=== PATIENT | female | born 1935 | race Caucasian/White ===

== ENCOUNTER 2017-05-19 06:00 | Outpatient (RCR) | payer SELFPAY | END 2017-05-25 23:59 | LOC: CR 06:00 | PROVIDERS: Family Provider Family Medicine; PCP Family Medicine; Visit Provider Internal Medicine Cardiovascular Disease | DX: Z00.00 Encounter for general adult medical examination without abnormal findings (principal) ==

== ENCOUNTER 2017-06-21 06:00 | Outpatient (RCR) | payer MEDICARE, SELFPAY ==
[2017-04-26 07:00] VITALS: BP 158/75; BMI 33.0
== END 2017-06-22 23:59 ==
LOC: CR 06:00
PROVIDERS: Family Provider Family Medicine; PCP Family Medicine; Visit Provider Internal Medicine Cardiovascular Disease
DX: Z00.00 Encounter for general adult medical examination without abnormal findings (principal)

== ENCOUNTER 2017-07-21 06:00 | Outpatient (RCR) | payer SELFPAY | END 2017-07-23 23:59 | LOC: CR 06:00 | PROVIDERS: Family Provider Family Medicine; PCP Family Medicine; Visit Provider Internal Medicine Cardiovascular Disease | DX: Z00.00 Encounter for general adult medical examination without abnormal findings (principal) ==

== ENCOUNTER 2017-08-18 06:00 | Outpatient (RCR) | payer SELFPAY | END 2017-08-22 23:59 | LOC: CR 06:00 | PROVIDERS: Family Provider Family Medicine; PCP Family Medicine; Visit Provider Internal Medicine Cardiovascular Disease | DX: Z00.00 Encounter for general adult medical examination without abnormal findings (principal) ==

== ENCOUNTER → 2017-08-26 08:34 | Outpatient (CLI) | payer MEDICARE, OTHER, SELFPAY ==
[2017-08-26 10:42] LABS: Microalbumin,Random Urine 6.9 mg/L (NO RANGE EST.)
[2017-08-26 10:45] LABS: AST(SGOT) 16 U/L (15-37); Alanine Aminotransfer ALT/SGPT 16 U/L (13-56); Albumin, Serum 3.5 g/dL (3.2-5.0); Alkaline Phosphatase 73 U/L (45-117); Anion Gap 7 (5-15); BUN 29 mg/dL (7-18); BUN/Creat Ratio 33.4 RATIO (10-20); Bilirubin, Direct 0.14 mg/dL (0.00-0.30); Calcium,Total 8.6 mg/dL (8.5-10.1); Chloride 106 mmol/L (98-107); Creatinine, Serum 0.87 mg/dL (0.55-1.02); EST Glomerular Filtration Rate 67 mL/min (>60); Est Glom Filt Rate - Afr Amer 81 mL/min (>60); Globulin 3.2 g/dL (2.2-4.2); Glucose 118 mg/dL (74-106); Potassium 3.8 mmol/L (3.5-5.1); Protein, Total 6.7 g/dL (6.4-8.2); Sodium Level 138 mmol/L (136-145); Thyroid Stim Hormone (TSH) 1.66 uIU/mL (0.358-3.74)
== END ==
PROVIDERS: Family Provider Family Medicine; PCP Family Medicine; Visit Provider Family Medicine
DX: E11.9 Type 2 diabetes mellitus without complications (principal); E03.9 Hypothyroidism, unspecified
CPT/HCPCS: 36415; 80048; 80076; 82043; 82570; 84443

== ENCOUNTER 2017-09-22 06:00 | Outpatient (RCR) | payer SELFPAY | END 2017-09-22 23:59 | LOC: CR 06:00 | PROVIDERS: Family Provider Family Medicine; PCP Family Medicine; Visit Provider Internal Medicine Cardiovascular Disease | DX: Z00.00 Encounter for general adult medical examination without abnormal findings (principal) ==

== ENCOUNTER 2017-09-22 09:30 | Outpatient (RCR) | payer MEDICARE, OTHER, SELFPAY ==
[2017-09-15 08:59] VITALS: BP 185/94; PULSE 57; RESP 18; TEMP 36.4; BMI 71.1
--- NOTE | 2017-09-15 14:01 | PCM.WC.HP ---
(1) Ulcer of right foot with fat layer exposed Status: Acute Current Visit: Yes Code(s): L97.512 - Non-pressure chronic ulcer of other part of right foot with fat layer exposed (2) Type 2 diabetes mellitus with diabetic polyneuropathy Status: Acute Current Visit: Yes Code(s): E11.42 - Type 2 diabetes mellitus with diabetic polyneuropathy (3) Lower extremity edema Status: Acute Current Visit: Yes Code(s): R60.0 - Localized edema History of Present Illness Date of Service: 09/15/17 Chief Complaint: ulcer right second toe History of Wound: This 81-year-old diabetic female was referred to the wound healing center by Dr. Rowland. Patient was seen by him in office last week and she had a small blister to the lateral right second toe, with a small ulcer appreciated upon debridement. Patient states that she has been trying to keep the toe and that she has noticed healing over the last week. Aside from keeping the toe , she is tried to keep a dressing on the toe as well. She denies any purulence to the area or any extending redness. Patient also denies any feelings of nausea, vomiting, fever, chills. Past Medical History Past Medical History: Chronic Problems (Last Reviewed 08/15/17 @ 11:13 by Zaina Condon) Atherosclerotic heart disease of [place] coronary artery without angina pectoris (Chronic) CABG x1 - [facility]LO[facility] to [facility] 11/10/05 History of aortic valve replacement with bioprosthetic valve (Chronic ~11/10/05) [facility] [facility] [employer] valve Presence of aortocoronary bypass graft (Chronic ~11/10/05) CABG x1 - ELOINA to [facility] 11/10/05 JOHN (obstructive sleep apnea) (Chronic) Pulmonary hypertension (Chronic) DM II (diabetes mellitus, type II), controlled (Chronic) Hyperlipemia (Chronic) HTN (hypertension) (Chronic) Paroxysmal supraventricular tachycardia (Chronic) Premature ventricular contraction (Chronic) Supraventricular tachycardia (Chronic) Allergies/Adverse Reactions: Allergies celecoxib [From Celebrex] Allergy (Intermediate, Verified 09/15/17 09:12) Other - jittery & edema Home Medications: Ambulatory Orders Medication Instructions Recorded aspirin 81 mg tablet,delayed 81 mg PO QDAY 04/15/17 release calcium carbonate-vitamin D3 600 1 cap PO QDAY ea 04/15/17 mg calcium-200 unit capsule cetirizine 10 mg capsule 10 mg PO PRN cap 04/15/17 fenofibrate nanocrystallized 145 145 mg PO QDAY 04/15/17 mg tablet hydrochlorothiazide 25 mg tablet 25 mg PO QDAY 04/15/17 isosorbide mononitrate ER 30 mg 30 mg PO QAM 04/15/17 tablet,extended release 24 hr meloxicam 15 mg tablet 7.5 mg PO BID tab 04/15/17 metformin 500 mg tablet 500 mg PO QDAY tab 04/15/17 metoprolol succinate ER 100 mg 100 mg PO BID tab 04/15/17 tablet,extended release 24 hr nitroglycerin 0.4 mg sublingual 0.4 mg SUBLINGUAL Q5M PRN 04/15/17 tablet pravastatin 40 mg tablet 40 mg PO QHS 04/15/17 levothyroxine 100 mcg tablet 100 mcg PO QDAY 08/15/17 lisinopril 5 mg tablet 5 mg PO QDAY 08/15/17 Smoking Status: Never smoker Review of Systems Constitutional: Denies: Chills, Fever, Weight Change Cardiovascular: Denies: Chest Pain, Palpitations Respiratory: Denies: Cough, Shortness of Breath Gastrointestinal: Denies: Diarrhea, Nausea, Vomiting Skin: Reports: Wounds - Physical Exam Vital Signs Temp Pulse Resp BP 97.5 F L 57 L 18 185/94 H 09/15/17 08:59 09/15/17 08:59 09/15/17 08:59 09/15/17 08:59 General: Alert, Oriented x3, Cooperative, No apparent distress Extremities: Capillary Refill Less than 3 Seconds, No Calf Tenderness - Negative Thaddeus and Hardy sign, Diminished Peripheral Pulses - DP pulse palpable and PT pulses nonpalpable due to lower extremity pitting edema, Edema - Lower extremity pitting edema Skin: Ulcer/ Wound - Ulcer with fat layer exposed noted to the lateral aspect of the right second toe. Ulcer base is a mixture of adherent slough, fibrin, hyperkeratotic tissue, as well as some granular tissue. There is no purulence, no malodor, no extending cellulitis, no increase in warmth, no probing to bone, no tracking, no undermining. Wound Measurements and Assessment WC - Nurse 1 - General Ulcer Measurement Start: 09/15/17 08:59 Freq: Status: Active Protocol: Activity Type Activity Date Activity User E-Sign Co-Sign Detail Recorded Client Recorded Date Recorded By Document 09/15/17 08:59 DL [id number] 09/15/17 09:10 DL 09/15/17 08:59 Wound Center Nurse 1 [Ulcer Assessment] #1 R 2nd toe med -Combined with other wound No -Current Size (cm) - Length 0.3 -Current Size (cm) - Width 0.3 -Current Size (cm) - Depth 0.1 -Total Square Cm 0.09 -Photo Taken Yes -Classification - Thickness Partial Thickness -Classification - [place] Grading ( Grade 1 Diabetic Ulcer) -Exudate Amt None Present (0 %) -Wound Margin Thickened -Granulation Amt Large (67-100%) -Granulation Quality Blanket -Structure Exposed N/A -Texture (Shaylee-wound Skin Appearance) Callus Scarring -Moisture (Shaylee-wound Skin Appearance No Abnormality ) -Color (Shaylee-wound Skin Appearance) No Abnormality -Temperature (Shaylee-wound Skin No Abnormality Appearance) (Pt Warm) -Ulcer Cleansing Wound Cleanser -Foul Odor after Cleansing No -Anesthetic Used 4% Lidocaine Solution [Edema Assessment] -Right Calf (cm) 43 -Right Ankle (cm) 27.5 -Left Calf (cm) 42 -Left Ankle (cm) 27.6 WC - Nurse 2 - General Ulcer CM Notes Start: 09/15/17 08:59 Freq: Status: Active Protocol: Activity Type Activity Date Activity User E-Sign Co-Sign Detail Recorded Client Recorded Date Recorded By Document 09/15/17 09:49 DENZEL [id number] 09/15/17 10:00 09/15/17 09:49 Wound Center Nurse 2 [Procedure/Treatment] #1 R 2nd toe med -Time 09:49 -Correct Patient Yes -Correct Side, Site, Position Yes -Correct Procedure Yes -Procedure Performed Yes -Type of Procedure Debridement -Clinical Debridement Subcutaneous -Post Debridement Size (cm) - Length 0.4 -Post Debridement Size (cm) - Width 0.4 -Post Debridement Size (cm) - Depth 0.1 -Total Square Cm 0.16 -Wound/Ulcer Outcome Not Healed -Ulcer Cleansing Rinsed/ Irrigated with Saline -Foul Odor after Cleansing No -Bioengineered Tissue No -Injectable Lidocaine (%) 4 -Injectable Lidocaine w/ Epi (%) 5 -Bleeding Controlled with NA -Treatment Response Procedure Tolerated Well [See Physician Procedure note for Specifics] Pain Scale: 0-10 Numeric [Pain] -Is Patient Pain Free? Yes Musculoskeletal: Tenderness - With manipulation of the ulcer site, - - Dorsally contracted hammertoe deformities of digits 2 through 5. Bilateral HAV deformity. Neurological: Sensory exam intact to light touch and pain Psych/Mental Status: Normal Affect, Appropriate Debridement Note Post-Debridement Measurements/Treatment WC - Nurse 2 - General Ulcer CM Notes Start: 09/15/17 08:59 Freq: Status: Active Protocol: Activity Type Activity Date Activity User E-Sign Co-Sign Detail Recorded Client Recorded Date Recorded By Document 09/15/17 09:49 DENZEL [id number] 09/15/17 10:00 DENZEL 09/15/17 09:49 Wound Center Nurse 2 #1 R 2nd toe med -Time 09:49 -Correct Patient Yes -Correct Side, Site, Position Yes -Correct Procedure Yes -Procedure Performed Yes -Type of Procedure Debridement -Clinical Debridement Subcutaneous -Post Debridement Size (cm) - Length 0.4 -Post Debridement Size (cm) - Width 0.4 -Post Debridement Size (cm) - Depth 0.1 -Total Square Cm 0.16 -Wound/Ulcer Outcome Not Healed -Ulcer Cleansing Rinsed/ Irrigated with Saline -Foul Odor after Cleansing No -Bioengineered Tissue No -Injectable Lidocaine (%) 4 -Injectable Lidocaine w/ Epi (%) 5 -Bleeding Controlled with NA -Treatment Response Procedure Tolerated Well Pain Scale: 0-10 Numeric Is Patient Pain Free? Yes Wound debrided: Right lateral second toe Laterality: Right Wound Grade/Stage: 1 Type of Debridement: Excisional debridement Anesthesia Used: 4% Lidocaine Solution Depth: in the subcutaneous layer Percentage of wound debrided: 100 Instrument Used: #15 blade Tissue Removed: Adherent slough, fibrin, hyperkeratotic tissue Severity: Fat Layer Exposed Amount of bleeding with debridement: Mild Bleeding Controlled with: Pressure Patient tolerated procedure well Assessment/Plan Active Problems (Last Reviewed 08/15/17 @ 11:13 by Zaina Condon) Ulcer of right foot with fat layer exposed (Acute) Type 2 diabetes mellitus with diabetic polyneuropathy (Acute) Lower extremity edema (Acute) Assessment: Ulcer to right lateral 2nd toe with fat layer exposed. DM 2 Plan: Initial patient examination and evaluation was performed. A subcutaneous debridement was performed as noted in the clinical panel. Once complete the ulcer site was carefully cleansed with normal sterile saline. The ulcer site was then dressed with Aquacel Ag followed by dry sterile dressing. The patient is to continue with dressings in this manner daily. Patient was also instructed to continue with the toe spacer in order to keep the toe as well as keeping pressure off of the ulcer site in order to allow it to heal. She says she understands this. There are no clinical signs of infection appreciated today, so I do not feel antibiotics are warranted at this time. I recommend a diet high in protein to optimize wound healing. The importance of tight glycemic control was discussed with this patient. Patient was educated on the signs and symptoms of local and systemic infection, and was instructed to go to the emergency room immediately should she notice any. All other questions were answered to the patient's satisfaction. She will follow-up in clinic in 1 week or sooner if needed.
[2017-09-22 09:47] VITALS: BP 149/63; PULSE 54; RESP 18; TEMP 36.6; BMI 71.1
--- NOTE | 2017-09-22 12:22 | PN.PCM_ITS ---
(1) Ulcer of right foot with fat layer exposed Status: Acute Current Visit: Yes Code(s): L97.512 - Non-pressure chronic ulcer of other part of right foot with fat layer exposed (2) Type 2 diabetes mellitus with diabetic polyneuropathy Status: Acute Current Visit: Yes Code(s): E11.42 - Type 2 diabetes mellitus with diabetic polyneuropathy (3) Lower extremity edema Status: Acute Current Visit: Yes Code(s): R60.0 - Localized edema Type of Wound Date of Service: 09/22/17 Chief Complaint: ulcer right second toe History of Wound: This 81-year-old diabetic female was referred to the wound healing center by Dr. Rowland. Patient was seen by him in office last week and she had a small blister to the lateral right second toe, with a small ulcer appreciated upon debridement. Patient states that she has been trying to keep the toe and that she has noticed healing over the last week. Aside from keeping the toe , she is tried to keep a dressing on the toe as well. She denies any purulence to the area or any extending redness. Patient also denies any feelings of nausea, vomiting, fever, chills. Progress of Wound: Patient presents for follow up of right 2nd toe ulcer. She says she did her best to keep the toes . She was able to complete her daily dressing changes as instructed. She currently denies any feelings of nausea, vomiting, fever, chills. - Physical Exam Vital Signs Temp Pulse Resp BP 97.8 F 54 L 18 149/63 H 09/22/17 09:47 09/22/17 09:47 09/22/17 09:47 09/22/17 09:47 General: Alert, Oriented x3, Cooperative, No apparent distress Extremities: Capillary Refill Less than 3 Seconds, No Calf Tenderness - negative paula and arredondo sign, Diminished Peripheral Pulses - DP pulses palpable and PT pulses nonpalpable due to pitting lower extremity edema, Edema - Lower extremity pitting edema appreciated Skin: Ulcer/ Wound - Ulcer with fat layer exposed noted to the lateral aspect of the right second toe. Ulcer appears slightly improved since last week. Ulcer base is still a mixture of adherent slough, fibrin, hyperkeratotic tissue , as well as some granular tissue. There is no purulence, no malodor, no extending cellulitis, no increase in warmth, no probing to bone, no tracking, no undermining. Wound Measurements and Assessment WC - Nurse 1 - General Ulcer Measurement Start: 09/15/17 08:59 Freq: Status: Active Protocol: Activity Type Activity Date Activity User E-Sign Co-Sign Detail Recorded Client Recorded Date Recorded By Document 09/22/17 09:47 DL [id number] 09/22/17 09:54 DL 09/22/17 09:47 Wound Center Nurse 1 [Ulcer Assessment] #1 R 2nd toe med -Current Size (cm) - Length 0.1 -Current Size (cm) - Width 0.1 -Current Size (cm) - Depth 0.1 -Total Square Cm 0.01 -Photo Taken No -Exudate Amt None Present (0 %) -Wound Margin Flat & Intact -Granulation Amt Small (1-33%) -Granulation Quality Pale -Necrosis Amt Small (1-33%) -Necrotic Tissue Type Adherent Slough -Structure Exposed N/A -Texture (Shaylee-wound Skin Appearance) Callus -Moisture (Shaylee-wound Skin Appearance Dry/Scaly ) -Color (Shaylee-wound Skin Appearance) No Abnormality -Temperature (Shaylee-wound Skin No Abnormality Appearance) (Pt Warm) -Ulcer Cleansing Rinsed/ Irrigated with Saline -Foul Odor after Cleansing No -Anesthetic Used 4% Lidocaine Solution - Nurse 2 - General Ulcer CM Notes Start: 09/15/17 08:59 Freq: Status: Active Protocol: Activity Type Activity Date Activity User E-Sign Co-Sign Detail Recorded Client Recorded Date Recorded By Document 09/22/17 10:43 DENZEL [id number] 09/22/17 10:50 DENZEL 09/22/17 10:43 Wound Center Nurse 2 [Procedure/Treatment] -Time 10:44 -Correct Patient Yes -Correct Side, Site, Position Yes -Correct Procedure Yes -Procedure Performed Yes -Type of Procedure Debridement -Clinical Debridement Subcutaneous -Post Debridement Size (cm) - Length 0.5 -Post Debridement Size (cm) - Width 0.3 -Post Debridement Size (cm) - Depth 0.1 -Total Square Cm 0.15 -Wound/Ulcer Outcome Not Healed -Ulcer Cleansing Rinsed/ Irrigated with Saline -Foul Odor after Cleansing No -Bioengineered Tissue No -Topical Lidocaine (%) 4 -Lidocaine (ml) 5 -Bleeding Controlled with NA -Treatment Response Procedure Tolerated Well [See Physician Procedure note for Specifics] Pain Scale: 0-10 Numeric [Pain] -Is Patient Pain Free? Yes Musculoskeletal: - - Dorsally contracted hammertoe deformities of digits 2 through 5. Bilateral HAV deformity. Neurological: Sensory exam intact to light touch and pain Psych/Mental Status: Normal Affect, Appropriate Debridement Note Post-Debridement Measurements/Treatment WC - Nurse 2 - General Ulcer CM Notes Start: 09/15/17 08:59 Freq: Status: Active Protocol: Activity Type Activity Date Activity User E-Sign Co-Sign Detail Recorded Client Recorded Date Recorded By Document 09/15/17 09:49 [id number] 09/15/17 10:00 JS Document 09/22/17 10:43 [id number] 09/22/17 10:50 JS 09/15/17 09/22/17 09:49 10:43 Wound Center Nurse 2 #1 R 2nd toe med -Time 09:49 10:44 -Correct Patient Yes Yes -Correct Side, Site, Position Yes Yes -Correct Procedure Yes Yes -Procedure Performed Yes Yes -Type of Procedure Debridement Debridement -Clinical Debridement Subcutaneous Subcutaneous -Post Debridement Size (cm) - Length 0.4 0.5 -Post Debridement Size (cm) - Width 0.4 0.3 -Post Debridement Size (cm) - Depth 0.1 0.1 -Total Square Cm 0.16 0.15 -Wound/Ulcer Outcome Not Healed Not Healed -Ulcer Cleansing Rinsed/ Rinsed/ Irrigated with Irrigated with Saline Saline -Foul Odor after Cleansing No No -Bioengineered Tissue No No -Topical Lidocaine (%) 4 -Injectable Lidocaine (%) 4 -Lidocaine (ml) 5 -Injectable Lidocaine w/ Epi (%) 5 -Bleeding Controlled with NA NA -Treatment Response Procedure Procedure Tolerated Well Tolerated Well Pain Scale: 0-10 Numeric Is Patient Pain Free? Yes Yes Wound debrided: right lateral 2nd toe Laterality: Right Type of Debridement: Excisional debridement Anesthesia Used: 4% Lidocaine Solution Depth: in the subcutaneous layer Percentage of wound debrided: 100 Instrument Used: #15 blade Tissue Removed: Adherent slough, fibrin, hyperkeratotic tissue Severity: Fat Layer Exposed Amount of bleeding with debridement: Mild Bleeding Controlled with: Pressure Patient tolerated procedure well Assessment/Plan Active Problems (Last Reviewed 08/15/17 @ 11:13 by Zaina Condon) Ulcer of right foot with fat layer exposed (Acute) Type 2 diabetes mellitus with diabetic polyneuropathy (Acute) Lower extremity edema (Acute) Assessment: Ulcer to right lateral 2nd toe with fat layer exposed. DM 2 Plan: Patient was examined and evaluated again today. Another subcutaneous debridement was performed as noted in the clinical panel. Once complete the ulcer site was carefully cleansed with normal sterile saline. The ulcer site was then dressed with Aquacel Ag followed by dry sterile dressing. The patient is to continue with dressings in this manner daily. Patient was also instructed to continue with the toe spacer in order to keep the toe as well as keeping pressure off of the ulcer site in order to allow it to heal. She says she understands this. There are no clinical signs of infection appreciated today. I recommend a diet high in protein to optimize wound healing. The importance of tight glycemic control was discussed with this patient. Patient was educated on the signs and symptoms of local and systemic infection, and was instructed to go to the emergency room immediately should she notice any. All other questions were answered to the patient's satisfaction. She will follow-up in clinic in 1 week or sooner if needed.
== END 2017-09-22 23:59 ==
LOC: WC 09:30
PROVIDERS: Family Provider Family Medicine; PCP Family Medicine; Visit Provider Podiatrist
DX: L97.512 Non-pressure chronic ulcer of other part of right foot with fat layer exposed (principal); E11.42 Type 2 diabetes mellitus with diabetic polyneuropathy; R60.0 Localized edema; G47.33 Obstructive sleep apnea (adult) (pediatric); I25.10 Atherosclerotic heart disease of native coronary artery without angina pectoris; Z95.1 Presence of aortocoronary bypass graft; I27.20 Pulmonary hypertension, unspecified; E11.9 Type 2 diabetes mellitus without complications; I10 Essential (primary) hypertension; E78.5 Hyperlipidemia, unspecified
CPT/HCPCS: 11042; 99212; G0463

== ENCOUNTER 2017-10-13 09:02 | Outpatient (RCR) | payer MEDICARE, OTHER, SELFPAY ==
[2017-09-23 01:19] VITALS: BP 149/63; PULSE 54; RESP 18; TEMP 36.6
[2017-10-13 09:12] VITALS: BP 144/71; PULSE 62; RESP 18; TEMP 36.1
--- NOTE | 2017-10-13 09:38 | PN.PCM_ITS ---
(1) Ulcer of right foot with fat layer exposed Status: Acute Current Visit: No Code(s): L97.512 - Non-pressure chronic ulcer of other part of right foot with fat layer exposed (2) Type 2 diabetes mellitus with diabetic polyneuropathy Status: Acute Current Visit: No Code(s): E11.42 - Type 2 diabetes mellitus with diabetic polyneuropathy (3) Lower extremity edema Status: Acute Current Visit: No Code(s): R60.0 - Localized edema Type of Wound Date of Service: 10/13/17 Chief Complaint: ulcer right second toe History of Wound: This 81-year-old diabetic female was referred to the wound healing center by Dr. Rowland. Patient was seen by him in office last week and she had a small blister to the lateral right second toe, with a small ulcer appreciated upon debridement. Patient states that she has been trying to keep the toe and that she has noticed healing over the last week. Aside from keeping the toe , she is tried to keep a dressing on the toe as well. She denies any purulence to the area or any extending redness. Patient also denies any feelings of nausea, vomiting, fever, chills. Progress of Wound: Patient presents for follow up of right 2nd toe ulcer. She says she did her best to keep the toes . Ulcer appears healed today. She currently denies any feelings of nausea, vomiting, fever, chills. - Physical Exam Vital Signs Temp Pulse Resp BP 97 F L 62 18 144/71 H 10/13/17 09:12 10/13/17 09:12 10/13/17 09:12 10/13/17 09:12 General: Alert, Oriented x3, Cooperative, No apparent distress Extremities: Capillary Refill Less than 3 Seconds, No Calf Tenderness, Diminished Peripheral Pulses - DP pulses and PT pulses nonpalpable due to lower extremity pitting edema, Edema - Negative Thaddeus and Hardy sign lower extremity edema Skin: Ulcer/ Wound - Previous ulcer with fat layer exposed noted to the lateral aspect of the right second toe is healed today, with no signs or symptoms of infection appreciated. Wound Measurements and Assessment WC - Nurse 1 - General Ulcer Measurement Start: 10/13/17 09:12 Freq: Status: Active Protocol: Activity Type Activity Date Activity User E-Sign Co-Sign Detail Recorded Client Recorded Date Recorded By Document 10/13/17 09:12 AI [id number] 10/13/17 09:14 RB 10/13/17 09:12 Wound Center Nurse 1 [Ulcer Assessment] #1 R 2nd toe med -Combined with other wound No -Current Size (cm) - Length 0.1 -Current Size (cm) - Width 0.1 -Current Size (cm) - Depth 0.1 -Total Square Cm 0.01 -Photo Taken No -Tunneling No -Undermining/Tunneling No -Circular Undermining No -Classification - Thickness Full Thickness without Exposed Support Structure -Exudate Amt Small (1-33%) -Exudate Type Serosanguineous -Wound Margin Distinct, Outline Attached -Granulation Amt Large (67-100%) -Granulation Quality [place] -Slough/Fibrin No -Necrosis Amt None Present (0 %) -Structure Exposed N/A -Texture (Shaylee-wound Skin Appearance) Assessed -Moisture (Shaylee-wound Skin Appearance Assessed ) -Color (Shaylee-wound Skin Appearance) Assessed -Temperature (Shaylee-wound Skin No Abnormality Appearance) (Pt Warm) -Tenderness on Palpation (Shaylee-wound No Skin Appearance) -Ulcer Cleansing Rinsed/ Irrigated with Saline -Foul Odor after Cleansing No Musculoskeletal: - - Dorsally contracted hammertoe deformities of digits 2 through 5. Bilateral HAV deformity. Neurological: Sensory exam intact to light touch and pain Psych/Mental Status: Normal Affect, Appropriate Debridement Note No debridement was completed today Assessment/Plan Assessment: Ulcer to right lateral 2nd toe with fat layer exposed. DM 2 Plan: Patient was examined and evaluated again today. She is healed at this time with no complications or any signs or symptoms of local infection. Patient was instructed to continue with the toe spacer in order to keep the toe as well as keeping pressure off of the site even though she has healed. She says she understands this. There are no clinical signs of infection appreciated today. I recommend a diet high in protein to optimize wound healing. The importance of tight glycemic control was discussed with this patient. Patient was educated on the signs and symptoms of local and systemic infection, and was instructed to go to the emergency room immediately should she notice any. All other questions were answered to the patient's satisfaction. She will follow-up in clinic in 1 week or sooner if needed.
== END 2017-10-22 23:59 ==
LOC: WC 09:02
PROVIDERS: Family Provider Family Medicine; PCP Family Medicine; Visit Provider Podiatrist
DX: E11.621 Type 2 diabetes mellitus with foot ulcer (principal); E11.42 Type 2 diabetes mellitus with diabetic polyneuropathy; L97.512 Non-pressure chronic ulcer of other part of right foot with fat layer exposed; R60.0 Localized edema
CPT/HCPCS: 97597; 99212; G0463

== ENCOUNTER → 2017-10-17 10:49 | Outpatient (CLI) | payer MEDICARE, OTHER, SELFPAY ==
[2017-10-17 11:00] VITALS: PULSE 101; PULSE 65; PULSE 70; PULSE 71; PULSE 75; PULSE 77; PULSE 84; PULSE 90; O2SAT 93; O2SAT 94; O2SAT 95; O2SAT 96; O2SAT 97
--- NOTE | 2017-10-18 05:44 | WT_ITS ---
PSN 6 Minute Walk Test - 6 Minute Walk Test 6 Minute Walk Test: 6 Minute Walk Test PSN:6-Minute Walk Test Start: 10/17/17 11: 21 Freq: Status: Active Protocol: RESP.6MINW Document 10/17/17 11:00 EW (Rec: 10/17/17 11:24 EW [id number]) 6 Minute Walk Test Date Performed 10/17/17 Time Performed 11:00 Height 5 ft 5 in Weight: 89.358 kg Weight in Pounds 197.[address]: Matthew Alexander Assistive device used: None Pre-test Oxygen Delivery Method Room Air Pulse Ox (%) 95 Pulse Rate (60-100 beats/min) 70 Dyspnea Juan C Scale (0-10) 0 Exertion Juan C Scale (6-20) 8 1st minute Oxygen Delivery Method Room Air Pulse Ox (%) 96 Pulse Rate (60-100 beats/min) 84 2nd minute Oxygen Delivery Method Room Air Pulse Ox (%) 97 Pulse Rate (60-100 beats/min) 75 3rd minute Oxygen Delivery Method Room Air Pulse Ox (%) 96 Pulse Rate (60-100 beats/min) 65 4th minute Oxygen Delivery Method Room Air Pulse Ox (%) 94 Pulse Rate (60-100 beats/min) 71 5th minute Oxygen Delivery Method Room Air Pulse Ox (%) 93 Pulse Rate (60-100 beats/min) 90 6th minute Oxygen Delivery Method Room Air Pulse Ox (%) 95 Pulse Rate (60-100 beats/min) 101 H Post-test Oxygen Delivery Method Room Air Pulse Ox (%) 95 Pulse Rate (60-100 beats/min) 77 Dyspnea Juan C Scale (0-10) 3 Exertion Juan C Scale (6-20) 13 Full Laps Walked 12 Partial Lap, Number of Tiles Walked 39 Total Distance Walked (ft) 747 - Interpretation Interpretation: The patient was able to ambulate only 747 feet over the course of 6 minutes on room air with no assistive devices or breaks. No significant desaturation or tachycardia was noted. These findings are consistent with a musculoskeletal limitation exercise tolerance. - Recommendations Recommendations: No supplemental oxygen is indicated at this time.
== END ==
PROVIDERS: Family Provider Family Medicine; PCP Family Medicine; Visit Provider Internal Medicine Critical Care Medicine
DX: R06.00 Dyspnea, unspecified (principal)
CPT/HCPCS: 94618

== ENCOUNTER 2017-10-20 06:00 | Outpatient (RCR) | payer SELFPAY | END 2017-10-22 23:59 | LOC: CR 06:00 | PROVIDERS: Family Provider Family Medicine; PCP Family Medicine; Visit Provider Internal Medicine Cardiovascular Disease | DX: Z00.00 Encounter for general adult medical examination without abnormal findings (principal) ==

== ENCOUNTER 2017-11-22 06:00 | Outpatient (RCR) | payer MEDICARE, OTHER, SELFPAY | END 2017-11-22 23:59 | LOC: CR 06:00 | PROVIDERS: Family Provider Family Medicine; PCP Family Medicine; Visit Provider Internal Medicine Cardiovascular Disease | DX: Z00.00 Encounter for general adult medical examination without abnormal findings (principal) ==

== ENCOUNTER 2017-12-22 06:00 | Outpatient (RCR) | payer SELFPAY | END 2017-12-23 23:59 | LOC: CR 06:00 | PROVIDERS: Family Provider Family Medicine; PCP Family Medicine; Visit Provider Internal Medicine Cardiovascular Disease | DX: Z00.00 Encounter for general adult medical examination without abnormal findings (principal) ==

== ENCOUNTER 2018-01-19 06:00 | Outpatient (RCR) | payer SELFPAY | END 2018-01-22 23:59 | LOC: CR 06:00 | PROVIDERS: Family Provider Family Medicine; PCP Family Medicine; Visit Provider Internal Medicine Cardiovascular Disease | DX: Z00.00 Encounter for general adult medical examination without abnormal findings (principal) ==

== ENCOUNTER 2018-02-21 06:00 | Outpatient (RCR) | payer SELFPAY | END 2018-02-22 23:59 | LOC: CR 06:00 | PROVIDERS: Family Provider Family Medicine; PCP Family Medicine; Referring Provider Internal Medicine Cardiovascular Disease; Visit Provider Internal Medicine Cardiovascular Disease | DX: Z00.00 Encounter for general adult medical examination without abnormal findings (principal) ==

== ENCOUNTER → 2018-03-03 08:28 | Outpatient (CLI) | payer MEDICARE, OTHER, SELFPAY ==
[2018-03-03 10:39] LABS: Microalbumin,Random Urine < 5.0 mg/L (NO RANGE EST.)
[2018-03-03 10:54] LABS: AST(SGOT) 18 U/L (15-37); Alanine Aminotransfer ALT/SGPT 21 U/L (13-56); Albumin, Serum 3.5 g/dL (3.2-5.0); Alkaline Phosphatase 66 U/L (45-117); Anion Gap 10 (5-15); BUN 21 mg/dL (7-18); BUN/Creat Ratio 22.6 RATIO (10-20); Bilirubin, Direct 0.27 mg/dL (0.00-0.30); Calcium,Total 8.6 mg/dL (8.5-10.1); Chloride 104 mmol/L (98-107); Creatinine, Serum 0.93 mg/dL (0.55-1.02); EST Glomerular Filtration Rate 62 mL/min (>60); Est Glom Filt Rate - Afr Amer 74 mL/min (>60); Globulin 3.1 g/dL (2.2-4.2); Glucose 105 mg/dL (74-106); Potassium 4.2 mmol/L (3.5-5.1); Protein, Total 6.6 g/dL (6.4-8.2); Sodium Level 141 mmol/L (136-145); Thyroid Stim Hormone (TSH) 2.56 uIU/mL (0.358-3.74)
== END ==
PROVIDERS: Family Provider Family Medicine; PCP Family Medicine; Visit Provider Family Medicine
DX: E11.9 Type 2 diabetes mellitus without complications (principal)
CPT/HCPCS: 36415; 80048; 80076; 82043; 82570; 84443

== ENCOUNTER 2018-03-23 06:00 | Outpatient (RCR) | payer SELFPAY | END 2018-03-24 23:59 | LOC: CR 06:00 | PROVIDERS: Family Provider Family Medicine; PCP Family Medicine; Referring Provider Internal Medicine Cardiovascular Disease; Visit Provider Internal Medicine Cardiovascular Disease | DX: Z00.00 Encounter for general adult medical examination without abnormal findings (principal) ==

== ENCOUNTER 2018-04-13 06:00 | Outpatient (RCR) | payer SELFPAY | END 2018-04-24 23:59 | LOC: CR 06:00 | PROVIDERS: Family Provider Family Medicine; PCP Family Medicine; Referring Provider Internal Medicine Cardiovascular Disease; Visit Provider Internal Medicine Cardiovascular Disease | DX: Z00.00 Encounter for general adult medical examination without abnormal findings (principal) ==

== ENCOUNTER 2018-05-25 06:00 | Outpatient (RCR) | payer MEDICARE, OTHER, SELFPAY ==
[2018-04-12 06:36] VITALS: BMI 32.1
== END 2018-05-25 23:59 ==
LOC: CR 06:00
PROVIDERS: Family Provider Family Medicine; PCP Family Medicine; Referring Provider Internal Medicine Cardiovascular Disease; Visit Provider Internal Medicine Cardiovascular Disease
DX: Z00.00 Encounter for general adult medical examination without abnormal findings (principal)

== ENCOUNTER 2018-06-22 06:00 | Outpatient (RCR) | payer SELFPAY ==
[2018-04-12 06:36] VITALS: BMI 32.1
== END 2018-06-22 23:59 ==
LOC: CR 06:00
PROVIDERS: Family Provider Family Medicine; PCP Family Medicine; Referring Provider Internal Medicine Cardiovascular Disease; Visit Provider Internal Medicine Cardiovascular Disease
DX: Z00.00 Encounter for general adult medical examination without abnormal findings (principal)

== ENCOUNTER 2018-07-20 06:00 | Outpatient (RCR) | payer SELFPAY ==
[2018-04-12 06:36] VITALS: BMI 32.1
[2018-06-26 16:15] VITALS: BMI 32.1
== END 2018-07-23 23:59 ==
LOC: CR 06:00
PROVIDERS: Family Provider Family Medicine; PCP Family Medicine; Referring Provider Internal Medicine Cardiovascular Disease; Visit Provider Internal Medicine Cardiovascular Disease
DX: Z00.00 Encounter for general adult medical examination without abnormal findings (principal)

== ENCOUNTER 2018-08-17 06:00 | Outpatient (RCR) | payer SELFPAY ==
[2018-06-26 16:15] VITALS: BMI 32.1
== END 2018-08-22 23:59 ==
LOC: CR 06:00
PROVIDERS: Family Provider Family Medicine; PCP Family Medicine; Referring Provider Internal Medicine Cardiovascular Disease; Visit Provider Internal Medicine Cardiovascular Disease
DX: Z00.00 Encounter for general adult medical examination without abnormal findings (principal)

== ENCOUNTER 2018-09-21 06:00 | Outpatient (RCR) | payer SELFPAY ==
[2018-06-26 16:15] VITALS: BMI 32.1
== END 2018-09-22 23:59 ==
LOC: CR 06:00
PROVIDERS: Family Provider Family Medicine; PCP Family Medicine; Referring Provider Internal Medicine Cardiovascular Disease; Visit Provider Internal Medicine Cardiovascular Disease
DX: Z00.00 Encounter for general adult medical examination without abnormal findings (principal)

== ENCOUNTER → 2018-09-25 | Outpatient (CLI) | payer MEDICARE, OTHER, SELFPAY ==
[2018-04-12 06:36] VITALS: BMI 32.1
[2018-06-26 16:15] VITALS: BMI 32.1
[2018-09-25 09:44] VITALS: PULSE 61; PULSE 65; PULSE 70; PULSE 85; PULSE 86; PULSE 87; PULSE 89; O2SAT 93; O2SAT 95; O2SAT 96; O2SAT 97; O2SAT 98
--- NOTE | 2018-09-26 07:45 | PCM.PSN.6M ---
PSN 6 Minute Walk Test - 6 Minute Walk Test 6 Minute Walk Test: 6 Minute Walk Test PSN:6-Minute Walk Test Start: 09/25/18 09:44 Freq: Status: Active Protocol: [id number].6MINW Document 09/25/18 09:44 MIKE (Rec: 09/25/18 09:46 MIKE [id number]) 6 Minute Walk Test Date Performed 09/25/18 Time Performed 09:00 Height 5 ft 6 in Weight: 198 lb Weight in Pounds 198.[address]: Matthew Alexander Assistive device used: None Pre-test Oxygen Delivery Method Room Air Pulse Ox (%) 96 Pulse Rate (60-100 beats/min) 61 Dyspnea Juan C Scale (0-10) 0 Exertion Juan C Scale (6-20) 6 1st minute Oxygen Delivery Method Room Air Pulse Ox (%) 97 Pulse Rate (60-100 beats/min) 70 2nd minute Oxygen Delivery Method Room Air Pulse Ox (%) 98 Pulse Rate (60-100 beats/min) 87 3rd minute Oxygen Delivery Method Room Air Pulse Ox (%) 96 Pulse Rate (60-100 beats/min) 86 4th minute Oxygen Delivery Method Room Air Pulse Ox (%) 98 Pulse Rate (60-100 beats/min) 86 5th minute Oxygen Delivery Method Room Air Pulse Ox (%) 95 Pulse Rate (60-100 beats/min) 85 6th minute Oxygen Delivery Method Room Air Pulse Ox (%) 93 Pulse Rate (60-100 beats/min) 89 Dyspnea Juan C Scale (0-10) 4 Exertion Juan C Scale (6-20) 13 Post-test Oxygen Delivery Method Room Air Pulse Ox (%) 96 Pulse Rate (60-100 beats/min) 65 Full Laps Walked 14 Partial Lap, Number of Tiles Walked 10 Total Distance Walked (ft) 836 - Interpretation Interpretation: The patient ambulated 836 feet over the course of 6 minutes beginning on room air without assistive devices or breaks. Pretesting oxygen saturation was noted to be 96% on room air. With ambulation, the kristina oxygen saturation was 93%. There was no significant exertional oxygen desaturation. - Recommendations Recommendations: There is no indication for the use of supplemental oxygen at this time.
== END | disposition home or self-care (01) ==
PROVIDERS: Family Provider Family Medicine; PCP Family Medicine; Referring Provider Internal Medicine Critical Care Medicine; Visit Provider Internal Medicine Critical Care Medicine
DX: I27.20 Pulmonary hypertension, unspecified (principal)
CPT/HCPCS: 94618

== ENCOUNTER 2018-10-19 06:00 | Outpatient (RCR) | payer MEDICARE, OTHER, SELFPAY ==
[2018-06-26 16:15] VITALS: BMI 32.1
== END 2018-10-22 23:59 ==
LOC: CR 06:00
PROVIDERS: Family Provider Family Medicine; PCP Family Medicine; Referring Provider Internal Medicine Cardiovascular Disease; Visit Provider Internal Medicine Cardiovascular Disease
DX: Z00.00 Encounter for general adult medical examination without abnormal findings (principal)

== ENCOUNTER 2018-11-21 06:00 | Outpatient (RCR) | payer SELFPAY ==
[2018-10-11 07:31] VITALS: BMI 32.1
== END 2018-11-22 23:59 ==
LOC: CR 06:00
PROVIDERS: Family Provider Family Medicine; PCP Family Medicine; Referring Provider Internal Medicine Cardiovascular Disease; Visit Provider Internal Medicine Cardiovascular Disease
DX: Z00.00 Encounter for general adult medical examination without abnormal findings (principal)

== ENCOUNTER 2018-12-21 06:00 | Outpatient (RCR) | payer SELFPAY ==
[2018-10-11 07:31] VITALS: BMI 32.1
== END 2018-12-23 23:59 ==
LOC: CR 06:00
PROVIDERS: Family Provider Family Medicine; PCP Family Medicine; Referring Provider Internal Medicine Cardiovascular Disease; Visit Provider Internal Medicine Cardiovascular Disease
DX: Z00.00 Encounter for general adult medical examination without abnormal findings (principal)

== ENCOUNTER → 2019-01-12 08:44 | Outpatient (CLI) | payer MEDICARE, OTHER, SELFPAY ==
[2018-10-11 07:31] VITALS: BMI 32.1
--- NOTE | 2019-01-12 08:47 | ECHOD_ITS ---
Reason For Study: VALVE REPLACEMENT EVAL Procedure This was a 2D Doppler, Color Flow transthoracic echocardiogram. Exam performed in department. Left Ventricle Normal left ventricle. Left ventricular systolic function is normal. The estimated ejection fraction is 65 %. No regional wall motion abnormalities noted. Right Ventricle Normal RV size. Normal systolic function. Atria The left atrium is moderately enlarged. The right atrium is mildly enlarged. No doppler evidence for ASD. Mitral Valve There is mild mitral annular calcification. Extension of the mitral annular calcification onto the base of the posterior mitral valve leaflet. Mild-Moderate (1-2+) mitral valve insufficiency. Tricuspid Valve Normal tricuspid valve. Mild tricuspid valve insufficiency. Right ventricular systolic pressure estimated to be 49 mmHg. Aortic Valve Stable appearing bioprosthetic aortic valve apparatus. Pulmonic Valve The pulmonic valve is not well visualized. Trivial pulmonic valve insufficiency. Great Vessels Mildly dilated aortic root. Pericardium/Pleural No pericardial effusion. MMode/2D Measurements & Calculations LVIDd: 5.2 cm IVSd: 1.1 cm LVOT diam: 2.1 cm LVIDs: 3.0 cm LVPWd: 1.1 cm LVOT area: 3.5 cm2 RVDd: 4.5 cm FS: 41.5 % Ao root diam: 4.0 cm LAV(MOD-bp): 96.1 ml LVAd ap4: 29.7 cm2 LAV(MOD-bp) Indexed: 48.4 ml/m2 EDV(MOD-sp4): 95.1 ml LAV(MOD-sp2): 93.3 ml EDV(sp4-el): 99.2 ml LAV(MOD-sp4): 91.7 ml LVAs ap4: 13.3 cm2 ESV(MOD-sp4): 23.2 ml ESV(sp4-el): 22.9 ml EF(MOD-sp4): 75.6 % EF(sp4-el): 76.9 % SV(MOD-sp4): 71.8 ml SV(sp4-el): 76.3 ml LA A4 area: 26.4 cm2 LA dimension(2D): 5.3 cm RA A4 area: 21.8 cm2 Time Measurements MV dec time: 0.43 sec Doppler Measurements & Calculations MV E max patrick: 151.1 cm/sec Lat Peak E' Patrick: 8.3 cm/sec Med Peak E' Patrick: 5.6 cm/sec MV A max patrick: 88.0 cm/sec E/E' lat: 18.2 E/E' med: 27.0 MV E/A: 1.7 Ao V2 max: 316.3 cm/sec LV V1 max: 118.0 cm/sec SV(LVOT): 114.9 ml Ao max P.0 mmHg LV V1 max P.6 mmHg Ao V2 mean: 226.7 cm/sec LV V1 mean P.2 mmHg Ao mean P.1 mmHg LV V1 mean: 84.9 cm/sec Ao V2 VTI: 75.3 cm LV V1 VTI: 32.5 cm DANIELLE(I,D): 1.5 cm2 DANIELLE(V,D): 1.3 cm2 PA V2 max: 121.9 cm/sec TR max patrick: 337.1 cm/sec TR max P.5 mmHg Interpretation Summary Left ventricular systolic function is normal. The estimated ejection fraction is 65 %. The left atrium is moderately enlarged. The right atrium is mildly enlarged. There is mild mitral annular calcification. Extension of the mitral annular calcification onto the base of the posterior mitral valve leaflet. Mild-Moderate (1-2+) mitral valve insufficiency. Mild tricuspid valve insufficiency. Stable appearing bioprosthetic aortic valve apparatus. Trivial pulmonic valve insufficiency. Mildly dilated aortic root. Right ventricular systolic pressure estimated to be 49 mmHg. Transmitral diastolic flow velocities suggest diastolic dysfunction (pseudonormal pattern). Ordering Physician: Ajit Lam Referring Physician: AJIT CHILDERS Performed By: Leslie Herbert RDCS
== END ==
PROVIDERS: Family Provider Family Medicine; PCP Family Medicine; Referring Provider Internal Medicine Cardiovascular Disease; Visit Provider Internal Medicine Cardiovascular Disease
DX: I25.10 Atherosclerotic heart disease of native coronary artery without angina pectoris (principal); Z95.3 Presence of xenogenic heart valve
CPT/HCPCS: 93306

== ENCOUNTER 2019-01-18 06:00 | Outpatient (RCR) | payer SELFPAY ==
[2018-10-11 07:31] VITALS: BMI 32.1
== END 2019-01-22 23:59 ==
LOC: CR 06:00
PROVIDERS: Family Provider Family Medicine; PCP Family Medicine; Referring Provider Internal Medicine Cardiovascular Disease; Visit Provider Internal Medicine Cardiovascular Disease
DX: Z00.00 Encounter for general adult medical examination without abnormal findings (principal)

== ENCOUNTER 2019-02-22 06:00 | Outpatient (RCR) | payer SELFPAY ==
[2018-10-11 07:31] VITALS: BMI 32.1
== END 2019-02-22 23:59 ==
LOC: CR 06:00
PROVIDERS: Family Provider Family Medicine; PCP Family Medicine; Referring Provider Internal Medicine Cardiovascular Disease; Visit Provider Internal Medicine Cardiovascular Disease
DX: Z00.00 Encounter for general adult medical examination without abnormal findings (principal)

== ENCOUNTER → 2019-03-13 05:43 | Outpatient (CLI) | payer MEDICARE, OTHER, SELFPAY ==
[2019-03-05 15:35] VITALS: BMI 31.8
--- NOTE | 2019-03-13 09:26 | STRESSREP ---
Stress Test Report Date: 03-13-19 Procedure: Exercise tolerance test/imaging study Indications: Shortness of breath/dyspnea on exertion; CAD; CABG; status post AVR Consent: Per the patient Procedure: The patient exercised on a Matthew protocol for 5 minutes completing Stage I and 2 minutes of Stage II achieving a peak heart rate of 114 bpm (83 % predicted maximal heart rate) with a peak blood pressure 154/78 mmHg and a peak MET capacity of 7 METs. The baseline ECG demonstrated this bradycardia. The peak exercise ECG demonstrated no obvious ECG changes of the heart rate achieved. There were rare PVCs pretest, during exercise, and recovery. The functional capacity was considered average. There was [no complaint of chest discomfort during exercise or recovery]. The examination was discontinued secondary to dyspnea. Impression: 1. Technically adequate (percent predicted maximal heart rate greater than 85%) exercise tolerance test 2. Peak exercise ECG with no obvious ECG changes at the heart rate achieved 3. There were rare PVCs pretest, during exercise, and recovery 4. Pharmacologic (Regadenoson) evaluation pending Procedure: Pharmacologic stress nuclear imaging study Consent: Per the patient Procedure: The patient underwent pharmacologic (Regadenoson) evaluation with a peak heart rate of 79 beats per minute (57 %predicted maximal heart rate) and a peak blood pressure of 124/70 mmHg. The baseline ECG demonstrated sinus rhythm; second-degree AV block Mobitz 1. The peak pharmacologic ECG demonstrated no obvious ECG changes. There was a rare PVC during recovery. [There was no complaint of chest discomfort during pharmacologic infusion or recovery]. The examination was discontinued secondary to completion of protocol. Impression: 1. Pharmacologic (Regadenoson) evaluation 2. Peak pharmacologic ECG with no obvious ECG changes. 3. There was a rare PVC during recovery. 4. Nuclear images pending Myocardial perfusion imaging study: Technique: The patient was injected with 12.0 millicuries of technetium 99m Cardiolite and subsequently rest SPECT Cardiolite nuclear imaging was obtained in the horizontal long, vertical long, and short axis views. The patient exercised on a Matthew protocol for 5 minutes completing Stage I and 2 minutes of Stage II achieving a peak heart rate of 114 bpm (83 % predicted maximal heart rate) with a peak blood pressure 154/78 mmHg and a peak MET capacity of 7 METs. The patient underwent pharmacologic (Regadenoson) evaluation with a peak heart rate of 79 beats per minute (57 % percent predicted maximal heart rate) and a peak blood pressure of 124/70 mmHg. The patient was injected with 35.0 millicuries of technetium 99m Cardiolite and subsequently stress SPECT Cardiolite nuclear imaging was obtained in the horizontal long, vertical long, and short axis views. A gated Cardiolite study at peak stress was obtained. Interpretation: Rest and stress SPECT Cardiolite nuclear imaging status post realignment, normalization, and attenuation correction demonstrate at rest relative uniform tracer uptake and status post stress a small area of subtle diminished tracer uptake in the inferior apical segments. [There is end systolic thickening and brightening]. [The gated Cardiolite study demonstrates myocardial thickening and inward wall motion]. The reported LVEF is 76 %. Impression: 1. Rest and stress SPECT Cardiolite nuclear imaging demonstrate status post stress a small area of subtle diminished tracer uptake in the inferior apical segments potentially compatible with physiologic apical thinning, although, an area of stress-induced myocardial ischemia cannot necessarily be excluded. 2. The gated Cardiolite study reports an LVEF of 76 %. This note was generated with [employer] software. It may contain incorrect words, spelling, and punctuation that were not noted in checking the note before signing.
== END ==
PROVIDERS: Family Provider Family Medicine; PCP Family Medicine; Referring Provider Internal Medicine Cardiovascular Disease; Visit Provider Internal Medicine Cardiovascular Disease
DX: R06.02 Shortness of breath (principal); I10 Essential (primary) hypertension; I27.20 Pulmonary hypertension, unspecified; Z95.1 Presence of aortocoronary bypass graft
CPT/HCPCS: 78452; 93017; A9500; A4216; J2785

== ENCOUNTER → 2019-03-16 07:38 | Outpatient (CLI) | payer MEDICARE, OTHER, SELFPAY ==
[2019-03-05 15:35] VITALS: BMI 31.8
[2019-03-16 08:40] LABS: ALB/GLOB Ratio 1.1 RATIO (0.9-2.4); AST(SGOT) 18 U/L (15-37); Alanine Aminotransfer ALT/SGPT 18 U/L (13-56); Albumin, Serum 3.6 g/dL (3.2-5.0); Alkaline Phosphatase 73 U/L (45-117); Anion Gap 7 (5-15); BUN 36 mg/dL (7-18); Chloride 104 mmol/L (98-107); Creatinine, Serum 1.06 mg/dL (0.55-1.02); EST Glomerular Filtration Rate 53 mL/min (>60); Est Glom Filt Rate - Afr Amer 64 mL/min (>60); Free T3 2.9 pg/mL (2.18-3.98); Globulin 3.2 g/dL (2.2-4.2); Glucose 132 mg/dL (74-106); Protein, Total 6.8 g/dL (6.4-8.2); Sodium Level 139 mmol/L (136-145); T4 Total, Thyroxin 13.1 ug/dL (4.8-13.9); Thyroid Stim Hormone (TSH) 2.44 uIU/mL (0.358-3.74)
== END ==
PROVIDERS: Family Provider Family Medicine; PCP Family Medicine; Referring Provider Family Medicine; Visit Provider Family Medicine
DX: I25.10 Atherosclerotic heart disease of native coronary artery without angina pectoris (principal); E11.9 Type 2 diabetes mellitus without complications; Z95.1 Presence of aortocoronary bypass graft; Z95.3 Presence of xenogenic heart valve; R06.02 Shortness of breath; I10 Essential (primary) hypertension; I27.20 Pulmonary hypertension, unspecified; E78.2 Mixed hyperlipidemia; G47.33 Obstructive sleep apnea (adult) (pediatric); I47.1 Supraventricular tachycardia; Z79.1 Long term (current) use of non-steroidal anti-inflammatories (NSAID); Z79.82 Long term (current) use of aspirin; Z79.84 Long term (current) use of oral hypoglycemic drugs; Z79.899 Other long term (current) drug therapy
CPT/HCPCS: 36415; 71046; 80053; 84436; 84443; 84481; 85027; 85610; 85730

== ENCOUNTER 2019-03-20 06:00 | Outpatient (RCR) | payer SELFPAY ==
[2018-10-11 07:31] VITALS: BMI 32.1
== END 2019-03-24 23:59 ==
LOC: CR 06:00
PROVIDERS: Family Provider Family Medicine; PCP Family Medicine; Referring Provider Internal Medicine Cardiovascular Disease; Visit Provider Internal Medicine Cardiovascular Disease
DX: Z00.00 Encounter for general adult medical examination without abnormal findings (principal)

== ENCOUNTER 2019-04-10 07:35 | Day surgery (SDC) | payer MEDICARE, OTHER, SELFPAY ==
[2019-03-05 15:35] VITALS: BMI 31.8
[2019-03-16 08:02] LABS: Hematocrit 40.5 % (37-47); Hemoglobin 13.8 g/dL (12.0-15.0); Mean Corp Hgb Conc 34.1 g/dL (32-36); Mean Platelet Vol. 9.7 fl (6.2-12.0); Platelet Count 164 K/mm3 (150-450); Red Blood Count 4.31 M/mm3 (4.2-5.4); White Blood Count 5.2 K/mm3 (4.4-11.0)
--- NOTE | 2019-03-16 08:08 | RAD_ITS ---
HISTORY: SOB. HEART CATH. ON THE March. HX OF HIGH BLOOD PRESSURE. ADDITIONAL HISTORY: None provided. COMPARISON: 10/15/2014 TECHNIQUE: Frontal and lateral chest radiographs. Number of images including paperwork: 2 FINDINGS: LUNGS AND PLEURA: No consolidation, mass or pleural effusion. CARDIAC SILHOUETTE: Unremarkable. MEDIASTINUM AND BONG: Aortic tortuosity. UPPER ABDOMEN: Unremarkable. SKELETON AND SOFT TISSUES: No acute findings. Degenerative changes. Anterior wedging of T12 appears similar. OTHER DEVICES AND HARDWARE: Sternal wires and surgical clips. RAD/Chest PA and Lateral IMPRESSION: No acute cardiopulmonary abnormality. at 2221 Reported and signed by: Vivien Carlson MD Electronically Signed: Vivien Carlson MD at 22:25 EST Tel , Service support ,
[2019-03-16 08:17] LABS: Anion Gap 7 (5-15); BUN 37 mg/dL (7-18); BUN/Creat Ratio 33.9 RATIO (10-20); Calcium,Total 9.1 mg/dL (8.5-10.1); Chloride 105 mmol/L (98-107); Creatinine, Serum 1.09 mg/dL (0.55-1.02); EST Glomerular Filtration Rate 51 mL/min (>60); Est Glom Filt Rate - Afr Amer 62 mL/min (>60); Glucose 136 mg/dL (74-106); International Normalized Ratio 1.1; Prothrombin Time (Protime)PT. 13.5 SECONDS (11.7-14.9); Sodium Level 141 mmol/L (136-145)
[2019-03-16 08:18] LABS: Partial Thromboplast Time 27.3 Seconds (24.1-36.2)
[2019-04-09 09:03] VITALS: BMI 31.8
--- NOTE | 2019-04-10 08:21 | PCM.HP.BLA ---
History and Physical Date of Admission: 04/10/19 HPI History of Present Illness Details: RUBI CHAVEZ, is a 83 year old white female who presents to the [facility] today for an outpatient cardiovascular followup of her history of CAD, CABG, and AVR. She remains active. She continues to go to her exercise facility/[facility] cardiac [facility]hab. Based upon her records she brings with her her blood pressures appear to be reasonably well controlled overall. She does note that she feels that she is getting older she is somewhat more short of breath. She also notices more edema of the lower extremities. She did use furosemide on a one-time basis and did note improvement in her lower extremity edema. She has had no ongoing symptoms of classic chest discomfort. There has been no episodes of acute orthopnea or PND. There is been no near syncope or syncope. Her transthoracic echocardiogram was performed recently. The results are as noted below. Intake Vital Signs: See EMR Intake Visit Reasons: [facility] N[employer] Required: No Accompanied by: Self Allergies celecoxib [From Celebrex] Allergy (Intermediate, Verified 03/05/19 15:35) Other - jittery & edema Medications aspirin 81 mg tablet,delayed release 81 mg PO QDAY 04/15/17 [History Confirmed 03/05/19] calcium carbonate-vitamin D3 600 mg calcium-200 unit capsule 1 cap PO QDAY ea 04/15/17 [History Confirmed 03/05/19] cetirizine 10 mg capsule 10 mg PO PRN cap 04/15/17 [History Confirmed 03/05/19] fenofibrate nanocrystallized 145 mg tablet 145 mg PO QDAY 04/15/17 [History Confirmed 03/05/19] hydrochlorothiazide 25 mg tablet 25 mg PO QDAY 04/15/17 [History Confirmed 03/05/19] isosorbide mononitrate ER 30 mg tablet,extended release 24 hr 30 mg PO QAM 04/15/17 [History Confirmed 03/05/19] meloxicam 15 mg tablet 7.5 mg PO BID tab 04/15/17 [History Confirmed 03/05/19] metformin 500 mg tablet 500 mg PO QDAY tab 04/15/17 [History Confirmed 03/05/19] metoprolol succinate ER 100 mg tablet,extended release 24 hr 100 mg PO BID tab 04/15/17 [History Confirmed 03/05/19] nitroglycerin 0.4 mg sublingual tablet 0.4 mg SUBLINGUAL Q5M PRN 04/15/17 [History Confirmed 03/05/19] pravastatin 40 mg tablet 40 mg PO QHS 04/15/17 [History Confirmed 03/05/19] levothyroxine 100 mcg tablet 100 mcg PO QDAY 08/15/17 [History Confirmed 03/05/19] oxybutynin chloride 5 mg tablet 5 mg PO DAILY tab 06/26/18 [History Confirmed 03/05/19] furosemide 20 mg tablet 20 mg PO DAILY #90 tab 03/05/19 [Rx Confirmed 03/05/19] lisinopril 10 mg tablet 5 mg PO DAILY tab 03/05/19 [History] [facility] Medical History Mixed hyperlipidemia (Chronic) Essential hypertension (Chronic) Atherosclerotic heart disease of [place] coronary artery without angina pectoris (Chronic) DM II (diabetes mellitus, type II), controlled (Chronic) Paroxysmal supraventricular tachycardia (Chronic) Premature ventricular contraction (Chronic) Supraventricular tachycardia (Chronic) DVT (deep venous thrombosis) (Acute) Arthritis (Chronic) Dyspnea (Chronic) History of aortic valvular stenosis (Chronic) Hypothyroidism (Chronic) Long-term use of high-risk medication (Chronic) JOHN (obstructive sleep apnea) (Chronic) Pulmonary HTN (Chronic) Sciatic nerve pain (Chronic) Basal cell carcinoma (Resolved) HTN (hypertension) (Inactive) Surgical History History of aortic valve replacement with bioprosthetic valve (Chronic ~11/10/05) Presence of aortocoronary bypass graft (Chronic ~11/10/05) Hx of aortic valve replacement (Chronic) Family History Father Hypertension Mother CAD (coronary artery disease) CHF (congestive heart failure) Brother Colon cancer Social History (Updated 03/05/19 @ 16:16 by Ajit Lam MD) Smoking Status: Never smoker second hand exposure: No alcohol intake: never substance use type: does not use ROS Const Const: Negative for fatigue, weakness, frequent falls, excessive sweating, weight gain or weight loss Eyes Eyes: Negative for transient loss of vision, blurry vision or change in vision ENT ENT: Positive for balance problems (slight); negative for dizziness Cardio Chest Pain: No Palpitations: No Edema: Bilateral (Bilat LE) Muscle aches with walking: None Resp Respiratory: Positive for SOB with activity (progressively getting worse) and Cough (dry); negative for SOB at rest GI GI: Negative vomiting or vomiting blood/hematemesis : Negative for hematuria Musc Musc: Positive for balance problems (slight); negative for muscle aches/ myalgia, muscle weakness or joint pain Skin Skin: Negative non-healing lesions or rash Neuro Neuro: Negative for dizziness, lightheadedness, orthostatic symptoms, frequent falls, weakness or blurry vision Jacques Hematologic/Lymphatic: Negative for easy bleeding Endo Endo: Negative for fatigue or excessive sweating Psych Psych: Negative for anxiety or depression Allergy Allergy/Immunology: Negative for hives, Negative for rash Cardiology Exam Const Appearance: cooperative, healthy appearing, comfortable, no acute distress, well developed and well groomed Nutritional Appearance: overweight Orientation: alert, awake and oriented x3 Head Head: normal to inspection, normocephalic and atraumatic Ears: hearing grossly normal bilaterally Nose: external nose normal Face and Sinus: face symmetric Mouth: oral mucosae normal Teeth and gingiva: fair dentition Eyes Eyelids: eyelids normal Conjunctivae: conjunctivae normal Pupils: PERRL EOM: EOM intact bilaterally Neck Neck: normal visual inspection and full ROM Carotids: normal carotid upstroke Chest Chest inspection: normal inspection of the chest, symmetric chest movement and normal respiratory effort Auscultation: Bilateral: Clear to Auscultation Cardio Palpation: normal PMI Rate: regular rate Rhythm: regular rhythm Heart sounds: S1 normal and S2 normal Murmur: Grade 3/6, harsh, mid systolic, LLSB, LVOT, sternal notch and radiates to carotids GI GI: normal to inspection, soft and bowel sounds present Neuro General: alert, awake, oriented x3, gait normal, moves all extremities, no focal sensory deficit and no focal motor deficits Skin Skin: no rashes or lesions noted Extremities Pulses: Normal: Right Radial Pulse, Left Radial Pulse Lower Extremity Edema: +1: Bilateral Psych Psychological: normal affect Assessment & Plan 1. Atherosclerosis of [place] coronary artery of [place] heart without angina pectoris I25.10 CABG x1 - ELOINA to lateral CX to OM 11/10/05 Plan Patient underwent stress test on 03/13/2018 that was stated that an area of stress-induced myocardial ischemia cannot necessarily be excluded. Given her progressive shortness of breath and history of previous bypass in 2005, she will proceed with left heart catheterization for further evaluation. Her echocardiogram in December 2018 show injection of 65%. 2. Presence of aortocoronary bypass graft Z95.1 CABG x1 - ELOINA to lateral CX 11/10/05 Plan She will proceed with left heart catheterization for further evaluation. Based on results, further recommendation be made. 3. History of aortic valve replacement with bioprosthetic valve Z95.3 [facility] [employer] valve Plan She has a history of aortic valve replacement. Her most recent transthoracic echocardiogram as noted below. She will continue AHA antibiotic prophylaxis. 4. Mixed hyperlipidemia E78.2 Plan She will continue current cholesterol-lowering medications. 5. Essential hypertension I10 Plan Her blood pressures as an outpatient overall appear to be recently well controlled. She will continue her current medical therapy. 6. PSVT (paroxysmal supraventricular tachycardia) I47.1 Plan She has had no ongoing history of cardiac dysrhythmias that she is aware of. She will continue to be monitored for such. 7. JOHN (obstructive sleep apnea) G47.33 AHI 11.9 prior to PAP, CPAP 14 cm water Plan She does have a history of obstructive sleep apnea. This may be contributing to her concerns of shortness of breath/dyspnea. She states she does wear a CPAP device. 8. Pulmonary HTN I27.20 Plan She also has an element of pulmonary hypertension as evidenced by her transthoracic echocardiogram. Again this may contribute to concerns that could progress to cor pulmonale and right heart failure. She will continue her current medical management and follow-up. 9. Shortness of breath R06.02 Plan She will continue evaluation care as noted above. She will also be placed back on furosemide therapy. She will monitor her respiratory response. 10. Edema R60.9 Plan Again she will continue medical therapy. She will monitor her response. She will have a follow-up BMP peer Plan Detail Additional Comments Thank you for allowing me to participate in the care of your patient. Please don't hesitate to call if any issues arise. This note was generated using a voice recognition system and there may be incorrect words, spelling or punctuation that were not noted when reviewing the office note prior to saving. Supplemental Info Supplemental Information Transthoracic echocardiogram: 01-12-19 Interpretation Summary Left ventricular systolic function is normal. The estimated ejection fraction is 65 %. The left atrium is moderately enlarged. The right atrium is mildly enlarged. There is mild mitral annular calcification. Extension of the mitral annular calcification onto the base of the posterior mitral valve leaflet. Mild-Moderate (1-2+) mitral valve insufficiency. Mild tricuspid valve insufficiency. Stable appearing bioprosthetic aortic valve apparatus. Trivial pulmonic valve insufficiency. Mildly dilated aortic root. Right ventricular systolic pressure estimated to be 49 mmHg. Transmitral diastolic flow velocities suggest diastolic dysfunction (pseudonormal pattern). Stress Test Report Date: 03-13-19 Procedure: Exercise tolerance test/imaging study Indications: Shortness of breath/dyspnea on exertion; CAD; CABG; status post AVR Consent: Per the patient Procedure: The patient exercised on a Matthew protocol for 5 minutes completing Stage I and 2 minutes of Stage II achieving a peak heart rate of 114 bpm (83 % predicted maximal heart rate) with a peak blood pressure 154/78 mmHg and a peak MET capacity of 7 METs. The baseline ECG demonstrated this bradycardia. The peak exercise ECG demonstrated no obvious ECG changes of the heart rate achieved. There were rare PVCs pretest, during exercise, and recovery. The functional capacity was considered average. There was [no complaint of chest discomfort during exercise or recovery]. The examination was discontinued secondary to dyspnea. Impression: 1. Technically adequate (percent predicted maximal heart rate greater than 85%) exercise tolerance test 2. Peak exercise ECG with no obvious ECG changes at the heart rate achieved 3. There were rare PVCs pretest, during exercise, and recovery 4. Pharmacologic (Regadenoson) evaluation pending Procedure: Pharmacologic stress nuclear imaging study Consent: Per the patient Procedure: The patient underwent pharmacologic (Regadenoson) evaluation with a peak heart rate of 79 beats per minute (57 %predicted maximal heart rate) and a peak blood pressure of 124/70 mmHg. The baseline ECG demonstrated sinus rhythm; second-degree AV block Mobitz 1. The peak pharmacologic ECG demonstrated no obvious ECG changes. There was a rare PVC during recovery. [There was no complaint of chest discomfort during pharmacologic infusion or recovery]. The examination was discontinued secondary to completion of protocol. Impression: 1. Pharmacologic (Regadenoson) evaluation 2. Peak pharmacologic ECG with no obvious ECG changes. 3. There was a rare PVC during recovery. 4. Nuclear images pending Myocardial perfusion imaging study: Technique: The patient was injected with 12.0 millicuries of technetium 99m Cardiolite and subsequently rest SPECT Cardiolite nuclear imaging was obtained in the horizontal long, vertical long, and short axis views. The patient exercised on a Matthew protocol for 5 minutes completing Stage I and 2 minutes of Stage II achieving a peak heart rate of 114 bpm (83 % predicted maximal heart rate) with a peak blood pressure 154/78 mmHg and a peak MET capacity of 7 METs. The patient underwent pharmacologic (Regadenoson) evaluation with a peak heart rate of 79 beats per minute (57 % percent predicted maximal heart rate) and a peak blood pressure of 124/70 mmHg. The patient was injected with 35.0 millicuries of technetium 99m Cardiolite and subsequently stress SPECT Cardiolite nuclear imaging was obtained in the horizontal long, vertical long, and short axis views. A gated Cardiolite study at peak stress was obtained. Interpretation: Rest and stress SPECT Cardiolite nuclear imaging status post realignment, normalization, and attenuation correction demonstrate at rest relative uniform tracer uptake and status post stress a small area of subtle diminished tracer uptake in the inferior apical segments. [There is end systolic thickening and brightening]. [The gated Cardiolite study demonstrates myocardial thickening and inward wall motion]. The reported LVEF is 76 %. Impression: 1. Rest and stress SPECT Cardiolite nuclear imaging demonstrate status post stress a small area of subtle diminished tracer uptake in the inferior apical segments potentially compatible with physiologic apical thinning, although, an area of stress-induced myocardial ischemia cannot necessarily be excluded. 2. The gated Cardiolite study reports an LVEF of 76 %. Labs LDL Cholesterol 75 mg/dL (0-130) 02/25/17 HDL Cholesterol 59 mg/dL (40-) 02/25/17 Triglycerides 92 mg/dL (-199) 02/25/17 VLDL Cholesterol 18 mg/dL (5-40) 02/25/17 Diagnostics Echocardiogram 01/12/19 Stress Test Nuclear Medicine 10/15/14 Chest X-Ray 10/15/14 Pulmonary Pulmonary Function Test 10/22/14 Pulmonary Exercise Test 09/26/18
--- NOTE | 2019-04-10 11:49 | CL.D_ITS ---
Patient Name: RUBI CHAVEZ Study Date: 04/10/2019 Performing: Ajit Lam MD Ht: 66.14 inches 168 cm : 1935 Wt: 196.21 lbs 89 kg Age: 83 Gender: female BSA: 1.99 PROCEDURE(S) PERFORMED TW86-LOX/COR/CABG CLINICAL PROFILE AND INDICATIONS Indications: Suspected CAD Heart Failure: None Stress/Imaging Date: 03/13/19 Angina Classification Anginal Classification w/in 2 Weeks: CCS III CONCLUSIONS [place] Multivessel CAD KERN to the OM1: patent RECOMMENDATIONS Medical therapy Risk factor modification DESCRIPTION OF PROCEDURE The patient arrived to the procedure lab. The risks and benefits of the procedure as well as a full d escription of our services here and current unavailability of surgical backup were fully explained to the patient and/or their significant other prior to the catheterization. The Timeout was completed, verifying the correct patient and procedure. The patient's procedural site was prepped and draped in the usual fashion. . Using a modified Seldinger technique, Left Coronary Artery selective angiograp hy was performed in multiple views using a 4 Fr. AL 1 catheter. Right Coronary Artery selective angio graphy was then performed in multiple views using a 4 Fr. JR4 catheter. Left internal mammary artery graft to the Circumflex selective angiography was performed in multiple views using a 4 Fr. IM cathet er. CORONARY ANGIOGRAPHY DOMINANCE: Right Dominant LEFT HEART ASSESSMENT Left Ventricular Ejection Fraction: Not assessed LEFT MAIN: Angiographically normal LEFT ANTERIOR DESCENDING ARTERY: PROX LAD: Mild calcification, diffuse: 25 % Stenosis MID LAD: 25 - 50 % Stenosis DISTAL LAD: Mild luminal irregularities, / apical: 100 % Stenosis DIAGONAL 1: Proximal - 50 % Stenosis DIAGONAL 2: Proximal - small caliber vessel: 50 % Stenosis CIRCUMFLEX ARTERY: PROX CIRC: is occluded OM 1: Ostial - small caliber vessel: 99 % Stenosis RIGHT CORONARY ARTERY: Mild luminal irregularities diffuse: eccentric: 25 % Stenosis GRAFTS: KERN graft to the 1st OM is patent with the KERN demonstrating an area of a [place] bend and no angio graphically significant appearing disease distal to the graft attachment. COLLATERAL FLOW: Collateral flow from Left to Left COMPLICATIONS No Complications PROCEDURE MEDICATIONS Versed 1 mg IV Versed 1 mg IV Oxygen: 2 L/min via nasal cannula SUMMARY OF HEMODYNAMIC DATA Time AIR REST ECG 07:57:32 AO 149/61 (96) SA 09:47:18 Signed By Ajit Lam MD On 04/10/2019 11:48:50 Ajit Lam MD
== END 2019-04-10 14:44 | disposition home or self-care (01) ==
LOC: CLSP 07:37
PROVIDERS: Family Provider Family Medicine; PCP Family Medicine; Referring Provider Internal Medicine Cardiovascular Disease; Visit Provider Internal Medicine Cardiovascular Disease
DX: I25.10 Atherosclerotic heart disease of native coronary artery without angina pectoris (principal); Z95.1 Presence of aortocoronary bypass graft; Z95.3 Presence of xenogenic heart valve; R06.02 Shortness of breath; I10 Essential (primary) hypertension; I27.20 Pulmonary hypertension, unspecified; E78.2 Mixed hyperlipidemia; G47.33 Obstructive sleep apnea (adult) (pediatric); I47.1 Supraventricular tachycardia; Z79.1 Long term (current) use of non-steroidal anti-inflammatories (NSAID); Z79.82 Long term (current) use of aspirin; Z79.84 Long term (current) use of oral hypoglycemic drugs; Z79.899 Other long term (current) drug therapy; E11.9 Type 2 diabetes mellitus without complications
CPT/HCPCS: 36415; 71046; 80048; 80053; 84436; 84443; 84481; 85027; 85610; 85730; 93455; 99152; 99153; J7040; C1769; C1894; Q9967

== ENCOUNTER → 2019-04-12 06:02 | Outpatient (CLI) | payer MEDICARE, OTHER, SELFPAY ==
[2019-04-11 06:07] VITALS: BMI 31.8
[2019-04-12 08:23] LABS: Anion Gap 8 (5-15); BUN 46 mg/dL (7-18); BUN/Creat Ratio 35.4 RATIO (10-20); Calcium,Total 9.3 mg/dL (8.5-10.1); Chloride 107 mmol/L (98-107); EST Glomerular Filtration Rate 42 mL/min (>60); Est Glom Filt Rate - Afr Amer 50 mL/min (>60); Glucose 133 mg/dL (74-106); Potassium 3.9 mmol/L (3.5-5.1); Sodium Level 142 mmol/L (136-145)
== END ==
PROVIDERS: Family Provider Family Medicine; PCP Family Medicine; Referring Provider Internal Medicine Cardiovascular Disease; Visit Provider Internal Medicine Cardiovascular Disease
DX: I25.10 Atherosclerotic heart disease of native coronary artery without angina pectoris (principal); Z95.3 Presence of xenogenic heart valve
CPT/HCPCS: 36415; 80048

== ENCOUNTER 2019-04-24 06:00 | Outpatient (RCR) | payer SELFPAY ==
[2019-03-20 13:45] VITALS: BMI 31.8
== END 2019-04-24 23:59 ==
LOC: CR 06:00
PROVIDERS: Family Provider Family Medicine; PCP Family Medicine; Referring Provider Internal Medicine Cardiovascular Disease; Visit Provider Internal Medicine Cardiovascular Disease
DX: Z00.00 Encounter for general adult medical examination without abnormal findings (principal)

== ENCOUNTER 2019-05-15 06:00 | Outpatient (RCR) | payer SELFPAY ==
[2019-04-09 09:03] VITALS: BMI 31.8
[2019-04-24 06:42] VITALS: BMI 31.8
== END 2019-05-25 23:59 ==
LOC: CR 06:00
PROVIDERS: Family Provider Family Medicine; PCP Family Medicine; Referring Provider Internal Medicine Cardiovascular Disease; Visit Provider Internal Medicine Cardiovascular Disease
DX: Z00.00 Encounter for general adult medical examination without abnormal findings (principal)

== ENCOUNTER 2019-06-21 06:00 | Outpatient (RCR) | payer SELFPAY ==
[2019-04-24 06:42] VITALS: BMI 31.8
== END 2019-06-23 23:59 ==
LOC: CR 06:00
PROVIDERS: Family Provider Family Medicine; PCP Family Medicine; Referring Provider Internal Medicine Cardiovascular Disease; Visit Provider Internal Medicine Cardiovascular Disease
DX: Z00.00 Encounter for general adult medical examination without abnormal findings (principal)

== ENCOUNTER 2019-07-05 06:00 | Outpatient (RCR) | payer SELFPAY ==
[2019-04-24 06:42] VITALS: BMI 31.8
== END 2019-07-24 23:59 ==
LOC: CR 06:00
PROVIDERS: Family Provider Family Medicine; PCP Family Medicine; Referring Provider Internal Medicine Cardiovascular Disease; Visit Provider Internal Medicine Cardiovascular Disease
DX: Z00.00 Encounter for general adult medical examination without abnormal findings (principal)

== ENCOUNTER → 2019-09-07 08:42 | Outpatient (CLI) | payer MEDICARE, OTHER, SELFPAY ==
[2019-04-24 06:42] VITALS: BMI 31.8
[2019-09-07 11:23] LABS: Anion Gap 7 (5-15); BUN 34 mg/dL (7-18); BUN/Creat Ratio 31.2 RATIO (10-20); Calcium,Total 9.2 mg/dL (8.5-10.1); Chloride 107 mmol/L (98-107); Creatinine, Serum 1.09 mg/dL (0.55-1.02); EST Glomerular Filtration Rate 51 mL/min (>60); Est Glom Filt Rate - Afr Amer 62 mL/min (>60); Free T3 2.5 pg/mL (2.18-3.98); Glucose 129 mg/dL (74-106); Sodium Level 140 mmol/L (136-145); Thyroid Stim Hormone (TSH) 3.55 uIU/mL (0.358-3.74)
== END ==
PROVIDERS: PCP Family Medicine; Visit Provider Family Medicine
DX: E03.9 Hypothyroidism, unspecified (principal); E78.5 Hyperlipidemia, unspecified
CPT/HCPCS: 36415; 80048; 84436; 84443; 84481

== ENCOUNTER 2019-09-20 06:00 | Outpatient (RCR) | payer SELFPAY ==
[2019-04-24 06:42] VITALS: BMI 31.8
== END 2019-09-23 23:59 ==
LOC: CR 06:00
PROVIDERS: Family Provider Family Medicine; PCP Family Medicine; Referring Provider Internal Medicine Cardiovascular Disease; Visit Provider Internal Medicine Cardiovascular Disease
DX: Z00.00 Encounter for general adult medical examination without abnormal findings (principal)

== ENCOUNTER → 2019-10-11 08:57 | Outpatient (CLI) | payer MEDICARE, OTHER, SELFPAY ==
[2019-10-11 07:38] VITALS: BMI 31.8
== END ==
PROVIDERS: PCP Family Medicine; Visit Provider Nurse Practitioner Acute Care
DX: G47.33 Obstructive sleep apnea (adult) (pediatric) (principal)
CPT/HCPCS: 98960; G0463

== ENCOUNTER 2019-10-23 06:00 | Outpatient (RCR) | payer SELFPAY ==
[2019-04-24 06:42] VITALS: BMI 31.8
== END 2019-10-23 23:59 ==
LOC: CR 06:00
PROVIDERS: Family Provider Family Medicine; PCP Family Medicine; Referring Provider Internal Medicine Cardiovascular Disease; Visit Provider Internal Medicine Cardiovascular Disease
DX: Z00.00 Encounter for general adult medical examination without abnormal findings (principal)

== ENCOUNTER 2019-11-20 06:00 | Outpatient (RCR) | payer SELFPAY ==
[2019-10-12 15:12] VITALS: BMI 31.6
== END 2019-11-23 23:59 ==
LOC: CR 06:00
PROVIDERS: Family Provider Family Medicine; PCP Family Medicine; Referring Provider Internal Medicine Cardiovascular Disease; Visit Provider Internal Medicine Cardiovascular Disease
DX: Z00.00 Encounter for general adult medical examination without abnormal findings (principal)

== ENCOUNTER 2019-11-21 03:41 | Observation (INO) | payer MEDICARE, OTHER, SELFPAY ==
[2019-10-12 15:12] VITALS: BMI 31.6
[2019-11-21] VITALS (19 sets, daily range): BP systolic 124–190; BP diastolic 57–88; PULSE 39–75; RESP 16–22; TEMP 36.7–37.1; O2SAT 90–100; BMI 31.8; BMI 32.1; BMI 32.2
--- NOTE | 2019-11-21 04:02 | RAD_ITS ---
STUDY: X-RAY CHEST REASON FOR EXAM: Female, 83 years old. Shortness of breath. TECHNIQUE: AP portable chest. COMPARISON: October 15, 2014. March 16, 2019. FINDINGS: The lungs are clear and expanded. There is no demonstrated pleural abnormality. Mild cardiomegaly. Sternal wires. Normal mediastinum and kailyn. Normal visualized pulmonary arteries. Normal visualized aortic arch and descending thoracic aorta. Normal visualized thoracic spine. Normal visualized ribs, clavicles, and shoulders. There is no demonstrated abnormality of the visualized soft tissue structures of the upper abdomen. RAD/Chest 1 View (Portable) IMPRESSION: Stable mild cardiomegaly. Electronically Signed: Lalo Christina MD at 4:55 EDT , Service support ,
--- NOTE | 2019-11-21 04:03 | EKG12_ITS ---
Test Reason : SOB Blood Pressure : / mmHG Vent. Rate : 062 BPM Atrial Rate : 250 BPM P-R Int : 000 ms QRS Dur : 094 ms QT Int : 450 ms P-R-T Axes : 000 -12 037 degrees QTc Int : 456 ms Atrial fibrillation Abnormal ECG Confirmed by SAMANTHA SARKAR ([id number]), magazine editor NANDA REYES ([id number]) on 11/22/2019 11:12:09 AM Referred By: Jeannine Pena Confirmed By:SAMANTHA SARKAR
--- NOTE | 2019-11-21 04:04 | ED.VIS.DYS ---
History of Present Illness Chief Complaint: Shortness of Breath Informant: Patient, EMS Onset: Yesterday Activity at onset: Exertion, Rest Timing: Continuous Quality: - - sob Current Severity: Mild Maximum Severity: Severe Worsened by: Exertion, Lying flat Relieved by: Rest Associated Symptoms: Chills, Cough - Chronic, nonproductive, minor, unchanged, Fever - Subjective, yesterday only, Rhinorrhea - Chronic, unchanged, clear. Negative for: Sore throat Chest Pain: None Narrative: Patient has a history of congestive heart failure. No COPD or other lung problems, she had a remote CABG. She has chronic dyspnea with exertion for over the past year. She states that seems worse since yesterday and now she is dyspneic with rest and especially with lying flat, which made her more short of breath this morning which is why she presents to the ER at 4 AM. No chest pain. She had a subjective fever with some chills yesterday, she did not check her temperature. She has urinary frequency that seem worse yesterday but no dysuria. No abdominal symptoms. No near syncope or syncope. No contact with anyone with COVID-19 that she knows of, she presents during the national coronavirus emergency declaration/pandemic. - Past Medical History (1) Mixed hyperlipidemia Status: Chronic (2) Essential hypertension Status: Chronic (3) Type 2 diabetes mellitus with diabetic polyneuropathy Status: Chronic (4) Atherosclerotic heart disease of [place] coronary artery without angina pectoris Status: Chronic Comment: CABG x1 - ELOINA to lateral CX to OM 11/10/05 (5) History of aortic valve replacement with bioprosthetic valve Status: Chronic Comment: [employer] BioCore valve (6) Presence of aortocoronary bypass graft Status: Chronic Comment: CABG x1 - ELOINA to lateral CX 11/10/05 (7) JOHN (obstructive sleep apnea) Status: Chronic Comment: AHI 8 prior to PAP, CPAP 14 cm water (8) Pulmonary hypertension Status: Chronic (9) DM II (diabetes mellitus, type II), controlled Status: Chronic (10) Paroxysmal supraventricular tachycardia Status: Chronic Past Medical History - Allergies and Home Meds Allergies/Adverse Reactions: Allergies celecoxib [From Celebrex] Allergy (Intermediate, Verified 11/21/19 03:48) Other - jittery & edema Primary Care Physician: jAit Oleary MD [Primary Care Provider] - Surgical History: coronary bypass surgery, - - Aortic valve replacement Smoking Status: Never smoker Review of Systems General: Reports: Chills, Fever, Malaise, Subjective. Denies: Sweats Eyes: Denies: Visual changes - bilaterally, Diplopia ENT: Reports: Rhinorrhea. Denies: Bilateral ear pain, Sore throat Cardiovascular: Denies: Chest pain, Palpitations Respiratory: Reports: Dyspnea, Cough, Dyspnea on exertion, Orthopnea, Paroxysmal nocturnal dyspnea. Denies: Sputum Gastrointestinal: Denies: Abdominal pain, Nausea, Vomiting, Diarrhea, Melena, Hematochezia Genitourinary: Denies: Dysuria, Hematuria, Frequency Musculoskeletal: Reports: Swelling - Bilateral lower extremity, chronic, at baseline and unchanged currently. Denies: Myalgias, Neck pain, Back pain, Extremity Pain Skin: Denies: Rash, Wounds Neurological: Denies: Headache, Weakness, Numbness Physical Exam Vital Signs/Narrative: Vital Signs Temp Pulse Resp BP Pulse Ox 11/21/19 03:45 98.1 F 65 22 H 190/74 H 91 Inital Vital Signs reviewed: Yes General: Well nourished, Well developed, Obese, No Acute Distress Head: Normocephalic, Atraumatic Eyes: Perrl, EOMI ENT: Moist mucous membranes, No rhinorrhea Neck: Supple, Nontender, No lymphadenopathy Cardiovascular: Regular rate, Regular rhythm, Murmur - Mild systolic Respiratory: No distress - Conversive in full sentences., CTA bilaterally, Chest nontender, Diminished - Throughout, symmetrically Abdomen: Soft, Nontender, Nondistended, Normal bowel sounds Back: Nontender, Normal Inspection Extremities: Nontender, Edema - 2+ bilateral lower extremity, symmetric, mid allen. Negative for: Calf Tenderness Skin: Normal color, No rash, No Trauma Neurological: Alert, Oriented x3, Cranial nerves II-XII grossly intact, Normal Strength, Normal Sensation Psychological: Normal affect, Normal Mood Diagnostic/Tx/Re-eval Impressions Chest X-Ray 11/21/19 04:02 IMPRESSION: Stable mild cardiomegaly. Electronically Signed: Lalo Christina MD at 4:55 EDT , Service support , 11/21/19 04:02 Chest 1 View (Portable) [RAD] Stat Laboratory Results 11/21/19 11/21/19 11/21/19 04:00 04:00 04:00 WBC 7.7 RBC 4.01 L Hgb 12.8 Hct 37.9 MCV 94.5 MCH 31.9 MCHC 33.8 RDW Std Deviation 45.4 H RDW Coeff of Ellie 13.2 Plt Count 164 MPV 10.3 Immature Gran % (Auto) 0.300 Neut % (Auto) 74.1 H Lymph % (Auto) 16.2 L [place] % (Auto) 8.5 Eos % (Auto) 0.4 Baso % (Auto) 0.5 Absolute Neuts (auto) 5.7 Absolute Lymphs (auto) 1.24 Nucleated RBC % 0 Sodium 134 L Potassium 4.1 Chloride 102 Carbon Dioxide 25.0 Anion Gap 7 BUN 20 H Creatinine 1.05 H Estim Creat Clear Calc 38.00 Est GFR (MDRD) Af Amer 64 Est GFR (MDRD) Non-Af 53 L BUN/Creatinine Ratio 19.0 Glucose 163 H Calcium 8.6 Troponin I < 0.015 B-Natriuretic Peptide 1104.2 H Urine Color Urine Clarity Urine pH Ur Specific [place] Urine Protein Urine Glucose (UA) Urine Ketones Urine Occult Blood Urine Nitrite Urine Bilirubin Urine Urobilinogen Ur Leukocyte Esterase Urine RBC Urine WBC Ur Squamous Epith Cells Amorphous Sediment Urine Bacteria Urine Mucus 11/21/19 04:50 WBC RBC Hgb Hct MCV MCH MCHC RDW Std Deviation RDW Coeff of Ellie Plt Count MPV Immature Gran % (Auto) Neut % (Auto) Lymph % (Auto) [place] % (Auto) Eos % (Auto) Baso % (Auto) Absolute Neuts (auto) Absolute Lymphs (auto) Nucleated RBC % Sodium Potassium Chloride Carbon Dioxide Anion Gap BUN Creatinine Estim Creat Clear Calc Est GFR (MDRD) Af Amer Est GFR (MDRD) Non-Af BUN/Creatinine Ratio Glucose Calcium Troponin I B-Natriuretic Peptide Urine Color Yellow Urine Clarity Clear Urine pH 6.5 Ur Specific [place] 1.010 Urine Protein 30 H Urine Glucose (UA) Normal Urine Ketones Negative Urine Occult Blood 10 H Urine Nitrite Negative Urine Bilirubin Negative Urine Urobilinogen Normal Ur Leukocyte Esterase Negative Urine RBC 0-5 SEEN Urine WBC 0 SEEN Ur Squamous Epith Cells 0-5 SEEN Amorphous Sediment RARE Urine Bacteria RARE Urine Mucus 0 SEEN - Rhythm Strip Rhythm Strip: A-fib Rate: 65 Ectopy: None - EKG Initial EKG Interpretation: No Acute Injury Pattern, Atrial Fibrillation Prior: Changed Treatment - Dyspnea: Oxygen, Albuterol, - - lasix Repeat Evaluation: Improved With Ambulation: Tachypnea - Medical Decision Making Patient states she has a history of congestive heart failure, however looking at her last echo it does not appear that she does. She does however have 1-2+ mitral insufficiency. She had an aortic valve replacement that seems to be working well. Her pressure presents very high today. Her symptoms are consistent with congestive heart failure, it is unknown if her mitral valve is the issue or not, but she also appears to be in rate controlled atrial fibrillation now, which seems new for her in reviewing her records. Patient states she is short of breath with just a little bit of moving around. We ambulated her in the hallway, she did not drop her pulse ox but she became very dyspneic. She lives alone and would feel more comfortable admitted to the hospital which I think is reasonable, so cardiology can see her and reevaluate. ED Disposition - Plan for ED Patient: Disposition: Acute Care Hospital [facility] Diagnosis: Acute congestive heart failure, New onset atrial fibrillation, Dyspnea on exertion Referrals: Ajit Oleary MD [Primary Care Provider] -
[2019-11-21 04:12] LABS: Absolute Lymphocyte Count 1.24 X10^3/uL (0.83-4.51); Absolute Neutrophil Count 5.7 X10^3/uL (2.0-7.7); Basophil# 0.04 X10^3/uL; Basophil% 0.5 % (0-1); Eosinophil# 0.03 X10^3/uL; Eosinophils% 0.4 % (0-5); Hematocrit 37.9 % (37-47); Hemoglobin 12.8 g/dL (12.0-15.0); Lymphocyte # 1.24 X10^3/ul (4.0); Lymphocyte % 16.2 % (19-41); Mean Corp Hgb Conc 33.8 g/dL (32-36); Mean Corpuscular Hgb 31.9 pg (27.0-32.0); Mean Corpuscular Volume 94.5 fL (81-99); Mean Platelet Vol. 10.3 fl (6.2-12.0); Monocyte# 0.65 X10^3/uL; Monocyte% 8.5 % (0-10); NRBC Flagged by Analyzer 0 % (0-5); Neutrophil # 5.69 X10^3/uL (2.7-7.7); Neutrophil % 74.1 % (47-70); Platelet Count 164 K/mm3 (150-450); RBC Distribution Width CV 13.2 % (11.6-14.6); RBC Distribution Width SD 45.4 fl (35.1-43.9); Red Blood Count 4.01 M/mm3 (4.2-5.4); White Blood Count 7.7 K/mm3 (4.4-11.0)
[2019-11-21] MEDS: Furosemide 20 MG/2 ML VIAL IV (04:22)
[2019-11-21] MEDS: Albuterol 2.5 MG/3 ML VIAL.NEB. INHALATION (04:30)
[2019-11-21 04:33] LABS: BNP,B-Type NATRIURETIC PEPTIDE 1104.2 pg/mL (0-100)
[2019-11-21 04:37] LABS: Anion Gap 7 (5-15); BUN 20 mg/dL (7-18); Calcium,Total 8.6 mg/dL (8.5-10.1); Chloride 102 mmol/L (98-107); Creatinine, Serum 1.05 mg/dL (0.55-1.02); EST Glomerular Filtration Rate 53 mL/min (>60); Est Glom Filt Rate - Afr Amer 64 mL/min (>60); Glucose 163 mg/dL (74-106); Potassium 4.1 mmol/L (3.5-5.1); Sodium Level 134 mmol/L (136-145)
[2019-11-21 04:55] LABS: Mucous, Urine 0 SEEN /hpf (<or=2+); White Blood Cells 0 SEEN /hpf (0-5)
[2019-11-21 04:56] LABS: Color, Urine Yellow (Yellow); Glucose, Dipstick Normal (Normal); Ketone-Dipstick Negative (Negative); Leukocyte Esterase-Dipstick Negative /ul (Negative); Nitrite-Dipstick Negative (Negative); Occult Blood-Urine 10 /ul (Negative); Protein-Dipstick 30 mg/dl (Negative); Urine Bilirubin Dipstick Negative (Negative); Urine Clarity Clear (Clear); Urine Urobilinogen Normal (Normal); Urine pH 6.5 (5.0 - 8.0)
[2019-11-21 05:05] LABS: Squamous Epithelial Cells - UA 0-5 SEEN /hpf (5-10)
[2019-11-21 05:06] LABS: Bacteria RARE /hpf (None Seen); Red Blood Cells-Urine 0-5 SEEN /hpf (0-5)
[2019-11-21 05:08] LABS: Amorphous Sediment RARE
--- NOTE | 2019-11-21 05:43 | HP.PCM_ITS ---
History of Present Illness Date of Admission: 11/21/19 Chief Complaint: shortness of breath The patient is a 83 year old F with an extensive past medical history as outlined. She was admitted through the ED on 11/21/2019 with a complaint of shortness of breath. She says shortness of breath had to be building up with with the last 2 to 3 months and came to ahead 1 day ago when it worsened. She had a stent orthopnea and PND and also notices that he had lower extremity edema though this was not new. She also got easily short of breath with mild exertion. Symptoms worsen so she decided to come into the ED. She had associated chills but no fever and denies any cough. She denies any chest pain, palpitations or dizziness, lightheadedness, nausea vomiting or diarrhea. She denies exposure to anyone with coronavirus and says she has been staying at home throughout the pandemic. Review of systems otherwise negative. In the ED, vitals showed temperature of 98.1 Fahrenheit with blood pressure of 190/74, pulse rate of 64 and respiratory rate of 21. She was saturating at 91% on room air. Chemistry showed sodium of 134 with creatinine of 1.05 and initial troponin of less than 0.015. BNP was 1104.2. CBC showed hemoglobin of 12.8 with WBC of 7.7. Cholesterol 164. Chest x-ray done showed stable mild cardiomegaly and EKG showed new onset A. fib which was rate controlled. She has been admitted to be managed for acute exacerbation of heart failure with preserved ejection fraction and new onset A. fib. Of note, she states she has been compliant with her Lasix about from yesterday when she did not take it because she was in bed all day. [] Past Medical History Past Medical History (Chronic Problems): Chronic Problems (Last Reviewed 10/11/19 @ 07:59 by ROSA Mcmullen) SOB (shortness of breath) (Chronic) Mixed hyperlipidemia (Chronic) Essential hypertension (Chronic) Type 2 diabetes mellitus with diabetic polyneuropathy (Chronic) Atherosclerotic heart disease of [place] coronary artery without angina pectoris (Chronic) CABG x1 - ELOINA to lateral CX to OM 11/10/05 History of aortic valve replacement with bioprosthetic valve (Chronic ~11/10/05) [employer] BioCore valve Presence of aortocoronary bypass graft (Chronic ~11/10/05) CABG x1 - ELOINA to lateral CX 11/10/05 JOHN (obstructive sleep apnea) (Chronic) AHI 8 prior to PAP, CPAP 14 cm water Pulmonary hypertension (Chronic) DM II (diabetes mellitus, type II), controlled (Chronic) Paroxysmal supraventricular tachycardia (Chronic) Premature ventricular contraction (Chronic) Supraventricular tachycardia (Chronic) Medical History: Medical History (Last Reviewed 10/11/19 @ 07:59 by ROSA Mcmullen) Mixed hyperlipidemia (Chronic) E78.2 Essential hypertension (Chronic) I10 Atherosclerotic heart disease of [place] coronary artery without angina pectoris (Chronic) I25.10 CABG x1 - ELOINA to lateral CX to OM 11/10/05 DM II (diabetes mellitus, type II), controlled (Chronic) E11.9 Paroxysmal supraventricular tachycardia (Chronic) I47.1 Premature ventricular contraction (Chronic) I49.3 Supraventricular tachycardia (Chronic) I47.1 Balance problem R26.89 DVT (deep venous thrombosis) I82.409 Incontinence R32 Arthritis M19.90 Dyspnea R06.00 History of aortic valvular stenosis Z86.79 Hypothyroidism E03.9 Long-term use of high-risk medication Z79.899 JOHN (obstructive sleep apnea) G47.33 Pulmonary HTN I27.20 Sciatic nerve pain M54.30 Basal cell carcinoma C44.91 HTN (hypertension) (Inactive) I10 Allergies celecoxib [From Celebrex] Allergy (Intermediate, Verified 11/21/19 03:48) Other - jittery & edema Home Medications: Ambulatory Orders Medication Instructions Recorded aspirin 81 mg tablet,delayed 81 mg PO QDAY 04/15/17 release fenofibrate nanocrystallized 145 145 mg PO QDAY 04/15/17 mg tablet hydrochlorothiazide 25 mg tablet 25 mg PO QDAY 04/15/17 meloxicam 15 mg tablet 7.5 mg PO BID tab 04/15/17 metformin 500 mg tablet 500 mg PO QDAY tab 04/15/17 metoprolol succinate 100 mg 100 mg PO BID tab 04/15/17 tablet,extended release 24 hr nitroglycerin 0.4 mg sublingual 0.4 mg SUBLINGUAL Q5M PRN 04/15/17 tablet pravastatin 40 mg tablet 40 mg PO QHS 04/15/17 levothyroxine 100 mcg tablet 100 mcg PO QDAY 08/15/17 oxybutynin chloride 5 mg tablet 5 mg PO DAILY tab 06/26/18 furosemide 20 mg tablet 20 mg PO DAILY #90 tab 03/05/19 isosorbide mononitrate 60 mg 60 mg PO DAILY #90 tab 04/10/19 tablet,extended release 24 hr lisinopril 5 mg tablet 5 mg PO DAILY tab 10/12/19 Surgical History: Surgical History (Last Reviewed 10/11/19 @ 07:59 by ROSA Mcmullen) History of aortic valve replacement with bioprosthetic valve (Chronic) Onset Date: ~11/10/[address] [facility] BioCore valve Presence of aortocoronary bypass graft (Chronic) Onset Date: ~11/10/05 Z95.1 CABG x1 - ELOINA to lateral CX 11/10/05 Hx of aortic valve replacement Z95.2 History of left heart catheterization (LHC) Onset Date: ~04/10/19 Z98.890 LEFT MAIN: Angiographically normal; LEFT ANTERIOR DESCENDING ARTERY: PROX LAD: Mild calcification, diffuse: 25 % Stenosis, MID LAD: 25 - 50 % Stenosis, DISTAL LAD: Mild luminal irregularities, / apical: 100 % Stenosis, DIAGONAL 1: Proximal - 50 % Stenosis; DIAGONAL 2: Proximal - small caliber vessel: 50 % Stenosis; CIRCUMFLEX ARTERY: PROX CIRC: is occluded, OM 1: Ostial - small caliber vessel: 99 % Stenosis; RIGHT CORONARY ARTERY: Mild luminal irregularities, diffuse: eccentric: 25 % Stenosis; GRAFTS: KERN graft to the 1st OM is patent with the KERN demonstrating an area of a [place] bend and no angiographically significant appearing disease distal to the graft attachment. Per cath 04/10/19 Surgical History: coronary bypass surgery, - - Aortic valve replacement Psychiatric History: No pertinent psych hx Lives: Alone Smoking Status: Never smoker Alcohol: None Drugs: None - *Family History Maternal Family History: Family History (Last Reviewed 10/11/19 @ 07:59 by ROSA Mcmullen) Father Hypertension Mother CAD (coronary artery disease) CHF (congestive heart failure) Brother Colon cancer Review of Systems Constitutional: Reports: Chills, Malaise. Denies: Anorexia, Fever, Night Sweats, Weakness, Fatigue Eyes: Denies: Blurred vision HEENT: Denies: Head Aches, Sinus Congestion, Sinus Drainage Cardiovascular: Reports: Edema, Orthopnea, Paroxysmal Noc. Dyspnea. Denies: Chest Pain, Chest Pressure, Heaviness, Light Headedness, Palpitations Respiratory: Reports: Shortness of Breath, Shortness of breath at rest, Shortness of breath upon exertion. Denies: Cough, Sputum production, Wheezing Gastrointestinal: Denies: Abdominal Pain, Nausea, Vomiting Genitourinary: Denies: Dysuria Musculoskeletal: Denies: Joint Pain, Joint Tenderness Skin: Denies: Rash, Wounds Neurological: Denies: Numbness, Tingling, Focal weakness Psychiatric: Denies: Anxiety, Depression, Homicidal Ideations, Suicidal Ideations Hematologic/ Lymphatic: Denies: Easy Bruising, Easy Bleeding VTE Information - Inpt Only VTE Present on Admission: No VTE Pharm Prophylaxis ordered?: Yes Patient Problems: Active and Suspected Problems (Last Reviewed 10/11/19 @ 07:59 by ROSA Mcmullen) Acute congestive heart failure (Acute) New onset atrial fibrillation (Acute) Dyspnea on exertion (Acute) - Physical Exam Vitals/I&O's: Vital Signs Temp Pulse Resp BP Pulse Ox 98.1 F 64 21 H 190/74 H 91 11/21/19 03:45 11/21/19 04:30 11/21/19 04:30 11/21/19 03:45 11/21/19 03:45 Oxygen Delivery Method Room Air Weight: 197 lb 5.019 oz Body Mass Index (BMI) 31.8 General: Alert, Oriented x3, Cooperative, No apparent distress HEENT: Atraumatic, PERRLA, EOMI, Normocephalic Oral: Moist Mucosa Neck: Supple, No JVD, Negative Carotid Bruits Lungs: Clear to auscultation, Normal air movement, No rhonchi, No wheeze Cardiovascular: Normal S1, Normal S2, No murmurs, Irregular Rate Abdomen: Bowel Sounds Present, Soft, Non Tender Extremities: No edema, Capillary Refill Less than 3 Seconds Skin: No rashes, No breakdown Musculoskeletal: No Tenderness to Palpation of Joints or Extremities Lymphatic: No Cervical, Supraclavicular, or Inguinal Adenopathy Neurological: Cranial nerves II-XII grossly intact, Neuro grossly intact, Motor Exam 5/5 strength throughout Psych/Mental Status: Normal Affect, Appropriate, Alert and oriented to time, place, person, mood and affect Laboratory Results 11/21/19 04:00: WBC 7.7, RBC 4.01 L, Hgb 12.8, Hct 37.9, MCV 94.5, MCH 31.9, MCHC 33.8, RDW Std Deviation 45.4 H, RDW Coeff of Ellie 13.2, Plt Count 164, MPV 10.3, Immature Gran % (Auto) 0.300, Neut % (Auto) 74.1 H, Lymph % (Auto) 16.2 L, [place] % (Auto) 8.5, Eos % (Auto) 0.4, Baso % (Auto) 0.5, Absolute Neuts (auto) 5.7, Absolute Lymphs (auto) 1.24, Nucleated RBC % 0 11/21/19 04:00: Sodium 134 L, Potassium 4.1, Chloride 102, Carbon Dioxide 25.0, Anion Gap 7, BUN 20 H, Creatinine 1.05 H, Estim Creat Clear Calc 38.00, Est GFR (MDRD) Af Amer 64, Est GFR (MDRD) Non-Af 53 L, BUN/Creatinine Ratio 19.0, Glucose 163 H, Calcium 8.6, Troponin I < 0.015 11/21/19 04:00: B-Natriuretic Peptide 1104.2 H 11/21/19 04:50: Urine Color Yellow, Urine Clarity Clear, Urine pH 6.5, Ur Specific [place] 1.010, Urine Protein 30 H, Urine Glucose (UA) Normal, Urine Ketones Negative, Urine Occult Blood 10 H, Urine Nitrite Negative, Urine Bilirubin Negative, Urine Urobilinogen Normal, Ur Leukocyte Esterase Negative, Urine RBC 0-5 SEEN, Urine WBC 0 SEEN, Ur Squamous Epith Cells 0-5 SEEN, Amorphous Sediment RARE, Urine Bacteria RARE, Urine Mucus 0 SEEN Diagnostic Data Chest X-Ray 11/21/19 04:02 IMPRESSION: Stable mild cardiomegaly. Electronically Signed: Lalo Christina MD at 4:55 EDT , Service support , Assessment/Plan All Active Problems (Last Reviewed 10/11/19 @ 07:59 by ROSA Mcmullen) Acute congestive heart failure (Acute) New onset atrial fibrillation (Acute) Dyspnea on exertion (Acute) Acute bronchitis (Acute) Abnormal stress test (Acute) Ulcer of right foot with fat layer exposed (Acute) Lower extremity edema (Acute) 83 y/o admitted with a complaint of shortness of breath 1. Acute on chronic HFpEF * BNP is elevated at 1110; CXR however shows only stable cardiomegaly * admit to PCU with telemetry * EKG showed new onset Afib, rate controlled * diurese with IV lasix 40mg bid; monitor intake and output. Fluid restriction to 1500cc daily * last echo(01/12/19): EF of 65%, with normal LVSF and no regional wall motion abnormalities noted; left atrium moderately enlarged, RA mildly enlarged, mild to moderate mitral valve insufficiency, with stable bioprosthetic aortic valve and RVSP of 49mmHg. * get 2D echo * 2. New onset afib * rate controlled. * denies a history of afib * CHADVASC score: 9 * will anticoagulate with therapeutic lovenox for now * consider cardiology consult. has no history of GI bleed, and admits to only one episode of mechanical fall a few months ago * check Mg and TSH * 3. CAD s/p stents and CABG: On Imdur and aspirin as well as metoprolol and statin 4. History of aortic valve stenosis status post replacement with bioprosthetic valve: * Stable. 5. Hypertension: On metoprolol and lisinopril adn HCTZ 6. Hypothyroidism: On Synthroid. Check TSH. 7. Hyperlipidemia: on statin 8. History of pulmonary hypertension: stable. Follows up with pulmonology on outpatient basis. 9. Type 2 diabetes mellitus: on metformin. ISS. Accuchecks ACHS DVT prophylaxis: therapeutic lovenox Code status: full code * Patient counseled extensively about different types of CODE STATUS including full code, DNR CCA and DNR CCA. Patient elects to be full code. * Total [id number] time 16 minutes. OBSV E&M: 05622 Initial observation care L3 Procedures: 40352 Advncd Care Plan 30 Min
--- NOTE | 2019-11-21 06:43 | NURSING ---
125 ACUTE CHF, NEW ONSET AFIB TRUPTI
--- NOTE | 2019-11-21 06:44 | NURSING ---
309 PYELONEPHRITIS, INTRACTABLE PAIN
--- NOTE | 2019-11-21 06:55 | ECHOD_ITS ---
Reason For Study: CHF Procedure This was a 2D Doppler, Color Flow transthoracic echocardiogram. The exam was of adequate technical quality. Exam performed portable in patient room. Left Ventricle Normal LV size. Moderate concentric left ventricular hypertrophy. Mid cavitary false tendon noted. Left ventricular systolic function is normal. The estimated ejection fraction is 65 %. Unable to assess diastolic dysfunction. No regional wall motion abnormalities noted. Right Ventricle Normal RV size. Normal systolic function. Atria The left atrium is severely enlarged. The right atrium is mildly enlarged. No doppler evidence for ASD. Mitral Valve There is mild to moderate mitral annular calcification. Extension of the mitral annular calcification onto the base of the posterior mitral valve leaflet. Moderate (2+) mitral valve insufficiency. Tricuspid Valve Normal tricuspid valve. Moderate (2+) tricuspid valve insufficiency. Right ventricular systolic pressure estimated to be 51 mmHg. Aortic Valve Mild aortic stenosis. Stable appearing bioprosthetic aortic valve apparatus. Pulmonic Valve The pulmonic valve is not well visualized. Trivial pulmonic valve insufficiency. Great Vessels The aortic root is not well visualized. Pericardium/Pleural No pericardial effusion. MMode/2D Measurements & Calculations LVIDd: 4.3 cm IVSd: 1.7 cm LVOT diam: 2.0 cm LVIDs: 2.5 cm LVPWd: 1.5 cm LVOT area: 3.1 cm2 RVDd: 4.2 cm FS: 41.1 % LA dimension: 5.5 cm LAV(MOD-bp): 109.5 ml LA A4 area: 29.6 cm2 LAV(MOD-bp) Indexed: 56.2 ml/m2 LAV(MOD-sp2): 98.3 ml LAV(MOD-sp4): 107.9 ml RA A4 area: 21.5 cm2 Time Measurements MV dec time: 0.19 sec Doppler Measurements & Calculations MV E max patrick: 168.2 cm/sec Lat Peak E' Patrick: 7.9 cm/sec MV V2 max: 196.7 cm/sec E/E' lat: 21.2 MV max P.5 mmHg MV V2 mean: 84.9 cm/sec MV mean P.0 mmHg MV V2 VTI: 42.4 cm MVA(VTI): 2.6 cm2 MV P1/2t max patrick: 194.1 cm/sec Ao V2 max: 287.3 cm/sec LV V1 max: 178.8 cm/sec MV P1/2t: 69.5 msec Ao max P.0 mmHg LV V1 max P.8 mmHg Ao V2 mean: 159.1 cm/sec LV V1 mean P.0 mmHg MV dec slope: 817.8 cm/sec2 Ao mean P.0 mmHg LV V1 mean: 120.5 cm/sec MVA(P1/2t): 3.2 cm2 Ao V2 VTI: 64.8 cm LV V1 VTI: 35.1 cm DANIELLE(I,D): 1.7 cm2 DANIELLE(V,D): 2.0 cm2 MR max patrick: 565.9 cm/sec SV(LVOT): 110.7 ml PA V2 max: 98.9 cm/sec MR max P.1 mmHg MR mean patrick: 449.5 cm/sec MR mean P.0 mmHg MR VTI: 199.9 cm TR max patrick: 347.9 cm/sec TR max P.4 mmHg Interpretation Summary Left ventricular systolic function is normal. The estimated ejection fraction is 65 %. Moderate concentric left ventricular hypertrophy. Mid cavitary false tendon noted. The left atrium is severely enlarged. The right atrium is mildly enlarged. There is mild to moderate mitral annular calcification. Extension of the mitral annular calcification onto the base of the posterior mitral valve leaflet. Moderate (2+) mitral valve insufficiency. Moderate (2+) tricuspid valve insufficiency. Stable appearing bioprosthetic aortic valve apparatus. Mild aortic stenosis. Trivial pulmonic valve insufficiency. Right ventricular systolic pressure estimated to be 51 mmHg. Unable to assess diastolic dysfunction. Ordering Physician: Jeannine Pena Referring Physician: Ajit Oleary Performed By: Timi Mcfarland RCS
[2019-11-21 07:19] LABS: Thyroid Stim Hormone (TSH) 2.82 uIU/mL (0.358-3.74)
--- NOTE | 2019-11-21 08:21 | PCM.CONS.C ---
Problem List (1) New onset atrial fibrillation Status: Acute (2) Acute congestive heart failure Status: Acute (3) Atherosclerotic heart disease of [place] coronary artery without angina pectoris Status: Chronic Qualifiers: [place] vs. transplanted heart: [place] heart Qualified Code(s): I25.10 - Atherosclerotic heart disease of [place] coronary artery without angina pectoris Comment: CABG x1 - ELOINA to lateral CX to OM 11/10/05 (4) Presence of aortocoronary bypass graft Status: Chronic Comment: CABG x1 - ELOINA to lateral CX 11/10/05 (5) History of aortic valve replacement with bioprosthetic valve Status: Chronic Comment: [employer] BioCore valve (6) Paroxysmal supraventricular tachycardia Status: Chronic (7) Mixed hyperlipidemia Status: Chronic (8) Essential hypertension Status: Chronic (9) Type 2 diabetes mellitus with diabetic polyneuropathy Status: Chronic (10) JOHN (obstructive sleep apnea) Status: Chronic Comment: AHI 8 prior to PAP, CPAP 14 cm water (11) Pulmonary hypertension Status: Chronic Reason for Consult Date of Consultation: 11/21/19 History of Present Illness: The patient is a 83 year [id number]-yhh white female with a history of CAD, CABG (KERN to the LAD), status post bioprosthetic aortic valve replacement, PSVT, hyperlipidemia, hypertension, diabetes mellitus, obstructive sleep apnea, and pulmonary hypertension who presents for evaluation of shortness of breath/dyspnea and was found to be in atrial fibrillation with a controlled ventricular response. The patient states that she has been tired recently and noted that her chronic shortness of breath/dyspnea appeared to worsen yesterday. She stated she had more difficulty breathing as the day and the night went on. She also believes she felt febrile at home but has not had a documented fever. She was brought to the emergency department for further evaluation. There she was reported as afebrile with her main concern being her shortness of breath and dyspnea. Her troponin I level was reported as negative. Her BNP level was reported elevated. Her ECG demonstrated atrial fibrillation with a controlled ventricular response. Her chest x-ray suggested post open heart surgery changes with a report of no acute changes. She states she has not had any ongoing chest discomfort. She does not recall palpitations or rapid rates. There has been no report of near syncope or syncope. She notes her main concern was her progressive shortness of breath and dyspnea. She has undergone noninvasive and invasive evaluation during the course of the past year. This included a transthoracic echocardiogram, exercise tolerance test/imaging study, and a diagnostic cardiac catheterization. Her cardiac catheterization did not lead to additional coronary revascularization therapy. At the time of her interview the nurse stated that there had been concerns as to whether or not the patient had been febrile. Thus the patient was evaluated with COVID-19 testing. This was reported as nonreactive. Past Medical History Allergies/Adverse Reactions: Allergies celecoxib [From Celebrex] Allergy (Intermediate, Verified 11/21/19 03:48) Other - jittery & edema Home Medications: Ambulatory Orders Medication Instructions Recorded aspirin 81 mg tablet,delayed 81 mg PO QDAY 04/15/17 release fenofibrate nanocrystallized 145 145 mg PO QDAY 04/15/17 mg tablet hydrochlorothiazide 25 mg tablet 25 mg PO QDAY 04/15/17 meloxicam 15 mg tablet 75 mg PO BID tab 04/15/17 metformin 500 mg tablet 500 mg PO QDAY tab 04/15/17 metoprolol succinate 100 mg 100 mg PO BID tab 04/15/17 tablet,extended release 24 hr nitroglycerin 0.4 mg sublingual 0.4 mg SUBLINGUAL Q5M PRN 04/15/17 tablet pravastatin 40 mg tablet 40 mg PO QHS 04/15/17 levothyroxine 100 mcg tablet 100 mcg PO QDAY 08/15/17 oxybutynin chloride 5 mg tablet 5 mg PO DAILY tab 06/26/18 furosemide 20 mg tablet 20 mg PO DAILY #90 tab 03/05/19 isosorbide mononitrate 60 mg 60 mg PO DAILY #90 tab 04/10/19 tablet,extended release 24 hr lisinopril 5 mg tablet 5 mg PO DAILY tab 10/12/19 Past Medical History (Chronic Problems): Chronic Problems (Last Reviewed 10/11/19 @ 07:59 by ROSA Mcmullen) SOB (shortness of breath) (Chronic) Mixed hyperlipidemia (Chronic) Essential hypertension (Chronic) Type 2 diabetes mellitus with diabetic polyneuropathy (Chronic) Atherosclerotic heart disease of [place] coronary artery without angina pectoris (Chronic) CABG x1 - ELOINA to lateral CX to OM 11/10/05 History of aortic valve replacement with bioprosthetic valve (Chronic ~11/10/05) [employer] BioCore valve Presence of aortocoronary bypass graft (Chronic ~11/10/05) CABG x1 - ELOINA to lateral CX 11/10/05 JOHN (obstructive sleep apnea) (Chronic) AHI 8 prior to PAP, CPAP 14 cm water Pulmonary hypertension (Chronic) DM II (diabetes mellitus, type II), controlled (Chronic) Paroxysmal supraventricular tachycardia (Chronic) Premature ventricular contraction (Chronic) Supraventricular tachycardia (Chronic) Surgical History: coronary bypass surgery, - - Aortic valve replacement Psychiatric History: No pertinent psych hx - *Family History Maternal Family History: Family History (Last Reviewed 10/11/19 @ 07:59 by Dunia Alves NP-C) Father Hypertension Mother CAD (coronary artery disease) CHF (congestive heart failure) Brother Colon cancer Lives: Alone Smoking Status: Never smoker Alcohol: None Drugs: None Review of Systems - Review of Systems General: Reports: Fever, - - Fever: Subjective/not documented. Denies: Fatigue, Night Sweats Cardiovascular: Reports: Shortness of Breath. Denies: Chest Discomfort, Orthopnea, PND, Peripheral Edema, Palpitations, Lightheadedness, Dizziness, Near Syncope, Syncope Respiratory: Reports: Shortness of Breath. Denies: Cough, Sputum Production, Hemoptysis Gastrointestinal: Denies: Hematemesis, Hematochezia, Melena Genitourinary: Denies: Dysuria, Hematuria Skin: Denies: Rash Subjectve: This is an 83-year-old white female who appears to be resting comfortably in no acute distress. Objective: Vital Signs Temp Pulse Resp BP Pulse Ox 98.1 F 56 L 20 H 182/88 H 92 11/21/19 07:00 11/21/19 07:09 11/21/19 07:00 11/21/19 07:00 11/21/19 07:00 Oxygen Delivery Method Room Air Weight: 193 lb 5.526 oz Body Mass Index (BMI) 32.1 General: Awake, Alert, Oriented x 3, Cooperative, No Acute Distress HEENT: Atraumatic, Normocephalic, PERRL, EOMI, Sclera Non Icteric Neck: Supple, Good ROM Chest Wall: Midline Sternotomy Incision Lungs: - - No obvious rales or rhonchi Cardiovascular: Irregular Rhythm, Normal S1, [place] Prosthetic S2 Murmur Murmur: Grade 3/6, Harsh, Mid Systolic, LVOT, Sternal Notch Vascular: Radiation of Murmur to Carotid Arteries Abdomen: Bowel Sounds Present, Soft Extremities: No edema Psych/Mental Status: Appropriate 11/21/19 04:00: WBC 7.7, RBC 4.01 L, Hgb 12.8, Hct 37.9, MCV 94.5, MCH 31.9, MCHC 33.8, Plt Count 164, MPV 10.3, Immature Gran % (Auto) 0.300, Neut % (Auto) 74.1 H, Lymph % (Auto) 16.2 L, [place] % (Auto) 8.5, Eos % (Auto) 0.4, Baso % (Auto) 0.5, Absolute Neuts (auto) 5.7, Nucleated RBC % 0 11/21/19 04:00: Sodium 134 L, Potassium 4.1, Chloride 102, Carbon Dioxide 25.0, Anion Gap 7, BUN 20 H, Creatinine 1.05 H, Est GFR (MDRD) Af Amer 64, Est GFR (MDRD) Non-Af 53 L, BUN/Creatinine Ratio 19.0, Glucose 163 H, Calcium 8.6, Troponin I < 0.015 11/21/19 04:00: B-Natriuretic Peptide 1104.2 H 11/21/19 04:00: Magnesium 2.0 11/21/19 04:50: Urine Color Yellow, Urine Clarity Clear, Urine pH 6.5, Ur Specific [place] 1.010, Urine Protein 30 H, Urine Glucose (UA) Normal, Urine Ketones Negative, Urine Occult Blood 10 H, Urine Nitrite Negative, Urine Bilirubin Negative, Urine Urobilinogen Normal, Ur Leukocyte Esterase Negative, Urine RBC 0-5 SEEN, Urine WBC 0 SEEN 11/21/19 07:54: Troponin I 0.019 Rhythm: Atrial fibrillation EKG: Atrial fibrillation ECHO: 01/12/2019 Interpretation Summary Left ventricular systolic function is normal. The estimated ejection fraction is 65 %. The left atrium is moderately enlarged. The right atrium is mildly enlarged. There is mild mitral annular calcification. Extension of the mitral annular calcification onto the base of the posterior mitral valve leaflet. Mild-Moderate (1-2+) mitral valve insufficiency. Mild tricuspid valve insufficiency. Stable appearing bioprosthetic aortic valve apparatus. Trivial pulmonic valve insufficiency. Mildly dilated aortic root. Right ventricular systolic pressure estimated to be 49 mmHg. Transmitral diastolic flow velocities suggest diastolic dysfunction (pseudonormal pattern). Stress Test: Stress Test Report Date: 03-13-19 Procedure: Exercise tolerance test/imaging study Indications: Shortness of breath/dyspnea on exertion; CAD; CABG; status post AVR Consent: Per the patient Procedure: The patient exercised on a Matthew protocol for 5 minutes completing Stage I and 2 minutes of Stage II achieving a peak heart rate of 114 bpm (83 % predicted maximal heart rate) with a peak blood pressure 154/78 mmHg and a peak MET capacity of 7 METs. The baseline ECG demonstrated this bradycardia. The peak exercise ECG demonstrated no obvious ECG changes of the heart rate achieved. There were rare PVCs pretest, during exercise, and recovery. The functional capacity was considered average. There was [no complaint of chest discomfort during exercise or recovery]. The examination was discontinued secondary to dyspnea. Impression: 1. Technically adequate (percent predicted maximal heart rate greater than 85%) exercise tolerance test 2. Peak exercise ECG with no obvious ECG changes at the heart rate achieved 3. There were rare PVCs pretest, during exercise, and recovery 4. Pharmacologic (Regadenoson) evaluation pending Procedure: Pharmacologic stress nuclear imaging study Consent: Per the patient Procedure: The patient underwent pharmacologic (Regadenoson) evaluation with a peak heart rate of 79 beats per minute (57 %predicted maximal heart rate) and a peak blood pressure of 124/70 mmHg. The baseline ECG demonstrated sinus rhythm; second-degree AV block [place] 1. The peak pharmacologic ECG demonstrated no obvious ECG changes. There was a rare PVC during recovery. [There was no complaint of chest discomfort during pharmacologic infusion or recovery]. The examination was discontinued secondary to completion of protocol. Impression: 1. Pharmacologic (Regadenoson) evaluation 2. Peak pharmacologic ECG with no obvious ECG changes. 3. There was a rare PVC during recovery. 4. Nuclear images pending Myocardial perfusion imaging study: Technique: The patient was injected with 12.0 millicuries of technetium 99m Cardiolite and subsequently rest SPECT Cardiolite nuclear imaging was obtained in the horizontal long, vertical long, and short axis views. The patient exercised on a Matthew protocol for 5 minutes completing Stage I and 2 minutes of Stage II achieving a peak heart rate of 114 bpm (83 % predicted maximal heart rate) with a peak blood pressure 154/78 mmHg and a peak MET capacity of 7 METs. The patient underwent pharmacologic (Regadenoson) evaluation with a peak heart rate of 79 beats per minute (57 % percent predicted maximal heart rate) and a peak blood pressure of 124/70 mmHg. The patient was injected with 35.0 millicuries of technetium 99m Cardiolite and subsequently stress SPECT Cardiolite nuclear imaging was obtained in the horizontal long, vertical long, and short axis views. A gated Cardiolite study at peak stress was obtained. Interpretation: Rest and stress SPECT Cardiolite nuclear imaging status post realignment, normalization, and attenuation correction demonstrate at rest relative uniform tracer uptake and status post stress a small area of subtle diminished tracer uptake in the inferior apical segments. [There is end systolic thickening and brightening]. [The gated Cardiolite study demonstrates myocardial thickening and inward wall motion]. The reported LVEF is 76 %. Impression: 1. Rest and stress SPECT Cardiolite nuclear imaging demonstrate status post stress a small area of subtle diminished tracer uptake in the inferior apical segments potentially compatible with physiologic apical thinning, although, an area of stress-induced myocardial ischemia cannot necessarily be excluded. 2. The gated Cardiolite study reports an LVEF of 76 %. Cardiac Cath: 04-10-2019 CONCLUSIONS [place] Multivessel CAD KERN to the OM1: patent RECOMMENDATIONS Medical therapy Risk factor modification CORONARY ANGIOGRAPHY DOMINANCE: Right Dominant LEFT HEART ASSESSMENT Left Ventricular Ejection Fraction: Not assessed LEFT MAIN: Angiographically normal LEFT ANTERIOR DESCENDING ARTERY: PROX LAD: Mild calcification, diffuse: 25 % Stenosis MID LAD: 25 - 50 % Stenosis DISTAL LAD: Mild luminal irregularities, / apical: 100 % Stenosis DIAGONAL 1: Proximal - 50 % Stenosis DIAGONAL 2: Proximal - small caliber vessel: 50 % Stenosis CIRCUMFLEX ARTERY: PROX CIRC: is occluded OM 1: Ostial - small caliber vessel: 99 % Stenosis RIGHT CORONARY ARTERY: Mild luminal irregularities diffuse: eccentric: 25 % Stenosis GRAFTS: KERN graft to the 1st OM is patent with the KERN demonstrating an area of a [place] bend and no angiographically significant appearing disease distal to the graft attachment. COLLATERAL FLOW: Collateral flow from Left to Left CT Surgery: 11-10-2005: [facility] KERN to the LAD Aortic valve replacement with a 23 mm [employer] Biocore valve CXR: As noted above: Please see official report Assessment/Plan 1. Atrial fibrillation The patient presents with findings of atrial fibrillation. The exact duration of her atrial fibrillation is unknown at this time. This may be secondary to a combination of her age and her cardiopulmonary conditions. At the moment she appears to be rate controlled. She will need anticoagulant therapy. She may need to be considered for antiarrhythmic therapy. Eventually, if she does not have spontaneous conversion to sinus rhythm, she can be considered for an attempt at synchronized biphasic DC cardioversion. 2. Acute CHF-diastolic The patient has been evaluated in the past. She has been noted to have overall preserved LV systolic function. Thus her findings thought compatible with CHF at this time may be related to a diastolic mediated process. This could be exacerbated by the development of atrial fibrillation. At the present time she will continue evaluation care of her atrial fibrillation. She will continue medical management for concerns of CHF with IV diuretic therapy. She will be reassessed with an echocardiogram to reassess her aortic valve anatomy and physiology and her left ventricular wall motion and systolic function. 3. CAD status post CABG (KERN to the LAD) The patient underwent reevaluation of her coronary and graft anatomy in March 2019. The results are as noted. She did not require additional revascularization therapy. She does need to continue risk factor evaluation care as deemed appropriate. She will continue medical management as needed. 4. Status post aortic valve replacement-bioprosthetic The patient has had her bioprosthetic valve assessed in the past. It will be reassessed with next cardiogram based upon her findings now of atrial fibrillation and her findings thought concerning for acute CHF. 5. PSVT The patient has had a history of PSVT in the past. At the present time she appears to have evidence of atrial fibrillation with a controlled ventricular response. Her rhythm will be monitored. Her medications to be adjusted as deemed appropriate. 6. Hyperlipidemia The patient will continue risk factor modification medical therapy. 7. Hypertension The patient's blood pressure was noted to be elevated upon arrival at the hospital. It is unclear whether this was a contributing factor to her symptoms or potentially secondary to her symptoms. She will need her medications adjusted to try and bring her blood pressures under better control. 8. Diabetes mellitus She will continue evaluation care per internal medicine. 9. Obstructive sleep apnea This may be a contributing factor to the findings of her atrial fibrillation and her associated symptoms. She will need continue evaluation care by internal medicine and pulmonology as deemed appropriate. 10. Pulmonary hypertension She does have an element of pulmonary hypertension. This may be multifactorial. This can be reassessed with an echocardiogram. In the meantime she will continue medical management and support. Comment: The patient's case has been discussed and reviewed with Dr. Avina. This note was generated using a voice recognition system and there may be incorrect words, spelling or punctuation that were not noted when reviewing the office note prior to saving.
[2019-11-21] MEDS: Enoxaparin 100 MG/ML Syringe 90 MG SC ×2 (09:33→17:09)
[2019-11-21] MEDS: Isosorbide Mononitrate 60 MG Tablet PO (09:34)
[2019-11-21] MEDS: Tolterodine Tartrate 2 MG CAP.SA PO (09:34)
[2019-11-21] MEDS: Fenofibrate 145 MG Tablet PO (09:34)
[2019-11-21] MEDS: Aspirin E.C. 81 MG Tablet PO (09:34)
[2019-11-21] MEDS: Meloxicam 7.5 MG Tablet PO ×2 (09:35→22:21)
[2019-11-21] MEDS: Metoprolol(XL)Succ 100 MG Tablet PO ×2 (09:35→22:30)
[2019-11-21] MEDS: Levothyroxine 100 MCG Tablet PO (09:35)
[2019-11-21] MEDS: Lisinopril 10 MG Tablet PO ×2 (09:35→22:27)
[2019-11-21] MEDS: Furosemide 40 MG/4 ML Vial IV ×2 (09:35→17:09)
[2019-11-21] MEDS: 0.9% Saline Lock 10 ML Syringe IV ×2 (09:37→17:09)
[2019-11-21 09:50] LABS: Bedside Glucose 143 mg/dL (70-110)
[2019-11-21 12:26] LABS: Bedside Glucose 187 mg/dL (70-110)
[2019-11-21] MEDS: Amiodarone 200 MG Tablet PO ×2 (15:30→22:27)
[2019-11-21 15:35] LABS: Bedside Glucose 119 mg/dL (70-110)
--- NOTE | 2019-11-21 18:43 | PCM.HOSP.N ---
Hospitalist Note Patient was seen and examined briefly today, I talked with cardiology about her care. Her heart rate appears to be controlled on her present medications, cardiology added amiodarone today and she is being fully anticoagulated with Lovenox. I checked on her cost for Eliquis and it is minimal so I will probably write her a prescription for this when she is discharged. Continue present medications as directed by cardiology and continue to monitor.
[2019-11-21] MEDS: Insulin Lispro 100 UNIT/ML INSULN.PEN SC (22:20)
[2019-11-21] MEDS: Pravastatin 40 MG Tablet PO (22:27)
[2019-11-21 23:01] LABS: Bedside Glucose 185 mg/dL (70-110)
--- NOTE | 2019-11-22 00:25 | NURSING ---
Handoff report given to Samantha Moss RN who will now take over care of this pt.
[2019-11-22 03:01] VITALS: PULSE 51
[2019-11-22 04:08] VITALS: BP 154/69; PULSE 55; RESP 12; TEMP 36.2; O2SAT 96
[2019-11-22 05:55] LABS: Absolute Lymphocyte Count 1.35 X10^3/uL (0.83-4.51); Absolute Neutrophil Count 2.8 X10^3/uL (2.0-7.7); Basophil# 0.04 X10^3/uL; Basophil% 0.8 % (0-1); Eosinophil# 0.24 X10^3/uL; Eosinophils% 4.8 % (0-5); Hematocrit 35.2 % (37-47); Hemoglobin 12.1 g/dL (12.0-15.0); Lymphocyte # 1.35 X10^3/ul (4.0); Mean Corp Hgb Conc 34.4 g/dL (32-36); Mean Corpuscular Hgb 32.2 pg (27.0-32.0); Mean Corpuscular Volume 93.6 fL (81-99); Monocyte# 0.54 X10^3/uL; Monocyte% 10.8 % (0-10); NRBC Flagged by Analyzer 0 % (0-5); Neutrophil # 2.79 X10^3/uL (2.7-7.7); Neutrophil % 55.8 % (47-70); Platelet Count 162 K/mm3 (150-450); RBC Distribution Width CV 13.2 % (11.6-14.6); RBC Distribution Width SD 45.3 fl (35.1-43.9); Red Blood Count 3.76 M/mm3 (4.2-5.4)
[2019-11-22 06:08] LABS: Anion Gap 3 (5-15); BUN 23 mg/dL (7-18); Calcium,Total 8.4 mg/dL (8.5-10.1); Chloride 103 mmol/L (98-107); Creatinine, Serum 1.21 mg/dL (0.55-1.02); EST Glomerular Filtration Rate 45 mL/min (>60); Est Glom Filt Rate - Afr Amer 55 mL/min (>60); Glucose 134 mg/dL (74-106); Potassium 3.7 mmol/L (3.5-5.1); Sodium Level 137 mmol/L (136-145)
[2019-11-22] MEDS: Enoxaparin 100 MG/ML Syringe 90 MG SC (06:44)
[2019-11-22] MEDS: Insulin Lispro 100 UNIT/ML INSULN.PEN SC (06:44)
[2019-11-22] MEDS: Levothyroxine 100 MCG Tablet PO (06:44)
[2019-11-22 07:06] VITALS: PULSE 54
--- NOTE | 2019-11-22 08:35 | PN.CARD_ITS ---
Subjectve: The patient states she feels better today. She states she is breathing better today. Objective: Vital Signs Temp Pulse Resp BP Pulse Ox 97.2 F L 55 L 12 154/69 H 96 11/22/19 04:08 11/22/19 04:08 11/22/19 04:08 11/22/19 04:08 11/22/19 04:08 Oxygen Delivery Method Room Air Weight: 193 lb 5.526 oz Body Mass Index (BMI) 32.1 Intake and Output for Last 24 Hours 11/20/19 11/21/19 11/22/19 23:59 23:59 23:59 Intake Total 840 / 840 40 / 40 Output Total 700 / 700 50 / 50 Balance 140 / 140 -10 / -10 General: Awake, Alert, Oriented x 3, Cooperative, No Acute Distress HEENT: Atraumatic, Normocephalic, PERRL, EOMI, Sclera Non Icteric Neck: Supple, Good ROM, No JVD Lungs: Clear to auscultation Cardiovascular: Irregular Rhythm, Normal S1, Normal S2 Murmur Murmur: Grade 3/6, Harsh, Mid Systolic, LVOT, Sternal Notch Abdomen: Bowel Sounds Present, Soft Extremities: No edema Psych/Mental Status: Appropriate 11/21/19 10:45: Troponin I 0.025 11/22/19 05:27: WBC 5.0, RBC 3.76 L, Hgb 12.1, Hct 35.2 L, MCV 93.6, MCH 32.2 H, MCHC 34.4, Plt Count 162, MPV 10.0, Immature Gran % (Auto) 0.800, Neut % (Auto) 55.8, Lymph % (Auto) 27.0, [place] % (Auto) 10.8 H, Eos % (Auto) 4.8, Baso % (Auto) 0.8, Absolute Neuts (auto) 2.8, Nucleated RBC % 0 11/22/19 05:27: Sodium 137, Potassium 3.7, Chloride 103, Carbon Dioxide 31.0, Anion Gap 3 L, BUN 23 H, Creatinine 1.21 H, Est GFR (MDRD) Af Amer 55 L, Est GFR (MDRD) Non-Af 45 L, BUN/Creatinine Ratio 19.0, Glucose 134 H, Calcium 8.4 L Rhythm: Atrial fibrillation ECHO: Interpretation Summary Left ventricular systolic function is normal. The estimated ejection fraction is 65 %. Moderate concentric left ventricular hypertrophy. Mid cavitary false tendon noted. The left atrium is severely enlarged. The right atrium is mildly enlarged. There is mild to moderate mitral annular calcification. Extension of the mitral annular calcification onto the base of the posterior mitral valve leaflet. Moderate (2+) mitral valve insufficiency. Moderate (2+) tricuspid valve insufficiency. Stable appearing bioprosthetic aortic valve apparatus. Mild aortic stenosis. Trivial pulmonic valve insufficiency. Right ventricular systolic pressure estimated to be 51 mmHg. Unable to assess diastolic dysfunction. Medical Necessity - Tobacco Use Smoking Status: Never smoker Assessment/Plan 1. Atrial fibrillation The patient presents with findings of atrial fibrillation. The exact duration of her atrial fibrillation is unknown at this time. This may be secondary to a combination of her age and her cardiopulmonary conditions. At the moment she appears to be rate controlled. She will need anticoagulant therapy. Is being placed on amiodarone therapy. Based upon her well-controlled heart rate she will be placed on 200 mg p.o. daily with follow-up of her heart rate and rhythm. Eventually, if she does not have spontaneous conversion to sinus rhythm, she can be considered for an attempt at synchronized biphasic DC cardioversion. 2. Acute CHF-diastolic The patient has been evaluated in the past. She has been noted to have overall preserved LV systolic function. Thus her findings thought compatible with CHF at this time may be related to a diastolic mediated process. This could be exacerbated by the development of atrial fibrillation. At the present time she will continue evaluation care of her atrial fibrillation. She will continue medical management for concerns of CHF with oral diuretic therapy. 3. CAD status post CABG (KERN to the LAD) The patient underwent reevaluation of her coronary and graft anatomy in March 2019. The results are as noted. She did not require additional revascularization therapy. She does need to continue risk factor evaluation care as deemed appropriate. She will continue medical management as needed. 4. Status post aortic valve replacement-bioprosthetic The patient has had her bioprosthetic valve assessed in the past. Based upon her echocardiogram her aortic valve appears to remain stable with the appearance of mild bioprosthetic aortic valve stenosis. 5. PSVT The patient has had a history of PSVT in the past. At the present time she appears to have evidence of atrial fibrillation with a controlled ventricular response. Her rhythm will be monitored. Her medications to be adjusted as deemed appropriate. 6. Hyperlipidemia The patient will continue risk factor modification medical therapy. 7. Hypertension The patient's blood pressure was noted to be elevated upon arrival at the hospital. It is unclear whether this was a contributing factor to her symptoms or potentially secondary to her symptoms. Her PADDY inhibitor dose was adjusted. Her blood pressure does appear to be somewhat improved. 8. Diabetes mellitus She will continue evaluation care per internal medicine. 9. Obstructive sleep apnea This may be a contributing factor to the findings of her atrial fibrillation and her associated symptoms. She will need continue evaluation care by internal me dicine and pulmonology as deemed appropriate. 10. Pulmonary hypertension She does have an element of pulmonary hypertension. This may be multifactorial. Upon her echocardiogram her estimated RV systolic pressure remains elevated at approximately 51 mmHg. She will continue medical management/support. Comment: The patient's case has been discussed and reviewed with Dr. Avina. This note was generated using a voice recognition system and there may be incorrect words, spelling or punctuation that were not noted when reviewing the office note prior to saving.
[2019-11-22 09:46] VITALS: BP 131/61; PULSE 57; RESP 14; TEMP 36.9; O2SAT 94
[2019-11-22] MEDS: Fenofibrate 145 MG Tablet PO (09:51)
[2019-11-22] MEDS: Aspirin E.C. 81 MG Tablet PO (09:51)
[2019-11-22] MEDS: Amiodarone 200 MG Tablet PO (09:51)
[2019-11-22] MEDS: Tolterodine Tartrate 2 MG CAP.SA PO (09:51)
[2019-11-22 09:52] VITALS: BP 131/61; PULSE 57
[2019-11-22] MEDS: Isosorbide Mononitrate 60 MG Tablet PO (09:52)
[2019-11-22] MEDS: Metoprolol(XL)Succ 100 MG Tablet PO (09:52)
[2019-11-22] MEDS: Meloxicam 7.5 MG Tablet PO (09:52)
[2019-11-22] MEDS: Lisinopril 10 MG Tablet PO (09:52)
[2019-11-22] MEDS: Furosemide 40 MG Tablet PO (09:57)
--- NOTE | 2019-11-22 10:15 | CASEMGMT ---
Addendum entered by Shannon Velazquez 11/23/19 09:29: 11/22/19 @ 1015: BAHENA form reviewed w/pt and questions answered. Pt signed form, copy made and placed in chart, and original given to pt. Pt made aware to ask for RN CM if any further questions arise. 11/22/19 @ 4111: Pt discharging home on Eliquis. Call placed to [facility] pharmacy. Eliquis 30-day savings card has been applied. 1st 30-day supply will be $0 and refills will be approx $46/month. Pt made aware and she states this is affordable. Original Note: RN CM CASTING DIRECTOR CM to room to meet with patient for initial transition planning/care coordination assessment. RN CM introduced self and role at [facility]. Pt voices understanding and consents to assessment at this time. Pt sitting up in chair in room in no distress at this time. Pt is A/O at this time and answers all questions appropriately. Care providers, pharmacy, and demographics verified/updated at this time. PCP: Dr Ajit Oleary Specialists: Dr Alexander--pulmonology, Dr Lam--cardiology Preferred Pharmacy: [facility] Insurance: MCR, [employer] Prescription Benefit: Yes. [employer] Living Will/HPOA: Has both LW and Healthcare POA, who is her daughter, Tracey Short. Copies not on file @ [facility]. Pt is aware. LNOK: Daughter, Tracey/JERICHO. Son. Living Arrangements: Lives alone in split-level home. 6 steps to lower level. 7 steps to upper level. Bathroom on lower level. Bedroom and bathroom on upper level. States stairs have rails on one side and she takes them slowly/carefully. Independent w/ADL's and IADL's. Transportation: Pt states drives self and states no transportation concerns at this time. Friends can assist if needed. Friend will take her home @ D/C DME: States has the following DME: cane, glucometer, grab bars in shower, handheld shower, CPAP thru [employer]. Pt states no need for further DME at this time. HHC/SNF: No history of SNF. Has had HHC in the past after heart surgery. Denies need for HHC or OP therapy. Discussed CCN. Pt declines at this time and states, maybe later. Pt provided w/CCN rac card w/contact info. Pt wishes to return home and states has no concerns with going home at time of discharge. CM to follow for any discharge planning/needs. Pt voices no further concerns/needs at this time. Advised pt to ask for CM if any questions/concerns/needs arise. Voices understanding. PLAN: Home Yon LAYTON RN CM
--- NOTE | 2019-11-22 10:25 | PCM.DC ---
- Discharge Diagnoses Current Active Problems: Current Active and Chronic Problems (Last Reviewed 10/11/19 @ 07:59 by ROSA Mcmullen) Acute congestive heart failure (Acute) New onset atrial fibrillation (Acute) Dyspnea on exertion (Acute) You will use the following diet at home:: Calorie/Carbohydrate Controlled (specify 1200, 1400, etc) - 1800 dion Your food should be the consistency of: Regular Your liquids should be the consistency of: Regular/Thin Discharge Activity: Return to Normal Activity Weight Bearing Status: Full weight bearing Additional Instructions: TAKE ONLY TYLENOL FOR PAIN Allergies/Adverse Reactions: Allergies celecoxib [From Celebrex] Allergy (Intermediate, Verified 11/21/19 03:48) Other - jittery & edema Medications to take at Discharge aspirin 81 mg tablet,delayed release 81 mg PO QDAY 04/15/17 fenofibrate nanocrystallized 145 mg tablet 145 mg PO QDAY 04/15/17 metformin 500 mg tablet 500 mg PO QDAY tab 04/15/17 metoprolol succinate 100 mg tablet,extended release 24 hr 100 mg PO BID tab 04/15/17 nitroglycerin 0.4 mg sublingual tablet 0.4 mg SUBLINGUAL Q5M PRN 04/15/17 pravastatin 40 mg tablet 40 mg PO QHS 04/15/17 levothyroxine 100 mcg tablet 100 mcg PO QDAY 08/15/17 oxybutynin chloride 5 mg tablet 5 mg PO DAILY tab 06/26/18 isosorbide mononitrate 60 mg tablet,extended release 24 hr 60 mg PO DAILY #90 tab 04/10/19 lisinopril 5 mg tablet 5 mg PO DAILY tab 10/12/19 Amiodarone HCl 200 mg PO DAILY #30 tab 11/22/19 Amiodarone HCl [Cordarone] 200 mg PO DAILY tab 11/22/19 Apixaban [Eliquis] 5 mg PO BID #60 tab 11/22/19 Furosemide [Lasix] 40 mg PO BID@1000,1800 #60 tab 11/22/19 Lisinopril [Zestril] 10 mg PO BID #60 tab 11/22/19 Potassium Chloride 20 meq PO DAILY #60 tablet.er 11/22/19 The following prescriptions were given: Amiodarone HCl 200 mg PO DAILY #30 tab Transmission Status: Received by [facility] Apixaban [Eliquis] 5 mg PO BID #60 tab Furosemide [Lasix] 40 mg PO BID@1000,1800 #60 tab Transmission Status: Received by [facility] Potassium Chloride 20 meq PO DAILY #60 tablet.er Transmission Status: Received by [facility] Lisinopril [Zestril] 10 mg PO BID #60 tab Transmission Status: Received by [facility] Primary Care Physician: Ajit Oleary MD [Primary Care Provider] - Please follow up with your Primary Care Physician in: 2 weeks Test Results: Test results from this visit will be discussed in further detail at your follow-up appointment, if applicable. Please Follow Up With: Ajit Lam MD When: as directed
[2019-11-22 11:16] LABS: Bedside Glucose 164 mg/dL (70-110)
[2019-11-22 11:20] LABS: Bedside Glucose 149 mg/dL (70-110)
--- NOTE | 2019-11-22 12:58 | PHA.DC.MC ---
Pharmacy Service has performed discharge medication reconciliation and counseling for this patient. 1. AMIODARONE 200MG PO DAILY 2. APIXABAN 5MG PO BID 3. POTASSIUM CHLORIDE 20MEQ PO DAILY The patient's discharge medication list was reviewed for discrepancies and discrepancies were resolved. This [facility] spoke with Dr. Avina regarding duplicate amiodarone and lisinopril. Patient is to take lisinopril 10mg po bid, not 5mg daily. He is unable to make changes in the computer. Home Medications aspirin 81 mg tablet,delayed release 81 mg PO QDAY 04/15/17 fenofibrate nanocrystallized 145 mg tablet 145 mg PO QDAY 04/15/17 metformin 500 mg tablet 500 mg PO QDAY tab 04/15/17 metoprolol succinate 100 mg tablet,extended release 24 hr 100 mg PO BID tab 04/15/17 nitroglycerin 0.4 mg sublingual tablet 0.4 mg SUBLINGUAL Q5M PRN 04/15/17 pravastatin 40 mg tablet 40 mg PO QHS 04/15/17 levothyroxine 100 mcg tablet 100 mcg PO QDAY 08/15/17 oxybutynin chloride 5 mg tablet 5 mg PO DAILY tab 06/26/18 isosorbide mononitrate 60 mg tablet,extended release 24 hr 60 mg PO DAILY #90 tab 04/10/19 lisinopril 5 mg tablet 5 mg PO DAILY tab 10/12/19 Amiodarone HCl 200 mg PO DAILY #30 tab 11/22/19 Amiodarone HCl [Cordarone] 200 mg PO DAILY tab 11/22/19 Apixaban [Eliquis] 5 mg PO BID #60 tab 11/22/19 Furosemide [Lasix] 40 mg PO BID@1000,1800 #60 tab 11/22/19 Lisinopril [Zestril] 10 mg PO BID #60 tab 11/22/19 Potassium Chloride 20 meq PO DAILY #60 tablet.er 11/22/19 The patient was counseled on the following discharge medications and changes in medications for homegoing were reviewed. The Reason for Use, instructions for use, and potential side effects were reviewed for all new medications. The patient's questions regarding all of their medications were answered. The patient was able to verbally demonstrate an understanding of their discharge medications. Patient was counseled by pharmacy data analyst, Elijah.
--- NOTE | 2019-11-23 18:07 | DS.PCM_ITS ---
Discharge Date and Diagnosis Date of Admission: 11/21/19 Date of Discharge: 11/22/19 - Primary Discharge Diagnosis Acute Problems: #1 acute diastolic CHF #2 new onset atrial fibrillation #3 coronary artery disease #4 pulmonary hypertension #5 type 2 diabetes #6 essential hypertension - Secondary Discharge Diagnosis Chronic Problems: Chronic Problems (Last Reviewed 10/11/19 @ 07:59 by ROSA Mcmullen) SOB (shortness of breath) (Chronic) Mixed hyperlipidemia (Chronic) Essential hypertension (Chronic) Type 2 diabetes mellitus with diabetic polyneuropathy (Chronic) Atherosclerotic heart disease of [place] coronary artery without angina pectoris (Chronic) CABG x1 - ELOINA to lateral CX to OM 11/10/05 History of aortic valve replacement with bioprosthetic valve (Chronic ~11/10/05) [employer] valve Presence of aortocoronary bypass graft (Chronic ~11/10/05) CABG x1 - ELOINA to lateral CX 11/10/05 JOHN (obstructive sleep apnea) (Chronic) AHI 8 prior to PAP, CPAP 14 cm water Pulmonary hypertension (Chronic) DM II (diabetes mellitus, type II), controlled (Chronic) Paroxysmal supraventricular tachycardia (Chronic) Premature ventricular contraction (Chronic) Supraventricular tachycardia (Chronic) Hospital Course and Treatment Operations: None Procedures: 2-D Echocardiogram Summary of Care Provided: The patient is a 83 year old F who was seen in the emergency room at [facility] with a chief complaint of shortness of breath, work-up in the emergency room revealed the patient to be in atrial fibrillation with a well- controlled ventricular response, chest x-ray showed no evidence of CHF although the patient did have an elevated beta natruretic peptide. It was felt that the patient was clinically and congestive heart failure, she was placed in observation status on PCU, seen by cardiology in consultation, treated with IV Lasix and rate control medications and underwent an echocardiogram which showed a preserved EF with pulmonary hypertension. On 11/22/2019, patient was seen and examined: On examination she appeared in good health and spirits, she does not appear to be in any distress. Vital signs as documented. Skin warm and dry and without overt rashes. Neck without JVD, thyroid appears normal, trachea is midline, neck is supple. Lungs clear, normal air movement was noted. Heart exam notable for irregular rhythm, there is a 2/6 systolic murmur noted at the apex, no rubs or gallops. Abdomen unremarkable and without evidence of organomegaly, masses, or abdominal aortic enlargement, bowel sounds are present in all 4 quadrants, no abdominal tenderness was noted. Extremities nonedematous, no cyanosis was noted, no clubbing was noted. Neuro: Cranial nerves II through XII are grossly intact, no focal motor deficits were noted, sensation to light touch and pinprick is intact, motor exam 5/5 throughout. Psych: Patient is alert and oriented x3, she does not appear anxious or depressed, she does not appear agitated. On 11/22/2019, patient was discharged home in stable condition - Physical Exam Vitals/I&O's: Vital Signs Temp Pulse Resp BP Pulse Ox 98.5 F 57 L 14 131/61 H 94 11/22/19 09:46 11/22/19 09:52 11/22/19 09:46 11/22/19 09:52 11/22/19 09:46 Oxygen Delivery Method Room Air Weight: 87.7 kg Body Mass Index (BMI) 32.1 Intake and Output for Last 24 Hours 11/21/19 11/22/19 11/23/19 23:59 23:59 23:59 Intake Total 840 / 840 715 / 715 Output Total 700 / 700 50 / 50 Balance 140 / 140 665 / 665 Discharge Activity: Return to Normal Activity Weight Bearing Status: Full weight bearing Home Medications: Medications to take at Discharge aspirin 81 mg tablet,delayed release 81 mg PO QDAY 04/15/17 fenofibrate nanocrystallized 145 mg tablet 145 mg PO QDAY 04/15/17 metformin 500 mg tablet 500 mg PO QDAY tab 04/15/17 metoprolol succinate 100 mg tablet,extended release 24 hr 100 mg PO BID tab 04/15/17 nitroglycerin 0.4 mg sublingual tablet 0.4 mg SUBLINGUAL Q5M PRN 04/15/17 pravastatin 40 mg tablet 40 mg PO QHS 04/15/17 levothyroxine 100 mcg tablet 100 mcg PO QDAY 08/15/17 oxybutynin chloride 5 mg tablet 5 mg PO DAILY tab 06/26/18 isosorbide mononitrate 60 mg tablet,extended release 24 hr 60 mg PO DAILY #90 t ab 04/10/19 lisinopril 5 mg tablet 5 mg PO DAILY tab 10/12/19 Amiodarone HCl 200 mg PO DAILY #30 tab 11/22/19 Amiodarone HCl [Cordarone] 200 mg PO DAILY tab 11/22/19 Apixaban [Eliquis] 5 mg PO BID #60 tab 11/22/19 Furosemide [Lasix] 40 mg PO BID@1000,1800 #60 tab 11/22/19 Lisinopril [Zestril] 10 mg PO BID #60 tab 11/22/19 Potassium Chloride 20 meq PO DAILY #60 tablet.er 11/22/19 Following Prescriptions Were Given to Patient: Amiodarone HCl 200 mg PO DAILY #30 tab Transmission Status: Received by [facility] Apixaban [Eliquis] 5 mg PO BID #60 tab Furosemide [Lasix] 40 mg PO BID@1000,1800 #60 tab Transmission Status: Received by [facility] Potassium Chloride 20 meq PO DAILY #60 tablet.er Transmission Status: Received by [facility] Lisinopril [Zestril] 10 mg PO BID #60 tab Transmission Status: Received by [facility] Primary Care Physician: Ajit Oleary MD [Primary Care Provider] - Please follow up with your Primary Care Physician in: 2 weeks Please Follow Up With: Ajit Lam MD When: as directed Disposition: Home Minutes spent on discharge:: 30 Patient Condition:: Stable Medical Necessity - Tobacco Use Smoking Status: Never smoker Meaningful Use Info Meaningful Use Diagnoses (Choose all that apply): CHF - CHF PADDY/ARB ordered at discharge?: Yes Documented LVEF (%): 65 OBSV E&M: 46586 Observation care discharge
== END 2019-11-22 11:34 | disposition home or self-care (01) ==
LOC: ED 05:32 → PCU 05:53
PROVIDERS: Admitting Provider Student in an Organized Health Care Education/Training Program; Emergency Provider Emergency Medicine; PCP Family Medicine; Referring Provider Student in an Organized Health Care Education/Training Program; Visit Provider Internal Medicine
DX: I11.0 Hypertensive heart disease with heart failure (principal); I50.33 Acute on chronic diastolic (congestive) heart failure; I25.10 Atherosclerotic heart disease of native coronary artery without angina pectoris; I08.3 Combined rheumatic disorders of mitral, aortic and tricuspid valves; I48.91 Unspecified atrial fibrillation; I27.20 Pulmonary hypertension, unspecified; E78.2 Mixed hyperlipidemia; E11.42 Type 2 diabetes mellitus with diabetic polyneuropathy; G47.33 Obstructive sleep apnea (adult) (pediatric); M19.90 Unspecified osteoarthritis, unspecified site; E03.9 Hypothyroidism, unspecified; I47.1 Supraventricular tachycardia; Z95.1 Presence of aortocoronary bypass graft; Z95.3 Presence of xenogenic heart valve; Z79.899 Other long term (current) drug therapy; Z79.84 Long term (current) use of oral hypoglycemic drugs; Z79.82 Long term (current) use of aspirin; Z86.718 Personal history of other venous thrombosis and embolism
CPT/HCPCS: 36415; 71045; 80048; 81001; 82962; 83735; 83880; 84443; 84484; 85025; 87635; 93005; 93306; 94640; 94799; 96372; 96374; 96376; 99218; 99285; A4216; G0378; J1940; U0003

== ENCOUNTER → 2019-11-28 15:20 | Outpatient (CLI) | payer MEDICARE, OTHER, SELFPAY ==
[2019-11-21 06:50] VITALS: BMI 32.1
[2019-11-28 18:34] LABS: Anion Gap 8 (5-15); BUN 49 mg/dL (7-18); BUN/Creat Ratio 29.3 RATIO (10-20); Calcium,Total 9.3 mg/dL (8.5-10.1); Chloride 98 mmol/L (98-107); Creatinine, Serum 1.67 mg/dL (0.55-1.02); EST Glomerular Filtration Rate 31 mL/min (>60); Est Glom Filt Rate - Afr Amer 38 mL/min (>60); Glucose 126 mg/dL (74-106); Potassium 3.9 mmol/L (3.5-5.1); Sodium Level 135 mmol/L (136-145)
== END ==
PROVIDERS: PCP Family Medicine; Referring Provider Family Medicine; Visit Provider Family Medicine
DX: I50.9 Heart failure, unspecified (principal)
CPT/HCPCS: 36415; 80048

== ENCOUNTER 2019-12-20 06:00 | Outpatient (RCR) | payer SELFPAY ==
[2019-11-21 06:50] VITALS: BMI 32.1
== END 2019-12-24 23:59 ==
LOC: CR 06:00
PROVIDERS: Family Provider Family Medicine; PCP Family Medicine; Referring Provider Internal Medicine Cardiovascular Disease; Visit Provider Internal Medicine Cardiovascular Disease
DX: Z00.00 Encounter for general adult medical examination without abnormal findings (principal)

== ENCOUNTER 2019-12-25 11:29 | Day surgery (SDC) | payer MEDICARE, OTHER, SELFPAY ==
[2019-12-20 11:21] VITALS: BMI 32.1
[2019-12-24 13:29] VITALS: BMI 31.1
--- NOTE | 2019-12-25 08:02 | PCM.HP.BLA ---
Problem List (1) New onset atrial fibrillation Status: Acute History and Physical Date of Admission: 12/25/19 [facility] [address] [place] [address] OFFICE VISIT Date of Service: 12/20/19 MR#: [id number] Acct: [id number] Name: RUBI CHAVEZ Rep #: [id number] Provider: ROSA Molina Age/Sex: 84/F [place] [facility] [place] [place] Status: Signed HPI [facility] History of Present Illness Details: RUBI CHAVEZ, is a 84 year old white female who presents to the office today for an outpatient cardiovascular followup of her history of CAD, CABG in October 2005 with a KERN to lateral circumflex, AVR with a [employer] Biocore valve on 11/10/2005, atrial fibrillation diagnosed in October 2019, and JOHN with CPAP therapy. Pt denies chest, arm, jaw, or neck discomfort. His exercise tolerance is stable. Pt denies symptoms of palpitations, lightheadedness, dizziness, near syncopal or syncopal episodes. Pt denies edema or claudication issues. Pt. denies orthopnea, PND, fever, chills, blood in urine, blood in stool, myalgia, or unexplainable fatigue. She continues with SOB on exertion that improves with rest. She continues with feeling off balanced. She states an episode of blood noted in toilet bowl this was stool or urine related. This only occurred once and has not reoccurred. Intake Vital Signs 12/20/19 BMI 32.1 12/20/19 Height 5 ft 5 in 12/20/19 Weight: 187 lb 12/20/19 BMI 31.1 12/20/19 BP 132/78 H 12/20/19 Blood Pressure Location Lt brachial 12/20/19 Position Sitting 12/20/19 Respiration 16 12/20/19 Pulse 55 L 12/20/19 Pulse Source NIBP 12/20/19 Pulse Oximetry (%) 97 12/20/19 Oxygen Delivery Method room air Intake Visit Reasons: Congestive heart failure Allergies celecoxib [From Celebrex] Allergy (Intermediate, Verified 11/21/19 03:48) Other - jittery & edema Medications aspirin 81 mg tablet,delayed release 81 mg PO QDAY 04/15/17 [History Confirmed 12/20/19] fenofibrate nanocrystallized 145 mg tablet 145 mg PO QDAY 04/15/17 [History Confirmed 12/20/19] metformin 500 mg tablet 500 mg PO QDAY tab 04/15/17 [History Confirmed 12/20/19] metoprolol succinate 100 mg tablet,extended release 24 hr 100 mg PO BID tab 04/15/17 [History Confirmed 12/20/19] nitroglycerin 0.4 mg sublingual tablet 0.4 mg SUBLINGUAL Q5M PRN 04/15/17 [History Confirmed 12/20/19] pravastatin 40 mg tablet 40 mg PO QHS 04/15/17 [History Confirmed 12/20/19] levothyroxine 100 mcg tablet 100 mcg PO QDAY 08/15/17 [History Confirmed 12/20/19] oxybutynin chloride 5 mg tablet 5 mg PO DAILY tab 06/26/18 [History Confirmed 12/20/19] isosorbide mononitrate 60 mg tablet,extended release 24 hr 60 mg PO DAILY #90 tab 04/10/19 [Rx Confirmed 12/20/19] Potassium Chloride 20 meq PO DAILY #60 tablet.er 11/22/19 [Rx Confirmed 12/20/19] amiodarone 200 mg tablet 200 mg PO DAILY #90 tab 12/20/19 [Rx Confirmed 12/20/19] apixaban 5 mg tablet 5 mg PO BID #180 tab 12/20/19 [Rx Confirmed 12/20/19] furosemide 40 mg tablet 40 mg PO BID #180 tab 12/20/19 [Rx Confirmed 12/20/19] lisinopril 10 mg tablet 10 mg PO BID #180 tab 12/20/19 [Rx Confirmed 12/20/19] [facility] Social History (Updated 12/20/19 @ 12:58 by ROSA Tomlin) Smoking Status: Never smoker second hand exposure: No alcohol intake: never substance use type: does not use ROS Const Const: Negative for fatigue, weakness, body ache, fever(s) or chills ENT ENT: Negative for dizziness Cardio Chest Pain: No Palpitations: No Edema: None Muscle aches with walking: None Resp Respiratory: Positive for SOB with activity; negative for SOB at rest, SOB orthopnea\SOB lying down or paroxysmal nocturnal dyspnea GI GI: Negative nausea, vomiting blood/hematemesis, bright, red blood in stools or black,tarry stools : Negative for hematuria or frequent nighttime urination/ nocturia Musc Musc: Negative for muscle aches/ myalgia Skin Skin: Negative non-healing lesions or rash Neuro Neuro: Positive for other (Off balance); negative for dizziness, lightheadedness, near syncope, syncope, orthostatic symptoms or weakness Endo Endo: Negative for fatigue Allergy Allergy/Immunology: Negative for rash Cardiology Exam Const Appearance: cooperative, healthy appearing, comfortable and no acute distress Nutritional Appearance: average body habitus and well nourished Orientation: alert, awake and oriented x3 Head Head: normal to inspection Ears: hearing grossly normal bilaterally Nose: external nose normal Face and Sinus: face symmetric Mouth: oral mucosae normal Eyes General: appearance normal, both eyes and all related structures Eyelids: eyelids normal EOM: EOM intact bilaterally Neck Neck: normal visual inspection and no JVD Carotids: normal carotid upstroke Chest Chest inspection: normal inspection of the chest, symmetric chest movement and normal respiratory effort; negative cough Auscultation: Bilateral: Clear to Auscultation Cardio Palpation: normal PMI Rate: regular rate Rhythm: irregularly irregular Heart sounds: S1 normal, S2 normal and murmur; negative rub or gallop Murmur: Grade 3/6, harsh, mid systolic, LLSB, LVOT, sternal notch and radiates to carotids GI GI: normal to inspection Neuro General: alert, awake, oriented x3 and CN's II-XI intact bilaterally Skin Skin: no rashes or lesions noted Extremities Pulses: Normal: Right Posterior Tibial Pulse, Left Posterior Tibial Pulse, Right Radial Pulse, Left Radial Pulse Lower Extremity Edema: +1: Bilateral Psych Psychological: normal affect Assessment & Plan 1. Acute systolic congestive heart failure I50.21 Plan Patient appears to be compensated today with current medical therapy of metoprolol, lisinopril, and Lasix 40 mg p.o. twice daily. She continues to have shortness of breath that at this time is thought related to her atrial fibrillation. She will continue current medical therapy and we will continue to monitor. 2. New onset atrial fibrillation I48.91 Plan This is a new diagnosis for her. Her EKG on 12/06/2019 continue showed atrial fibrillation. At the time, her heart rate was noted to be 58 beats minute and a QTC of 429. Her most recent echocardiogram from October 2019 showed a preserved ejection fraction of 65%, severely enlarged left atrium, mildly enlarged right atrium, moderate mitral insufficiency, and stable appearing bioprosthetic aortic valve apparatus with mild aortic valve stenosis. RVSP was noted be 51 mmHg. She states being compliant with her anticoagulant therapy without interruption since discharge from hospital. She appears to be in an irregular rhythm on exam. Patient is agreeable to proceed with outpatient cardioversion. Hopefully, with maintaining sinus rhythm her symptoms improve. Given her bradycardia today, her beta-jacobo may need to be adjusted depending on results of cardioversion. This too, may improve her shortness of breath. She will return to office in approximately 4-6 weeks to evaluate overall progress post cardioversion. Orders Orders: Cardioversion Today 3. Atherosclerosis of [place] coronary artery of [place] heart without angina pectoris I25.10 CABG x1 - ELOINA to lateral CX to OM 11/10/05 Plan Her heart catheterization on 04/10/2019 showed patent KERN to OM 1. Her echocardiogram October 2019 showed an ejection fraction of 65%. Patient denies any chest pain, arm pain, jaw pain, neck pain, or fatigue suggestive of angina at this time. We will continue to monitor. We will not make any medication regimen changes and will continue risk factor modification. 4. Presence of aortocoronary bypass graft Z95.1 CABG x1 - ELOINA to lateral CX 11/10/05 Plan She will continue current medical therapy. She will continue risk factor and lifestyle modification. 5. History of aortic valve replacement with bioprosthetic valve Z95.3 [employer] BioCore valve Plan Her echocardiogram in October 2019 showed a stable appearing bioprosthetic aortic valve apparatus with mild aortic valve stenosis. At this time, she will continue current medical therapy and we will continue to monitor through history, exam, and repeat echocardiogram as needed. 6. Essential (primary) hypertension I10 Plan Her blood pressure tends to fluctuate. In general, throughout phase 3 cardiac rehab, this has been well controlled. She will continue current medical therapy and we will continue to monitor. 7. Mixed hyperlipidemia E78.2 Plan She will continue current statin medication. This was last checked by primary care physician approximately 1 year ago. She believes this will be checked with primary care physician in the future. Plan Detail Other Medications Changed: From: furosemide 40 mg PO BID@1000,1800 60 tabs 0RF To: furosemide 40 mg PO BID 180 tabs 3RF Refilled: apixaban 5 mg PO BID 180 tabs 3RF lisinopril 10 mg PO BID 180 tabs 3RF amiodarone 200 mg PO DAILY 90 tabs 3RF Additional Comments Thank you for allowing us to participate in the patients plan of care, if you have any questions please do not hesitate to call. This note was generated using a voice recognition system and there may be incorrect words, spelling or punctuation that were not noted when reviewing the office note prior to saving. Follow Up 4-6 Weeks (RIB CHOPPER/PA) Coding Level of Care Code Off vis,est,level 4 Diagnoses Acute systolic congestive heart failure I50.21 ??Heart failure type: systolic New onset atrial fibrillation I48.91 Atherosclerosis of [place] coronary artery of [place] heart without angina pectoris I25.10 ??[place] vs. transplanted heart: [place] heart Presence of aortocoronary bypass graft Z95.1 History of aortic valve replacement with bioprosthetic valve Z95.3 Essential (primary) hypertension I10 Mixed hyperlipidemia E78.2 Coding Level of Care Code Off vis,est,level 4 Diagnoses Acute systolic congestive heart failure I50.21 ??Heart failure type: systolic New onset atrial fibrillation I48.91 Atherosclerosis of [place] coronary artery of [place] heart without angina pectoris I25.10 ??[place] vs. transplanted heart: [place] heart Presence of aortocoronary bypass graft Z95.1 History of aortic valve replacement with bioprosthetic valve Z95.3 Essential (primary) hypertension I10 Mixed hyperlipidemia E78.2 Supplemental Info Supplemental Information Transthoracic echocardiogram: Interpretation Summary Left ventricular systolic function is normal. The estimated ejection fraction is 65 %. Moderate concentric left ventricular hypertrophy. Mid cavitary false tendon noted. The left atrium is severely enlarged. The right atrium is mildly enlarged. There is mild to moderate mitral annular calcification. Extension of the mitral annular calcification onto the base of the posterior mitral valve leaflet. Moderate (2+) mitral valve insufficiency. Moderate (2+) tricuspid valve insufficiency. Stable appearing bioprosthetic aortic valve apparatus. Mild aortic stenosis. Trivial pulmonic valve insufficiency. Right ventricular systolic pressure estimated to be 51 mmHg. Unable to assess diastolic dysfunction. Transthoracic echocardiogram: 01-12-19 Interpretation Summary Left ventricular systolic function is normal. The estimated ejection fraction is 65 %. The left atrium is moderately enlarged. The right atrium is mildly enlarged. There is mild mitral annular calcification. Extension of the mitral annular calcification onto the base of the posterior mitral valve leaflet. Mild-Moderate (1-2+) mitral valve insufficiency. Mild tricuspid valve insufficiency. Stable appearing bioprosthetic aortic valve apparatus. Trivial pulmonic valve insufficiency. Mildly dilated aortic root. Right ventricular systolic pressure estimated to be 49 mmHg. Transmitral diastolic flow velocities suggest diastolic dysfunction (pseudonormal pattern). Stress Test Report Date: 03-13-19 Procedure: Exercise tolerance test/imaging study Indications: Shortness of breath/dyspnea on exertion; CAD; CABG; status post AVR Consent: Per the patient Procedure: The patient exercised on a Matthew protocol for 5 minutes completing Stage I and 2 minutes of Stage II achieving a peak heart rate of 114 bpm (83 % predicted maximal heart rate) with a peak blood pressure 154/78 mmHg and a peak MET capacity of 7 METs. The baseline ECG demonstrated this bradycardia. The peak exercise ECG demonstrated no obvious ECG changes of the heart rate achieved. There were rare PVCs pretest, during exercise, and recovery. The functional capacity was considered average. There was [no complaint of chest discomfort during exercise or recovery]. The examination was discontinued secondary to dyspnea. Impression: 1. Technically adequate (percent predicted maximal heart rate greater than 85%) exercise tolerance test 2. Peak exercise ECG with no obvious ECG changes at the heart rate achieved 3. There were rare PVCs pretest, during exercise, and recovery 4. Pharmacologic (Regadenoson) evaluation pending Procedure: Pharmacologic stress nuclear imaging study Consent: Per the patient Procedure: The patient underwent pharmacologic (Regadenoson) evaluation with a peak heart rate of 79 beats per minute (57 %predicted maximal heart rate) and a peak blood pressure of 124/70 mmHg. The baseline ECG demonstrated sinus rhythm; second-degree AV block [place] 1. The peak pharmacologic ECG demonstrated no obvious ECG changes. There was a rare PVC during recovery. [There was no complaint of chest discomfort during pharmacologic infusion or recovery]. The examination was discontinued secondary to completion of protocol. Impression: 1. Pharmacologic (Regadenoson) evaluation 2. Peak pharmacologic ECG with no obvious ECG changes. 3. There was a rare PVC during recovery. 4. Nuclear images pending Myocardial perfusion imaging study: Technique: The patient was injected with 12.0 millicuries of technetium 99m Cardiolite and subsequently rest SPECT Cardiolite nuclear imaging was obtained in the horizontal long, vertical long, and short axis views. The patient exercised on a Matthew protocol for 5 minutes completing Stage I and 2 minutes of Stage II achieving a peak heart rate of 114 bpm (83 % predicted maximal heart rate) with a peak blood pressure 154/78 mmHg and a peak MET capacity of 7 METs. The patient underwent pharmacologic (Regadenoson) evaluation with a peak heart rate of 79 beats per minute (57 % percent predicted maximal heart rate) and a peak blood pressure of 124/70 mmHg. The patient was injected with 35.0 millicuries of technetium 99m Cardiolite and subsequently stress SPECT Cardiolite nuclear imaging was obtained in the horizontal long, vertical long, and short axis views. A gated Cardiolite study at peak stress was obtained. Interpretation: Rest and stress SPECT Cardiolite nuclear imaging status post realignment, normalization, and attenuation correction demonstrate at rest relative uniform tracer uptake and status post stress a small area of subtle diminished tracer uptake in the inferior apical segments. [There is end systolic thickening and brightening]. [The gated Cardiolite study demonstrates myocardial thickening and inward wall motion]. The reported LVEF is 76 %. Impression: 1. Rest and stress SPECT Cardiolite nuclear imaging demonstrate status post stress a small area of subtle diminished tracer uptake in the inferior apical segments potentially compatible with physiologic apical thinning, although, an area of stress-induced myocardial ischemia cannot necessarily be excluded. 2. The gated Cardiolite study reports an LVEF of 76 %. Heart catheterization from 04/10/2019: CONCLUSIONS [place] Multivessel CAD KERN to the OM1: patent RECOMMENDATIONS Medical therapy Risk factor modification CORONARY ANGIOGRAPHY DOMINANCE: Right Dominant LEFT HEART ASSESSMENT Left Ventricular Ejection Fraction: Not assessed LEFT MAIN: Angiographically normal LEFT ANTERIOR DESCENDING ARTERY: PROX LAD: Mild calcification, diffuse: 25 % Stenosis MID LAD: 25 - 50 % Stenosis DISTAL LAD: Mild luminal irregularities, / apical: 100 % Stenosis DIAGONAL 1: Proximal - 50 % Stenosis DIAGONAL 2: Proximal - small caliber vessel: 50 % Stenosis CIRCUMFLEX ARTERY: PROX CIRC: is occluded OM 1: Ostial - small caliber vessel: 99 % Stenosis RIGHT CORONARY ARTERY: Mild luminal irregularities diffuse: eccentric: 25 % Stenosis GRAFTS: KERN graft to the 1st OM is patent with the KERN demonstrating an area of a [place] bend and no angiographically significant appearing disease distal to the graft attachment. COLLATERAL FLOW: Collateral flow from Left to Left Labs LDL Cholesterol 75 mg/dL (0-130) 02/25/17 HDL Cholesterol 59 mg/dL (40-) 02/25/17 Triglycerides 92 mg/dL (-199) 02/25/17 VLDL Cholesterol 18 mg/dL (5-40) 02/25/17 Diagnostics Electrocardiogram 12/06/19 Echocardiogram 11/21/19 Stress Test Nuclear Medicine 03/13/19 Stress Test 03/13/19 Cardiac Catheterization 04/10/19 Chest X-Ray 11/21/19 Pulmonary Pulmonary Function Test 10/22/14 Pulmonary Exercise Test 09/26/18 12/20/19 0224 <Electronically signed by Oswald LEE> Date Oswald LEE Cosigner Signature: Date (if applicable) CC: Dr. Ajit Oleary MD ~ I have examined the patient the following changes are noted: The patient presents today for further evaluation and care of her atrial fibrillation for consideration for synchronized biphasic DC cardioversion. The procedure and risks have been discussed with her. She is agreeable to the approach. Procedure Criteria Procedure Type: Elective COVID Risk Discussion: The surgeon/proceduralist and patient have discussed in detail the risk of exposure to and/or potential harm posed by the COVID-19 virus with having a surgery/procedure at this time versus the risk of delaying the surgery/procedure. It is not possible to know either the risk of delaying the surgery or procedure or chance of getting an infection with perfect accuracy, but a joint decision was made between the patient and the surgeon/proceduralist to proceed at this time with the scheduled surgery/procedure as indicated on the consent form.
--- NOTE | 2019-12-25 13:09 | CARDIOVERS_ITS ---
Cardioversion Cardioversion: Date: 12-25-2019 Procedure: Synchronized Biphasic DC Cardioversion Indications: Atrial fibrillation/flutter Consent: Per the Patient Anesthesia: per Dr. Alexander of pulmonology and critical care medicine with propofol 50 mg IV push total Procedure: Synchronized Biphasic DC Cardioversion: 50 J x1: Result: Atrial fi brillation/flutter Synchronized biphasic DC cardioversion: 200 J x 1: Result: Sinus bradycardia Complications: no apparent complications This note was generated with [employer] software. It may contain incorrect words, spelling, and punctuation that were not noted in checking the note before signing.
--- NOTE | 2019-12-25 13:20 | PCM.OP.PRO ---
Problem List (1) Dyspnea on exertion Status: Acute (2) Lower extremity edema Status: Acute (3) New onset atrial fibrillation Status: Acute (4) Atherosclerotic heart disease of [place] coronary artery without angina pectoris Status: Chronic Qualifiers: [place] vs. transplanted heart: [place] heart Qualified Code(s): I25.10 - Atherosclerotic heart disease of [place] coronary artery without angina pectoris Comment: CABG x1 - ELOINA to lateral CX to OM 11/10/05 (5) DM II (diabetes mellitus, type II), controlled Status: Chronic (6) Essential hypertension Status: Chronic (7) History of aortic valve replacement with bioprosthetic valve Status: Chronic Comment: [employer] BioCore valve (8) Mixed hyperlipidemia Status: Chronic (9) JOHN (obstructive sleep apnea) Status: Chronic Comment: AHI 8 prior to PAP, CPAP 14 cm water (10) Presence of aortocoronary bypass graft Status: Chronic Comment: CABG x1 - ELOINA to lateral CX 11/10/05 (11) Pulmonary hypertension Status: Chronic (12) Supraventricular tachycardia Status: Chronic (13) Type 2 diabetes mellitus with diabetic polyneuropathy Status: Chronic Procedure Report Date of Procedure: 12/25/19 - Conscious sedation CONSCIOUS SEDATION REPORT BRIEF HISTORY OF PRESENT ILLNESS: The patient is a 84-year-old female who presented to [facility] for an elective outpatient cardioversion due to underlying atrial fibrillation. The patient reports no PO intake since midnight. The patient does have a history of obstructive sleep apnea. The patient reports no history of smoking and COPD. The patient denies any recent constitutional symptoms such as fevers, chills, nausea or vomiting. The patient denies previous anesthetic complications. Patient's last known ejection fraction was 65%. Patient did take Eliquis on the day of the procedure. PHYSICAL EXAMINATION: VITAL SIGNS: Reviewed and were acceptable. GENERAL: The patient is a female, in no apparent distress, speaking in full sentences. HEENT: Normocephalic, atraumatic. Mucous membranes are moist and pink. Good mouth opening noted. Trachea is midline. Good neck mobility. MP IV CHEST: S1, S2 irregularly irregular. No murmurs, rubs or gallops were noted. LUNGS: Clear to auscultation bilaterally without appreciable wheezes, rales or rhonchi. ABDOMEN: Soft, nontender, nondistended. Positive bowel sounds. EXTREMITIES: There is no clubbing, cyanosis or edema. ASA Class: II DESCRIPTION OF PROCEDURE: After confirmation of informed consent, the patient's anesthesia plan was reviewed in detail. Propofol was chosen. Risks and benefits were reviewed and the patient agreed to proceed. At 12:49 PM, the patient was given 40 mg of propofol. The patient required a total of 50 mg of propofol throughout the procedure to achieve appropriate sedation. The patient achieved an appropriate level of sedation and received 2 attempts synchronized cardioversion, at 50 J and [address] Gibson at the bedside. This was successful in achieving normal sinus rhythm. The patient was monitored until 1:05 PM, at which time the patient reached their baseline mental status and function. The patient tolerated the procedure well. COMPLICATIONS: None ESTIMATED BLOOD LOSS: None RECOMMENDATIONS: Okay to recover in usual fashion. [id number]: Other Procedure See Report - 62082 -16 minutes conscious sedation
== END 2019-12-25 14:05 | disposition home or self-care (01) ==
LOC: CLSP 11:30
PROVIDERS: PCP Family Medicine; Referring Provider Internal Medicine Cardiovascular Disease; Visit Provider Internal Medicine Cardiovascular Disease
DX: I48.91 Unspecified atrial fibrillation (principal); I11.0 Hypertensive heart disease with heart failure; I50.21 Acute systolic (congestive) heart failure; I25.10 Atherosclerotic heart disease of native coronary artery without angina pectoris; Z95.1 Presence of aortocoronary bypass graft; Z95.3 Presence of xenogenic heart valve; E78.2 Mixed hyperlipidemia; Z79.01 Long term (current) use of anticoagulants; Z79.82 Long term (current) use of aspirin; Z79.84 Long term (current) use of oral hypoglycemic drugs; Z88.6 Allergy status to analgesic agent; Z79.899 Other long term (current) drug therapy; I08.1 Rheumatic disorders of both mitral and tricuspid valves; G47.33 Obstructive sleep apnea (adult) (pediatric)
CPT/HCPCS: 92960; 93005; J7040

== ENCOUNTER → 2020-01-04 08:39 | Outpatient (CLI) | payer MEDICARE, OTHER, SELFPAY ==
[2019-12-24 13:29] VITALS: BMI 31.1
[2020-01-04 10:51] LABS: Anion Gap 6 (5-15); BUN 35 mg/dL (7-18); BUN/Creat Ratio 22.3 RATIO (10-20); Calcium,Total 8.8 mg/dL (8.5-10.1); Chloride 107 mmol/L (98-107); Cholesterol 155 mg/dL (200); Creatinine, Serum 1.57 mg/dL (0.55-1.02); EST Glomerular Filtration Rate 33 mL/min (>60); Est Glom Filt Rate - Afr Amer 40 mL/min (>60); Free T3 1.6 pg/mL (2.18-3.98); Glucose 115 mg/dL (74-106); High Density Lipoprotein 43 mg/dL; Potassium 4.2 mmol/L (3.5-5.1); Sodium Level 141 mmol/L (136-145); T4 Total, Thyroxin 13.8 ug/dL (4.8-13.9); Thyroid Stim Hormone (TSH) 5.01 uIU/mL (0.358-3.74); Triglycerides 130 mg/dL; Very Low Density Lipoprotein 26 mg/dL (5-40)
== END ==
PROVIDERS: PCP Family Medicine; Referring Provider Family Medicine; Visit Provider Family Medicine
DX: E03.9 Hypothyroidism, unspecified (principal); I50.9 Heart failure, unspecified
CPT/HCPCS: 36415; 80048; 80061; 84436; 84443; 84481

== ENCOUNTER 2020-01-22 06:00 | Outpatient (RCR) | payer SELFPAY ==
[2019-12-24 13:29] VITALS: BMI 31.1
== END 2020-01-23 23:59 ==
LOC: CR 06:00
PROVIDERS: Family Provider Family Medicine; PCP Family Medicine; Referring Provider Internal Medicine Cardiovascular Disease; Visit Provider Internal Medicine Cardiovascular Disease
DX: Z00.00 Encounter for general adult medical examination without abnormal findings (principal)

== ENCOUNTER → 2020-01-23 | Outpatient (CLI) | payer MEDICARE, OTHER, SELFPAY ==
[2020-01-17 05:45] VITALS: BMI 31.4
== END | disposition home or self-care (01) ==
LOC: SL 20:12
PROVIDERS: PCP Family Medicine; Visit Provider Internal Medicine Critical Care Medicine
DX: G47.33 Obstructive sleep apnea (adult) (pediatric) (principal)
CPT/HCPCS: 95811

== ENCOUNTER → 2020-02-01 10:29 | Outpatient (CLI) | payer MEDICARE, OTHER, SELFPAY ==
[2020-01-17 05:45] VITALS: BMI 31.4
== END ==
PROVIDERS: PCP Family Medicine; Visit Provider Nurse Practitioner Acute Care
DX: Z46.89 Encounter for fitting and adjustment of other specified devices (principal)

== ENCOUNTER → 2020-02-05 13:22 | Outpatient (CLI) | payer MEDICARE, OTHER, SELFPAY ==
[2020-01-17 05:45] VITALS: BMI 31.4
== END ==
PROVIDERS: PCP Family Medicine; Visit Provider Nurse Practitioner Acute Care
DX: Z46.89 Encounter for fitting and adjustment of other specified devices (principal)

== ENCOUNTER 2020-02-21 06:00 | Outpatient (RCR) | payer SELFPAY ==
[2020-01-17 05:45] VITALS: BMI 31.4
== END 2020-02-23 23:59 ==
LOC: CR 06:00
PROVIDERS: Family Provider Family Medicine; PCP Family Medicine; Referring Provider Internal Medicine Cardiovascular Disease; Visit Provider Internal Medicine Cardiovascular Disease
DX: Z00.00 Encounter for general adult medical examination without abnormal findings (principal)

== ENCOUNTER 2020-03-18 06:00 | Outpatient (RCR) | payer SELFPAY ==
[2020-01-31 09:27] VITALS: BMI 31.2
== END 2020-03-24 23:59 ==
LOC: CR 06:00
PROVIDERS: Family Provider Family Medicine; PCP Family Medicine; Referring Provider Internal Medicine Cardiovascular Disease; Visit Provider Internal Medicine Cardiovascular Disease
DX: Z00.00 Encounter for general adult medical examination without abnormal findings (principal)

== ENCOUNTER → 2020-04-14 08:26 | Outpatient (CLI) | payer MEDICARE, OTHER, SELFPAY ==
[2020-01-31 09:27] VITALS: BMI 31.2
--- NOTE | 2020-04-14 08:30 | RAD_ITS ---
STUDY: X-RAY - RIGHT KNEE REASON FOR EXAM: Female, 84 years old. Right knee pain TECHNIQUE: 4 view(s) of the knee. COMPARISON: Comparison is made with prior study dated 12/24/2016. FINDINGS: Normal visualized distal femur. Normal visualized proximal tibia and fibula. Normal proximal tibiofibular articulation. There is severe degenerative arthrosis of the medial femorotibial compartment with severe joint space narrowing. Normal lateral femorotibial compartment. There is severe degenerative arthrosis of the patellofemoral articulation. There are atherosclerotic calcifications. Soft tissue ossification along the lateral aspect of the distal femur suggestive of a synovial osteochondromatosis. RAD/Knee 4 or More Views IMPRESSION: Degenerative arthrosis. Findings suggestive of synovial osteochondromatosis. Electronically Signed: Kaushik Peña, at 8:44 EST , Service support ,
[2020-04-14 09:52] LABS: Hematocrit 37.1 % (37-47); Hemoglobin 12.3 g/dL (12.0-15.0); Mean Corp Hgb Conc 33.2 g/dL (32-36); Mean Corpuscular Hgb 32.7 pg (27.0-32.0); Mean Corpuscular Volume 98.7 fL (81-99); Mean Platelet Vol. 10.1 fl (6.2-12.0); Platelet Count 156 K/mm3 (150-450); RBC Distribution Width CV 13.3 % (11.6-14.6); RBC Distribution Width SD 48.3 fl (35.1-43.9); Red Blood Count 3.76 M/mm3 (4.2-5.4); White Blood Count 5.5 K/mm3 (4.4-11.0)
[2020-04-14 10:56] LABS: Anion Gap 9 (5-15); BUN 25 mg/dL (7-18); BUN/Creat Ratio 20.2 RATIO (10-20); Calcium,Total 9.2 mg/dL (8.5-10.1); Chloride 105 mmol/L (98-107); Cholesterol 179 mg/dL (200); Creatinine, Serum 1.24 mg/dL (0.55-1.02); EST Glomerular Filtration Rate 44 mL/min (>60); Est Glom Filt Rate - Afr Amer 53 mL/min (>60); Free T3 1.8 pg/mL (2.18-3.98); Glucose 112 mg/dL (74-106); High Density Lipoprotein 50 mg/dL; Sodium Level 140 mmol/L (136-145); T4 Total, Thyroxin 15.3 ug/dL (4.8-13.9); Thyroid Stim Hormone (TSH) 1.72 uIU/mL (0.358-3.74); Triglycerides 185 mg/dL; Very Low Density Lipoprotein 37 mg/dL (5-40)
== END ==
PROVIDERS: PCP Family Medicine; Referring Provider Family Medicine; Visit Provider Family Medicine
DX: M25.561 Pain in right knee (principal); E11.9 Type 2 diabetes mellitus without complications; E03.9 Hypothyroidism, unspecified; K92.2 Gastrointestinal hemorrhage, unspecified
CPT/HCPCS: 36415; 73564; 80048; 80061; 84436; 84443; 84481; 85027

== ENCOUNTER 2020-04-24 08:00 | Outpatient (RCR) | payer SELFPAY ==
[2020-01-31 09:27] VITALS: BMI 31.2
== END 2020-04-24 23:59 ==
LOC: CR 08:00
PROVIDERS: Family Provider Family Medicine; PCP Family Medicine; Referring Provider Internal Medicine Cardiovascular Disease; Visit Provider Internal Medicine Cardiovascular Disease
DX: Z00.00 Encounter for general adult medical examination without abnormal findings (principal)

== ENCOUNTER 2020-05-22 08:00 | Outpatient (RCR) | payer SELFPAY ==
[2020-01-31 09:27] VITALS: BMI 31.2
== END 2020-05-25 23:59 ==
LOC: CR 08:00
PROVIDERS: PCP Family Medicine; Visit Provider Internal Medicine Cardiovascular Disease
DX: Z00.00 Encounter for general adult medical examination without abnormal findings (principal)

== ENCOUNTER 2020-06-19 08:00 | Outpatient (RCR) | payer SELFPAY ==
[2020-01-31 09:27] VITALS: BMI 31.2
== END 2020-06-22 23:59 ==
LOC: CR 08:00
PROVIDERS: PCP Family Medicine; Visit Provider Internal Medicine Cardiovascular Disease
DX: Z00.00 Encounter for general adult medical examination without abnormal findings (principal)

== ENCOUNTER → 2020-07-03 08:30 | Outpatient (CLI) | payer MEDICARE, OTHER, SELFPAY ==
[2020-01-31 09:27] VITALS: BMI 31.2
[2020-07-03 10:36] LABS: Microalbumin,Random Urine 17.8 mg/L (NO RANGE EST.); Microalbumin:Creatinine Ratio 15.9 mg/g CRE (<30 mg/g CRE)
[2020-07-03 10:39] LABS: Anion Gap 6 (5-15); BUN 28 mg/dL (7-18); BUN/Creat Ratio 18.2 RATIO (10-20); Calcium,Total 8.6 mg/dL (8.5-10.1); Chloride 106 mmol/L (98-107); Creatinine, Serum 1.54 mg/dL (0.55-1.02); EST Glomerular Filtration Rate 34 mL/min (>60); Est Glom Filt Rate - Afr Amer 41 mL/min (>60); Free T3 1.8 pg/mL (2.18-3.98); Glucose 123 mg/dL (74-106); Potassium 4.1 mmol/L (3.5-5.1); Sodium Level 140 mmol/L (136-145); T4 Free Direct 1.89 ng/dL (0.76-1.46); Thyroid Stim Hormone (TSH) 2.12 uIU/mL (0.358-3.74)
== END ==
PROVIDERS: PCP Family Medicine; Referring Provider Family Medicine; Visit Provider Family Medicine
DX: E11.9 Type 2 diabetes mellitus without complications (principal); E03.9 Hypothyroidism, unspecified
CPT/HCPCS: 36415; 80048; 82043; 82570; 84439; 84443; 84481

== ENCOUNTER 2020-07-22 08:00 | Outpatient (RCR) | payer SELFPAY ==
[2020-01-31 09:27] VITALS: BMI 31.2
== END 2020-07-23 23:59 ==
LOC: CR 08:00
PROVIDERS: PCP Family Medicine; Visit Provider Internal Medicine Cardiovascular Disease
DX: Z00.00 Encounter for general adult medical examination without abnormal findings (principal)

== ENCOUNTER → 2020-07-24 09:00 | Outpatient (CLI) | payer MEDICARE, OTHER, SELFPAY ==
[2020-07-17 08:07] VITALS: BMI 30.9
== END ==
PROVIDERS: PCP Family Medicine; Referring Provider Internal Medicine Critical Care Medicine; Visit Provider Internal Medicine Critical Care Medicine
DX: G47.33 Obstructive sleep apnea (adult) (pediatric) (principal)
CPT/HCPCS: 98960; G0463

== ENCOUNTER → 2020-07-25 16:07 | Outpatient (CLI) | payer MEDICARE, SELFPAY ==
[2020-07-17 08:07] VITALS: BMI 30.9
[2020-07-25 17:28] LABS: Absolute Lymphocyte Count 2.06 X10^3/uL (0.83-4.51); Absolute Neutrophil Count 3.7 X10^3/uL (2.0-7.7); Basophil# 0.08 X10^3/uL; Basophil% 1.2 % (0-1); Eosinophil# 0.23 X10^3/uL; Eosinophils% 3.5 % (0-5); Hematocrit 34.1 % (37-47); Hemoglobin 11.1 g/dL (12.0-15.0); Lymphocyte # 2.06 X10^3/ul (4.0); Lymphocyte % 31.1 % (19-41); Mean Corp Hgb Conc 32.6 g/dL (32-36); Mean Corpuscular Hgb 32.1 pg (27.0-32.0); Mean Corpuscular Volume 98.6 fL (81-99); Mean Platelet Vol. 10.3 fl (6.2-12.0); Monocyte# 0.55 X10^3/uL; Monocyte% 8.3 % (0-10); NRBC Flagged by Analyzer 0 % (0-5); Neutrophil # 3.68 X10^3/uL (2.7-7.7); Neutrophil % 55.4 % (47-70); Platelet Count 192 K/mm3 (150-450); RBC Distribution Width CV 14.4 % (11.6-14.6); RBC Distribution Width SD 51.6 fl (35.1-43.9); Red Blood Count 3.46 M/mm3 (4.2-5.4); White Blood Count 6.6 K/mm3 (4.4-11.0)
== END ==
PROVIDERS: PCP Family Medicine; Referring Provider Family Medicine; Visit Provider Family Medicine
DX: K92.1 Melena (principal)
CPT/HCPCS: 36415; 85025

== ENCOUNTER → 2020-08-19 09:00 | Outpatient (CLI) | payer MEDICARE, OTHER, SELFPAY ==
[2020-07-17 08:07] VITALS: BMI 30.9
== END ==
PROVIDERS: PCP Family Medicine; Referring Provider Internal Medicine Critical Care Medicine; Visit Provider Internal Medicine Critical Care Medicine
DX: G47.33 Obstructive sleep apnea (adult) (pediatric) (principal)

== ENCOUNTER 2020-08-21 08:00 | Outpatient (RCR) | payer SELFPAY ==
[2020-07-17 08:07] VITALS: BMI 30.9
== END 2020-08-22 23:59 ==
LOC: CR 08:00
PROVIDERS: PCP Family Medicine; Visit Provider Internal Medicine Cardiovascular Disease
DX: Z00.00 Encounter for general adult medical examination without abnormal findings (principal)

== ENCOUNTER → 2020-08-22 12:25 | Outpatient (CLI) | payer MEDICARE, OTHER, SELFPAY ==
[2020-08-15 09:08] VITALS: BMI 31.1
--- NOTE | 2020-08-22 12:30 | RAD_ITS ---
STUDY: X-RAY - RIGHT SHOULDER REASON FOR EXAM: Female, 84 years old. Shoulder pain. TECHNIQUE: 4 view(s) of the shoulder. COMPARISON: None. FINDINGS: Generalized osteopenia. Mild arthrosis of the glenohumeral joint. Moderate arthrosis of the AC joint. Subacromial spur. Deformity of the humeral head with sclerosis which may return for the sequelae of prior fracture. The soft tissue structures are unremarkable. Normal visualized pulmonary apex. RAD/Shoulder min 2 Views IMPRESSION: Osteopenia with osteoarthritic changes as described. Subacromial spur. Electronically Signed: Sang Aceves MD at 13:12 EDT , Service support ,
== END ==
PROVIDERS: PCP Family Medicine; Referring Provider Family Medicine; Visit Provider Family Medicine
DX: M25.511 Pain in right shoulder (principal)
CPT/HCPCS: 73030

== ENCOUNTER → 2020-09-02 09:00 | Outpatient (CLI) | payer SELFPAY ==
[2020-08-15 09:08] VITALS: BMI 31.1
== END ==
PROVIDERS: PCP Family Medicine; Visit Provider Nurse Practitioner Acute Care
DX: G47.33 Obstructive sleep apnea (adult) (pediatric) (principal)

== ENCOUNTER 2020-09-18 08:00 | Outpatient (RCR) | payer SELFPAY ==
[2020-08-15 09:08] VITALS: BMI 31.1
== END 2020-09-22 23:59 ==
LOC: CR 08:00
PROVIDERS: PCP Family Medicine; Visit Provider Internal Medicine Cardiovascular Disease
DX: Z00.00 Encounter for general adult medical examination without abnormal findings (principal)

== ENCOUNTER → 2020-09-19 11:56 | Outpatient (CLI) | payer MEDICARE, OTHER, SELFPAY ==
[2020-08-15 09:08] VITALS: BMI 31.1
[2020-09-19 15:19] LABS: Absolute Neutrophil Count 3.9 X10^3/uL (2.0-7.7); Basophil# 0.07 X10^3/uL; Basophil% 1.1 % (0-1); Eosinophil# 0.16 X10^3/uL; Eosinophils% 2.5 % (0-5); Hemoglobin 9.1 g/dL (12.0-15.0); Lymphocyte % 27.8 % (19-41); Mean Corp Hgb Conc 31.4 g/dL (32-36); Mean Corpuscular Hgb 30.7 pg (27.0-32.0); Mean Platelet Vol. 10.4 fl (6.2-12.0); Monocyte# 0.55 X10^3/uL; Monocyte% 8.5 % (0-10); NRBC Flagged by Analyzer 0 % (0-5); Neutrophil # 3.85 X10^3/uL (2.7-7.7); Neutrophil % 59.5 % (47-70); Platelet Count 193 K/mm3 (150-450); RBC Distribution Width CV 14.2 % (11.6-14.6); Red Blood Count 2.96 M/mm3 (4.2-5.4); White Blood Count 6.5 K/mm3 (4.4-11.0)
== END ==
PROVIDERS: PCP Family Medicine; Referring Provider Family Medicine; Visit Provider Family Medicine
DX: K62.5 Hemorrhage of anus and rectum (principal)
CPT/HCPCS: 36415; 85025

== ENCOUNTER → 2020-09-25 09:16 | Outpatient (CLI) | payer MEDICARE, SELFPAY ==
[2020-08-15 09:08] VITALS: BMI 31.1
[2020-09-25 10:26] LABS: Absolute Lymphocyte Count 1.63 X10^3/uL (0.83-4.51); Absolute Neutrophil Count 4.2 X10^3/uL (2.0-7.7); Basophil# 0.07 X10^3/uL; Basophil% 1.1 % (0-1); Eosinophil# 0.12 X10^3/uL; Eosinophils% 1.8 % (0-5); Hematocrit 25.7 % (37-47); Hemoglobin 7.9 g/dL (12.0-15.0); Lymphocyte # 1.63 X10^3/ul (0.83-4.51); Lymphocyte % 24.7 % (19-41); Mean Corp Hgb Conc 30.7 g/dL (32-36); Mean Corpuscular Volume 97.7 fL (81-99); Mean Platelet Vol. 10.3 fl (6.2-12.0); Monocyte# 0.52 X10^3/uL; Monocyte% 7.9 % (0-10); NRBC Flagged by Analyzer 0 % (0-5); Neutrophil # 4.23 X10^3/uL (2.7-7.7); Neutrophil % 64.2 % (47-70); Platelet Count 205 K/mm3 (150-450); RBC Distribution Width CV 14.2 % (11.6-14.6); RBC Distribution Width SD 50.4 fl (35.1-43.9); Red Blood Count 2.63 M/mm3 (4.2-5.4); White Blood Count 6.6 K/mm3 (4.4-11.0)
== END ==
PROVIDERS: PCP Family Medicine; Referring Provider Family Medicine; Visit Provider Family Medicine
DX: K62.5 Hemorrhage of anus and rectum (principal)
CPT/HCPCS: 36415; 85025

== ENCOUNTER 2020-09-26 16:00 | Outpatient (CLI) | payer MEDICARE, SELFPAY ==
[2020-08-15 09:08] VITALS: BMI 31.1
[2020-09-26] VITALS (7 sets, daily range): BP systolic 125–138; BP diastolic 52–65; PULSE 47–95; RESP 18; TEMP 36.4–36.8; O2SAT 97–100
--- NOTE | 2020-09-26 18:26 | NURSING ---
Sent REYMUNDO Staley for blood at this time. Pt eating dinner.
[2020-09-27 00:01] VITALS: BP 130/54; PULSE 51; RESP 18; TEMP 36.6; O2SAT 95
[2020-09-27 01:00] VITALS: BP 131/60; PULSE 51; RESP 18; TEMP 36.6; O2SAT 97
[2020-09-27 01:51] VITALS: BP 146/56; PULSE 50; RESP 18; TEMP 36.6; O2SAT 96
== END 2020-09-27 02:20 | disposition home or self-care (01) ==
LOC: LAB 16:05 → MS3 17:30
PROVIDERS: PCP Family Medicine; Visit Provider Internal Medicine Gastroenterology
DX: D64.9 Anemia, unspecified (principal); K62.5 Hemorrhage of anus and rectum
CPT/HCPCS: 36415; 86850; 86900; 86901; 86920; 86922; J7040; P9016

== ENCOUNTER 2020-10-07 08:00 | Outpatient (RCR) | payer MEDICARE, OTHER, SELFPAY ==
[2020-08-15 09:08] VITALS: BMI 31.1
[2020-10-07 12:33] LABS: Absolute Lymphocyte Count 1.28 X10^3/uL (0.83-4.51); Absolute Neutrophil Count 3.3 X10^3/uL (2.0-7.7); Basophil# 0.05 X10^3/uL; Basophil% 0.9 % (0-1); Eosinophil# 0.18 X10^3/uL; Eosinophils% 3.3 % (0-5); Hematocrit 32.6 % (37-47); Lymphocyte # 1.28 X10^3/ul (0.83-4.51); Lymphocyte % 23.8 % (19-41); Mean Corp Hgb Conc 30.7 g/dL (32-36); Mean Corpuscular Hgb 29.4 pg (27.0-32.0); Mean Corpuscular Volume 95.9 fL (81-99); Mean Platelet Vol. 9.9 fl (6.2-12.0); Monocyte# 0.52 X10^3/uL; Monocyte% 9.7 % (0-10); NRBC Flagged by Analyzer 0 % (0-5); Neutrophil # 3.32 X10^3/uL (2.7-7.7); Neutrophil % 61.7 % (47-70); Platelet Count 209 K/mm3 (150-450); RBC Distribution Width CV 15.4 % (11.6-14.6); RBC Distribution Width SD 52.5 fl (35.1-43.9); White Blood Count 5.4 K/mm3 (4.4-11.0)
== END 2020-10-22 23:59 ==
LOC: CR 08:00
PROVIDERS: Registered Nurse; PCP Family Medicine; Referring Provider Internal Medicine Cardiovascular Disease; Visit Provider Internal Medicine Cardiovascular Disease
DX: D64.9 Anemia, unspecified (principal)
CPT/HCPCS: 36415; 85025

== ENCOUNTER → 2020-10-13 08:25 | Outpatient (CLI) | payer MEDICARE, SELFPAY ==
[2020-08-15 09:08] VITALS: BMI 31.1
[2020-10-13 10:05] LABS: Absolute Lymphocyte Count 1.44 X10^3/uL (0.83-4.51); Absolute Neutrophil Count 3.6 X10^3/uL (2.0-7.7); Basophil# 0.05 X10^3/uL; Basophil% 0.9 % (0-1); Eosinophil# 0.13 X10^3/uL; Eosinophils% 2.3 % (0-5); Hematocrit 32.9 % (37-47); Hemoglobin 10.2 g/dL (12.0-15.0); Lymphocyte # 1.44 X10^3/ul (0.83-4.51); Lymphocyte % 25.3 % (19-41); Mean Corpuscular Hgb 29.9 pg (27.0-32.0); Mean Corpuscular Volume 96.5 fL (81-99); Mean Platelet Vol. 9.9 fl (6.2-12.0); Monocyte# 0.45 X10^3/uL; Monocyte% 7.9 % (0-10); NRBC Flagged by Analyzer 0 % (0-5); Neutrophil # 3.59 X10^3/uL (2.7-7.7); Neutrophil % 62.9 % (47-70); Platelet Count 222 K/mm3 (150-450); RBC Distribution Width CV 15.9 % (11.6-14.6); RBC Distribution Width SD 55.4 fl (35.1-43.9); Red Blood Count 3.41 M/mm3 (4.2-5.4); White Blood Count 5.7 K/mm3 (4.4-11.0)
[2020-10-13 10:40] LABS: AST(SGOT) 16 U/L (15-37); Alanine Aminotransfer ALT/SGPT 14 U/L (13-56); Albumin, Serum 3.2 g/dL (3.2-5.0); Alkaline Phosphatase 95 U/L (45-117); Anion Gap 8 (5-15); BUN 15 mg/dL (7-18); BUN/Creat Ratio 12.9 RATIO (10-20); Calcium,Total 8.5 mg/dL (8.5-10.1); Chloride 105 mmol/L (98-107); Cholesterol 164 mg/dL (200); Creatinine, Serum 1.16 mg/dL (0.55-1.02); EST Glomerular Filtration Rate 47 mL/min (>60); Est Glom Filt Rate - Afr Amer 57 mL/min (>60); Globulin 3.3 g/dL (2.2-4.2); Glucose 113 mg/dL (74-106); High Density Lipoprotein 48 mg/dL; Iron 151 ug/dL (50-170); Potassium 3.7 mmol/L (3.5-5.1); Protein, Total 6.5 g/dL (6.4-8.2); Sodium Level 142 mmol/L (136-145); Triglycerides 147 mg/dL; Very Low Density Lipoprotein 29 mg/dL (5-40)
== END ==
PROVIDERS: PCP Family Medicine; Visit Provider Family Medicine
DX: E11.9 Type 2 diabetes mellitus without complications (principal); D64.9 Anemia, unspecified
CPT/HCPCS: 36415; 80053; 80061; 83540; 85025

== ENCOUNTER 2020-11-20 08:00 | Outpatient (RCR) | payer SELFPAY ==
[2020-10-17 09:21] VITALS: BMI 31.6
== END 2020-11-22 23:59 ==
LOC: CR 08:00
PROVIDERS: PCP Family Medicine; Referring Provider Internal Medicine Cardiovascular Disease; Visit Provider Internal Medicine Cardiovascular Disease
DX: Z00.00 Encounter for general adult medical examination without abnormal findings (principal)

== ENCOUNTER → 2020-12-15 12:19 | Outpatient (CLI) | payer MEDICARE, OTHER, SELFPAY ==
[2020-12-15 15:31] LABS: Anion Gap 4 (5-15); BUN 16 mg/dL (7-18); BUN/Creat Ratio 14.8 RATIO (10-20); Calcium,Total 8.6 mg/dL (8.5-10.1); Chloride 105 mmol/L (98-107); Creatinine, Serum 1.08 mg/dL (0.55-1.02); EST Glomerular Filtration Rate 51 mL/min (>60); Est Glom Filt Rate - Afr Amer 62 mL/min (>60); Glucose 113 mg/dL (74-106); Potassium 4.2 mmol/L (3.5-5.1); Sodium Level 138 mmol/L (136-145)
== END ==
PROVIDERS: PCP Family Medicine; Referring Provider Family Medicine; Visit Provider Family Medicine
DX: R60.9 Edema, unspecified (principal)
CPT/HCPCS: 36415; 80048

== ENCOUNTER 2020-12-23 08:00 | Outpatient (RCR) | payer SELFPAY ==
[2020-10-17 09:21] VITALS: BMI 31.6
== END 2020-12-23 23:59 ==
LOC: CR 08:00
PROVIDERS: PCP Family Medicine; Referring Provider Internal Medicine Cardiovascular Disease; Visit Provider Internal Medicine Cardiovascular Disease
DX: Z00.00 Encounter for general adult medical examination without abnormal findings (principal)

== ENCOUNTER → 2021-01-02 08:42 | Outpatient (CLI) | payer MEDICARE, OTHER, SELFPAY ==
[2021-01-02 10:19] LABS: Absolute Lymphocyte Count 1.21 X10^3/uL (0.83-4.51); Absolute Neutrophil Count 3.3 X10^3/uL (2.0-7.7); Basophil# 0.07 X10^3/uL; Basophil% 1.3 % (0-1); Eosinophil# 0.32 X10^3/uL; Eosinophils% 5.9 % (0-5); Hematocrit 36.3 % (37-47); Hemoglobin 12.3 g/dL (12.0-15.0); Lymphocyte # 1.21 X10^3/ul (0.83-4.51); Lymphocyte % 22.4 % (19-41); Mean Corp Hgb Conc 33.9 g/dL (32-36); Mean Corpuscular Hgb 32.8 pg (27.0-32.0); Mean Corpuscular Volume 96.8 fL (81-99); Mean Platelet Vol. 10.2 fl (6.2-12.0); Monocyte% 9.2 % (0-10); NRBC Flagged by Analyzer 0 % (0-5); Neutrophil # 3.28 X10^3/uL (2.7-7.7); Neutrophil % 60.6 % (47-70); Platelet Count 155 K/mm3 (150-450); RBC Distribution Width CV 14.2 % (11.6-14.6); RBC Distribution Width SD 50.4 fl (35.1-43.9); Red Blood Count 3.75 M/mm3 (4.2-5.4); White Blood Count 5.4 K/mm3 (4.4-11.0)
[2021-01-02 10:29] LABS: Anion Gap 7 (5-15); BUN 16 mg/dL (7-18); BUN/Creat Ratio 17.5 RATIO (10-20); Calcium,Total 9.1 mg/dL (8.5-10.1); Chloride 103 mmol/L (98-107); Creatinine, Serum 0.91 mg/dL (0.55-1.02); EST Glomerular Filtration Rate 62 mL/min (>60); Est Glom Filt Rate - Afr Amer 75 mL/min (>60); Glucose 115 mg/dL (74-106); Sodium Level 138 mmol/L (136-145)
== END ==
PROVIDERS: PCP Family Medicine; Referring Provider Family Medicine; Visit Provider Family Medicine
DX: D64.9 Anemia, unspecified (principal); R60.9 Edema, unspecified
CPT/HCPCS: 36415; 80048; 85025

== ENCOUNTER 2021-01-22 08:00 | Outpatient (RCR) | payer SELFPAY ==
[2020-12-24 00:23] VITALS: BMI 31.6
== END 2021-01-22 23:59 ==
LOC: CR 08:00
PROVIDERS: PCP Family Medicine; Referring Provider Internal Medicine Cardiovascular Disease; Visit Provider Internal Medicine Cardiovascular Disease
DX: Z00.00 Encounter for general adult medical examination without abnormal findings (principal)

== ENCOUNTER 2021-02-19 08:00 | Outpatient (RCR) | payer SELFPAY ==
[2021-01-23 00:18] VITALS: BMI 31.6
== END 2021-02-22 23:59 ==
LOC: CR 08:00
PROVIDERS: PCP Family Medicine; Referring Provider Internal Medicine Cardiovascular Disease; Visit Provider Internal Medicine Cardiovascular Disease
DX: Z00.00 Encounter for general adult medical examination without abnormal findings (principal)

== ENCOUNTER → 2021-03-04 15:07 | Outpatient (CLI) | payer MEDICARE, SELFPAY ==
[2021-03-04 18:00] LABS: Absolute Lymphocyte Count 1.14 X10^3/uL (0.83-4.51); Absolute Neutrophil Count 3.5 X10^3/uL (2.0-7.7); Basophil# 0.06 X10^3/uL; Basophil% 1.1 % (0-1); Eosinophil# 0.26 X10^3/uL; Eosinophils% 4.7 % (0-5); Hematocrit 35.8 % (37-47); Hemoglobin 11.6 g/dL (12.0-15.0); Lymphocyte # 1.14 X10^3/ul (0.83-4.51); Lymphocyte % 20.5 % (19-41); Mean Corp Hgb Conc 32.4 g/dL (32-36); Mean Corpuscular Volume 98.9 fL (81-99); Mean Platelet Vol. 10.7 fl (6.2-12.0); Monocyte# 0.57 X10^3/uL; Monocyte% 10.3 % (0-10); NRBC Flagged by Analyzer 0 % (0-5); Neutrophil # 3.51 X10^3/uL (2.7-7.7); Platelet Count 153 K/mm3 (150-450); RBC Distribution Width CV 13.8 % (11.6-14.6); RBC Distribution Width SD 50.4 fl (35.1-43.9); Red Blood Count 3.62 M/mm3 (4.2-5.4); White Blood Count 5.6 K/mm3 (4.4-11.0)
[2021-03-04 18:16] LABS: Anion Gap 7 (5-15); BUN 24 mg/dL (7-18); BUN/Creat Ratio 22.6 RATIO (10-20); Calcium,Total 8.5 mg/dL (8.5-10.1); Chloride 108 mmol/L (98-107); Creatinine, Serum 1.06 mg/dL (0.55-1.02); EST Glomerular Filtration Rate 52 mL/min (>60); Est Glom Filt Rate - Afr Amer 63 mL/min (>60); Glucose 127 mg/dL (74-106); Sodium Level 141 mmol/L (136-145)
[2021-03-04 18:22] LABS: BNP,B-Type NATRIURETIC PEPTIDE 531.4 pg/mL (0-100)
== END ==
PROVIDERS: PCP Family Medicine; Referring Provider Family Medicine; Visit Provider Family Medicine
DX: R60.9 Edema, unspecified (principal)
CPT/HCPCS: 36415; 80048; 83880; 85025

== ENCOUNTER 2021-03-24 08:00 | Outpatient (RCR) | payer SELFPAY ==
[2021-02-23 00:14] VITALS: BMI 31.6
== END 2021-03-24 23:59 ==
LOC: CR 08:00
PROVIDERS: PCP Family Medicine; Referring Provider Internal Medicine Cardiovascular Disease; Visit Provider Internal Medicine Cardiovascular Disease
DX: Z00.00 Encounter for general adult medical examination without abnormal findings (principal)

== ENCOUNTER → 2021-04-10 08:31 | Outpatient (CLI) | payer MEDICARE, OTHER, SELFPAY ==
[2021-04-10 10:36] LABS: Anion Gap 6 (5-15); BUN 63 mg/dL (7-18); BUN/Creat Ratio 38.9 RATIO (10-20); Calcium,Total 9.1 mg/dL (8.5-10.1); Chloride 110 mmol/L (98-107); Cholesterol 169 mg/dL (200); Creatinine, Serum 1.62 mg/dL (0.55-1.02); EST Glomerular Filtration Rate 32 mL/min (>60); Est Glom Filt Rate - Afr Amer 39 mL/min (>60); Free T3 1.8 pg/mL (2.18-3.98); Glucose 129 mg/dL (74-106); High Density Lipoprotein 41 mg/dL; Sodium Level 137 mmol/L (136-145); T4 Free Direct 2.04 ng/dL (0.76-1.46); Thyroid Stim Hormone (TSH) 0.36 uIU/mL (0.358-3.74); Triglycerides 175 mg/dL; Very Low Density Lipoprotein 35 mg/dL (5-40)
== END ==
PROVIDERS: PCP Family Medicine; Referring Provider Family Medicine; Visit Provider Family Medicine
DX: E03.9 Hypothyroidism, unspecified (principal); E78.5 Hyperlipidemia, unspecified
CPT/HCPCS: 36415; 80048; 80061; 84439; 84443; 84481

== ENCOUNTER 2021-04-23 08:00 | Outpatient (RCR) | payer SELFPAY ==
[2021-03-25 00:19] VITALS: BMI 31.6
== END 2021-04-24 23:59 ==
LOC: CR 08:00
PROVIDERS: PCP Family Medicine; Referring Provider Internal Medicine Cardiovascular Disease; Visit Provider Internal Medicine Cardiovascular Disease
DX: Z00.00 Encounter for general adult medical examination without abnormal findings (principal)

== ENCOUNTER 2021-05-21 08:00 | Outpatient (RCR) | payer SELFPAY | END 2021-05-25 23:59 | LOC: CR 08:00 | PROVIDERS: PCP Family Medicine; Referring Provider Internal Medicine Cardiovascular Disease; Visit Provider Internal Medicine Cardiovascular Disease | DX: Z09 Encounter for follow-up examination after completed treatment for conditions other than malignant neoplasm (principal) ==

== ENCOUNTER 2021-05-30 14:07 | Observation (INO) | payer MEDICARE, OTHER, SELFPAY ==
[2021-05-30] VITALS (10 sets, daily range): BP systolic 103–153; BP diastolic 47–107; PULSE 6–67; RESP 16–23; TEMP 36.4–37.1; O2SAT 90–97; BMI 30.2; BMI 28.8
--- NOTE | 2021-05-30 14:19 | CT_ITS ---
STUDY: CT BRAIN WITHOUT CONTRAST REASON FOR EXAM: Female, 85 years old. Fall trauma RADIATION DOSAGE (If Supplied By Facility): CTDIvol = ( 44.99 ) mGy, DLP = ( 812.98 ) mGycm TECHNIQUE: Transaxial CT imaging of the brain was performed without administration of intravenous contrast material. Individualized dose optimization techniques were used for this CT. COMPARISON: No relevant priors. FINDINGS: Brain parenchyma is without focal lesions, mass effect, acute intracranial hemorrhage, extra parenchymal fluid collections, hydrocephalus or herniation. The skull is intact. CT/Brain/Head without Contrast IMPRESSION: 1. Normal CT brain. No acute injury. Electronically Signed: Vamshi Jimenez MD at 16:02 EST ,
--- NOTE | 2021-05-30 14:19 | CT_ITS ---
STUDY: CT CERVICAL SPINE WITHOUT CONTRAST REASON FOR EXAM: Female, 85 years old. Trauma fall injury RADIATION DOSAGE (If Supplied By Facility): CTDIvol = ( 24.74 ) mGy, DLP = ( 458.73 ) mGycm TECHNIQUE: High resolution transaxial imaging was performed without contrast material. Sagittal and coronal images were reconstructed. Individualized dose optimization techniques were used for this CT. COMPARISON: None FINDINGS: Craniocervical junction and cervical spine are intact and aligned. Mineralization is normal. Paraspinous soft tissues are normal. Canal is mildly stenotic at C4-C5, moderately at C5-C6, mild at C6-C7. Foramina are moderately stenotic bilaterally at multiple levels. There is severe circumferential calcific plaque in the right internal carotid. CT/Spine Cervical without Contras IMPRESSION: 1. No acute osseous injury. 2. Multilevel mild/moderate thecal sac stenosis. 3. Carotid atherosclerosis. Electronically Signed: Vamshi Jimenez MD at 16:03 EST ,
--- NOTE | 2021-05-30 14:19 | EKG12_ITS ---
Test Reason : FALL Blood Pressure : / mmHG Vent. Rate : 062 BPM Atrial Rate : 062 BPM P-R Int : 246 ms QRS Dur : 084 ms QT Int : 448 ms P-R-T Axes : 187 -40 046 degrees QTc Int : 454 ms Normal sinus rhythm Left axis deviation Abnormal ECG Confirmed by LUCITA TALBERT, ANTONELLA ([id number]), mapping editor DOT MICHEL ([id number]) on 06/01/2021 10:17:56 AM Referred By: AVELINO Confirmed By:ANTONELLA LANDRUM MD
--- NOTE | 2021-05-30 14:22 | EDS_ITS ---
HPI HPI - Fall History of Present Illness Chief Complaint: Fall Informant: patient Occured/Mechanism Occurred: - (Fell yesterday and today) Mechanism/Context: Yes same level fall Narrative Narrative: Patient presents after falls at home. She states she fell yesterday in the dining room. She felt like her legs just gave out on her. EMS was called and helped her up but she declined transport. She states she was okay ambulating with her walker the rest of the night. This morning she fell while getting out of bed and called EMS again. Patient states she overall just feels very weak. She did strike her head but denies loss of consciousness. She denies feeling lightheaded or dizzy prior to falling. [facility] Medical History (Updated 05/30/21 @ 16:[address] Hannah Nobles MD) Arthritis Atherosclerotic heart disease of [place] coronary artery without angina pectoris Balance problem Basal cell carcinoma DM II (diabetes mellitus, type II), controlled DVT (deep venous thrombosis) Dyspnea Essential hypertension History of aortic valvular stenosis History of cardioversion (~12/25/19) HTN (hypertension) Hypothyroidism Incontinence Long-term use of high-risk medication Mixed hyperlipidemia JOHN (obstructive sleep apnea) Paroxysmal supraventricular tachycardia Premature ventricular contraction Pulmonary HTN Sciatic nerve pain Supraventricular tachycardia Home Medications metformin 500 mg tablet 500 mg PO QDAY tab 04/15/17 [History Last Taken 09/26/20 07:00] nitroglycerin 0.4 mg sublingual tablet 0.4 mg SUBLINGUAL Q5M PRN 04/15/17 [History Last Taken Unknown] pravastatin 40 mg tablet 40 mg PO QHS 04/15/17 [History Last Taken 09/25/20 20:00] oxybutynin chloride 5 mg tablet 5 mg PO DAILY tab 06/26/18 [History Last Taken 09/26/20 07:00] isosorbide mononitrate 60 mg tablet,extended release 24 hr 60 mg PO DAILY #90 tab 04/10/19 [Rx Last Taken 09/26/20 07:00] potassium chloride 20 meq PO DAILY #60 tablet.er 11/22/19 [Rx Last Taken 09/26/20 07:00] metoprolol succinate 100 mg tablet,extended release 24 hr 50 mg PO BID tab 01/31/20 [History Last Taken 09/26/20 07:00] furosemide 40 mg tablet 40 mg PO BID #180 tab 02/21/20 [Rx Last Taken 09/26/20 07:00] levothyroxine 125 mcg tablet 125 mcg PO DAILY 08/15/20 [History Last Taken 09/26/20 07:00] omeprazole 40 mg capsule,delayed release 40 mg PO DAILY 08/15/20 [History Last Taken Unknown] amiodarone 200 mg tablet 200 mg PO DAILY #90 tab 12/01/20 [Rx Last Taken Unknown] lisinopril 10 mg tablet 10 mg PO BID #180 tab 12/30/20 [Rx Last Taken Unknown] aspirin 81 mg tablet,delayed release 81 mg PO DAILY 01/12/21 [History Last Taken Unknown] Allergy/AdvReac Type Severity Reaction Status Date / Time celecoxib [From Celebrex] Allergy Intermediate Other - Verified 05/30/21 14:13 jittery & edema Family History Father Hypertension Mother CAD (coronary artery disease) CHF (congestive heart failure) Brother Colon cancer Surgical History History of aortic valve replacement with bioprosthetic valve (~11/10/05) History of left heart catheterization (LHC) (~04/10/19) Hx of aortic valve replacement Presence of aortocoronary bypass graft (~11/10/05) Social History Smoking Status: Never smoker second hand exposure: No alcohol intake: never substance use type: does not use ROS ROS ED Constitutional Constitutional ED: Denies chills or fever(s) Eyes Eyes: Denies change in vision ENT ENT ED: Denies rhinorrhea or sore throat Cardiovascular Cardiovascular: Denies chest pain or palpitations Respiratory/Chest Respiratory/Chest: Denies cough or dyspnea Gastrointestinal Gastrointestinal: Denies abdominal pain, diarrhea or vomiting Genitourinary Genitourinary ED: Denies dysuria Musculoskeletal Musculoskeletal: Denies back pain, myalgias or neck pain Integumentary Reports Abrasions Neurologic Neurologic: Reports weakness; Denies headache(s) Psychiatric Psychiatric: Denies anxiety or depression Hematologic/Lymphatic Hematologic/Lymphatic: Denies easy bleeding or easy bruising Allergic/Immunologic Allergic/Immunologic ED: Denies urticaria EXAM Physical Exam Const Vital Signs: 05/30/21 14:08 05/30/21 14:12 05/30/21 14:16 Temperature 98.4 F 98.5 F 98.6 F Temperature Source Oral Oral Pulse Rate 67 6 L Respiratory Rate 16 23 H Respiratory Effort Normal Respiratory Pattern Normal Blood Pressure 153/107 H 153/107 H Blood Pressure Mean 122 122 Pulse Ox 91 90 94 Oxygen Delivery Method Room Air Room Air Room Air 05/30/21 15:08 05/30/21 15:12 Temperature 98.7 F Temperature Source Temporal Pulse Rate 59 L 59 L Respiratory Rate 16 16 Respiratory Effort Respiratory Pattern Blood Pressure 127/55 H 127/55 H Blood Pressure Mean 79 79 Pulse Ox 97 97 Oxygen Delivery Method Room Air Room Air Positive well nourished and well developed General Appearance ED: well developed HEENT Reports normocephalic Eyes PERRL and EOMs intact bilaterally Neck full ROM Resp normal respiratory effort and clear to auscultation bilaterally Cardio regular rate and regular rhythm GI non-tender Palpation: soft Back/Spine Cervical Spine: Negative for cervical spine tenderness Thoracic Spine / Upper Back: Negative for thoracic spinal tenderness Extremity Extremity Narrative: Two skin avulsions to the extensor surface of the left elbow. One measuring 2 x 3 cm, one measuring 1 x 3 cm. Full range of motion. Neuro oriented x3 Sensorium / Orientation: alert Psych mental status grossly normal MDM MDM MDM Narrative Medical decision making narrative: Lab work and urinalysis obtained. CT scan of the head and C-spine ordered. Chest x-ray and pelvis x-ray ordered. Covid swab obtained. Lab Data Attestation: I reviewed the patient's lab results. Labs: Laboratory Results - last 24 hr 05/30/21 05/30/21 05/30/21 14:20 14:20 15:25 WBC 7.1 RBC 3.88 L Hgb 13.2 Hct 37.4 MCV 96.4 MCH 34.0 H MCHC 35.3 RDW Std Deviation 50.2 H RDW Coeff of Ellie 14.2 Plt Count 109 L MPV 11.0 Immature Gran % (Auto) 0.700 Neut % (Auto) 84.0 H Lymph % (Auto) 5.9 L [place] % (Auto) 6.1 Eos % (Auto) 3.0 Baso % (Auto) 0.3 Absolute Neuts (auto) 6.0 Absolute Lymphs (auto) 0.42 L Nucleated RBC % 0 Differential Comment SCANNED Sodium 134 L Potassium 4.3 Chloride 102 Carbon Dioxide 23.0 Anion Gap 9 BUN 43 H Creatinine 1.82 H Estim Creat Clear Calc 21.16 Est GFR (MDRD) Af Amer 34 L Est GFR (MDRD) Non-Af 28 L BUN/Creatinine Ratio 23.6 H Glucose 147 H Calcium 8.8 Urine Color Yellow Urine Clarity Cloudy Urine pH 5.0 Ur Specific [place] 1.020 Urine Protein 30 H Urine Glucose (UA) Normal Urine Ketones 5 H Urine Occult Blood 150 H Urine Nitrite Positive H Urine Bilirubin Negative Urine Urobilinogen Normal Ur Leukocyte Esterase 25 H Urine RBC 0-5 SEEN Urine WBC 10-25 SEEN Ur Squamous Epith Cells 0-5 SEEN Urine Bacteria 4+ Urine Mucus RARE Rapid COVID: Negative Radiography Diagnostic Testing: Clinical Impression(s) from Imaging Studies Brain CT 05/30/21 14:19 IMPRESSION: 1. Normal CT brain. No acute injury. Electronically Signed: Vamshi Jimenez MD at 16:02 EST , Cervical Spine CT 05/30/21 14:19 IMPRESSION: 1. No acute osseous injury. 2. Multilevel mild/moderate thecal sac stenosis. 3. Carotid atherosclerosis. Electronically Signed: Vamshi Jimenez MD at 16:03 EST , Chest X-Ray 05/30/21 14:30 IMPRESSION: Moderate cardiomegaly, no acute abnormality. Electronically Signed: Vamshi Jimenez MD at 15:29 EST , Pelvis X-Ray 05/30/21 14:30 IMPRESSION: Unremarkable pelvis without acute fracture. In the presence of discordant x-rays and symptomatology refer to CT pelvis to detect a possible radiographically occult fracture, such as sacrum. Electronically Signed: Vamshi Jimenez MD at 15:30 EST , EKG Initial EKG: Attestation: I personally reviewed and interpreted this EKG as follows: Interpretation: Sinus Rhythm (Sinus at 62 with no acute ischemia.) Treatment and Re-Evaluation Comments:: Test results reviewed. Normal white count. Chemistry studies significant for a slight increase in creatinine. Urinalysis shows positive nitrites with 10-25 white cells and 4+ bacteria. CT scan of the head and C- spine revealed no acute findings. Chest x-ray and pelvis x-ray revealed no acute abnormalities per my interpretation. Radiology to rotation is also reviewed. Urine culture has been ordered. Patient is given a dose of IV Rocephin. With patient living alone and having multiple falls I will speak with hospitalist regarding observation. Discharge Plan Triage Chief Complaint: Fall ED Provider: Hannah Nobles Dx/Rx/DC Orders Clinical Impression: UTI (urinary tract infection), Falls, Generalized weakness Prescriptions: No Action metformin 500 mg tablet 500 mg PO QDAY RF: 0 pravastatin 40 mg tablet 40 mg PO QHS RF: 0 nitroglycerin 0.4 mg tablet, sublingual 0.4 mg SUBLINGUAL Q5M PRN (Reason: Cardiac/Chest Pain) RF: 0 oxybutynin chloride 5 mg tablet 5 mg PO DAILY RF: 0 omeprazole 40 mg capsule,delayed release(DR/EC) 40 mg PO DAILY RF: 0 levothyroxine 125 mcg tablet 125 mcg PO DAILY RF: 0 metoprolol succinate [Toprol XL] 100 mg tablet extended release 24 hr 50 mg PO BID RF: 0 aspirin [Adult Aspirin Regimen] 81 mg tablet,delayed release (DR/EC) 81 mg PO DAILY RF: 0 potassium chloride 10 MEQ tablet extended release 20 meq PO DAILY Qty: 60 RF: 0 isosorbide mononitrate 60 mg tablet extended release 24 hr 60 mg PO DAILY Qty: 90 RF: 3 furosemide 40 mg tablet 40 mg PO BID Qty: 180 RF: 3 amiodarone 200 mg tablet 200 mg PO DAILY Qty: 90 RF: 3 lisinopril 10 mg tablet 10 mg PO BID Qty: 180 RF: 3 Primary Care Provider: Ajit Oleary Referrals: Ajit Oleary MD [Primary Care Provider] - Disposition Disposition: Acute Care Hospital [facility]
--- NOTE | 2021-05-30 14:30 | RAD_ITS ---
STUDY: X-RAY CHEST REASON FOR EXAM: Female, 85 years old. sob TECHNIQUE: Frontal portable view of the chest COMPARISON: 21 November 2019 FINDINGS: There are sternotomy wires. The lungs are clear and expanded. There is no demonstrated pleural abnormality. Heart is moderately enlarged. Normal visualized thoracic spine. Normal visualized ribs, clavicles, and shoulders. There is no demonstrated abnormality of the visualized soft tissue structures of the upper abdomen. RAD/Chest 1 View (Portable) IMPRESSION: Moderate cardiomegaly, no acute abnormality. Electronically Signed: Vamshi Jimenez MD at 15:29 EST ,
--- NOTE | 2021-05-30 14:30 | RAD_ITS ---
STUDY: X-RAY - PELVIS REASON FOR EXAM: Female, 85 years old. Fall trauma TECHNIQUE: One view of the pelvis was obtained. COMPARISON: None. FINDINGS: Pelvis is intact and hips are located. Age-appropriate degeneration is present in the lower lumbar spine. Soft tissue shadows are unremarkable. RAD/Pelvis 1 or 2 Views IMPRESSION: Unremarkable pelvis without acute fracture. In the presence of discordant x-rays and symptomatology refer to CT pelvis to detect a possible radiographically occult fracture, such as sacrum. Electronically Signed: Vamshi Jimenez MD at 15:30 EST ,
[2021-05-30 14:44] LABS: Anion Gap 9 (5-15); BUN 43 mg/dL (7-18); BUN/Creat Ratio 23.6 RATIO (10-20); Calcium,Total 8.8 mg/dL (8.5-10.1); Chloride 102 mmol/L (98-107); Creatinine, Serum 1.82 mg/dL (0.55-1.02); EST Glomerular Filtration Rate 28 mL/min (>60); Est Glom Filt Rate - Afr Amer 34 mL/min (>60); Estimated Creatinine Clearance 21.16 ml/min; Glucose 147 mg/dL (74-106); Potassium 4.3 mmol/L (3.5-5.1); Sodium Level 134 mmol/L (136-145)
[2021-05-30 14:48] LABS: Absolute Lymphocyte Count 0.42 X10^3/uL (0.83-4.51); Basophil# 0.02 X10^3/uL; Basophil% 0.3 % (0-1); Eosinophil# 0.21 X10^3/uL; Hematocrit 37.4 % (37-47); Hemoglobin 13.2 g/dL (12.0-15.0); Lymphocyte # 0.42 X10^3/ul (0.83-4.51); Lymphocyte % 5.9 % (19-41); Mean Corp Hgb Conc 35.3 g/dL (32-36); Mean Corpuscular Volume 96.4 fL (81-99); Monocyte# 0.43 X10^3/uL; Monocyte% 6.1 % (0-10); NRBC Flagged by Analyzer 0 % (0-5); Neutrophil # 5.97 X10^3/uL (2.7-7.7); POSITIVE DIFFERENTIAL YES; Platelet Count 109 K/mm3 (150-450); RBC Distribution Width CV 14.2 % (11.6-14.6); RBC Distribution Width SD 50.2 fl (35.1-43.9); Red Blood Count 3.88 M/mm3 (4.2-5.4); White Blood Count 7.1 K/mm3 (4.4-11.0)
[2021-05-30 14:49] LABS: Differential Indicated SCAN CRITERIA MET
[2021-05-30 15:16] LABS: Differential Comment SCANNED
[2021-05-30 15:49] LABS: Color, Urine Yellow (Yellow); Glucose, Dipstick Normal (Normal); Ketone-Dipstick 5 mg/dl (Negative); Leukocyte Esterase-Dipstick 25 /ul (Negative); Nitrite-Dipstick Positive (Negative); Occult Blood-Urine 150 /ul (Negative); Protein-Dipstick 30 mg/dl (Negative); Urine Bilirubin Dipstick Negative (Negative); Urine Clarity Cloudy (Clear); Urine Urobilinogen Normal (Normal)
[2021-05-30 16:00] LABS: Bacteria 4+ /hpf (None Seen); Mucous, Urine RARE /hpf (<or=2+); Red Blood Cells-Urine 0-5 SEEN /hpf (0-5); Squamous Epithelial Cells - UA 0-5 SEEN /hpf (5-10); White Blood Cells 10-25 SEEN /hpf (0-5)
--- NOTE | 2021-05-30 16:25 | NURSING ---
DR PARIKH FOR DR ROBLES
[2021-05-30] MEDS: 0.9% Normal Saline 1,000 ML 150 ML IV (16:37)
[2021-05-30] MEDS: Ceftriaxone 1 GM/50 ML BAG IV (16:37)
--- NOTE | 2021-05-30 16:44 | HP.PCM.HOS_ITS ---
Documented by User: Oswald MORIN 05/30/21 17:07 HPI - General General Date of Admission: 05/30/21 Date of Service: 05/30/21 Chief Complaint: Mechanical fall HPI Narrative RUBI CHAVEZ is an 85-year-old female who presents to the ED at [facility] on 05/30/2021 with a chief complaint of multiple mechanical falls. Patient reports that yesterday, 05/29, patient attempted to get out of bed and slid to the ground, patient called EMS but denied transport to the ED as she was able to maneuver around her house with walker as she normally does. Patient reports that today she attempted to get up from her recliner and slid down to the floor again. Patient believes that these falls are related to her weakness as she admits that she has problems completing her ADLs and IADLs. Patient does report hitting the back of her head, but denies any loss of consciousness. Patient denies any stroke or seizure history. Patient denies any recent illness or associated symptoms to include chest pain, shortness of breath, palpitations, hemoptysis, sputum production, fever, chills, N/V/D. Imaging in the ED to include brain CT, cervical spine CT, chest x-ray and pelvic x-ray were unremarkable for any evidence of acute trauma. Vital signs obtained in the ED are stable. Lab work obtained in the ED was significant for an elevated creatinine at 1.82 and abnormal UA with yellow cloudy urine, positive nitrites, 25 leukocyte esterase, 10-25 urine WBCs and 4+ bacteria. [facility] Medical History Arthritis Atherosclerotic heart disease of [place] coronary artery without angina pectoris Balance problem Basal cell carcinoma DM II (diabetes mellitus, type II), controlled DVT (deep venous thrombosis) Dyspnea Essential hypertension History of aortic valvular stenosis History of cardioversion (~12/25/19) HTN (hypertension) Hypothyroidism Incontinence Long-term use of high-risk medication Mixed hyperlipidemia JOHN (obstructive sleep apnea) Paroxysmal supraventricular tachycardia Premature ventricular contraction Pulmonary HTN Sciatic nerve pain Supraventricular tachycardia Home Medications metformin 500 mg tablet 500 mg PO QDAY tab 04/15/17 [History Last Taken 09/26/20 07:00] nitroglycerin 0.4 mg sublingual tablet 0.4 mg SUBLINGUAL Q5M PRN 04/15/17 [History Last Taken Unknown] pravastatin 40 mg tablet 40 mg PO QHS 04/15/17 [History Last Taken 09/25/20 20:00] oxybutynin chloride 5 mg tablet 5 mg PO DAILY tab 06/26/18 [History Last Taken 09/26/20 07:00] isosorbide mononitrate 60 mg tablet,extended release 24 hr 60 mg PO DAILY #90 tab 04/10/19 [Rx Last Taken 09/26/20 07:00] potassium chloride 20 meq PO DAILY #60 tablet.er 11/22/19 [Rx Last Taken 09/26/20 07:00] metoprolol succinate 100 mg tablet,extended release 24 hr 50 mg PO BID tab 01/31/20 [History Last Taken 09/26/20 07:00] furosemide 40 mg tablet 40 mg PO BID #180 tab 02/21/20 [Rx Last Taken 09/26/20 07:00] levothyroxine 125 mcg tablet 125 mcg PO DAILY 08/15/20 [History Last Taken 09/26/20 07:00] omeprazole 40 mg capsule,delayed release 40 mg PO DAILY 08/15/20 [History Last Taken Unknown] amiodarone 200 mg tablet 200 mg PO DAILY #90 tab 12/01/20 [Rx Last Taken Unknown] lisinopril 10 mg tablet 10 mg PO BID #180 tab 12/30/20 [Rx Last Taken Unknown] aspirin 81 mg tablet,delayed release 81 mg PO DAILY 01/12/21 [History Last Taken Unknown] Allergy/AdvReac Type Severity Reaction Status Date / Time celecoxib [From Celebrex] Allergy Intermediate Other - Verified 05/30/21 14:13 jittery & edema Family History Father Hypertension Mother CAD (coronary artery disease) CHF (congestive heart failure) Brother Colon cancer Surgical History History of aortic valve replacement with bioprosthetic valve (~11/10/05) History of left heart catheterization (LHC) (~04/10/19) Hx of aortic valve replacement Presence of aortocoronary bypass graft (~11/10/05) Social History Smoking Status: Never smoker second hand exposure: No alcohol intake: never substance use type: does not use ROS Constitutional Constitutional: Denies anorexia, change in weight, chills, fatigue, fever(s), malaise, night sweats, weakness or other Eyes Eyes: Denies blurry vision, change in eye color, change in vision, discharge from eye(s), double vision, erythema, eye pain, loss of vision or other ENT HEENT: Denies abnormal hearing, dysphagia, ear pain, epistaxis, headache(s), hearing loss, nasal congestion, nasal discharge, post nasal drip, sinus pressure, sore throat or other Cardiovascular Cardiovascular: Denies chest pain, claudication, dyspnea on exertion, edema, lightheadedness, orthopnea, palpitations, paroxysmal nocturnal dyspnea, rapid heart rate, syncope or other Respiratory/Chest Respiratory/Chest: Denies cough, dyspnea, excessive phlegm production, hemoptysis, productive cough, shortness of breath at rest, shortness of breath with exertion, wheezing or other Gastrointestinal Gastrointestinal: Denies abdominal pain, coffee ground emesis, constipation, diarrhea, dyspepsia, hematemesis, hematochezia, loose stools, melena, nausea, vomiting or other Genitourinary Genitourinary: Denies burning urination, difficulty urinating, dysuria, hematuria, nocturia, urinary frequency, urinary hesitancy, urinary incontinence, urinary urgency or other Musculoskeletal Musculoskeletal: Reports back pain, joint pain and neck pain Neurologic Neurologic: Denies abnormal gait, abnormal speech, confusion, disequilibrium, dizziness, focal weakness, headache(s), numbness, paresthesias, seizure-like activity, seizures, syncope, tingling, tremor(s) or other Psychiatric Psychiatric: Denies anxiety, depression, homicidal ideation, suicidal ideation or other Endocrine Endocrinology: Denies change in body appearance, cold intolerance, excessive sw eating, heat intolerance, polydipsia, polyuria or other Hematologic/Lymphatic Hematologic/Lymphatic: Denies anemia, easy bleeding, easy bruising, lymphadenopathy or other Allergic/Immunologic Allergic/Immunologic: Denies rhinitis, hives, eczemia, asthma or other Vital Signs Vital Signs Vital Signs: 05/30/21 14:08 05/30/21 14:12 05/30/21 14:16 Temperature 98.4 F 98.5 F 98.6 F Temperature Source Oral Oral Pulse Rate 67 6 L Respiratory Rate 16 23 H Respiratory Effort Normal Respiratory Pattern Normal Blood Pressure 153/107 H 153/107 H Blood Pressure Mean 122 122 Pulse Ox 91 90 94 Oxygen Delivery Method Room Air Room Air Room Air 05/30/21 15:08 05/30/21 15:12 05/30/21 16:39 Temperature 98.7 F 98.2 F Temperature Source Temporal Oral Pulse Rate 59 L 59 L 57 L Respiratory Rate 16 16 20 H Respiratory Effort Respiratory Pattern Blood Pressure 127/55 H 127/55 H 111/53 L Blood Pressure Mean 79 79 72 Pulse Ox 97 97 96 Oxygen Delivery Method Room Air Room Air Room Air Weight Weight: 186 lb 15.232 oz Body Mass Index (BMI) 30.2 Physical Exam Const alert and oriented x3 General Appearance: cooperative HEENT normocephalic, head/scalp atraumatic and hearing grossly normal bilaterally Eyes PERRL, EOMs intact bilaterally and conjunctivae normal Neck no lymphadenopathy, supple and no JVD Resp normal respiratory effort, no retractions, no use of accessory muscles and clear to auscultation bilaterally Cardio regular rate, regular rhythm, no gallops and no JVD GI normal to inspection, nondistended, normoactive bowel sounds, soft to palpation and non-tender Extremity normal to inspection, full ROM and no clubbing, cyanosis or edema Extremity Narrative: See skin Skin Skin Narrative: Bruising about the forehead, arms and legs bilaterally. Neuro CN's II-XII intact bilaterally Psych affect normal Results Lab / Micro Data Result Diagrams: 05/30/21 14:20 05/30/21 14:20 Labs: Laboratory Results - last 24 hr 05/30/21 14:20: WBC 7.1, RBC 3.88 L, Hgb 13.2, Hct 37.4, MCV 96.4, MCH 34.0 H, MCHC 35.3, RDW Std Deviation 50.2 H, RDW Coeff of Ellie 14.2, Plt Count 109 L, MPV 11.0, Immature Gran % (Auto) 0.700, Neut % (Auto) 84.0 H, Lymph % (Auto) 5.9 L, [place] % (Auto) 6.1, Eos % (Auto) 3.0, Baso % (Auto) 0.3, Absolute Neuts (auto) 6.0, Absolute Lymphs (auto) 0.42 L, Nucleated RBC % 0, Differential Comment SCANNED 05/30/21 14:20: Sodium 134 L, Potassium 4.3, Chloride 102, Carbon Dioxide 23.0, Anion Gap 9, BUN 43 H, Creatinine 1.82 H, Estim Creat Clear Calc 21.16, Est GFR (MDRD) Af Amer 34 L, Est GFR (MDRD) Non-Af 28 L, BUN/Creatinine Ratio 23.6 H, Glucose 147 H, Calcium 8.8 05/30/21 15:25: Urine Color Yellow, Urine Clarity Cloudy, Urine pH 5.0, Ur Specific [place] 1.020, Urine Protein 30 H, Urine Glucose (UA) Normal, Urine Ketones 5 H, Urine Occult Blood 150 H, Urine Nitrite Positive H, Urine Bilirubin Negative, Urine Urobilinogen Normal, Ur Leukocyte Esterase 25 H, Urine RBC 0-5 S EEN, Urine WBC 10-25 SEEN, Ur Squamous Epith Cells 0-5 SEEN, Urine Bacteria 4+, Urine Mucus RARE Micro: Microbiology 05/30/21 14:35 Nasal Secretion SARS-CoV-2 Antigen (Rapid) - Final Radiology Impression Brain CT 05/30/21 14:19 IMPRESSION: 1. Normal CT brain. No acute injury. Electronically Signed: Vamshi Jimenez MD at 16:02 EST , Cervical Spine CT 05/30/21 14:19 IMPRESSION: 1. No acute osseous injury. 2. Multilevel mild/moderate thecal sac stenosis. 3. Carotid atherosclerosis. Electronically Signed: Vamshi Jimenez MD at 16:03 EST , Chest X-Ray 05/30/21 14:30 IMPRESSION: Moderate cardiomegaly, no acute abnormality. Electronically Signed: Vamshi Jimenez MD at 15:29 EST , Pelvis X-Ray 05/30/21 14:30 IMPRESSION: Unremarkable pelvis without acute fracture. In the presence of discordant x-rays and symptomatology refer to CT pelvis to detect a possible radiographically occult fracture, such as sacrum. Electronically Signed: Vamshi Jimenez MD at 15:30 EST , Assessment & Plan Assessment/Plan (1) Falls: (2) Generalized weakness: (3) UTI (urinary tract infection): PLAN: Patient is an 85-year-old female who presents to the ED at [facility] on 05/30/2021 with a chief complaint of recurrent mechanical falls. Patient will be admitted for evaluation and management of recurrent falls and generalized weakness. 1) mechanical fall secondary to generalized weakness Patient with recent history of multiple falls, patient believes this is due to her overall weakness as she admits to difficulty completing her ADLs and IADLs. Patient does endorse hitting her head, but denies any loss of consciousness. Patient denies any seizure or stroke history. Imaging obtained in the ED to include brain CT, cervical spine CT, chest x-ray and pelvic x-ray were unremarkable for acute fracture or bleed. Patient is interested in placement at SNF to obtain skilled therapy. Plan; admit to [facility], PT/OT eval ordered, case management, consult ordered, fall precautions ordered, CBC and BMP in a.m. 2) abnormal UA UA on admission demonstrated yellow cloudy urine with positive nitrites, 25 leukocyte esterase, 10-25 urine WBCs and 4+ bacteria. Patient denies any urinary symptoms. Vital signs are stable and CBC does not demonstrate a leukocytosis. Will obtain urine culture and place patient on Rocephin empirically. 3) MARY ANN on CKD stage IIIb Creatinine 1.82, likely due to poor oral intake. We will continue IV fluids obtained in the ED and trend BMP. 4) DM2 Patient takes Metformin at home. We will hold metformin and initiate Accu-Cheks sliding scale insulin. 5) CAD status post CABG ELOINA to lateral circumflex to OM completed in 2005. Patient does follow with Dr. Lam. We will continue aspirin and statin regimen. DVT prophylaxis - Lovenox CODE STATUS: [id number]-A, no intubation. Patient seen by Oswald Garrett PA-C, under the supervision of Dr. Sanchez. Time spent on patient care: 25 minutes. Documented by User: Dr. Jamil Sanchez MD 05/30/21 17:34 HPI - General General Date of Admission: 05/30/21 [facility] Medical History Arthritis Atherosclerotic heart disease of [place] coronary artery without angina pectoris Balance problem Basal cell carcinoma DM II (diabetes mellitus, type II), controlled DVT (deep venous thrombosis) Dyspnea Essential hypertension History of aortic valvular stenosis History of cardioversion (~12/25/19) HTN (hypertension) Hypothyroidism Incontinence Long-term use of high-risk medication Mixed hyperlipidemia JOHN (obstructive sleep apnea) Paroxysmal supraventricular tachycardia Premature ventricular contraction Pulmonary HTN Sciatic nerve pain Supraventricular tachycardia Home Medications metformin 500 mg tablet 500 mg PO QDAY tab 04/15/17 [History Last Taken 09/26/20 07:00] nitroglycerin 0.4 mg sublingual tablet 0.4 mg SUBLINGUAL Q5M PRN 04/15/17 [History Last Taken Unknown] pravastatin 40 mg tablet 40 mg PO QHS 04/15/17 [History Last Taken 09/25/20 20:00] oxybutynin chloride 5 mg tablet 5 mg PO DAILY tab 06/26/18 [History Last Taken 09/26/20 07:00] isosorbide mononitrate 60 mg tablet,extended release 24 hr 60 mg PO DAILY #90 tab 04/10/19 [Rx Last Taken 09/26/20 07:00] potassium chloride 20 meq PO DAILY #60 tablet.er 11/22/19 [Rx Last Taken 09/26/20 07:00] metoprolol succinate 100 mg tablet,extended release 24 hr 50 mg PO BID tab 01/31/20 [History Last Taken 09/26/20 07:00] furosemide 40 mg tablet 40 mg PO BID #180 tab 02/21/20 [Rx Last Taken 09/26/20 07:00] levothyroxine 125 mcg tablet 125 mcg PO DAILY 08/15/20 [History Last Taken 09/26/20 07:00] omeprazole 40 mg capsule,delayed release 40 mg PO DAILY 08/15/20 [History Last Taken Unknown] amiodarone 200 mg tablet 200 mg PO DAILY #90 tab 12/01/20 [Rx Last Taken Unknown] lisinopril 10 mg tablet 10 mg PO BID #180 tab 12/30/20 [Rx Last Taken Unknown] aspirin 81 mg tablet,delayed release 81 mg PO DAILY 01/12/21 [History Last Taken Unknown] Allergy/AdvReac Type Severity Reaction Status Date / Time celecoxib [From Celebrex] Allergy Intermediate Other - Verified 05/30/21 14:13 jittery & edema Family History Father Hypertension Mother CAD (coronary artery disease) CHF (congestive heart failure) Brother Colon cancer Surgical History History of aortic valve replacement with bioprosthetic valve (~11/10/05) History of left heart catheterization (LHC) (~04/10/19) Hx of aortic valve replacement Presence of aortocoronary bypass graft (~11/10/05) Social History Smoking Status: Never smoker second hand exposure: No alcohol intake: never substance use type: does not use Results Lab / Micro Data Result Diagrams: 05/30/21 14:20 05/30/21 14:20 Charges/Coding Addendum Addendum: Dr. Sanchez: I personally reviewed the chart and examined the patient, and agree with the above findings. 5-year-old female presents to the hospital with weakness. She states that she has been noticing her weakness developing since the new year. She states that it significantly worsened over the last several days. She had fallen last night and called EMS to help her up however she refused transport to the hospital at that time and was able to ambulate at home with her walker however this morning she fell again while getting out of bed and called EMS and this time came to the hospital. She denies hitting her head or any loss of consciousness but on admit she was found to have a slight elevation in her creatinine to 1.82 from her baseline of around one-point no leukocytosis fever however she was found to have a dirty UA consistent with a UTI. She denies any burning with urination or flank pain. She was given dose of Rocephin in the ER which we will continue while inpatient. Urine culture is pending. We will obtain evaluations by PT and OT for discharge planning, she is amenable to SNF if necessary since she lives alone. All of medications were needed specifically the ones that have been verified. Of note is she did have an episode of GI bleeding in 2020 and was subsequently taken off of her Eliquis that was used for her bioprosthetic aortic valve and A. fib. Clinical time spent in all aspects of patient care: 30 minutes Visit Charges OBSV E&M: 24941 Initial observation care L2
--- NOTE | 2021-05-30 16:51 | NURSING ---
MED SURG OBS [place]OT[place]IS UTI, WEAKNESS, FALLS
[2021-05-30] MEDS: 0.9% Saline Lock 10 ML Syringe IV (18:16)
[2021-05-30] MEDS: 0.9% Normal Saline 1,000 ML 75 ML IV (18:16)
[2021-05-30] MEDS: Pravastatin 40 MG Tablet PO (22:14)
[2021-05-30] MEDS: Lisinopril 10 MG Tablet PO (22:14)
[2021-05-30 22:26] LABS: Bedside Glucose 112 mg/dL (70-110)
[2021-05-31] VITALS (8 sets, daily range): BP systolic 101–150; BP diastolic 41–63; PULSE 52–60; RESP 16–18; TEMP 36.8–37.9; O2SAT 95–97
[2021-05-31] MEDS: Levothyroxine 125 MCG Tablet PO (06:26)
[2021-05-31] MEDS: 0.9% Normal Saline 1,000 ML 75 ML IV (06:26)
[2021-05-31 06:40] LABS: Bedside Glucose 111 mg/dL (70-110)
[2021-05-31 06:43] LABS: Absolute Lymphocyte Count 0.43 X10^3/uL (0.83-4.51); Absolute Neutrophil Count 3.6 X10^3/uL (2.0-7.7); Basophil# 0.01 X10^3/uL; Basophil% 0.2 % (0-1); Eosinophil# 0.01 X10^3/uL; Eosinophils% 0.2 % (0-5); Hematocrit 30.9 % (37-47); Hemoglobin 10.8 g/dL (12.0-15.0); Lymphocyte # 0.43 X10^3/ul (0.83-4.51); Lymphocyte % 9.9 % (19-41); Mean Corpuscular Hgb 33.4 pg (27.0-32.0); Mean Corpuscular Volume 95.7 fL (81-99); Monocyte# 0.31 X10^3/uL; Monocyte% 7.1 % (0-10); NRBC Flagged by Analyzer 0 % (0-5); Neutrophil # 3.59 X10^3/uL (2.7-7.7); Neutrophil % 82.4 % (47-70); POSITIVE DIFFERENTIAL YES; Platelet Count 100 K/mm3 (150-450); RBC Distribution Width CV 14.2 % (11.6-14.6); RBC Distribution Width SD 50.2 fl (35.1-43.9); Red Blood Count 3.23 M/mm3 (4.2-5.4); White Blood Count 4.4 K/mm3 (4.4-11.0)
[2021-05-31 06:48] LABS: Differential Indicated SCAN CRITERIA MET
[2021-05-31 07:07] LABS: Differential Comment SCANNED
[2021-05-31 07:08] LABS: Anion Gap 6 (5-15); BUN 35 mg/dL (7-18); BUN/Creat Ratio 32.1 RATIO (10-20); Calcium,Total 7.9 mg/dL (8.5-10.1); Chloride 107 mmol/L (98-107); Creatinine, Serum 1.09 mg/dL (0.55-1.02); EST Glomerular Filtration Rate 51 mL/min (>60); Est Glom Filt Rate - Afr Amer 61 mL/min (>60); Estimated Creatinine Clearance 35.32 ml/min; Glucose 119 mg/dL (74-106); Potassium 3.8 mmol/L (3.5-5.1); Sodium Level 136 mmol/L (136-145)
[2021-05-31] MEDS: Amiodarone 200 MG Tablet PO (08:33)
[2021-05-31] MEDS: Enoxaparin 30 MG/0.3 ML Syringe SC (08:33)
[2021-05-31] MEDS: Isosorbide Mononitrate 60 MG Tablet PO (08:33)
[2021-05-31] MEDS: Pantoprazole Sodium 40 MG Tablet PO (08:34)
[2021-05-31] MEDS: Lisinopril 10 MG Tablet PO ×2 (08:35→21:00)
[2021-05-31] MEDS: Ceftriaxone 1 GM/50 ML BAG IV (09:16)
--- NOTE | 2021-05-31 10:35 | PCM.PN.HOSP ---
Documented by User: Oswald MORIN 05/31/21 10:45 Subjective Subjective Patient is an 85-year-old female comfortably resting in bed, alert and orient x3. Denies development of any new symptoms overnight. Does not appear in acute distress. Objective Data Objective Data Vital Signs: Vital Signs Temp Pulse Resp BP Pulse Ox 99 F 52 L 16 138/55 H 97 05/31/21 08:06 05/31/21 08:10 05/31/21 08:06 05/31/21 08:10 05/31/21 08:06 Oxygen Delivery Method Room Air Weight: 179 lb 0.246 oz Body Mass Index (BMI) 28.8 Intake & Output: Intake and Output for Last 24 Hours 05/29/21 05/30/21 05/31/21 23:59 23:59 23:59 Intake Total 1050 / 1050 1175.0 / 1175.0 Balance 1050 / 1050 1175.0 / 1175.0 Lab / Micro Data Result Diagrams: 05/31/21 06:30 05/31/21 06:30 Labs: Laboratory Results - last 24 hr 05/30/21 14:20: WBC 7.1, RBC 3.88 L, Hgb 13.2, Hct 37.4, MCV 96.4, MCH 34.0 H, MCHC 35.3, RDW Std Deviation 50.2 H, RDW Coeff of Ellie 14.2, Plt Count 109 L, MPV 11.0, Immature Gran % (Auto) 0.700, Neut % (Auto) 84.0 H, Lymph % (Auto) 5.9 L, [place] % (Auto) 6.1, Eos % (Auto) 3.0, Baso % (Auto) 0.3, Absolute Neuts (auto) 6.0, Absolute Lymphs (auto) 0.42 L, Nucleated RBC % 0, Differential Comment SCANNED 05/30/21 14:20: Sodium 134 L, Potassium 4.3, Chloride 102, Carbon Dioxide 23.0, Anion Gap 9, BUN 43 H, Creatinine 1.82 H, Estim Creat Clear Calc 21.16, Est GFR (MDRD) Af Amer 34 L, Est GFR (MDRD) Non-Af 28 L, BUN/Creatinine Ratio 23.6 H, Glucose 147 H, Calcium 8.8 05/30/21 15:25: Urine Color Yellow, Urine Clarity Cloudy, Urine pH 5.0, Ur Specific [place] 1.020, Urine Protein 30 H, Urine Glucose (UA) Normal, Urine Ketones 5 H, Urine Occult Blood 150 H, Urine Nitrite Positive H, Urine Bilirubin Negative, Urine Urobilinogen Normal, Ur Leukocyte Esterase 25 H, Urine RBC 0-5 SEEN, Urine WBC 10-25 SEEN, Ur Squamous Epith Cells 0-5 SEEN, Urine Bacteria 4+, Urine Mucus RARE 05/30/21 22:07: POC Glucose 112 H 05/31/21 06:24: POC Glucose 111 H 05/31/21 06:30: WBC 4.4, RBC 3.23 L, Hgb 10.8 L, Hct 30.9 L, MCV 95.7, MCH 33.4 H, MCHC 35.0, RDW Std Deviation 50.2 H, RDW Coeff of Ellie 14.2, Plt Count 100 L, MPV 10.0, Immature Gran % (Auto) 0.200, Neut % (Auto) 82.4 H, Lymph % (Auto) 9.9 L, [place] % (Auto) 7.1, Eos % (Auto) 0.2, Baso % (Auto) 0.2, Absolute Neuts (auto) 3.6, Absolute Lymphs (auto) 0.43 L, Nucleated RBC % 0, Differential Comment SCANNED 05/31/21 06:30: Sodium 136, Potassium 3.8, Chloride 107, Carbon Dioxide 23.0, Anion Gap 6, BUN 35 H, Creatinine 1.09 H, Estim Creat Clear Calc 35.32, Est GFR (MDRD) Af Amer 61, Est GFR (MDRD) Non-Af 51 L, BUN/Creatinine Ratio 32.1 H, Glucose 119 H, Calcium 7.9 L Micro: Microbiology 05/30/21 14:35 Nasal Secretion SARS-CoV-2 Antigen (Rapid) - Final Radiography Diagnostic Testing: Radiology Impression Brain CT 05/30/21 14:19 IMPRESSION: 1. Normal CT brain. No acute injury. Electronically Signed: Vamshi Jimenez MD at 16:02 EST , Cervical Spine CT 05/30/21 14:19 IMPRESSION: 1. No acute osseous injury. 2. Multilevel mild/moderate thecal sac stenosis. 3. Carotid atherosclerosis. Electronically Signed: Vamshi Jimenez MD at 16:03 EST , Chest X-Ray 05/30/21 14:30 IMPRESSION: Moderate cardiomegaly, no acute abnormality. Electronically Signed: Vamshi Jimenez MD at 15:29 EST , Pelvis X-Ray 05/30/21 14:30 IMPRESSION: Unremarkable pelvis without acute fracture. In the presence of discordant x-rays and symptomatology refer to CT pelvis to detect a possible radiographically occult fracture, such as sacrum. Electronically Signed: Vamshi Jimenez MD at 15:30 EST , Physical Exam Const alert, oriented x3 and no apparent distress HEENT head/scalp atraumatic and moist oral mucous membranes Head and Scalp: normocephalic Eyes PERRL, EOMs intact bilaterally and conjunctivae normal Neck no lymphadenopathy, supple and no JVD Resp normal respiratory effort, no retractions, no use of accessory muscles and clear to auscultation bilaterally Cardio regular rhythm, no murmurs and no JVD Rate: bradycardia GI normal to inspection, nondistended, normoactive bowel sounds, soft to palpation and non-tender Extremity normal to inspection, full ROM and no clubbing, cyanosis or edema Skin Skin Narrative: Bruise on forehead secondary to fall. Neuro CN's II-XII intact bilaterally Psych affect normal Assessment & Plan Assessment/Plan (1) Generalized weakness: (2) UTI (urinary tract infection): (3) Falls: PLAN: Day 1 Discharge planning: Current plan is for patient to discharge to SNF pending PT/OT eval. 1) mechanical fall secondary to generalized weakness Patient with recent history of multiple falls, patient believes this is due to her overall weakness as she admits to difficulty completing her ADLs and IADLs. Imaging obtained in the ED to include brain CT, cervical spine CT, chest x-ray and pelvic x-ray were unremarkable for acute fracture or bleed. Awaiting PT/OT eval for placement, case management consult ordered. 2) abnormal UA UA on admission demonstrated yellow cloudy urine with positive nitrites, 25 leukocyte esterase, 10-25 urine WBCs and 4+ bacteria. Patient denies any urinary symptoms. Vital signs are stable and CBC does not demonstrate a leukocytosis. Urine culture pending, continue Rocephin. 3) MARY ANN on CKD stage IIIb Creatinine, 1.09, improved with fluids. Likely due to poor oral intake prior to admission. Continue to monitor. 4) DM2 Patient takes Metformin at home. We will hold metformin and initiate Accu-Cheks sliding scale insulin. 5) CAD status post CABG ELOINA to lateral circumflex to OM completed in 2005. Patient does follow with Dr. Lam. Continue amiodarone, isosorbide, statin, lisinopril and metoprolol. 6) HTN Stable, continue lisinopril and metoprolol. 7) hypothyroidism Continue Synthroid. DVT prophylaxis - Lovenox Patient seen by Oswald Garrett PA-C, under the supervision of Dr. Sanchez. Time spent on patient care: 7 minutes. Documented by User: Dr. Jamil Sanchez MD 05/31/21 13:57 Objective Data Lab / Micro Data Result Diagrams: 05/31/21 06:30 05/31/21 06:30 Charges/Coding Addendum Addendum: Dr. Sanchez: I personally reviewed the chart and examined the patient, and agree with the above findings. 5-year-old female presents to the hospital with weakness. She states that she has been noticing her weakness developing since the new year. She states that it significantly worsened over the last several days. She had fallen last night and called EMS to help her up however she refused transport to the hospital at that time and was able to ambulate at home with her walker however this morning she fell again while getting out of bed and called EMS and this time came to the hospital. She denies hitting her head or any loss of consciousness but on admit she was found to have a slight elevation in her creatinine to 1.82 from her baseline of around one-point no leukocytosis fever however she was found to have a dirty UA consistent with a UTI. She denies any burning with urination or flank pain. She was given dose of Rocephin in the ER which we will continue while inpatient. Urine culture is pending. We will obtain evaluations by PT and OT for discharge planning, she is amenable to SNF if necessary since she lives alone. All of medications were needed specifically the ones that have been verified. Of note is she did have an episode of GI bleeding in 2020 and was subsequently taken off of her Eliquis that was used for her bioprosthetic aortic valve and A. fib. Clinical time spent in all aspects of patient care: 30 minutes 05/31/2021: Doing well today, feels little bit better. Continue to treat her UTI with Rocephin. She was put on some fluid overnight and her creatinine is improved to 1.09. Will be cautious with her IV fluid resuscitation, and discontinued after this last bag of fluid runs then, she does have a history of pulmonary hypertension with an RVSP of 51 mmHg an echo in 2019. At that time her EF was 65% but did have moderate concentric left ventricular hypertrophy consistent with diastolic dysfunction. Continue with PT/OT evaluation for possible placement if necessary. Clinical time spent in all aspects of patient care: 18 minutes Visit Charges OBSV E&M: 06246 Subsequent observation care L2
[2021-05-31 11:10] LABS: Bedside Glucose 131 mg/dL (70-110)
[2021-05-31] MEDS: Glucerna Shake 120 ML LIQUID PO ×3 (13:30→21:02)
[2021-05-31 16:46] LABS: Bedside Glucose 141 mg/dL (70-110)
[2021-05-31] MEDS: Pravastatin 40 MG Tablet PO (21:00)
[2021-05-31] MEDS: Insulin Lispro 100 UNIT/ML INSULN.PEN SC (21:00)
[2021-05-31 21:56] LABS: Bedside Glucose 177 mg/dL (70-110)
[2021-06-01 03:05] VITALS: BP 151/62; PULSE 57; RESP 18; TEMP 36.6; O2SAT 97
[2021-06-01] MEDS: Levothyroxine 125 MCG Tablet PO (06:28)
[2021-06-01 06:36] LABS: Absolute Lymphocyte Count 0.54 X10^3/uL (0.83-4.51); Absolute Neutrophil Count 2.6 X10^3/uL (2.0-7.7); Basophil# 0.02 X10^3/uL; Basophil% 0.5 % (0-1); Eosinophil# 0.02 X10^3/uL; Eosinophils% 0.5 % (0-5); Hematocrit 29.2 % (37-47); Hemoglobin 10.3 g/dL (12.0-15.0); Lymphocyte # 0.54 X10^3/ul (0.83-4.51); Lymphocyte % 14.4 % (19-41); Mean Corp Hgb Conc 35.3 g/dL (32-36); Mean Corpuscular Hgb 33.6 pg (27.0-32.0); Mean Corpuscular Volume 95.1 fL (81-99); Mean Platelet Vol. 10.7 fl (6.2-12.0); Monocyte# 0.52 X10^3/uL; Monocyte% 13.8 % (0-10); NRBC Flagged by Analyzer 0 % (0-5); Neutrophil # 2.62 X10^3/uL (2.7-7.7); Neutrophil % 69.7 % (47-70); POSITIVE DIFFERENTIAL YES; Platelet Count 101 K/mm3 (150-450); RBC Distribution Width CV 14.2 % (11.6-14.6); RBC Distribution Width SD 49.8 fl (35.1-43.9); Red Blood Count 3.07 M/mm3 (4.2-5.4); White Blood Count 3.8 K/mm3 (4.4-11.0)
[2021-06-01 06:46] LABS: Differential Indicated SCAN CRITERIA MET
[2021-06-01 06:51] LABS: Bedside Glucose 118 mg/dL (70-110)
[2021-06-01 06:58] LABS: Anion Gap 5 (5-15); BUN 22 mg/dL (7-18); BUN/Creat Ratio 21.8 RATIO (10-20); Calcium,Total 7.9 mg/dL (8.5-10.1); Chloride 109 mmol/L (98-107); Creatinine, Serum 1.01 mg/dL (0.55-1.02); EST Glomerular Filtration Rate 55 mL/min (>60); Est Glom Filt Rate - Afr Amer 67 mL/min (>60); Estimated Creatinine Clearance 38.12 ml/min; Glucose 134 mg/dL (74-106); Potassium 3.6 mmol/L (3.5-5.1); Sodium Level 137 mmol/L (136-145)
--- NOTE | 2021-06-01 07:54 | PN.HOSP_ITS ---
Subjective Subjective Patient is an 85-year-old lady admitted with falls as well as progressive generalized weakness. Found to have acute cystitis admitted to regular nursing floor for further management Objective Data Objective Data Vital Signs: Vital Signs Temp Pulse Resp BP Pulse Ox 98 F 57 L 18 151/62 H 97 06/01/21 03:05 06/01/21 03:05 06/01/21 03:05 06/01/21 03:05 06/01/21 03:05 Oxygen Delivery Method Room Air Weight: 83 kg Body Mass Index (BMI) 28.8 Intake & Output: Intake and Output for Last 24 Hours 05/30/21 05/31/21 06/01/21 23:59 23:59 23:59 Intake Total 1050 / 1050 2812.5 / 2812.5 Balance 1050 / 1050 2812.5 / 2812.5 Lab / Micro Data Result Diagrams: 06/01/21 06:10 06/01/21 06:10 Labs: Laboratory Results - last 24 hr 05/31/21 10:54: POC Glucose 131 H 05/31/21 16:35: POC Glucose 141 H 05/31/21 20:44: POC Glucose 177 H 06/01/21 06:10: WBC 3.8 L, RBC 3.07 L, Hgb 10.3 L, Hct 29.2 L, MCV 95.1, MCH 33.6 H, MCHC 35.3, RDW Std Deviation 49.8 H, RDW Coeff of Ellie 14.2, Plt Count 101 L, MPV 10.7, Immature Gran % (Auto) 1.100 H, Neut % (Auto) 69.7, Lymph % (Auto) 14.4 L, [place] % (Auto) 13.8 H, Eos % (Auto) 0.5, Baso % (Auto) 0.5, Absolute Neuts (auto) 2.6, Absolute Lymphs (auto) 0.54 L, Nucleated RBC % 0, Diff Path Review August06/01/21 06:10: Sodium 137, Potassium 3.6, Chloride 109 H, Carbon Dioxide 23.0, Anion Gap 5, BUN 22 H, Creatinine 1.01, Estim Creat Clear Calc 38.12, Est GFR (MDRD) Af Amer 67, Est GFR (MDRD) Non-Af 55 L, BUN/Creatinine Ratio 21.8 H, Glucose 134 H, Calcium 7.9 L 06/01/21 06:23: POC Glucose 118 H Micro: Microbiology 05/30/21 15:25 Urine, Catheterized Urine Culture - Preliminary Presumptive E. coli 05/30/21 14:35 Nasal Secretion SARS-CoV-2 Antigen (Rapid) - Final Physical Exam Narrative GENERAL: cooperative HEENT: Atraumatic; EYES; Anicteric, Normal Conjunctiva NECK; supple, normal thyroid, RESPIRATORY: Diminished to auscultation CARDIOVASCULAR: Regular S1 S2, GI: soft, normoactive bowel sounds, : No Renal angle tenderness; EXTREMITIES: No edema, no clubbing, MUSCULOSKELETAL: no muscle wasting NEURO: Awake; no lateralizing signs. SKIN: No Rash PSYCH; Flat affect Assessment & Plan Assessment/Plan (1) Generalized weakness: (2) UTI (urinary tract infection): (3) Falls: PLAN: Patient is an 85-year-old lady admitted with progressive generalized weakness with falls. She was also found to have acute cystitis admitted to regular nursing floor for further management 1. Physical deconditioning with multiple falls - Requested for PT OT eval and psychiatric social worker to assist with discharge planning 2. Acute cystitis with E. coli ?Patient has been treated appropriately with appropriate antibiotic therapy?Rocephin 3. Acute kidney injury ?Creatinine on admission was 1.82. Down to baseline 1.01 4. Diabetes mellitus type II -patient's oral hypoglycemics held. Placed on long acting insulin, Accu-Cheks a.c. and at bedtime and covered with sliding scale insulin 5. Coronary artery disease ?With previous CABG, currently without any chest pain or ischemic symptoms 6. Hypertension - Blood pressure controlled, home medications continued with dose adjustment as needed 7. Hypothyroidism - Patient is on levothyroxine home dose continued 8. Dyslipidemia -Patient is on statin therapy, continued at home dose 9. Paroxysmal A. fib ?Rate controlled on amiodarone 10. Valvular heart disease ?With history of bioprosthetic aortic valve 11. DVT prophylaxis ?[place] Lovenox Charges/Coding Visit Charges Inpatient E&M: 23784 Subs Hosp L2
[2021-06-01 09:07] VITALS: BP 109/53; PULSE 67; RESP 18; TEMP 36.6; O2SAT 99
[2021-06-01 09:11] VITALS: PULSE 67
[2021-06-01] MEDS: Amiodarone 200 MG Tablet PO (09:11)
[2021-06-01] MEDS: Lisinopril 10 MG Tablet PO (09:11)
[2021-06-01] MEDS: Metoprolol(XL)Succ 50 MG Tablet PO (09:11)
[2021-06-01] MEDS: Pantoprazole Sodium 40 MG Tablet PO (09:11)
[2021-06-01] MEDS: Isosorbide Mononitrate 60 MG Tablet PO (09:11)
[2021-06-01] MEDS: Enoxaparin 30 MG/0.3 ML Syringe SC (09:11)
[2021-06-01] MEDS: 0.9% Saline Lock 10 ML Syringe IV (09:13)
[2021-06-01] MEDS: Ceftriaxone 1 GM/50 ML BAG IV (09:13)
[2021-06-01 09:41] VITALS: O2SAT 97
--- NOTE | 2021-06-01 10:55 | CASEMGMT ---
Addendum entered by Lynnette Romero 06/01/21 11:19: Order for therapy faxed to [facility] along with face sheet. Original Note: JACINTO VACA Assessment: Face to Face with pt for initial transition planning/care coordination assessment. JACINTO VACA introduced self and role at [facility], pt voices understanding and consents to assessment. Pt is A/O x4 and answers all questions appropriately at this time. Pt sitting up in chair in no distress. Care providers, pharmacy, and demographics verified/updated. Admitting Dx: UTI and weakness PCP:Mamta Specialists:Genaro, cardio; Benjamin, pulm; Knapic, ortho Preferred Pharmacy: [facility] Retail Insurance: MCR, [employer] Prescription Benefit: yes LW/HPOA: Pt states she has a LW/DPOA and her DPOA is her dtr Tracey Short. She is aware this is not on file at [facility] and she may bring in to be scanned into the chart. LNOK: Tracey Short, dtr Living Arrangements: Pt lives alone in a split level house with no steps to enter. Pt reports she is I in ADL's and denies concerns at home. Transportation: Pt drives self and denies concerns with transportation. DME/HHC/SNF: Pt has grab bars in the bathroom and at the back door, walker, rollator and cane. Pt states she uses all AD depending on where she is. Pt denies hx of HHC or SNF stays. Discussed pt falls at home, pt states she is losing her balance. Discussed options such as HHC vs outpt therapy. Pt states she would like to go to outpt as she has gone before. She feels she will get more results out of it vs HHC. Pt states she would like [facility]. TC to [facility], spoke with Jenniffer shah made for at 9:30am as she prefers mornings. Pt is aware of appt and feels she can drive there. Pt states no concerns with going home at time of dc. Pt states no further concerns/needs. CM to follow. Advised pt to ask CM if any further question/concerns/needs arise, voices understanding. Pt Goal: Home with outpt therapy Plan: Home with outpt therapy
--- NOTE | 2021-06-01 11:12 | CASEMGMT ---
JACINTO CM in to discuss BAHENA form with patient. RN CM explained BAHENA form, patient voiced understanding. Pt signed form and filed in chart. Pt provided with a copy of signed BAHENA form. Patient had no further questions or concerns at this time.
[2021-06-01] MEDS: Insulin Lispro 100 UNIT/ML INSULN.PEN SC (11:21)
[2021-06-01 11:30] LABS: Bedside Glucose 165 mg/dL (70-110)
--- NOTE | 2021-06-01 13:45 | PCM.DC.SUM ---
Providers Date of Admission: 05/30/21 Primary Care Physician: Dr. Ajit Oleary MD Reason For Visit: UTI AND WEAKNESS Diagnosis Discharge Diagnosis (1) Generalized weakness: Status: Acute Code(s): R53.1 - Weakness (2) UTI (urinary tract infection): Status: Acute Code(s): N39.0 - Urinary tract infection, site not specified (3) Falls: Status: Acute Code(s): W19.XXXA - Unspecified fall, initial encounter Medications at Discharge Home Medications metformin 500 mg tablet 500 mg PO QDAY tab 04/15/17 nitroglycerin 0.4 mg sublingual tablet 0.4 mg SUBLINGUAL Q5M PRN 04/15/17 pravastatin 40 mg tablet 40 mg PO QHS 04/15/17 oxybutynin chloride 5 mg tablet 5 mg PO DAILY tab 06/26/18 isosorbide mononitrate 60 mg tablet,extended release 24 hr 60 mg PO DAILY #90 tab 04/10/19 potassium chloride 20 meq PO DAILY #60 tablet.er 11/22/19 metoprolol succinate 100 mg tablet,extended release 24 hr 50 mg PO BID tab 01/31/20 levothyroxine 125 mcg tablet 125 mcg PO DAILY 08/15/20 omeprazole 40 mg capsule,delayed release 40 mg PO DAILY 08/15/20 amiodarone 200 mg tablet 200 mg PO DAILY #90 tab 12/01/20 lisinopril 10 mg tablet 10 mg PO BID #180 tab 12/30/20 cefdinir 300 mg PO BID #6 cap 06/01/21 Hospital Course Summary of Care Provided Minutes Spent on Discharge: 35 Hospital Course: Patient is an 85-year-old lady admitted with progressive generalized weakness with falls. She was also found to have acute cystitis admitted to regular nursing floor for further management 1. Physical deconditioning with multiple falls - Requested for PT OT eval and clinical social work therapist to assist with discharge planning -Patient was discharged home with home PT 2. Acute cystitis with E. coli ?Patient has been treated appropriately with appropriate antibiotic therapy?Rocephin -Prescription written for cefdinir on discharge. 3. Acute kidney injury ?Creatinine on admission was 1.82. Down to baseline 1.01 4. Diabetes mellitus type II -patient's oral hypoglycemics held. Placed on long acting insulin, Accu-Cheks a.c. and at bedtime and covered with sliding scale insulin 5. Coronary artery disease ?With previous CABG, currently without any chest pain or ischemic symptoms 6. Hypertension - Blood pressure controlled, home medications continued with dose adjustment as needed 7. Hypothyroidism - Patient is on levothyroxine home dose continued 8. Dyslipidemia -Patient is on statin therapy, continued at home dose 9. Paroxysmal A. fib ?Rate controlled on amiodarone 10. Valvular heart disease ?With history of bioprosthetic aortic valve 11. DVT prophylaxis ?[place] Lovenox Physical Exam Narrative GENERAL: cooperative HEENT: Atraumatic; EYES; Anicteric, Normal Conjunctiva NECK; supple, normal thyroid, RESPIRATORY: Diminished to auscultation CARDIOVASCULAR: Regular S1 S2, GI: soft, normoactive bowel sounds, : No Renal angle tenderness; EXTREMITIES: No edema, no clubbing, MUSCULOSKELETAL: no muscle wasting NEURO: Awake; no lateralizing signs. SKIN: No Rash PSYCH; Flat affect Weight / BMI Weight Weight: 83 kg Body Mass Index (BMI) 28.8 ABG / Lab / Microbiology Data Result Diagrams: 06/01/21 06:10 06/01/21 06:10 Laboratory: Laboratory Results - last 24 hr 05/31/21 16:35: POC Glucose 141 H 05/31/21 20:44: POC Glucose 177 H 06/01/21 06:10: WBC 3.8 L, RBC 3.07 L, Hgb 10.3 L, Hct 29.2 L, MCV 95.1, MCH 33.6 H, MCHC 35.3, RDW Std Deviation 49.8 H, RDW Coeff of Ellie 14.2, Plt Count 101 L, MPV 10.7, Immature Gran % (Auto) 1.100 H, Neut % (Auto) 69.7, Lymph % (Auto) 14.4 L, [place] % (Auto) 13.8 H, Eos % (Auto) 0.5, Baso % (Auto) 0.5, Absolute Neuts (auto) 2.6, Absolute Lymphs (auto) 0.54 L, Nucleated RBC % 0, Diff Path Review August06/01/21 06:10: Sodium 137, Potassium 3.6, Chloride 109 H, Carbon Dioxide 23.0, Anion Gap 5, BUN 22 H, Creatinine 1.01, Estim Creat Clear Calc 38.12, Est GFR (MDRD) Af Amer 67, Est GFR (MDRD) Non-Af 55 L, BUN/Creatinine Ratio 21.8 H, Glucose 134 H, Calcium 7.9 L 06/01/21 06:23: POC Glucose 118 H 06/01/21 11:19: POC Glucose 165 H Microbiology: Microbiology 05/30/21 15:25 Urine, Catheterized Urine Culture - Final Presumptive E. coli 05/30/21 14:35 Nasal Secretion SARS-CoV-2 Antigen (Rapid) - Final Meaningful Use Info Meaningful Use Diagnoses (Choose all that apply): None applicable Discharge Plan Admission Admit Date/Time: 05/30/21 16:47 Attending Provider: Juan Manuel Johnson Primary Care Provider: Ajit Oleary Discharge Orders/Prescriptions Prescriptions: New cefdinir 300 mg capsule 300 mg PO BID Qty: 6 RF: 0 Continued metformin 500 mg tablet 500 mg PO QDAY RF: 0 pravastatin 40 mg tablet 40 mg PO QHS RF: 0 nitroglycerin 0.4 mg tablet, sublingual 0.4 mg SUBLINGUAL Q5M PRN (Reason: Cardiac/Chest Pain) RF: 0 oxybutynin chloride 5 mg tablet 5 mg PO DAILY RF: 0 omeprazole 40 mg capsule,delayed release(DR/EC) 40 mg PO DAILY RF: 0 levothyroxine 125 mcg tablet 125 mcg PO DAILY RF: 0 metoprolol succinate [Toprol XL] 100 mg tablet extended release 24 hr 50 mg PO BID RF: 0 potassium chloride 10 MEQ tablet extended release 20 meq PO DAILY Qty: 60 RF: 0 isosorbide mononitrate 60 mg tablet extended release 24 hr 60 mg PO DAILY Qty: 90 RF: 3 amiodarone 200 mg tablet 200 mg PO DAILY Qty: 90 RF: 3 lisinopril 10 mg tablet 10 mg PO BID Qty: 180 RF: 3 Discontinued furosemide 40 mg tablet 40 mg PO BID Qty: 180 RF: 3 Other Ambulatory Orders: Occupational Therapy Eval (Routine) Location: None Selected Ordered By: Dr. Juan Manuel Johnson Physical Therapy Evaluation (Routine) Location: None Selected Ordered By: Dr. Juan Manuel Johnson Referrals / Follow Up: Ajit Oleary MD [Primary Care Provider] - In 1 Week Disposition Disposition (needs filled in before D/C Order can be placed): Home Health Service Charges/Coding Visit Charges OBSV E&M: 21411 Observation care discharge
[2021-06-01 14:53] VITALS: BP 134/58; PULSE 63; RESP 18; TEMP 36.8; O2SAT 98
--- NOTE | 2021-06-01 15:11 | CHAPLAIN ---
Type of Pastoral Visit _x__ Initial Visit ___ Follow-up Visit ___ On-call Visit ___ General Patient Visit ___ Spiritual Assessment ___ Family Conference ___ Bereavement ___ Rapid Response ___ Code Blue ___ Other (describe below) Pastoral Care Referral From _x__ Patient ___ Family ___ Nurse ___ Physician ___ Tool Coordinator ___ Pearl Hand ___ Other (describe below) Sacrament/Intervention _x__ Active listening ___ Anointing ___ Episcopal ___ Bereavement ___ Communion _x__ Lyssa exploration ___ ___ Life review _x__ Prayer ___ Reconciliation ___ Sacrament of Sick ___ Supportive presence ___ Wedding ___ Other (describe below) Pastoral Comments patient states she is feeling much better but wants a prayer to be given; pt has a local jew but would like this industrial design engineer to call her jew to notify them of her admission; phone call made
[2021-06-02 12:35] LABS: Pathologist Review Reviewed
== END 2021-06-01 15:52 | disposition home health service (06) ==
LOC: ED 16:32 → MS3 17:15
PROVIDERS: Physician Assistant; Admitting Provider Family Medicine; Emergency Provider Emergency Medicine; PCP Family Medicine; Visit Provider Internal Medicine
DX: N30.00 Acute cystitis without hematuria (principal); N17.9 Acute kidney failure, unspecified; I27.20 Pulmonary hypertension, unspecified; E11.22 Type 2 diabetes mellitus with diabetic chronic kidney disease; I48.0 Paroxysmal atrial fibrillation; N18.32 Chronic kidney disease, stage 3b; Z79.84 Long term (current) use of oral hypoglycemic drugs; E78.2 Mixed hyperlipidemia; Z95.3 Presence of xenogenic heart valve; E03.9 Hypothyroidism, unspecified; B96.20 Unspecified Escherichia coli [E. coli] as the cause of diseases classified elsewhere; I25.10 Atherosclerotic heart disease of native coronary artery without angina pectoris; I12.9 Hypertensive chronic kidney disease with stage 1 through stage 4 chronic kidney disease, or unspecified chronic kidney disease; Z79.899 Other long term (current) drug therapy; Z79.890 Hormone replacement therapy; R29.6 Repeated falls; M19.90 Unspecified osteoarthritis, unspecified site; Z86.718 Personal history of other venous thrombosis and embolism; G47.33 Obstructive sleep apnea (adult) (pediatric); R94.31 Abnormal electrocardiogram [ECG] [EKG]
CPT/HCPCS: 36415; 70450; 71045; 72125; 72170; 80048; 81001; 82962; 85025; 87086; 87088; 87186; 87426; 93005; 96361; 96365; 96366; 96372; 97162; 97166; 97530; 97535; 97802; 99218; 99285; J7030; A4216; G0378

== ENCOUNTER 2021-06-16 08:00 | Outpatient (RCR) | payer SELFPAY ==
[2021-06-04 18:06] LABS: Anion Gap 5 (5-15); BUN 16 mg/dL (7-18); BUN/Creat Ratio 15.4 RATIO (10-20); Calcium,Total 8.5 mg/dL (8.5-10.1); Chloride 111 mmol/L (98-107); Creatinine, Serum 1.04 mg/dL (0.55-1.02); EST Glomerular Filtration Rate 54 mL/min (>60); Est Glom Filt Rate - Afr Amer 65 mL/min (>60); Glucose 105 mg/dL (74-106); Potassium 4.7 mmol/L (3.5-5.1); Sodium Level 138 mmol/L (136-145)
== END 2021-06-22 23:59 ==
LOC: CR 08:00
PROVIDERS: PCP Family Medicine; Referring Provider Internal Medicine Cardiovascular Disease; Visit Provider Internal Medicine Cardiovascular Disease
DX: Z00.00 Encounter for general adult medical examination without abnormal findings (principal)
CPT/HCPCS: 36415; 80048

== ENCOUNTER 2021-07-09 15:41 | Outpatient (CLI) | payer MEDICARE, OTHER, SELFPAY ==
[2021-07-09 18:13] LABS: Anion Gap 6 (5-15); BUN 26 mg/dL (7-18); BUN/Creat Ratio 21.3 RATIO (10-20); Calcium,Total 8.2 mg/dL (8.5-10.1); Chloride 105 mmol/L (98-107); Creatinine, Serum 1.22 mg/dL (0.55-1.02); EST Glomerular Filtration Rate 45 mL/min (>60); Est Glom Filt Rate - Afr Amer 54 mL/min (>60); Glucose 135 mg/dL (74-106); Potassium 3.7 mmol/L (3.5-5.1); Sodium Level 138 mmol/L (136-145)
== END 2021-07-09 23:59 | disposition home or self-care (01) ==
LOC: MFPLAB 15:43
PROVIDERS: PCP Family Medicine; Referring Provider Family Medicine; Visit Provider Family Medicine
DX: R60.9 Edema, unspecified (principal)
CPT/HCPCS: 36415; 80048

== ENCOUNTER 2021-07-23 08:00 | Outpatient (RCR) | payer SELFPAY | END 2021-07-23 23:59 | disposition home or self-care (01) | LOC: CR 08:00 | PROVIDERS: PCP Family Medicine; Referring Provider Internal Medicine Cardiovascular Disease; Visit Provider Internal Medicine Cardiovascular Disease | DX: E83.51 Hypocalcemia (principal) ==

== ENCOUNTER 2021-07-30 08:59 | Outpatient (CLI) | payer MEDICARE, OTHER, SELFPAY | END 2021-07-30 23:59 | disposition home or self-care (01) | LOC: PSN 09:01 | PROVIDERS: PCP Family Medicine; Referring Provider Nurse Practitioner Family; Visit Provider Nurse Practitioner Family | DX: I47.1 Supraventricular tachycardia (principal); I49.3 Ventricular premature depolarization; R00.1 Bradycardia, unspecified | CPT/HCPCS: 93225; 93226 ==

== ENCOUNTER → 2021-08-13 | Outpatient (CLI) | payer MEDICARE, OTHER, SELFPAY ==
--- NOTE | 2021-08-13 08:59 | ECHOD_ITS ---
Reason For Study: MV DISEASE Procedure This was a 2D Doppler, Color Flow transthoracic echocardiogram. The exam was of adequate technical quality. Exam performed in department. Left Ventricle Normal LV size. Left ventricular systolic function is normal. The estimated ejection fraction is 65 %. No regional wall motion abnormalities noted. Right Ventricle Normal RV size. Normal systolic function. Atria The left atrium is severely enlarged. The right atrium is mildly enlarged. No doppler evidence for ASD. Mitral Valve There is mild to moderate mitral annular calcification. Extension of the mitral annular calcification onto the base of the posterior mitral valve leaflet. Anterior leaflet diffuse mitral valve thickening. Moderate (2+) mitral valve insufficiency. Tricuspid Valve Normal tricuspid valve. Mild tricuspid valve insufficiency. Unable to estimate RV systolic pressure due to insufficient tricuspid regurgitant envelope. Aortic Valve Mild aortic stenosis. Stable appearing bioprosthetic aortic valve apparatus. Pulmonic Valve The pulmonic valve is not well visualized. Trivial pulmonic valve insufficiency. Great Vessels Mildly dilated aortic root. Pericardium/Pleural No pericardial effusion. MMode/2D Measurements & Calculations LVIDd: 4.6 cm IVSd: 1.1 cm LVOT diam: 2.0 cm LVIDs: 2.5 cm LVPWd: 1.2 cm LVOT area: 3.2 cm2 RVDd: 3.5 cm FS: 45.6 % Ao root diam: 4.4 cm LAV(MOD-bp): 110.7 ml LVAd ap4: 26.8 cm2 LAV(MOD-bp) Indexed: 57.6 ml/m2 LVLd ap4: 6.9 cm LAV(MOD-sp2): 116.2 ml EDV(MOD-sp4): 87.6 ml LAV(MOD-sp4): 101.0 ml EDV(sp4-el): 88.7 ml LVAs ap4: 14.8 cm2 LVLs ap4: 6.2 cm ESV(MOD-sp4): 31.8 ml ESV(sp4-el): 29.8 ml EF(MOD-sp4): 63.7 % EF(sp4-el): 66.4 % LVAd ap2: 24.1 cm2 SV(MOD-sp4): 55.8 ml SV(MOD-sp2): 43.9 ml LVLd ap2: 7.4 cm EDV(MOD-sp2): 66.3 ml EDV(sp2-el): 66.6 ml LVAs ap2: 12.5 cm2 LVLs ap2: 6.5 cm ESV(MOD-sp2): 22.5 ml ESV(sp2-el): 20.5 ml EF(MOD-sp2): 66.1 % SV(sp4-el): 58.9 ml LA dimension(2D): 5.7 cm LA A4 area: 28.6 cm2 RA A4 area: 23.5 cm2 Doppler Measurements & Calculations MV E max patrick: 140.2 cm/sec Lat Peak E' Patrick: 6.8 cm/sec Med Peak E' Patrick: 4.6 cm/sec MV A max patrick: 92.2 cm/sec E/E' lat: 20.7 E/E' med: 30.6 MV E/A: 1.5 MV V2 max: 148.9 cm/sec MV P1/2t max patrick: 150.7 cm/sec Ao V2 max: 231.1 cm/sec MV max P.9 mmHg MV P1/2t: 73.7 msec Ao max P.5 mmHg MV V2 mean: 86.1 cm/sec MV dec slope: 598.5 cm/sec2 Ao V2 mean: 166.0 cm/sec MV mean P.3 mmHg Ao mean P.2 mmHg MV V2 VTI: 40.8 cm MVA(P1/2t): 3.0 cm2 Ao V2 VTI: 55.6 cm MVA(VTI): 1.9 cm2 DANIELLE(I,D): 1.4 cm2 DANIELLE(V,D): 1.3 cm2 LV V1 max: 92.5 cm/sec SV(LVOT): 78.4 ml LV V1 max P.4 mmHg LV V1 mean P.9 mmHg LV V1 mean: 65.1 cm/sec LV V1 VTI: 24.4 cm ECHO/Echo Complete Interpretation Summary Left ventricular systolic function is normal. The estimated ejection fraction is 65 %. The left atrium is severely enlarged. The right atrium is mildly enlarged. There is mild to moderate mitral annular calcification. Extension of the mitral annular calcification onto the base of the posterior mi tral valve leaflet. Anterior leaflet diffuse mitral valve thickening. Moderate (2+) mitral valve insufficiency. Mild tricuspid valve insufficiency. Stable appearing bioprosthetic aortic valve apparatus. Mild aortic stenosis. Trivial pulmonic valve insufficiency. Mildly dilated aortic root. Unable to estimate RV systolic pressure due to insufficient tricuspid regurgita nt envelope. Transmitral diastolic flow velocities suggest diastolic dysfunction (pseudonorm al pattern). Ordering Physician: Oswald Molina Referring Physician: Oswald Molina Performed By: Natali Rosales RCS
== END | disposition home or self-care (01) ==
LOC: CVS 08:58
PROVIDERS: PCP Family Medicine; Referring Provider Nurse Practitioner Family; Visit Provider Nurse Practitioner Family
DX: I34.0 Nonrheumatic mitral (valve) insufficiency (principal); Z95.3 Presence of xenogenic heart valve
CPT/HCPCS: 93306

== ENCOUNTER 2021-08-20 08:00 | Outpatient (RCR) | payer SELFPAY | END 2021-08-22 23:59 | LOC: CR 08:00 | PROVIDERS: PCP Family Medicine; Referring Provider Internal Medicine Cardiovascular Disease; Visit Provider Internal Medicine Cardiovascular Disease | DX: E83.51 Hypocalcemia (principal) ==

== ENCOUNTER → 2021-09-07 | Outpatient (CLI) | payer MEDICARE, OTHER, SELFPAY | END | disposition home or self-care (01) | LOC: PSN 09:02 | PROVIDERS: PCP Family Medicine; Visit Provider Nurse Practitioner Family | DX: R00.1 Bradycardia, unspecified (principal); I48.0 Paroxysmal atrial fibrillation | CPT/HCPCS: 93225; 93226 ==

== ENCOUNTER 2021-09-22 08:00 | Outpatient (RCR) | payer SELFPAY | END 2021-09-22 23:59 | LOC: CR 08:00 | PROVIDERS: PCP Family Medicine; Referring Provider Internal Medicine Cardiovascular Disease; Visit Provider Internal Medicine Cardiovascular Disease | DX: E83.51 Hypocalcemia (principal) ==

== ENCOUNTER → 2021-10-08 | Outpatient (CLI) | payer MEDICARE, OTHER, SELFPAY ==
[2021-10-08 10:32] LABS: Anion Gap 7 (5-15); BUN 21 mg/dL (7-18); BUN/Creat Ratio 17.4 RATIO (10-20); Calcium,Total 8.6 mg/dL (8.5-10.1); Chloride 109 mmol/L (98-107); Creatinine, Serum 1.21 mg/dL (0.55-1.02); EST Glomerular Filtration Rate 45 mL/min (>60); Est Glom Filt Rate - Afr Amer 54 mL/min (>60); Free T3 1.6 pg/mL (2.18-3.98); Glucose 101 mg/dL (74-106); Potassium 4.8 mmol/L (3.5-5.1); Sodium Level 138 mmol/L (136-145); T4 Free Direct 1.49 ng/dL (0.76-1.46); Thyroid Stim Hormone (TSH) 2.02 uIU/mL (0.358-3.74)
== END | disposition home or self-care (01) ==
LOC: MFPLAB 08:39
PROVIDERS: PCP Family Medicine; Referring Provider Family Medicine; Visit Provider Family Medicine
DX: E11.9 Type 2 diabetes mellitus without complications (principal); E03.9 Hypothyroidism, unspecified
CPT/HCPCS: 36415; 80048; 84439; 84443; 84481

== ENCOUNTER 2021-10-22 08:00 | Outpatient (RCR) | payer SELFPAY | END 2021-10-22 23:59 | LOC: CR 08:00 | PROVIDERS: PCP Family Medicine; Referring Provider Internal Medicine Cardiovascular Disease; Visit Provider Internal Medicine Cardiovascular Disease | DX: E83.51 Hypocalcemia (principal); Z00.00 Encounter for general adult medical examination without abnormal findings ==

== ENCOUNTER 2021-11-19 08:00 | Outpatient (RCR) | payer SELFPAY | END 2021-11-22 23:59 | LOC: CR 08:00 | PROVIDERS: PCP Family Medicine; Referring Provider Internal Medicine Cardiovascular Disease; Visit Provider Internal Medicine Cardiovascular Disease | DX: Z00.00 Encounter for general adult medical examination without abnormal findings (principal) ==

== ENCOUNTER 2021-12-22 08:00 | Outpatient (RCR) | payer SELFPAY | END 2021-12-23 23:59 | LOC: CR 08:00 | PROVIDERS: PCP Family Medicine; Referring Provider Internal Medicine Cardiovascular Disease; Visit Provider Internal Medicine Cardiovascular Disease | DX: Z00.00 Encounter for general adult medical examination without abnormal findings (principal); E83.51 Hypocalcemia ==

== ENCOUNTER 2022-01-21 08:00 | Outpatient (RCR) | payer SELFPAY | END 2022-01-22 23:59 | LOC: CR 08:00 | PROVIDERS: PCP Family Medicine; Referring Provider Internal Medicine Cardiovascular Disease; Visit Provider Internal Medicine Cardiovascular Disease | DX: Z00.00 Encounter for general adult medical examination without abnormal findings (principal); E83.51 Hypocalcemia ==

== ENCOUNTER 2022-02-18 08:00 | Outpatient (RCR) | payer MEDICARE, OTHER, SELFPAY | END 2022-02-22 23:59 | LOC: CR 08:00 | PROVIDERS: PCP Family Medicine; Referring Provider Internal Medicine Cardiovascular Disease; Visit Provider Internal Medicine Cardiovascular Disease | DX: Z00.00 Encounter for general adult medical examination without abnormal findings (principal) ==

== ENCOUNTER → 2022-02-24 | Outpatient (CLI) | payer MEDICARE, OTHER, SELFPAY ==
[2022-02-24 08:53] LABS: Theophylline (Aminophylline) < 2.0 ug/mL (10.0-20.0)
[2022-02-24 08:56] LABS: AST(SGOT) 19 U/L (15-37); Alanine Aminotransfer ALT/SGPT 18 U/L (13-56); Albumin, Serum 3.4 g/dL (3.2-5.0); Alkaline Phosphatase 108 U/L (45-117); Bilirubin, Direct 0.27 mg/dL (0.00-0.30); Cholesterol 165 mg/dL (200); Globulin 3.6 g/dL (2.2-4.2); High Density Lipoprotein 54 mg/dL; T4 Total, Thyroxin 13.7 ug/dL (4.8-13.9); Triglycerides 109 mg/dL; Very Low Density Lipoprotein 22 mg/dL (5-40)
== END | disposition home or self-care (01) ==
LOC: LAB 07:14
PROVIDERS: PCP Family Medicine; Referring Provider Internal Medicine Cardiovascular Disease; Visit Provider Internal Medicine Cardiovascular Disease
DX: R00.1 Bradycardia, unspecified (principal); I48.0 Paroxysmal atrial fibrillation; E78.2 Mixed hyperlipidemia; I10 Essential (primary) hypertension
CPT/HCPCS: 36415; 80061; 80076; 80198; 84436

== ENCOUNTER 2022-03-23 08:00 | Outpatient (RCR) | payer SELFPAY | END 2022-03-24 23:59 | LOC: CR 08:00 | PROVIDERS: PCP Family Medicine; Referring Provider Internal Medicine Cardiovascular Disease; Visit Provider Internal Medicine Cardiovascular Disease | DX: Z00.00 Encounter for general adult medical examination without abnormal findings (principal) ==

== ENCOUNTER → 2022-04-02 | Outpatient (CLI) | payer MEDICARE, OTHER, SELFPAY ==
--- NOTE | 2022-04-02 08:37 | RAD_ITS ---
EXAM: XR LEFT SHOULDER COMPLETE, 2 OR MORE VIEWS CLINICAL INDICATION: SHOULDER PAIN TECHNIQUE: Two or more views of the left shoulder. This report was created using [employer] report generation technology. COMPARISON: None. FINDINGS: BONES/JOINTS: Mild cephalic drift of the left humeral head consistent with rotator cuff deformity. No acute fracture or subluxation. No significant arthritic change. SOFT TISSUES: Normal. No soft tissue swelling or gas. No radiopaque foreign body. RAD/Shoulder min 2 Views IMPRESSION: Suspect rotator cuff deformity. Electronically Signed: Fabrizio Guallpa MD at 11:07 EST ,
[2022-04-02 10:22] LABS: Anion Gap 6 (5-15); BUN 23 mg/dL (7-18); BUN/Creat Ratio 21.9 RATIO (10-20); Calcium,Total 8.9 mg/dL (8.5-10.1); Chloride 105 mmol/L (98-107); Creatinine, Serum 1.05 mg/dL (0.55-1.02); EST Glomerular Filtration Rate 53 mL/min (>60); Est Glom Filt Rate - Afr Amer 64 mL/min (>60); Glucose 106 mg/dL (74-106); Potassium 4.7 mmol/L (3.5-5.1); Sodium Level 137 mmol/L (136-145)
== END | disposition home or self-care (01) ==
PROVIDERS: PCP Family Medicine; Referring Provider Family Medicine; Visit Provider Family Medicine
DX: M25.512 Pain in left shoulder (principal); R60.9 Edema, unspecified; M75.100 Unspecified rotator cuff tear or rupture of unspecified shoulder, not specified as traumatic
CPT/HCPCS: 36415; 73030; 80048

== ENCOUNTER 2022-04-22 08:00 | Outpatient (RCR) | payer SELFPAY | END 2022-04-24 23:59 | LOC: CR 08:00 | PROVIDERS: PCP Family Medicine; Referring Provider Internal Medicine Cardiovascular Disease; Visit Provider Internal Medicine Cardiovascular Disease | DX: Z00.00 Encounter for general adult medical examination without abnormal findings (principal) ==

== ENCOUNTER 2022-05-10 07:00 | Outpatient (RCR) | payer MEDICARE, OTHER, SELFPAY ==
--- NOTE | 2022-04-12 09:16 | HP.PTEVAL ---
Patient's Visit Information RUBI CHAVEZ is a 86 year old F referred to Physical Therapy by Dr. Ajit Oleary MD with a diagnosis of Left Shoulder Pain. Date of Evaluation: 04/12/22 Physical Therapist: Dali Castellon DPT - Visit Plan Frequency: 2x /Week Duration: 4 Weeks Plan: IE: 2x4- Focus on scapular strength/stabilization- Posture! HEP Given IE: Postural education, bilateral ER no band, Mid Row with GTB - Subjective Patient reports that she gets a catch in the left shoulder- couple of weeks-insidious onset. Does not catch every time she moves- Right hand dominate. Pain is in the bicipital groove and radiates to the deltoid- no radiating pain down the arm or up into the neck. Worst: 4-5/10 Agg: as she moves it- she is unable to reproduce as it doesn't catch all the time. Best: 0/10 Eases: pain goes away shortly after she moves away from the catch. Catches 5-6x a day. Describes the pain as sharp/shooting- but does have dull pain when she is not doing anything. X-rays which showed RTC deformity. Does have Numbness in her hands but its more from OA and is not new. Sleep: hard to get comfortable but does not wake her up- back sleeper and side sleeper. The right shoulder was acting up- 2 years ago- gave her exercises- and it was full of OA and they were able to make it better. She comes to [facility] 3 days a week and 2 days a week she goes to cardiac rehab. Does not do any exercises for her shoulders- she comes for her knees- NuStep and UBE. She does notice some issues putting stuff up into her cupboards. PMHx/Meds: cardiology in 02/[address] Hamlin of something to dry out her sinuses. - Objective Posture: FH, RS, increased kyphosis- can correct with tactile cues but is unable to maintain. Gait: good arm swing and trunk rotation. Palpation: tender along upper trap, bicipital groove, scapular medial border and AC joint. ROM: WFL in all planes of the cervical and UE. Strength: Scap: poor, Shoulder: flexion: 4-/5, Abd: 3-/4, Extn: 4/5, IR/ER at neutral: 4/5, Elbow:4+/5, Revolving Field Assembler: equal to other side. Flex: Upper Trap: moderate - Special Tests L Shoulder Lift Off Test - Subscapular Tear: Positive L Shoulder Empty Can - SS: Positive L Shoulder Belly Press - SupScap: Positive L Shoulder Neer - Impingement: Positive L Shoulder Lomax Soham - Impingement: Positive - Balance/Special Test Scores Quick DASH Score: 45.4525 - Goals Goal 1:: Patient will be I with HEP and progression Goal Time Frame: 4-6 Weeks Goal 2:: Patient will maintain proper posture t/o tx session to demo increased scap s/s Goal Time Frame: 4-6 Weeks Goal 3:: Patient will report no clicking for 1 week Goal Time Frame: 4-6 Weeks Goal 4:: Patient will report 80% improvement Goal Time Frame: 4-6 Weeks - Rehabilitation Potential Physical Therapy Diagnosis: Patient presents with hypomobility- she has decreased scapular strength/stabilization and muscular endurance leading to poor posture and increased pain with ADL's. Rehabilitation Potential: Good - Anticipated Interventions Patient/Client Instruction: Educate patient on: Benefits of Fitness Program Therapeutic Exercise to Include: Strength training, Endurance training, Coordination, Body mechanics, Postural training, Flexibilty training, Neuromotor development, Dynamic Lumbar Stabilization, Scapular Strength/Stabilization For the Purpose of:: To improve muscle performance and motor function Cryotherapy (ice pack, ice massage): Yes Thermo therapy (hot pack): Yes Thank you for the opportunity to evaluate your patient. For Medicare and Medicare HMO plans, please review the plan of care and approve it. It will need to be FAXED BACK to us at [phone] for Medicare purposes. For Medicare only, by signing this I certify the plan of care. Please let me know if there are questions or concerns regarding this plan of care. Physician Signature: Date:
--- NOTE | 2022-05-10 07:42 | HP.PTDCSUM ---
It has been my pleasure to treat RUBI CHAVEZ referred by Dr. Ajit Oleary MD, with the diagnosis of Left Shoulder Pain for a total of 9 visit(s). Discharge Date: Please see the following information for a summary of their discharge status. Subjective: Patient reports that she is doing much better- her ROM and strength have both improved. She still has 1-2 sharp shooting pains in the anterior shoulder but they go away quickly. She feels confident with the exercises she has learned and plans to incorporate them in her workout through [employer]. She reports feeling more stable and feels PT was a great idea. Left Shoulder Pain Intensity (Out of 10): 0 Objective/Function: Posture: fair throughout seated in chair with lumbar support. Gait: good arm swing and trunk rotation. Palpation: not tender to touch ROM: WFL in all planes of the cervical and UE. Strength: Scap: fair Shoulder: tested in neutral- flexion: 4/5, Abd: 4/4, Extn: 4+/5, IR/ER: 4/5, Elbow:5/5, Punch Press Operator: equal to other side. Flex: Upper Trap: moderate Goal 1:: Patient will be I with HEP and progression Goal Progress: Goal Met Goal 2:: Patient will maintain proper posture t/o tx session to demo increased scap s/s Goal Progress: Progressing Goal 3:: Patient will report no clicking for 1 week Goal Progress: Goal Met Goal 4:: Patient will report 80% improvement Goal Progress: Goal Met Plan: 05/10/21: Discharge to I HEP- encouraged to ask if questions on current program. IE: 2x4- Focus on scapular strength/stabilization- Posture! HEP Given IE: Postural education, bilateral ER no band, Mid Row with GTB If there are questions or concerns regarding this patient's physical therapy, please feel free to call me at [phone]. Thank you for the referral of this patient. Sincerely, Dali Castellon, DPT Balance/Gait/Functional tests - Balance/Special Test Scores Quick DASH Score: 18.1800
== END 2022-05-10 08:18 | disposition home or self-care (01) ==
LOC: PT 07:00
PROVIDERS: PCP Family Medicine; Referring Provider Family Medicine; Visit Provider Family Medicine
DX: M25.812 Other specified joint disorders, left shoulder (principal)
CPT/HCPCS: 97110; 97162; 97164

== ENCOUNTER 2022-05-25 08:00 | Outpatient (RCR) | payer SELFPAY | END 2022-05-25 23:59 | LOC: CR 08:00 | PROVIDERS: PCP Family Medicine; Visit Provider Internal Medicine Cardiovascular Disease | DX: Z00.00 Encounter for general adult medical examination without abnormal findings (principal) ==

== ENCOUNTER 2022-06-22 08:00 | Outpatient (RCR) | payer SELFPAY | END 2022-06-22 23:59 | LOC: CR 08:00 | PROVIDERS: PCP Family Medicine; Visit Provider Internal Medicine Cardiovascular Disease | DX: Z00.00 Encounter for general adult medical examination without abnormal findings (principal) ==

== ENCOUNTER → 2022-07-15 | Outpatient (CLI) | payer MEDICARE, OTHER, SELFPAY ==
--- NOTE | 2022-07-15 06:34 | RAD_ITS ---
EXAM: XR CHEST, 2 VIEWS CLINICAL INDICATION: amiodarone therapy amiodarone therapy TECHNIQUE: Frontal and lateral views of the chest. This report was created using [employer] report generation technology. COMPARISON: Chest x-ray 05/30/2021. FINDINGS: LUNGS AND PLEURAL SPACES: There is minimal left basilar atelectasis. There is no demonstrated pulmonary infiltrate. No pneumothorax. No effusion. HEART: Unremarkable. Cardiac silhouette not enlarged. MEDIASTINUM: Central airways and mediastinal contour are unremarkable. BONES/JOINTS: There are sternotomy wires. There is degenerative arthrosis of the shoulders bilaterally. There are multilevel degenerative changes in the visualized spine. SOFT TISSUES: Unremarkable. RAD/Chest PA and Lateral IMPRESSION: No acute findings in the chest. Electronically Signed: Abel Mace MD at 7:25 EDT Reading Location ID and State: [facility] / [place] , Service support ,
--- NOTE | 2022-07-16 08:52 | PFT ---
INTRODUCTION: The patient is an 87-year-old female that presents for pulmonary function studies secondary to a diagnosis of long-term drug therapy. Respiratory therapy reported good patient effort. Bronchodilators were used during testing. INTERPRETATION: Forced expiration spirometry demonstrates no evidence of a large airways obstructive ventilatory defect. There was no significant response to aerosolized bronchodilators. Spirograms are of good quality and plateau normally. Body plethysmography was performed and revealed lung volumes to be within normal limits. Diffusing capacity by single breath CO is reduced to 53% of predicted. IMPRESSION: Isolated moderate reduction in diffusing capacity, which could be related to an underlying pulmonary vascular disorder such as pulmonary hypertension. Clinical correlation is recommended.
== END | disposition home or self-care (01) ==
PROVIDERS: PCP Family Medicine; Visit Provider Nurse Practitioner Gerontology
DX: Z79.899 Other long term (current) drug therapy (principal)
CPT/HCPCS: 71046; 94060; 94726; 94729

== ENCOUNTER 2022-07-22 08:00 | Outpatient (RCR) | payer SELFPAY | END 2022-07-23 23:59 | LOC: CR 08:00 | PROVIDERS: PCP Family Medicine; Visit Provider Internal Medicine Cardiovascular Disease | DX: Z00.00 Encounter for general adult medical examination without abnormal findings (principal) ==

== ENCOUNTER → 2022-07-22 | Outpatient (CLI) | payer MEDICARE, OTHER, SELFPAY | END | disposition home or self-care (01) | LOC: PSN 08:59 | PROVIDERS: PCP Family Medicine; Referring Provider Nurse Practitioner Gerontology; Visit Provider Nurse Practitioner Gerontology | DX: I48.0 Paroxysmal atrial fibrillation (principal) | CPT/HCPCS: 93225; 93226 ==

== ENCOUNTER → 2022-07-30 | Outpatient (CLI) | payer MEDICARE, OTHER, SELFPAY | END | disposition home or self-care (01) | LOC: LAB 07:29 | PROVIDERS: PCP Family Medicine; Referring Provider Nurse Practitioner Gerontology; Visit Provider Nurse Practitioner Gerontology | DX: I48.92 Unspecified atrial flutter (principal); I48.0 Paroxysmal atrial fibrillation; Z79.01 Long term (current) use of anticoagulants | CPT/HCPCS: 36415; 85610 ==

== ENCOUNTER → 2022-08-06 | Outpatient (CLI) | payer MEDICARE, OTHER, SELFPAY ==
[2022-08-06 09:03] LABS: AST(SGOT) 19 U/L (15-37); Alanine Aminotransfer ALT/SGPT 16 U/L (13-56); Albumin, Serum 3.3 g/dL (3.2-5.0); Alkaline Phosphatase 107 U/L (45-117); Bilirubin, Direct 0.17 mg/dL (0.00-0.30); Cholesterol 162 mg/dL (200); Globulin 3.4 g/dL (2.2-4.2); High Density Lipoprotein 45 mg/dL; Protein, Total 6.7 g/dL (6.4-8.2); Triglycerides 121 mg/dL; Very Low Density Lipoprotein 24 mg/dL (5-40)
== END | disposition home or self-care (01) ==
LOC: LAB 07:09
PROVIDERS: Nurse Practitioner Gerontology; PCP Family Medicine; Referring Provider Internal Medicine Cardiovascular Disease; Visit Provider Internal Medicine Cardiovascular Disease
DX: E78.2 Mixed hyperlipidemia (principal)
CPT/HCPCS: 36415; 80061; 80076

== ENCOUNTER 2022-08-17 07:40 | Outpatient (RCR) | payer MEDICARE, OTHER, SELFPAY ==
[2022-08-10 10:51] LABS: INR Fingerstick 3.5; Prothrombin Time Fingerstick 37.2 SEC (11.7-14.9)
[2022-08-17 07:50] LABS: INR Fingerstick 4.5; Prothrombin Time Fingerstick 47.2 SEC (11.7-14.9)
[2022-08-17 08:37] LABS: Prothrombin Time (Protime)PT. 40.5 SECONDS (11.7-14.9)
[2022-08-17 10:00] LABS: International Normalized Ratio 4.2
== END 2022-08-22 00:30 | disposition home or self-care (01) ==
LOC: LAB 07:40
PROVIDERS: PCP Family Medicine; Referring Provider Nurse Practitioner Gerontology; Visit Provider Nurse Practitioner Gerontology
DX: I48.91 Unspecified atrial fibrillation (principal); I48.92 Unspecified atrial flutter; Z79.01 Long term (current) use of anticoagulants
CPT/HCPCS: 36415; 36416; 85610

== ENCOUNTER 2022-08-19 08:00 | Outpatient (RCR) | payer SELFPAY | END 2022-08-22 23:59 | LOC: CR 08:00 | PROVIDERS: PCP Family Medicine; Visit Provider Internal Medicine Cardiovascular Disease | DX: Z00.00 Encounter for general adult medical examination without abnormal findings (principal) ==

== ENCOUNTER 2022-09-07 07:28 | Outpatient (RCR) | payer MEDICARE, OTHER, SELFPAY ==
[2022-08-23 07:40] LABS: INR Fingerstick 2.3; Prothrombin Time Fingerstick 24.8 SEC (11.7-14.9)
[2022-09-07 07:40] LABS: INR Fingerstick 2.8; Prothrombin Time Fingerstick 30.2 SEC (11.7-14.9)
== END 2022-09-07 08:30 | disposition home or self-care (01) ==
LOC: LAB 07:28
PROVIDERS: PCP Family Medicine; Referring Provider Nurse Practitioner Gerontology; Visit Provider Nurse Practitioner Gerontology
DX: I48.91 Unspecified atrial fibrillation (principal); I48.92 Unspecified atrial flutter; Z79.01 Long term (current) use of anticoagulants
CPT/HCPCS: 36416; 85610

== ENCOUNTER 2022-09-21 08:00 | Outpatient (RCR) | payer SELFPAY | END 2022-09-22 23:59 | LOC: CR 08:00 | PROVIDERS: PCP Family Medicine; Referring Provider Internal Medicine Cardiovascular Disease; Visit Provider Internal Medicine Cardiovascular Disease | DX: Z00.00 Encounter for general adult medical examination without abnormal findings (principal) ==

== ENCOUNTER → 2022-10-01 | Outpatient (CLI) | payer MEDICARE, OTHER, SELFPAY ==
[2022-10-01 11:48] LABS: Anion Gap 4 (5-15); BUN 18 mg/dL (7-18); Calcium,Total 8.7 mg/dL (8.5-10.1); Chloride 108 mmol/L (98-107); EST Glomerular Filtration Rate 45 mL/min (>60); Est Glom Filt Rate - Afr Amer 55 mL/min (>60); Free T3 1.8 pg/mL (2.18-3.98); Glucose 109 mg/dL (74-106); Potassium 4.6 mmol/L (3.5-5.1); Sodium Level 135 mmol/L (136-145)
== END | disposition home or self-care (01) ==
LOC: MFPLAB 08:51
PROVIDERS: PCP Family Medicine; Visit Provider Family Medicine
DX: E03.9 Hypothyroidism, unspecified (principal); E11.9 Type 2 diabetes mellitus without complications
CPT/HCPCS: 36415; 80048; 84439; 84443; 84481

== ENCOUNTER 2022-10-05 08:58 | Outpatient (RCR) | payer MEDICARE, OTHER, SELFPAY ==
[2022-10-05 09:10] LABS: INR Fingerstick 2.2; Prothrombin Time Fingerstick 23.6 SEC (11.7-14.9)
== END 2022-10-05 18:00 | disposition home or self-care (01) ==
LOC: LAB 08:58
PROVIDERS: PCP Family Medicine; Referring Provider Nurse Practitioner Gerontology; Visit Provider Nurse Practitioner Gerontology
DX: I48.91 Unspecified atrial fibrillation (principal); I48.92 Unspecified atrial flutter; Z79.01 Long term (current) use of anticoagulants
CPT/HCPCS: 36416; 85610

== ENCOUNTER 2022-10-21 08:00 | Outpatient (RCR) | payer SELFPAY | END 2022-10-22 23:59 | LOC: CR 08:00 | PROVIDERS: PCP Family Medicine; Referring Provider Internal Medicine Cardiovascular Disease; Visit Provider Internal Medicine Cardiovascular Disease | DX: Z00.00 Encounter for general adult medical examination without abnormal findings (principal) ==

== ENCOUNTER 2022-11-02 07:35 | Outpatient (RCR) | payer MEDICARE, OTHER, SELFPAY ==
[2022-11-02 07:43] LABS: INR Fingerstick 2.1; Prothrombin Time Fingerstick 23.2 SEC (11.7-14.9)
== END 2022-11-22 23:36 | disposition home or self-care (01) ==
LOC: LAB 07:35
PROVIDERS: PCP Family Medicine; Referring Provider Nurse Practitioner Gerontology; Visit Provider Nurse Practitioner Gerontology
DX: I48.91 Unspecified atrial fibrillation (principal); I48.92 Unspecified atrial flutter; Z79.01 Long term (current) use of anticoagulants
CPT/HCPCS: 36416; 85610

== ENCOUNTER 2022-11-18 08:00 | Outpatient (RCR) | payer SELFPAY | END 2022-11-22 23:59 | LOC: CR 08:00 | PROVIDERS: PCP Family Medicine; Referring Provider Internal Medicine Cardiovascular Disease; Visit Provider Internal Medicine Cardiovascular Disease | DX: Z00.00 Encounter for general adult medical examination without abnormal findings (principal) ==

== ENCOUNTER 2022-12-14 07:31 | Outpatient (RCR) | payer MEDICARE, OTHER, SELFPAY ==
[2022-11-30 07:53] LABS: INR Fingerstick 1.9; Prothrombin Time Fingerstick 20.6 SEC (11.7-14.9)
[2022-12-14 07:35] LABS: INR Fingerstick 2.4; Prothrombin Time Fingerstick 26.3 SEC (11.7-14.9)
== END 2022-12-14 18:00 | disposition home or self-care (01) ==
LOC: LAB 07:31
PROVIDERS: PCP Family Medicine; Referring Provider Nurse Practitioner Gerontology; Visit Provider Nurse Practitioner Gerontology
DX: I48.91 Unspecified atrial fibrillation (principal); I48.92 Unspecified atrial flutter; Z79.01 Long term (current) use of anticoagulants
CPT/HCPCS: 36416; 85610

== ENCOUNTER 2022-12-23 08:00 | Outpatient (RCR) | payer SELFPAY | END 2022-12-23 23:59 | LOC: CR 08:00 | PROVIDERS: PCP Family Medicine; Referring Provider Internal Medicine Cardiovascular Disease; Visit Provider Internal Medicine Cardiovascular Disease | DX: Z00.00 Encounter for general adult medical examination without abnormal findings (principal) ==

== ENCOUNTER 2023-01-11 07:36 | Outpatient (RCR) | payer MEDICARE, OTHER, SELFPAY ==
[2023-01-11 07:51] LABS: Prothrombin Time Fingerstick 32.4 SEC (11.7-14.9)
== END 2023-01-11 18:00 | disposition home or self-care (01) ==
LOC: LAB 07:36
PROVIDERS: PCP Family Medicine; Referring Provider Nurse Practitioner Gerontology; Visit Provider Nurse Practitioner Gerontology
DX: I48.91 Unspecified atrial fibrillation (principal); I48.92 Unspecified atrial flutter; Z79.01 Long term (current) use of anticoagulants
CPT/HCPCS: 36416; 85610

== ENCOUNTER 2023-01-20 08:00 | Outpatient (RCR) | payer SELFPAY | END 2023-01-22 23:59 | LOC: CR 08:00 | PROVIDERS: PCP Family Medicine; Referring Provider Internal Medicine Cardiovascular Disease; Visit Provider Internal Medicine Cardiovascular Disease | DX: Z00.00 Encounter for general adult medical examination without abnormal findings (principal) ==

== ENCOUNTER → 2023-02-10 | Outpatient (CLI) | payer MEDICARE, OTHER, SELFPAY | END | disposition home or self-care (01) | LOC: PSN 09:09 | PROVIDERS: PCP Family Medicine; Referring Provider Nurse Practitioner Family; Visit Provider Nurse Practitioner Family | DX: R00.1 Bradycardia, unspecified (principal); I48.0 Paroxysmal atrial fibrillation; E78.2 Mixed hyperlipidemia; I10 Essential (primary) hypertension; I25.10 Atherosclerotic heart disease of native coronary artery without angina pectoris; Z95.3 Presence of xenogenic heart valve | CPT/HCPCS: 93225; 93226 ==

== ENCOUNTER 2023-02-15 07:22 | Outpatient (RCR) | payer MEDICARE, OTHER, SELFPAY ==
[2023-02-15 07:35] LABS: INR Fingerstick 2.4; Prothrombin Time Fingerstick 25.6 SEC (11.7-14.9)
== END 2023-02-15 18:00 | disposition home or self-care (01) ==
LOC: LAB 07:22
PROVIDERS: PCP Family Medicine; Referring Provider Nurse Practitioner Gerontology; Visit Provider Nurse Practitioner Gerontology
DX: I48.91 Unspecified atrial fibrillation (principal); I48.92 Unspecified atrial flutter; Z79.01 Long term (current) use of anticoagulants
CPT/HCPCS: 36416; 85610

== ENCOUNTER 2023-02-22 08:00 | Outpatient (RCR) | payer SELFPAY | END 2023-02-22 23:59 | LOC: CR 08:00 | PROVIDERS: PCP Family Medicine; Referring Provider Internal Medicine Cardiovascular Disease; Visit Provider Internal Medicine Cardiovascular Disease | DX: Z00.00 Encounter for general adult medical examination without abnormal findings (principal) ==

== ENCOUNTER 2023-03-22 07:37 | Outpatient (RCR) | payer MEDICARE, OTHER, SELFPAY ==
[2023-03-15 07:41] LABS: INR Fingerstick 1.5; Prothrombin Time Fingerstick 17.1 SEC (11.7-14.9)
[2023-03-22 07:51] LABS: INR Fingerstick 1.8; Prothrombin Time Fingerstick 20.2 SEC (11.7-14.9)
== END 2023-03-24 18:00 | disposition home or self-care (01) ==
LOC: LAB 07:37
PROVIDERS: PCP Family Medicine; Referring Provider Nurse Practitioner Gerontology; Visit Provider Nurse Practitioner Gerontology
DX: I48.91 Unspecified atrial fibrillation (principal); I48.92 Unspecified atrial flutter; Z79.01 Long term (current) use of anticoagulants
CPT/HCPCS: 36416; 85610

== ENCOUNTER 2023-03-24 08:00 | Outpatient (RCR) | payer SELFPAY | END 2023-03-24 23:59 | LOC: CR 08:00 | PROVIDERS: PCP Family Medicine; Referring Provider Internal Medicine Cardiovascular Disease; Visit Provider Internal Medicine Cardiovascular Disease | DX: Z00.00 Encounter for general adult medical examination without abnormal findings (principal) ==

== ENCOUNTER → 2023-04-04 | Outpatient (CLI) | payer MEDICARE, OTHER, SELFPAY ==
[2023-04-04 10:37] LABS: International Normalized Ratio 2.2; Prothrombin Time (Protime)PT. 24.8 SECONDS (11.7-14.9)
[2023-04-04 11:08] LABS: AST(SGOT) 10 U/L (15-37); Alanine Aminotransfer ALT/SGPT 15 U/L (13-56); Albumin, Serum 3.4 g/dL (3.2-5.0); Alkaline Phosphatase 81 U/L (45-117); Anion Gap 6 (5-15); BUN 22 mg/dL (7-18); BUN/Creat Ratio 19.5 RATIO (10-20); Calcium,Total 8.9 mg/dL (8.5-10.1); Chloride 107 mmol/L (98-107); Cholesterol 158 mg/dL (200); Creatinine, Serum 1.13 mg/dL (0.55-1.02); EST Glomerular Filtration Rate 48 mL/min (>60); Est Glom Filt Rate - Afr Amer 59 mL/min (>60); Free T3 2.4 pg/mL (2.18-3.98); Globulin 3.4 g/dL (2.2-4.2); Glucose 111 mg/dL (74-106); High Density Lipoprotein 43 mg/dL; Potassium 4.6 mmol/L (3.5-5.1); Protein, Total 6.8 g/dL (6.4-8.2); Sodium Level 137 mmol/L (136-145); T4 Free Direct 1.58 ng/dL (0.76-1.46); Thyroid Stim Hormone (TSH) 1.89 uIU/mL (0.358-3.74); Triglycerides 170 mg/dL; Very Low Density Lipoprotein 34 mg/dL (5-40)
== END | disposition home or self-care (01) ==
LOC: MFPLAB 08:55
PROVIDERS: PCP Family Medicine; Visit Provider Family Medicine
DX: I48.91 Unspecified atrial fibrillation (principal); I48.92 Unspecified atrial flutter; E11.9 Type 2 diabetes mellitus without complications; E03.9 Hypothyroidism, unspecified; Z79.01 Long term (current) use of anticoagulants
CPT/HCPCS: 36415; 80053; 80061; 84439; 84443; 84481; 85610

== ENCOUNTER 2023-04-14 08:00 | Outpatient (RCR) | payer SELFPAY | END 2023-04-24 23:59 | LOC: CR 08:00 | PROVIDERS: PCP Family Medicine; Referring Provider Internal Medicine Cardiovascular Disease; Visit Provider Internal Medicine Cardiovascular Disease | DX: Z00.00 Encounter for general adult medical examination without abnormal findings (principal) ==

== ENCOUNTER 2023-05-03 07:39 | Outpatient (RCR) | payer MEDICARE, OTHER, SELFPAY ==
[2023-05-03 07:52] LABS: INR Fingerstick 2.1; Prothrombin Time Fingerstick 23.3 SEC (11.7-14.9)
== END 2023-05-03 18:00 | disposition home or self-care (01) ==
LOC: LAB 07:39
PROVIDERS: PCP Family Medicine; Referring Provider Nurse Practitioner Gerontology; Visit Provider Nurse Practitioner Gerontology
DX: I48.91 Unspecified atrial fibrillation (principal); I48.92 Unspecified atrial flutter; Z79.01 Long term (current) use of anticoagulants
CPT/HCPCS: 36416; 85610

== ENCOUNTER 2023-05-24 08:00 | Outpatient (RCR) | payer SELFPAY | END 2023-05-25 23:59 | LOC: CR 08:00 | PROVIDERS: PCP Family Medicine; Referring Provider Internal Medicine Cardiovascular Disease; Visit Provider Internal Medicine Cardiovascular Disease | DX: Z00.00 Encounter for general adult medical examination without abnormal findings (principal) ==

== ENCOUNTER 2023-06-02 07:28 | Outpatient (RCR) | payer MEDICARE, OTHER, SELFPAY ==
[2023-06-02 07:35] LABS: INR Fingerstick 2.1; Prothrombin Time Fingerstick 21.8 SEC (11.7-14.9)
== END 2023-06-23 18:00 | disposition home or self-care (01) ==
LOC: LAB 07:28
PROVIDERS: PCP Family Medicine; Referring Provider Nurse Practitioner Gerontology; Visit Provider Nurse Practitioner Gerontology
DX: I48.91 Unspecified atrial fibrillation (principal); I48.92 Unspecified atrial flutter; Z79.01 Long term (current) use of anticoagulants
CPT/HCPCS: 36416; 85610

== ENCOUNTER 2023-06-23 08:00 | Outpatient (RCR) | payer SELFPAY | END 2023-06-23 23:59 | LOC: CR 08:00 | PROVIDERS: PCP Family Medicine; Referring Provider Internal Medicine Cardiovascular Disease; Visit Provider Internal Medicine Cardiovascular Disease | DX: Z00.00 Encounter for general adult medical examination without abnormal findings (principal) ==

== ENCOUNTER 2023-06-30 07:20 | Outpatient (RCR) | payer MEDICARE, OTHER, SELFPAY ==
[2023-06-30 07:34] LABS: INR Fingerstick 2.4
== END 2023-07-23 18:00 | disposition home or self-care (01) ==
LOC: LAB 07:20
PROVIDERS: PCP Family Medicine; Referring Provider Nurse Practitioner Gerontology; Visit Provider Nurse Practitioner Gerontology
DX: I48.91 Unspecified atrial fibrillation (principal); I48.92 Unspecified atrial flutter; Z79.01 Long term (current) use of anticoagulants
CPT/HCPCS: 36416; 85610

== ENCOUNTER 2023-07-21 08:00 | Outpatient (RCR) | payer SELFPAY | END 2023-07-24 23:59 | LOC: CR 08:00 | PROVIDERS: PCP Family Medicine; Referring Provider Internal Medicine Cardiovascular Disease; Visit Provider Internal Medicine Cardiovascular Disease | DX: Z00.00 Encounter for general adult medical examination without abnormal findings (principal) ==

== ENCOUNTER 2023-08-23 07:23 | Outpatient (RCR) | payer MEDICARE, OTHER, SELFPAY ==
[2023-07-26 07:38] LABS: Prothrombin Time Fingerstick 21.3 SEC (11.7-14.9)
[2023-08-23 07:33] LABS: INR Fingerstick 1.7; Prothrombin Time Fingerstick 17.9 SEC (11.7-14.9)
== END 2023-08-23 22:34 | disposition home or self-care (01) ==
LOC: LAB 07:23
PROVIDERS: PCP Family Medicine; Referring Provider Nurse Practitioner Gerontology; Visit Provider Nurse Practitioner Gerontology
DX: Z79.01 Long term (current) use of anticoagulants; I48.0 Paroxysmal atrial fibrillation; I48.92 Unspecified atrial flutter
CPT/HCPCS: 36416; 85610

== ENCOUNTER 2023-08-23 08:00 | Outpatient (RCR) | payer SELFPAY | END 2023-08-23 23:59 | LOC: CR 08:00 | PROVIDERS: PCP Family Medicine; Referring Provider Internal Medicine Cardiovascular Disease; Visit Provider Internal Medicine Cardiovascular Disease | DX: Z00.00 Encounter for general adult medical examination without abnormal findings (principal) ==

== ENCOUNTER 2023-09-22 08:00 | Outpatient (RCR) | payer SELFPAY | END 2023-09-23 23:59 | LOC: CR 08:00 | PROVIDERS: PCP Family Medicine; Referring Provider Internal Medicine Cardiovascular Disease; Visit Provider Internal Medicine Cardiovascular Disease | DX: Z00.00 Encounter for general adult medical examination without abnormal findings (principal) ==

== ENCOUNTER 2023-09-22 08:06 | Outpatient (RCR) | payer MEDICARE, OTHER, SELFPAY ==
[2023-08-30 07:42] LABS: INR Fingerstick 5.4; Prothrombin Time Fingerstick 50.9 SEC (11.7-14.9)
[2023-08-30 08:37] LABS: Prothrombin Time (Protime)PT. 50.7 SECONDS (11.7-14.9)
[2023-08-30 08:44] LABS: International Normalized Ratio 5.7
[2023-09-01 08:43] LABS: Prothrombin Time (Protime)PT. 38.6 SECONDS (11.7-14.9)
[2023-09-07 07:40] LABS: INR Fingerstick 2.4; Prothrombin Time Fingerstick 24.9 SEC (11.7-14.9)
[2023-09-15 07:36] LABS: INR Fingerstick 3.7; Prothrombin Time Fingerstick 35.9 SEC (11.7-14.9)
[2023-09-15 09:19] LABS: International Normalized Ratio 3.4; Prothrombin Time (Protime)PT. 34.4 SECONDS (11.7-14.9)
[2023-09-22 08:14] LABS: INR Fingerstick 3.2; Prothrombin Time Fingerstick 31.9 SEC (11.7-14.9)
== END 2023-09-22 18:00 | disposition home or self-care (01) ==
LOC: LAB 08:06
PROVIDERS: Physician Assistant Medical; PCP Family Medicine; Referring Provider Nurse Practitioner Gerontology; Visit Provider Nurse Practitioner Gerontology
DX: Z79.01 Long term (current) use of anticoagulants; I48.0 Paroxysmal atrial fibrillation
CPT/HCPCS: 36415; 36416; 85610

== ENCOUNTER → 2023-10-03 | Outpatient (CLI) | payer MEDICARE, OTHER, SELFPAY ==
[2023-10-03 11:21] LABS: ALB/GLOB Ratio 0.9 RATIO (0.9-2.4); AST(SGOT) 19 U/L (15-37); Alanine Aminotransfer ALT/SGPT 18 U/L (13-56); Albumin, Serum 3.4 g/dL (3.2-5.0); Alkaline Phosphatase 88 U/L (45-117); Anion Gap 6 (5-15); BUN 24 mg/dL (7-18); BUN/Creat Ratio 21.1 RATIO (10-20); Chloride 105 mmol/L (98-107); Cholesterol 159 mg/dL (200); Creatinine, Serum 1.14 mg/dL (0.55-1.02); EST Glomerular Filtration Rate 48 mL/min (>60); Est Glom Filt Rate - Afr Amer 58 mL/min (>60); Free T3 2.5 pg/mL (2.18-3.98); Globulin 3.6 g/dL (2.2-4.2); Glucose 114 mg/dL (74-106); High Density Lipoprotein 46 mg/dL; Potassium 4.6 mmol/L (3.5-5.1); Sodium Level 134 mmol/L (136-145); T4 Free Direct 1.54 ng/dL (0.76-1.46); Thyroid Stim Hormone (TSH) 1.07 uIU/mL (0.358-3.74); Triglycerides 133 mg/dL; Very Low Density Lipoprotein 27 mg/dL (5-40)
== END | disposition home or self-care (01) ==
LOC: MFPLAB 08:32
PROVIDERS: PCP Family Medicine; Visit Provider Family Medicine
DX: E03.9 Hypothyroidism, unspecified (principal); E11.9 Type 2 diabetes mellitus without complications
CPT/HCPCS: 36415; 80053; 80061; 84439; 84443; 84481

== ENCOUNTER 2023-10-13 07:33 | Outpatient (RCR) | payer MEDICARE, OTHER, SELFPAY ==
[2023-09-29 07:46] LABS: INR Fingerstick 2.3; Prothrombin Time Fingerstick 23.6 SEC (11.7-14.9)
[2023-10-13 07:43] LABS: INR Fingerstick 2.1; Prothrombin Time Fingerstick 21.9 SEC (11.7-14.9)
== END 2023-10-13 18:00 | disposition home or self-care (01) ==
LOC: LAB 07:33
PROVIDERS: PCP Family Medicine; Referring Provider Nurse Practitioner Gerontology; Visit Provider Nurse Practitioner Gerontology
DX: Z79.01 Long term (current) use of anticoagulants; I48.0 Paroxysmal atrial fibrillation
CPT/HCPCS: 36416; 85610

== ENCOUNTER 2023-10-18 08:00 | Outpatient (RCR) | payer SELFPAY | END 2023-10-23 23:59 | LOC: CR 08:00 | PROVIDERS: PCP Family Medicine; Referring Provider Internal Medicine Cardiovascular Disease; Visit Provider Internal Medicine Cardiovascular Disease | DX: Z00.00 Encounter for general adult medical examination without abnormal findings (principal) ==

== ENCOUNTER 2023-11-15 07:26 | Outpatient (RCR) | payer MEDICARE, OTHER, SELFPAY ==
[2023-11-15 07:42] LABS: INR Fingerstick 2.1; Prothrombin Time Fingerstick 21.6 SEC (11.7-14.9)
== END 2023-11-23 18:00 | disposition home or self-care (01) ==
LOC: LAB 07:26
PROVIDERS: PCP Family Medicine; Referring Provider Nurse Practitioner Gerontology; Visit Provider Nurse Practitioner Gerontology
DX: Z79.01 Long term (current) use of anticoagulants; I48.0 Paroxysmal atrial fibrillation
CPT/HCPCS: 36416; 85610

== ENCOUNTER 2023-11-22 08:00 | Outpatient (RCR) | payer SELFPAY | END 2023-11-23 23:59 | LOC: CR 08:00 | PROVIDERS: PCP Family Medicine; Referring Provider Internal Medicine Cardiovascular Disease; Visit Provider Internal Medicine Cardiovascular Disease | DX: Z00.00 Encounter for general adult medical examination without abnormal findings (principal) ==

== ENCOUNTER 2023-12-13 07:28 | Outpatient (RCR) | payer OTHER, MEDICARE, SELFPAY ==
[2023-12-13 10:03] LABS: INR Fingerstick 2.4; Prothrombin Time Fingerstick 24.3 SEC (11.7-14.9)
== END 2023-12-13 18:00 | disposition home or self-care (01) ==
LOC: LAB 07:28
PROVIDERS: PCP Family Medicine; Referring Provider Nurse Practitioner Gerontology; Visit Provider Nurse Practitioner Gerontology
DX: Z79.01 Long term (current) use of anticoagulants; I48.0 Paroxysmal atrial fibrillation
CPT/HCPCS: 36416; 85610

== ENCOUNTER 2023-12-22 08:00 | Outpatient (RCR) | payer SELFPAY | END 2023-12-24 23:59 | LOC: CR 08:00 | PROVIDERS: PCP Family Medicine; Referring Provider Internal Medicine Cardiovascular Disease; Visit Provider Internal Medicine Cardiovascular Disease | DX: Z00.00 Encounter for general adult medical examination without abnormal findings (principal) ==

== ENCOUNTER 2024-01-17 07:39 | Outpatient (RCR) | payer MEDICARE, OTHER, SELFPAY ==
[2024-01-17 07:59] LABS: INR Fingerstick 1.6; Prothrombin Time Fingerstick 17.5 SEC (11.7-14.9)
== END 2024-01-17 18:00 | disposition home or self-care (01) ==
LOC: LAB 07:39
PROVIDERS: PCP Family Medicine; Referring Provider Nurse Practitioner Gerontology; Visit Provider Nurse Practitioner Gerontology
DX: Z79.01 Long term (current) use of anticoagulants; I48.0 Paroxysmal atrial fibrillation
CPT/HCPCS: 36416; 85610

== ENCOUNTER 2024-01-19 08:00 | Outpatient (RCR) | payer SELFPAY | END 2024-01-23 23:59 | LOC: CR 08:00 | PROVIDERS: PCP Family Medicine; Referring Provider Internal Medicine Cardiovascular Disease; Visit Provider Internal Medicine Cardiovascular Disease | DX: Z00.00 Encounter for general adult medical examination without abnormal findings (principal) ==

== ENCOUNTER 2024-02-02 07:26 | Outpatient (RCR) | payer MEDICARE, OTHER, SELFPAY ==
[2024-01-24 07:43] LABS: INR Fingerstick 1.5; Prothrombin Time Fingerstick 16.8 SEC (11.7-14.9)
[2024-02-02 07:38] LABS: INR Fingerstick 2.5; Prothrombin Time Fingerstick 25.3 SEC (11.7-14.9)
== END 2024-02-02 18:00 | disposition home or self-care (01) ==
LOC: LAB 07:26
PROVIDERS: PCP Family Medicine; Referring Provider Nurse Practitioner Gerontology; Visit Provider Nurse Practitioner Gerontology
DX: Z79.01 Long term (current) use of anticoagulants; I48.0 Paroxysmal atrial fibrillation
CPT/HCPCS: 36416; 85610

== ENCOUNTER 2024-02-03 08:00 | Outpatient (RCR) | payer MEDICARE, OTHER, SELFPAY ==
--- NOTE | 2023-12-14 10:46 | HP.OTEVAL_ITS ---
Patient's Visit Information Visit Information Visit Information: RUBI CHAVEZ is a 88 year old F, referred to Occupational Therapy by Dr. Ajit Oleary MD, with a diagnosis of right MF trigger finger. Date of Evaluation: Occupational Therapist: Zaina Marcano, OTR/L, CHT Subjective Subjective: This 88 year old female was seen for OT eval with dx of a right trigger finger about 3-4 weeks ago. Pt states she has OA deformities and thought she could have been related to this. When she mentioned to her Dr. she was referred to therapy. Pt states triggering is interfering with pts ind. with ADLs and IADLs. pt states she does a lot of knitting and will work out with health and wellness. pt is right handed. pt has sx on left hand for left MF trigger finger release. ROM ROM Comments: pt demo with full ROM of her hands Noted positive right MF trigger Strength Warehouse Coordinator: right 10# left 25# Lateral Pinch: right 10# left 10# Tripod Pinch: right 2# left 4# Sensation Sensation Comments: tingling in AM Quick DASH-Disab of Arm,Shoulder& Hand Quick DASH Score: 52.5000 Goals Goal:: pt will demo a increase in right family preservation caseworker strength by 10# to increase pts ind. with ADLs and IADLS by d/c Goal:: pt will demo full composite fist with no signs or symptoms of triggering by d.c Goal:: pt will demo understanding of joint protection dawson. and use of ad. eq. to decrease stress on tendons by d.c Goal:: decrease in quick dash score to 10 points or more by d/c Rehabilitation General Assessment: pt demo with positive right MF triggering at A1 adalid- this limits pts ability to use hand with ADLS and IADLs . Pt would benefit from skilled OT services 2x week for 4 weeks to return pt to her PLOF. Today therapist ed. pt on use of brace/orthosis, dx and avoiding tight family preservation caseworker repetitively. pt demo understanding and agrees to POC. Rehabilitation Potential: Good Anticipated Interventions Anticipated Interventions: A/AAROM/PROM, Triggerpoint Release, Modalities, Orthoses, Joint Protection/Energy Conservation, Ergonomic Education, Education re assistive Equipment, Education re Diagnosis and Home Program Visit Plan Frequency: 2x /Week Duration: 4 Weeks TEXT: Thank you for the opportunity to evaluate your patient. For Medicare and Medicare HMO plans, please review the plan of care and approve it. It will need to be FAXED BACK to us at [phone] for Medicare purposes. Please let me know if there are questions or concerns regarding this plan of care. Physician Signature: Date:
--- NOTE | 2024-05-31 10:04 | HP.OT.NRP ---
Patient Information Patient Information: RUBI CHAVEZ was seen in my office for initial evaluation on . The following Plan of Care was established for this patient: POC Established Initial Frequency: 2x /Week Initial Duration: 4 Weeks Plan: pt states she does know how to mtg her trigger finger and if she needs to return she will do so in about 4 weeks Anticipated Interventions Anticipated Interventions: A/AAROM/PROM, Triggerpoint Release, Modalities, Orthoses, Joint Protection/Energy Conservation, Ergonomic Education, Education re assistive Equipment, Education re Diagnosis and Home Program Last Seen Last Seen: This patient was last seen in our office 02/03/24. Pertinent comments regarding their Occupational therapy will appear below: pt was seen for 12 OT session for trigger finger- she was last seen on 02/03/24. pt has not scheduled further apts and due to time lapse in service pt d/c. At this point I will be discontinuing this patient from occupational therapy. I would be happy to see this patient again in the future if found appropriate by the physician. Thank you! Zaina Marcano, OTR/L, CHT
== END 2024-02-03 19:00 | disposition home or self-care (01) ==
LOC: OT 08:00
PROVIDERS: PCP Family Medicine; Referring Provider Family Medicine; Visit Provider Family Medicine
DX: M65.30 Trigger finger, unspecified finger (principal)
CPT/HCPCS: 97035; 97110; 97140; 97166; 97530

== ENCOUNTER → 2024-02-03 | Outpatient (CLI) | payer MEDICARE, OTHER, SELFPAY ==
--- NOTE | 2024-02-03 10:08 | BD_ITS ---
STUDY: DUAL ENERGY X-RAY ABSORPTIOMETRY / DXA REASON FOR EXAM: Female, 88 years old. V76.12ScreeningBONE DENSITY REASON FOR EXAM TECHNIQUE: Bone Mineral Density (BMD) measurements of lumbar spine and bilateral hips were obtained. COMPARISON: Comparison is made with prior study dated April 05, 2013. FINDINGS: Lumbar Spine (L1-L4): g/cm2 (1.385) / T-score (3.1) / Z-score (5.9) Findings are suggestive of normal bone density with a low fracture risk. Left Femur Total: g/cm2 (0.874) / T-score (-0.6) / Z-score (1.8) Left Femoral Neck: g/cm2 (0.670) / T-score (-1.6) / Z-score (0.9) Right Femur Total: g/cm2 (0.779) / T-score (-1.3) / Z-score (1.0) Right Femoral Neck: g/cm2 (0.743) / T-score (-1.0) / Z-score (1.6) The T-Scores on the most recent prior examination were: Lumbar Spine (L1-L4): There has been worsening of bone density since the previous examination. Left Femur Total: which represents a worsening of 7.2%. Right Femur Total: which represents a worsening of 15.8%. BD/Dexa Bone Density Study IMPRESSION: The patient is considered osteopenic as outlined below according to World Glen Organization (WHO) criteria with a moderate fracture risk. There has been worsening of bone density since the previous examination. Reference Information: The T-score is the number of standard deviations above or below the standard which is normal for young adults at their peak bone mineral density. The World Health Organization (WHO) interprets the T-scores as follows: Above -1 Normal bone density Between -1 and -2.5 Osteopenia Equal to / or below -2.5 Osteoporosis As a practical clinical guideline, osteopenia may be graded as follows: Mild -1 through -1.5 Moderate -1.6 through -2.0 Severe -2.1 through -2.4 The Z-score is the number of standard deviations above or below age-matched controls. A Z-score of less than -1.5 would be considered abnormal. References: 1. NIH Osteoporosis and Related Bone Diseases www osteo.org 2. International Society for Clinical Densitometry www iscd.org 3. National Osteoporosis Foundation www nof.org Electronically Signed: Kaushik Peña MD at 13:05 EDT ,
== END | disposition home or self-care (01) ==
LOC: OPBD 10:06
PROVIDERS: PCP Family Medicine; Referring Provider Registered Nurse; Visit Provider Registered Nurse
DX: Z13.820 Encounter for screening for osteoporosis (principal); M85.88 Other specified disorders of bone density and structure, other site
CPT/HCPCS: 77080

== ENCOUNTER 2024-02-23 08:00 | Outpatient (RCR) | payer SELFPAY | END 2024-02-23 23:59 | LOC: CR 08:00 | PROVIDERS: PCP Family Medicine; Referring Provider Internal Medicine Cardiovascular Disease; Visit Provider Internal Medicine Cardiovascular Disease | DX: Z00.00 Encounter for general adult medical examination without abnormal findings (principal) ==

== ENCOUNTER 2024-03-01 07:22 | Outpatient (RCR) | payer MEDICARE, OTHER, SELFPAY ==
[2024-03-01 07:32] LABS: INR Fingerstick 2.9; Prothrombin Time Fingerstick 29.9 SEC (11.7-14.9)
== END 2024-03-24 18:00 | disposition home or self-care (01) ==
LOC: LAB 07:22
PROVIDERS: PCP Family Medicine; Referring Provider Nurse Practitioner Gerontology; Visit Provider Nurse Practitioner Gerontology
DX: I48.91 Unspecified atrial fibrillation (principal); I48.92 Unspecified atrial flutter; Z79.01 Long term (current) use of anticoagulants

== ENCOUNTER → 2024-03-14 | Outpatient (CLI) | payer MEDICARE, OTHER, SELFPAY ==
--- NOTE | 2024-03-14 10:53 | RAD_ITS ---
STUDY: X-RAY - LEFT KNEE REASON FOR EXAM: Female, 88 years old. KNEE PAIN TECHNIQUE: 4 view(s) of the knee. COMPARISON: None. FINDINGS: Normal visualized distal femur. Normal visualized proximal tibia and fibula. Normal proximal tibiofibular articulation. There is moderate degenerative arthrosis of the medial femorotibial compartment with moderate joint space narrowing. There is mild degenerative arthrosis of the lateral femorotibial compartment. There is severe degenerative arthrosis of the patellofemoral articulation. The soft tissue structures are unremarkable. RAD/Knee 4 or More Views IMPRESSION: Degenerative arthrosis. Electronically Signed: John Paul Lewis MD at 13:04 EST ,
== END | disposition home or self-care (01) ==
LOC: MTRAD 10:52
PROVIDERS: PCP Family Medicine; Referring Provider Family Medicine; Visit Provider Family Medicine
DX: M25.569 Pain in unspecified knee (principal)
CPT/HCPCS: 73564

== ENCOUNTER 2024-03-20 08:00 | Outpatient (RCR) | payer SELFPAY | END 2024-03-24 23:59 | LOC: CR 08:00 | PROVIDERS: PCP Family Medicine; Referring Provider Internal Medicine Cardiovascular Disease; Visit Provider Internal Medicine Cardiovascular Disease | DX: Z00.00 Encounter for general adult medical examination without abnormal findings (principal) ==

== ENCOUNTER → 2024-04-02 | Outpatient (CLI) | payer MEDICARE, OTHER, SELFPAY ==
[2024-04-02 11:05] LABS: Cholesterol 162 mg/dL (200); Free T3 2.3 pg/mL (2.18-3.98); High Density Lipoprotein 46 mg/dL; T4 Free Direct 1.89 ng/dL (0.76-1.46); Triglycerides 151 mg/dL; Very Low Density Lipoprotein 30 mg/dL (5-40)
[2024-04-02 11:37] LABS: Hemoglobin A1c 6.1 % (3.8-5.6)
== END | disposition home or self-care (01) ==
LOC: MFPLAB 08:37
PROVIDERS: PCP Family Medicine; Referring Provider Family Medicine; Visit Provider Family Medicine
DX: E03.9 Hypothyroidism, unspecified (principal); E11.9 Type 2 diabetes mellitus without complications
CPT/HCPCS: 36415; 80061; 83036; 84439; 84443; 84481

== ENCOUNTER 2024-04-09 07:05 | Outpatient (RCR) | payer SELFPAY ==
[2024-03-29 07:29] LABS: INR Fingerstick 3.7; Prothrombin Time Fingerstick 37.6 SEC (11.7-14.9)
[2024-04-05 07:59] LABS: International Normalized Ratio 5.5; Prothrombin Time (Protime)PT. 49.8 SECONDS (11.7-14.9)
[2024-04-10 15:32] LABS: INR Fingerstick 1.8; Prothrombin Time Fingerstick 20.4 SEC (11.7-14.9)
[2024-04-10 16:38] LABS: INR Fingerstick 1.8; Prothrombin Time Fingerstick 20.4 SEC (11.7-14.9)
[2024-04-10 16:56] LABS: INR Fingerstick 6.3; Prothrombin Time Fingerstick 58.7 SEC (11.7-14.9)
[2024-04-10 16:56] LABS: INR Fingerstick 6.3; Prothrombin Time Fingerstick 58.5 SEC (11.7-14.9)
== END 2024-04-09 18:00 | disposition home or self-care (01) ==
LOC: LAB 07:05
PROVIDERS: PCP Family Medicine; Referring Provider Nurse Practitioner Gerontology; Visit Provider Nurse Practitioner Gerontology
DX: I48.91 Unspecified atrial fibrillation (principal); Z79.01 Long term (current) use of anticoagulants
CPT/HCPCS: 36416; 85610

== ENCOUNTER 2024-04-24 08:00 | Outpatient (RCR) | payer SELFPAY | END 2024-04-24 23:59 | LOC: CR 08:00 | PROVIDERS: PCP Family Medicine; Referring Provider Internal Medicine Cardiovascular Disease; Visit Provider Internal Medicine Cardiovascular Disease | DX: Z00.00 Encounter for general adult medical examination without abnormal findings (principal) ==

== ENCOUNTER 2024-05-17 07:28 | Outpatient (RCR) | payer MEDICARE, OTHER, SELFPAY ==
[2024-04-26 07:46] LABS: INR Fingerstick 2.7; Prothrombin Time Fingerstick 28.4 SEC (11.7-14.9)
[2024-05-17 07:38] LABS: INR Fingerstick 2.9
== END 2024-05-17 18:00 | disposition home or self-care (01) ==
LOC: LAB 07:28
PROVIDERS: PCP Family Medicine; Referring Provider Nurse Practitioner Gerontology; Visit Provider Nurse Practitioner Gerontology
DX: Z79.01 Long term (current) use of anticoagulants; I48.0 Paroxysmal atrial fibrillation
CPT/HCPCS: 36416; 85610

== ENCOUNTER 2024-05-24 08:00 | Outpatient (RCR) | payer SELFPAY | END 2024-05-25 23:59 | LOC: CR 08:00 | PROVIDERS: PCP Family Medicine; Referring Provider Internal Medicine Cardiovascular Disease; Visit Provider Internal Medicine Cardiovascular Disease | DX: Z00.00 Encounter for general adult medical examination without abnormal findings (principal) ==

== ENCOUNTER → 2024-05-25 | Outpatient (CLI) | payer MEDICARE, OTHER, SELFPAY ==
[2024-05-25 17:26] LABS: Color, Urine Yellow (Yellow); Glucose, Dipstick Normal (Normal); Ketone-Dipstick Negative (Negative); Leukocyte Esterase-Dipstick 500 /ul (Negative); Nitrite-Dipstick Positive (Negative); Occult Blood-Urine 50 /ul (Negative); Protein-Dipstick Negative (Negative); Urine Bilirubin Dipstick Negative (Negative); Urine Clarity Cloudy (Clear); Urine Urobilinogen Normal (Normal); Urine pH 6.5 (5.0 - 8.0)
== END | disposition home or self-care (01) ==
LOC: LABSPEC 13:37
PROVIDERS: PCP Family Medicine; Referring Provider Family Medicine; Visit Provider Family Medicine
DX: R39.89 Other symptoms and signs involving the genitourinary system (principal)
CPT/HCPCS: 81002; 87077; 87086; 87088; 87186

== ENCOUNTER 2024-06-14 07:42 | Outpatient (RCR) | payer MEDICARE, OTHER, SELFPAY ==
[2024-06-14 07:59] LABS: INR Fingerstick 2.4; Prothrombin Time Fingerstick 26.2 SEC (11.7-14.9)
== END 2024-06-22 18:00 | disposition home or self-care (01) ==
LOC: LAB 07:42
PROVIDERS: PCP Family Medicine; Referring Provider Nurse Practitioner Gerontology; Visit Provider Nurse Practitioner Gerontology
DX: Z79.01 Long term (current) use of anticoagulants; I48.0 Paroxysmal atrial fibrillation
CPT/HCPCS: 36416; 85610

== ENCOUNTER 2024-06-21 08:00 | Outpatient (RCR) | payer SELFPAY | END 2024-06-22 23:59 | LOC: CR 08:00 | PROVIDERS: PCP Family Medicine; Referring Provider Internal Medicine Cardiovascular Disease; Visit Provider Internal Medicine Cardiovascular Disease | DX: Z00.00 Encounter for general adult medical examination without abnormal findings (principal) ==

== ENCOUNTER 2024-06-26 14:37 | Inpatient (IN) | payer MEDICARE, OTHER, SELFPAY ==
[2024-06-26] VITALS (7 sets, daily range): BP systolic 103–127; BP diastolic 46–93; PULSE 62–90; RESP 17–22; TEMP 36.7–37; O2SAT 94–98; BMI 27.9
--- NOTE | 2024-06-26 17:04 | ED.VIS.GI ---
HPI HPI - GI History of Present Illness Chief Complaint: Diarrhea Informant: patient Nausea/Vomiting/Emesis GI Symptom: Negative for Nausea or Vomiting Diarrhea/Melena/Hematochezia GI Symptom: Positive for Diarrhea; Negative for Melena or Hematochezia Associated Symptoms Associated Symptoms: Negative for Dysuria, Frequency or Hematuria Narrative Narrative: Patient presents with diarrhea that began this morning. Patient states it started out as white diarrhea but is now loose. Patient denies any abdominal pain. Patient denies any nausea or vomiting. Patient states she fell out of the bed last night and laid on the floor until this morning. Patient states she was able to scoot to the stairwell and use the handrail to get up. Patient states she called the EMS after that. Patient states she was having difficulty standing and walking. Patient states she fell 4 days ago as well. Patient states she hit her left leg. Patient noted some bruising to her left leg. Patient states she hit the back of her head when she fell last night. Patient denies any numbness or tingling. Patient denies any visual changes. Patient states gets dizzy intermittently. 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 Atrial flutter skilled nursing current use of amiodarone Wears hearing aid in both ears Non-smoker BiPAP (biphasic positive airway pressure) dependence Irregular heart beat History of cardioversion (~12/25/19) Balance problem Incontinence Abnormal stress test Mixed hyperlipidemia Essential hypertension Atherosclerotic heart disease of [place] coronary artery without angina pectoris Hypothyroidism Sciatic nerve pain DM II (diabetes mellitus, type II), controlled DVT (deep venous thrombosis) Basal cell carcinoma Arthritis HTN (hypertension) History of aortic valvular stenosis Paroxysmal supraventricular tachycardia Premature ventricular contraction Supraventricular tachycardia Dyspnea Long-term use of high-risk medication Pulmonary HTN JOHN (obstructive sleep apnea) Home Medications ?Medication ?Instructions ?Recorded ?Last Taken ?Type pravastatin 40 mg tablet 40 mg PO QHS 04/15/17 09/25/20 20:00 History isosorbide mononitrate 60 mg 60 mg PO DAILY #90 tabs 04/10/19 09/26/20 07:00 Rx tablet,extended release 24 hr omeprazole 40 mg capsule,delayed 40 mg PO DAILY Check with primary 08/15/20 Unknown History release doctor calcium carbonate 600 mg PO DAILY 07/23/21 Unknown History metformin 500 mg tablet,extended 500 mg PO DAILY 07/23/21 Unknown History release 24 hr spironolactone 50 mg tablet 50 mg PO DAILY 07/13/22 Unknown History cetirizine 10 mg tablet (Zyrtec) 10 mg PO DAILY PRN allergy 01/25/23 Unknown Rx symptoms #90 tabs warfarin 4 mg tablet 4 mg PO DAILY #30 tabs 08/01/23 Unknown Rx losartan 25 mg tablet 25 mg PO BID #180 tabs 01/16/24 Unknown Rx biotin 10,000 mcg capsule 10,000 mcg PO DAILY 04/27/24 Unknown History cholecalciferol (vitamin D3) 25 25 mcg PO QDAY 04/27/24 Unknown History mcg (1,000 unit) tablet levothyroxine 125 mcg tablet 125 mcg PO QDAY 04/27/24 Unknown History oxybutynin chloride 5 mg 5 mg PO QDAY 04/27/24 Unknown History tablet,extended release 24 hr Allergy/AdvReac Type Severity Reaction Status Date / Time celecoxib (From Celebrex) Allergy Intermediate Other - Verified 06/26/24 14:38 jittery & edema Family History Father Hypertension Mother CAD (coronary artery disease) CHF (congestive heart failure) Brother Colon cancer Surgical History History of left heart catheterization (LHC) (~04/10/19) History of aortic valve replacement with bioprosthetic valve (~11/10/05) Presence of aortocoronary bypass graft (~11/10/05) Hx of aortic valve replacement Social History Smoking Status: Never smoker second hand exposure: No alcohol intake: current alcohol intake frequency: holidays/special occasions only substance use type: does not use caffeine: Yes Type: coffee ROS ROS ED Constitutional Constitutional ED: Denies chills or fever(s) Eyes Eyes: Denies blurry vision or change in vision ENT ENT ED: Denies rhinorrhea or sore throat Cardiovascular Cardiovascular: Denies chest pain or palpitations Respiratory/Chest Respiratory/Chest: Denies cough or dyspnea Gastrointestinal Gastrointestinal: Reports diarrhea; Denies melena, nausea or vomiting Genitourinary Genitourinary ED: Denies dysuria or hematuria Musculoskeletal Musculoskeletal: Denies back pain or neck pain Integumentary Denies abscess or rash Neurologic Neurologic: Reports headache(s) and weakness Allergic/Immunologic Allergic/Immunologic ED: Denies mouth swelling or urticaria EXAM Physical Exam Const Vital Signs: 06/26/24 14:39 06/26/24 14:41 06/26/24 16:38 Temperature 98.6 F 98.6 F Temperature Source Oral Oral Pulse Rate 90 90 76 Respiratory Rate 18 18 Blood Pressure 113/64 113/64 115/46 L Blood Pressure Mean 80 80 69 Pulse Ox 98 98 94 Oxygen Delivery Method Room Air Room Air Room Air 06/26/24 18:00 06/26/24 20:00 06/26/24 22:00 Temperature Temperature Source Pulse Rate 85 82 69 Respiratory Rate 22 H 19 H 17 Blood Pressure 124/93 H 127/64 H 103/59 L Blood Pressure Mean 103 85 73 Pulse Ox 98 94 Oxygen Delivery Method Room Air Room Air Room Air Positive well nourished and well developed General Appearance ED: well developed and NAD HEENT Reports dry mucous membranes HEENT Narrative: There is Tenderness over the occipital scalp. There is no laceration noted. There is no bony crepitus or step-off noted. tenderness Mouth ED: Yes dry mucous membranes Mouth: dry mucous membranes Neck supple and no JVD Resp normal respiratory effort and clear to auscultation bilaterally Cardio regular rate Rhythm: abnormal rhythm irregularly irregular GI non-tender and non-distended Palpation: soft Extremity Extremity Narrative: There is tenderness, edema, and ecchymosis of the lateral aspect of the left lower leg. There is a hematoma over the proximal fibula. There is no obvious deformity noted. Pedal pulses are equal bilaterally. Sensation is intact to light touch lower extremities. Neuro CN's II-XII intact bilaterally, moves all extremities and no sensory deficits noted Sensorium / Orientation: alert Motor Exam: general weakness MDM MDM MDM Narrative Medical decision making narrative: Differential diagnosis includes dehydration, electrolyte abnormality, cardiac dysrhythmia, cardiac ischemia, closed head injury, intracranial bleeding, rhabdomyolysis, tibia and fibula fracture, contusion, and general weakness. CT scan of the brain will be obtained to assess for intracranial bleeding and stroke. EKG will be obtained to assess for cardiac dysrhythmia and cardiac ischemia. Chest x-ray will be obtained to assess for pneumonia and bronchitis. X-rays of the tibia and fibula will be obtained to assess for fracture. CBC will be obtained to assess for leukocytosis and anemia. Comprehensive metabolic profile will be obtained to assess for hepatic function, renal function, and electrolyte abnormality. High-sensitivity troponin will be obtained to assess for cardiac ischemia. 2-hour repeat high-sensitivity troponin will be obtained to assess for ongoing cardiac ischemia. PT with INR and PTT will be obtained to assess for coagulopathy. CPK will be obtained to assess for rhabdomyolysis. Lab Data Attestation: I reviewed the patient's lab results. Lab results narrative: CBC was reviewed and was within normal limits. Comprehensive metabolic profile was reviewed. BUN was 31 and creatinine was 1.31. Glucose was slightly elevated at 158. High-sensitivity troponin was reviewed and was normal at 41. Repeat high-sensitivity troponin was reviewed and was 42. This is a delta of 1. Urinalysis was reviewed. Occult blood was 150. There are 25-50 red blood cells. There is no evidence of urinary tract infection. PT with INR PTT were reviewed. Pro time was 25.9 and INR is therapeutic at 2.3. PTT was slightly elevated at 45.0. Labs: Laboratory Results - last 24 hr 06/26/24 06/26/24 06/26/24 17:45 20:14 21:29 WBC 10.2 RBC 4.19 L Hgb 13.7 Hct 39.8 MCV 95.0 MCH 32.7 H MCHC 34.4 RDW Std Deviation 45.6 H RDW Coeff of Ellie 13.2 Plt Count 145 L MPV 10.0 Immature Gran % (Auto) 0.500 Neut % (Auto) 88.1 H Lymph % (Auto) 6.0 L [place] % (Auto) 5.2 Eos % (Auto) 0.0 Baso % (Auto) 0.2 Absolute Neuts (auto) 9.0 H Absolute Lymphs (auto) 0.61 L Nucleated RBC % 0 PT 25.9 H INR 2.3 APTT 45.0 H Sodium 137 Potassium 4.5 Chloride 103 Carbon Dioxide 19.4 L Anion Gap 15 BUN 31 H Creatinine 1.31 H Estim Creat Clear Calc 31.41 L Est GFR (MDRD) Non-Af 39 L BUN/Creatinine Ratio 24.0 H Glucose 158 H Calcium 9.3 Total Bilirubin 1.03 AST 28 ALT 13 Alkaline Phosphatase 69 Troponin T High Sens 41 H Troponin T Hi Sens 2 Hr 42 H Troponin T Hi Sens 2Hr Delta 1 Total Protein 7.0 Albumin 3.9 Globulin 3.1 Albumin/Globulin Ratio 1.3 Urine Color Straw Urine Clarity Sl. Cloudy Urine pH 5.0 Ur Specific [place] 1.025 Urine Protein 30 H Urine Glucose (UA) Normal Urine Ketones Negative Urine Occult Blood 150 H Urine Nitrite Negative Urine Bilirubin 1 H Urine Urobilinogen 1 H Ur Leukocyte Esterase Negative Urine RBC 25-50 SEEN Urine WBC 0-5 SEEN Ur Squamous Epith Cells 0-5 SEEN Urine Bacteria 1+ Hyaline Casts 0-5 SEEN Coarse Granular Casts 0-5 SEEN Urine Mucus 1+ Radiography Diagnostic Testing: Clinical Impression(s) from Imaging Studies Brain CT 06/26/24 17:12 IMPRESSION: NO ACUTE FINDINGS One or more dose reduction techniques were used (e.g., Automated exposure control, adjustment of the mA and/or kV according to patient size, use of iterative reconstruction technique). Reading Location: [facility] Tibia/Fibula X-Ray 06/26/24 17:13 IMPRESSION: No acute fracture or subluxation. Degenerative changes of the knee joint. [facility] Chest X-Ray 06/26/24 17:50 IMPRESSION: Subtle right lower lung airspace opacities, concerning for infiltrates. Reading Location: [facility] CT scan of the brain was obtained. There is no acute intracranial abnormality. This was interpreted by the radiologist and was also independently reviewed by myself. Portable 1 view chest x-ray was obtained. On my independent interpretation, lung [place] show subtle right lower lung airspace opacities, concerning for infiltrate. There is normal cardiac silhouette. Bony thorax is normal. Radiologist also interpreted the x-ray and agrees. X-rays of the left tibia and fibula were obtained. There are 3 views. On my independent interpretation, there is no acute fracture or dislocation noted. Radiologist also interpreted the x-rays and agrees. EKG Initial EKG: Attestation: I personally reviewed and interpreted this EKG as follows: Interpretation: No Acute Injury Pattern and Atrial Fibrillation (76) Comments: EKG was obtained. On my independent interpretation, shows atrial fibrillation with a rate of 76. QRS interval is normal at 78 ms. QTc interval was normal at 454 ms. There is borderline left axis deviation -22. There are no acute ST or T wave changes noted. Prior EKG tracings: available for review Prior: Unchanged (07/13/2022) Treatment and Re-Evaluation :: Patient was given IV fluids. Patient was advised of her findings. Patient was given a dose of Rocephin and Zithromax here. Patient was unable to ambulate here in the emergency department. Because of this, I recommended admission to the hospital. Case was discussed with the hospitalist. She will admit the patient to her service. Patient understood and was agreeable with the plan. All questions were answered. Discharge Plan Triage Chief Complaint: Diarrhea ED Provider: Ignacio Solorzano Dx/Rx/DC Orders Clinical Impression: Pneumonia, Generalized weakness, Dehydration Prescriptions: No Action pravastatin 40 mg tablet 40 mg PO QHS omeprazole 40 mg capsule,delayed release(DR/EC) 40 mg PO DAILY calcium carbonate 600 mg calcium (1,500 mg) tablet 600 mg PO DAILY metformin 500 mg tablet extended release 24 hr 500 mg PO DAILY spironolactone 50 mg tablet 50 mg PO DAILY Patient Comments: Take 1 tablet by mouthddaily cetirizine [Zyrtec] 10 mg tablet 10 mg PO DAILY PRN (Reason: allergy symptoms) Qty: 90 3RF biotin 10,000 mcg capsule 10,000 mcg PO DAILY levothyroxine 125 mcg tablet 125 mcg PO QDAY oxybutynin chloride 5 mg tablet extended release 24hr 5 mg PO QDAY cholecalciferol (vitamin D3) 25 mcg (1,000 unit) tablet 25 mcg PO QDAY isosorbide mononitrate 60 mg tablet extended release 24 hr 60 mg PO DAILY Qty: 90 3RF warfarin 4 mg tablet 4 mg PO DAILY Qty: 30 12RF Protocol: Dose Management Condition: Tuesday Dose/Route: 4 mg Instruction: 1 x 4 mg tablet Condition: Tuesday Dose/Route: 4 mg Instruction: 1 x 4 mg tablet Condition: Tuesday Dose/Route: 6 mg Instruction: 1.5 x 4 mg tablets Condition: Tuesday Dose/Route: 4 mg Instruction: 1 x 4 mg tablet Condition: Dose/Route: 4 mg Instruction: 1 x 4 mg tablet Condition: Tuesday Dose/Route: 4 mg Instruction: 1 x 4 mg tablet Condition: Tuesday Dose/Route: 4 mg Instruction: 1 x 4 mg tablet Protocol Text: Adjustment Start Date: 06/14/24 INR Value: 2.4 INR Date: 06/14/24 Recheck Date: 07/14/24 Rx Instructions: 4mg daily and 2mg (1/2 tab) on Sundays; or use as directed losartan 25 mg tablet 25 mg PO BID Qty: 180 3RF Primary Care Provider: Ajit Oleary Referrals: Ajit Oleary MD [Primary Care Provider] - Print Language: Danish Disposition Disposition: Acute Care [facility]
--- NOTE | 2024-06-26 17:12 | EKG12_ITS ---
Test Reason : Blood Pressure : */* mmHG Vent. Rate : 76 BPM Atrial Rate : * BPM P-R Int : * ms QRS Dur : 78 ms QT Int : 404 ms P-R-T Axes : * -22 74 degrees QTcB Int : 454 ms Atrial fibrillation Septal infarct , age undetermined Abnormal ECG Confirmed by Raf Mckeon ([id number]), editor newspaper DOT MICHEL ([id number]) on 06/28/2024 6:56:46 AM Referred By: Confirmed By: Raf Mckeon
--- NOTE | 2024-06-26 17:12 | CT_ITS ---
PROCEDURE: BRAIN/HEAD WITHOUT CONTRAST REASON FOR EXAM: Head injury TECHNIQUE: Head CT without intravenous contrast. COMPARISON: CT brain dated 05/30/2021 FINDINGS: There is no acute intracranial hemorrhage, mass effect, or evidence of large acute infarct. Brain: Within normal limits for age CSF Spaces: Mild generalized cerebral atrophy Sinuses/Mastoids: Clear at visualized levels Bones: Unremarkable CT/Brain/Head without Contrast IMPRESSION: NO ACUTE FINDINGS One or more dose reduction techniques were used (e.g., Automated exposure contr ol, adjustment of the mA and/or kV according to patient size, use of iterative reconstruction technique). Reading Location: [facility]
--- NOTE | 2024-06-26 17:13 | RAD_ITS ---
PROCEDURE: TIBIA FIBULA 2 VIEWS REASON FOR EXAM: Injury and pain TECHNIQUE: Three views of the left leg. COMPARISON: None. FINDINGS: No fracture. No suspicious bone lesion. Normal alignment. Mild degenerative changes. Vascular calcifications. RAD/Tibia & Fibula 2 Views IMPRESSION: No acute fracture or subluxation. Degenerative changes of the knee joint. Reading Location: [facility]
[2024-06-26] MEDS: 0.9% Normal Saline (500mL Bag) 500 ML 1000 ML IV (17:44)
--- NOTE | 2024-06-26 17:50 | RAD_ITS ---
PROCEDURE: CHEST 1 VIEW (PORTABLE) REASON FOR EXAM: Chest radiograph dated 07/15/2022 TECHNIQUE: Frontal view of the chest. COMPARISON: 07/15/2022 FINDINGS: The heart size is normal. Median sternotomy wires. Subtle right lower lung airspace opacities, concerning for infiltrates. The bones are unremarkable. RAD/Chest 1 View (Portable) IMPRESSION: Subtle right lower lung airspace opacities, concerning for infiltrates. Reading Location: [facility]
[2024-06-26 18:09] LABS: Absolute Lymphocyte Count 0.61 X10^3/uL (0.83-4.51); Basophil# 0.02 X10^3/uL; Basophil% 0.2 % (0-1); Hematocrit 39.8 % (37-47); Hemoglobin 13.7 g/dL (12.0-15.0); Lymphocyte # 0.61 X10^3/ul (0.83-4.51); Mean Corp Hgb Conc 34.4 g/dL (32-36); Mean Corpuscular Hgb 32.7 pg (27.0-32.0); Monocyte# 0.53 X10^3/uL; Monocyte% 5.2 % (0-10); NRBC Flagged by Analyzer 0 % (0-5); Neutrophil # 9.03 X10^3/uL (2.7-7.7); Neutrophil % 88.1 % (47-70); Platelet Count 145 K/mm3 (150-450); RBC Distribution Width CV 13.2 % (11.6-14.6); RBC Distribution Width SD 45.6 fl (35.1-43.9); Red Blood Count 4.19 M/mm3 (4.2-5.4); White Blood Count 10.2 K/mm3 (4.4-11.0)
[2024-06-26 18:26] LABS: International Normalized Ratio 2.3; Prothrombin Time (Protime)PT. 25.9 SECONDS (11.7-14.9)
[2024-06-26 19:13] LABS: ALB/GLOB Ratio 1.3 RATIO (0.9-2.4); AST(SGOT) 28 U/L (<=31); Alanine Aminotransfer ALT/SGPT 13 U/L (<=34); Albumin, Serum 3.9 g/dL (3.4-4.8); Alkaline Phosphatase 69 U/L (35-104); Anion Gap 15 (5-15); BUN 31 mg/dL (4-19); Calcium,Total 9.3 mg/dL (7.6-11.0); Carbon Dioxide 19.4 mmol/L (21.0-32.0); Chloride 103 mmol/L (98-108); Creatinine, Serum 1.31 mg/dL (0.70-1.20); EST Glomerular Filtration Rate 39 (>60); Estimated Creatinine Clearance 31.41 ml/min (50-250); Globulin 3.1 g/dL (2.2-4.2); Glucose 158 mg/dL (70-99); Potassium 4.5 mmol/L (3.3-5.1); Sodium Level 137 mmol/L (133-145); Total Bilirubin 1.03 mg/dL (0.00-1.30); Troponin T High Sensitivity 41 ng/L (<=14)
[2024-06-26 20:23] LABS: Color, Urine Straw (Yellow); Glucose, Dipstick Normal (Normal); Ketone-Dipstick Negative (Negative); Leukocyte Esterase-Dipstick Negative /ul (Negative); Nitrite-Dipstick Negative (Negative); Occult Blood-Urine 150 /ul (Negative); Protein-Dipstick 30 mg/dl (Negative); Specific Gravity, Urine 1.025 (1.002-1.030); Urine Clarity Sl. Cloudy (Clear); Urine Urobilinogen 1 mg/dl (Normal)
[2024-06-26 20:44] LABS: Urine Bilirubin Dipstick 1 mg/dL (Negative)
[2024-06-26 21:00] LABS: Bacteria 1+ /hpf (None Seen); Coarse Granular Cast 0-5 SEEN /lpf (0-5 /lpf); Hyaline Cast 0-5 SEEN /lpf (0-5); Mucous, Urine 1+ /hpf (<or=2+); Red Blood Cells-Urine 25-50 SEEN /hpf (0-5); Squamous Epithelial Cells - UA 0-5 SEEN /hpf (5-10); White Blood Cells 0-5 SEEN /hpf (0-5)
[2024-06-26 21:57] LABS: TROPONIN VARIANCE 2 HR 1; Troponin T High Sens 2 HR 42 ng/L (<=14)
[2024-06-26] MEDS: 0.9% Normal Saline (1000mL) 1,000 ML 1000 ML IV (23:24)
--- NOTE | 2024-06-26 23:36 | PCM.HP.STD ---
HPI - General General Date of Admission: 06/27/24 Date of Service: 06/26/24 Chief Complaint: Diarrhea, weakness, falls. HPI Narrative The patient is an 88 y/o F w/ PMHx: Valvular heart disease s/p AVR, HTN, HLD, Diabetes mellitus type II, Hypothyroidism, CKD stage III unclear subtype per GFR trending, Hx VTE, PAF/Flutter, Chronic Thrombocytopenia, GERD, JOHN, CAD s/p CABG who presents to the [facility] ED on 06/26/24 with history of loose stools that began on morning of day of presentation with no abdominal pain associated nor any nausea or emesis reporting that she had actually fallen out of bed the evening prior and laid on the floor until the morning eventually able to scoot to the stairwell and use the handrails to get up calling EMS following with increased fatigue and weakness with difficulty standing and ambulating with history of also falling 4 days prior to this hitting her left leg at that time with some bruising associated prompting eventual ED evaluation. She notes that she believes she did hit the back of her head when she fell last night but had no loss of consciousness. She denies any recent dyspnea, cough, fever or chills. Workup in the ED included T98.6 Oral, heart rate 90, BP 113/64, respiratory rate 18, 98% on room air with most recent repeat vitals heart rate 69, BP 1 3/59, respiratory rate 17, 94% on room air, CBC with WC 10.2, human 13.7, platelet 145 with left shift and lymphopenia, coags with INR 2.3, PT 25.9, PTT 45, CMP with carbon oxide 19.4, anion gap 15, BUN/creatinine 31/1.31, GFR 39, glucose 158, initial troponin 41 with 2-hour repeat troponin 42, urinalysis with cloudy urine, specific gravity 1.025, urine protein 30, occult blood 150, negative nitrite, negative leukocyte Estrace with urine RBCs 25-50 with 1+ urine bacteria, CT of the brain with no acute intracranial findings with mild generalized cerebral atrophy, chest x-ray with subtle right lower lobe airspace opacities concerning for infiltrate, plain film of the left tibia/fibula with no acute fracture subluxation with degenerative changes of the knee joint. Pending SARS COVID/influenza/RSV PCR upon request evaluation of patient, EKG with rate controlled atrial fibrillation with no acute evidence of ischemia. In the ED patient ministered 1 L normal saline as well as azithromycin 500 mg IV x 1, Rocephin 2 g IV x 1. Attempted to ambulate patient in the ED and she was unable to without significant assistance. 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 Wears hearing aid in both ears Non-smoker BiPAP (biphasic positive airway pressure) dependence Irregular heart beat History of cardioversion (~12/25/19) Balance problem Incontinence Abnormal stress test Mixed hyperlipidemia Essential hypertension Atherosclerotic heart disease of [place] coronary artery without angina pectoris Hypothyroidism Sciatic nerve pain DM II (diabetes mellitus, type II), controlled DVT (deep venous thrombosis) Basal cell carcinoma Arthritis HTN (hypertension) History of aortic valvular stenosis Paroxysmal supraventricular tachycardia Premature ventricular contraction Supraventricular tachycardia Dyspnea Long-term use of high-risk medication Pulmonary HTN JOHN (obstructive sleep apnea) Home Medications ?Medication ?Instructions ?Recorded ?Last Taken ?Type pravastatin 40 mg tablet 40 mg PO QHS 04/15/17 09/25/20 20:00 History omeprazole 40 mg capsule,delayed 40 mg PO DAILY Check with primary 08/15/20 Unknown History release doctor calcium carbonate 600 mg PO DAILY 07/23/21 Unknown History metformin 500 mg tablet,extended 500 mg PO DAILY 07/23/21 Unknown History release 24 hr spironolactone 50 mg tablet 50 mg PO DAILY 07/13/22 Unknown History cetirizine 10 mg tablet (Zyrtec) 10 mg PO DAILY PRN allergy 01/25/23 Unknown Rx symptoms #90 tabs losartan 25 mg tablet 25 mg PO BID #180 tabs 01/16/24 Unknown Rx biotin 10,000 mcg capsule 10,000 mcg PO DAILY 04/27/24 Unknown History cholecalciferol (vitamin D3) 25 25 mcg PO QDAY 04/27/24 Unknown History mcg (1,000 unit) tablet levothyroxine 125 mcg tablet 125 mcg PO QDAY 04/27/24 Unknown History oxybutynin chloride 5 mg 5 mg PO QDAY 04/27/24 Unknown History tablet,extended release 24 hr isosorbide mononitrate 60 mg 60 mg PO QHS 06/26/24 Unknown History tablet,extended release 24 hr warfarin 4 mg tablet 4 mg PO MOTUWETHFRSA 06/26/24 Unknown History warfarin 4 mg tablet 6 mg PO CRAMER 06/26/24 Unknown History Allergy/AdvReac Type Severity Reaction Status Date / Time celecoxib (From Celebrex) Allergy Intermediate Other - Verified 06/26/24 14:38 jittery & edema Family History Father Hypertension Mother CAD (coronary artery disease) CHF (congestive heart failure) Brother Colon cancer Surgical History History of left heart catheterization (LHC) (~04/10/19) History of aortic valve replacement with bioprosthetic valve (~11/10/05) Presence of aortocoronary bypass graft (~11/10/05) Hx of aortic valve replacement Social History (Updated 06/27/24 @ 00:[address] Yina Harman MD) household members: none Smoking Status: Never smoker second hand exposure: No alcohol intake: current alcohol intake frequency: holidays/special occasions only substance use type: does not use caffeine: Yes Type: coffee ROS ROS Narrative Admission Review of Systems: CONSTITUTIONAL: No weight loss, fever, chills, + weakness or fatigue. HEENT: Eyes: No visual loss, blurred vision, double vision or yellow sclerae. Ears, Nose, Throat: No hearing loss, sneezing, congestion, runny nose or sore throat. SKIN: No rash or itching, lesions, wounds except + very staged ecchymoses, abrasions. CARDIOVASCULAR: No chest pain, chest pressure or chest discomfort, palpitations, edema, orthopnea, syncopal events. RESPIRATORY: No shortness of breath, cough or sputum, wheezing, hemoptysis. GASTROINTESTINAL: + Lack of appetite/anorexia, diarrhea. No nausea, vomiting, abdominal pain, melena, BRBPR. GENITOURINARY: No dysuria, frequency, urgency or retention. NEUROLOGICAL: + Frequent falls. No headache, dizziness, syncope, paralysis, ataxia, numbness or tingling in the extremities, focal weakness, seizure. MUSCULOSKELETAL: + muscle, back pain, joint pain or stiffness. HEMATOLOGIC: + Chronic anemia, easy bleeding/bruising. LYMPHATICS: No enlarged nodes. No history of splenectomy. PSYCHIATRIC: No history of depression or anxiety. ENDOCRINOLOGIC: No reports of sweating, cold or heat intolerance. No polyuria or polydipsia. ALLERGIES: No history of asthma, hives, eczema or rhinitis. Vital Signs Vital Signs Vital Signs: 06/26/24 14:39 06/26/24 14:41 06/26/24 16:38 Temperature 98.6 F 98.6 F Temperature Source Oral Oral Pulse Rate 90 90 76 Respiratory Rate 18 18 Blood Pressure 113/64 113/64 115/46 L Blood Pressure Mean 80 80 69 Pulse Ox 98 98 94 Oxygen Delivery Method Room Air Room Air Room Air 06/26/24 18:00 06/26/24 20:00 06/26/24 22:00 Temperature Temperature Source Pulse Rate 85 82 69 Respiratory Rate 22 H 19 H 17 Blood Pressure 124/93 H 127/64 H 103/59 L Blood Pressure Mean 103 85 73 Pulse Ox 98 94 Oxygen Delivery Method Room Air Room Air Room Air Weight Weight: 173 lb 4.533 oz Body Mass Index (BMI) 27.9 Physical Exam Narrative Physical Examination: General: Awake, alert, oriented x 3 and cooperative, seated upright in b the ED ed in no apparent distress, fatigued appearing. Skin: Normal color, normal turgor, no icterus, no cyanosis except very staged ecchymoses, abrasion especially to the bilateral lower shins, left greater than right with recent falls. HEENT: AT/NC, EOMI, PERRLA, mildly dry MM, no carotid bruits or JVD noted. Lungs: Mildly diminished, greater bases, appropriate effort, no evidence of any distress, no rales, ronchi or wheezing. Heart: Irregular, rate controlled; no gallop, rub audible, + SM. Abdomen: Soft, NTTP, ND, normal BS, no appreciated HSM. Extremities: No cyanosis, no clubbing, bilateral lower extremity ankle to distal allen suspected chronic edema, see skin Neurological: Patient awake, alert, oriented as noted, cognitive function intact; pupils equally reactive to light and accommodation, cranial nerves grossly normal, moving all 4 extremities, no focal deficits, strength moderately to severely globally decreased. Psychiatric: Affect appears fatigued, no acute evidence of depressive or anxiety feelings. Results Lab / Micro Data 06/26/24 17:45 06/26/24 17:45 Labs: Laboratory Results - last 24 hr 06/26/24 17:45: WBC 10.2, RBC 4.19 L, Hgb 13.7, Hct 39.8, MCV 95.0, MCH 32.7 H, MCHC 34.4, RDW Std Deviation 45.6 H, RDW Coeff of Ellie 13.2, Plt Count 145 L, MPV 10.0, Immature Gran % (Auto) 0.500, Neut % (Auto) 88.1 H, Lymph % (Auto) 6.0 L, [place] % (Auto) 5.2, Eos % (Auto) 0.0, Baso % (Auto) 0.2, Absolute Neuts (auto) 9.0 H, Absolute Lymphs (auto) 0.61 L, Nucleated RBC % 0, PT 25.9 H, INR 2.3, APTT 45.0 H, Sodium 137, Potassium 4.5, Chloride 103, Carbon Dioxide 19.4 L, Anion Gap 15, BUN 31 H, Creatinine 1.31 H, Estim Creat Clear Calc 31.41 L, Est GFR (MDRD) Non-Af 39 L, BUN/Creatinine Ratio 24.0 H, Glucose 158 H, Calcium 9.3, Total Bilirubin 1.03, AST 28, ALT 13, Alkaline Phosphatase 69, Troponin T High Sens 41 H, Total Protein 7.0, Albumin 3.9, Globulin 3.1, Albumin/Globulin Ratio 1.3 06/26/24 20:14: Urine Color Straw, Urine Clarity Sl. Cloudy, Urine pH 5.0, Ur Specific [place] 1.025, Urine Protein 30 H, Urine Glucose (UA) Normal, Urine Ketones Negative, Urine Occult Blood 150 H, Urine Nitrite Negative, Urine Bilirubin 1 H, Urine Urobilinogen 1 H, Ur Leukocyte Esterase Negative, Urine RBC 25-50 SEEN, Urine WBC 0-5 SEEN, Ur Squamous Epith Cells 0-5 SEEN, Urine Bacteria 1+, Hyaline Casts 0-5 SEEN, Coarse Granular Casts 0-5 SEEN, Urine Mucus 1+ 06/26/24 21:29: Troponin T Hi Sens 2 Hr 42 H, Troponin T Hi Sens 2Hr Delta 1 Imaging Radiology Impression Brain CT 06/26/24 17:12 IMPRESSION: NO ACUTE FINDINGS One or more dose reduction techniques were used (e.g., Automated exposure control, adjustment of the mA and/or kV according to patient size, use of iterative reconstruction technique). [facility]Fib[facility] 06/26/24 17:13 IMPRESSION: No acute fracture or subluxation. Degenerative changes of the knee joint. Reading Location: [facility] Chest X-Ray 06/26/24 17:50 IMPRESSION: Subtle right lower lung airspace opacities, concerning for infiltrates. Reading [facility] Assessment & Plan Assessment/Plan (1) Pneumonia: PLAN: Plan The patient is an 88 y/o F w/ PMHx: Valvular heart disease s/p AVR, HTN, HLD, Diabetes mellitus type II, Hypothyroidism, CKD stage III unclear subtype per GFR trending, Hx VTE, PAF/Flutter, Chronic Thrombocytopenia, GERD, JOHN, CAD s/p CABG who presents to the [facility] ED on 06/26/24 with history of loose stools that began on morning of day of presentation with no abdominal pain associated nor any nausea or emesis reporting that she had actually fallen out of bed the evening prior and laid on the floor until the morning eventually able to scoot to the stairwell and use the handrails to get up calling EMS following with increased fatigue and weakness with difficulty standing and ambulating with history of also falling 4 days prior to this hitting her left leg at that time with some bruising associated prompting eventual ED evaluation. #1. Right lower lobe community-acquired pneumonia with resulting notable Adult FTT, Serial Falls, High risk return to home: Will admit to PCU given incidentally concurrently noted indeterminate cardiac enzyme to be cautious, PRN albuterol, maintain on Rocephin and Azithromycin, HOB, IS parameters w/ pending sputum cultures, full respiratory viral panel and urine antigens. PT/OT/case management consulted for discharge planning. CPK pending upon evaluation also given recent fall with downtime. #2. Indeterminate cardiac enzyme: Likely related with acute presentation, demand is noted, EKG with rate controlled atrial fibrillation without acute findings, admission troponin 41, repeat delta 42, will maintain on telemetry monitoring, continue cycle cardiac enzymes to be cautious, magnesium level requested. Aspirin cautiously given thrombocytopenia. If enzymes rise notably will request echocardiogram. #3. Chronic thrombocytopenia, unclear etiology: Admission platelets 145, previous baseline primarily 100-1 10, stable, continue to trend. #4. Microscopic hematuria: Urinalysis with evidence of microscopic hematuria, 1+ urine bacteria however negative nitrite and negative leukocyte Estrace as well as no urine RBCs. #5. Chronic Kidney Disease Stage III, unclear subtype per GFR trending: Admission BUN/Cr 31/1.31, GFR 39, baseline renal function 1.0-1.2 primarily, last noted 10/03/2023 creatinine 1.14, repeat BMP in AM. #6. CAD: Status post CABG 10/2005 with KERN to lateral circumflex, AVR with [employer] Biocor valve 11/10/2005 additionally. #7. PAF/Flutter: Continue patient home Coumadin regimen, trend INR, not on rate or rhythm agent per current list but clarifying. #8. Valvular heart disease: Status post bioprosthetic aortic valve with [employer] Biocor valve 11/10/2005, continued on Coumadin with INR upon presentation 2.3, continue to trend INR. Most recent echocardiogram noted 08/13/2021 with LV systolic function normal, EF 65%, severely enlarged LA, mildly enlarged RA, moderate 2+ MVI, mild TBI, stable appearing bioprosthetic AV apparatus, mild aortic stenosis, trivial PI, mildly dilated aortic root. #9. Diabetes mellitus type II with hyperglycemia: Hold oral home regimen, ADA diet, accu checks w/ ISS. #10. History of VTE: Patient with chart reported history of previous DVT, on Coumadin with also concurrent noted valve replacement, INR one 2.3 upon presentation, will continue to trend INR. #11. Hypertension: Continue home regimen including isosorbide, losartan for parameters as needed, PRN hydralazine. Given dehydration temporally holding spironolactone, add back once appropriate. #12. Hyperlipidemia: We will continue patient on statin therapy. #13. GERD: We will continue patient on PPI. #14. Hypothyroidism: Continue home levothyroxine regimen. #15. JOHN: Chart reported BiPAP nightly however patient has been noncompliant. #16. DVT prophylaxis: Will continue patient home Coumadin with INR trending. #17. CODE status: Patient ALLYSSA is her daughter Tracey and living will is living will is currently in place. Discussed CODE status at length including difference between FULL code, DNR-CCA and DNR-CC status. Following discussions about the differences in these status, requested Full Code status. Advanced Care Planning Face to Face Time: 16 minutes. Charges/Coding Visit Charges Inpatient E&M: 58699 Init Hosp L3 Procedures Hospitalists Procedures: 02367 Advncd Care Plan 30 Min
[2024-06-26] MEDS: Ceftriaxone 2 GM in 0.9% Normal Saline (50mL MB+) 50 ML IV (23:46)
[2024-06-27] VITALS (8 sets, daily range): BP systolic 116–139; BP diastolic 55–76; PULSE 66–82; RESP 16–96; TEMP 36.6–37; O2SAT 18–99; BMI 27.8; BMI 30.1
[2024-06-27] MEDS: Azithromycin 500 MG in 0.9% Normal Saline (250mL Bag) 250 ML 255 MG IV ×2 (00:16→23:54)
[2024-06-27 00:25] LABS: CPK Total, Creatine Kinase 429 U/L (24-195); Magnesium 1.5 mg/dL (1.5-2.2); TROPONIN VARIANCE 4 HR 3; Troponin T High Sens 4 HR 44 ng/L (<=14)
[2024-06-27] MEDS: 0.9% Normal Saline (1000mL) 1,000 ML 100 ML IV (02:10)
[2024-06-27] MEDS: Levothyroxine 125 MCG Tablet PO (04:04)
[2024-06-27 04:25] LABS: Bedside Glucose 101 mg/dL (74-106)
[2024-06-27 05:50] LABS: Absolute Lymphocyte Count 0.77 X10^3/uL (0.83-4.51); Absolute Neutrophil Count 4.9 X10^3/uL (2.0-7.7); Basophil# 0.02 X10^3/uL; Basophil% 0.3 % (0-1); Hematocrit 34.6 % (37-47); Hemoglobin 11.6 g/dL (12.0-15.0); Lymphocyte # 0.77 X10^3/ul (0.83-4.51); Lymphocyte % 12.5 % (19-41); Mean Corp Hgb Conc 33.5 g/dL (32-36); Mean Corpuscular Volume 95.6 fL (81-99); Mean Platelet Vol. 10.2 fl (6.2-12.0); Monocyte# 0.51 X10^3/uL; Monocyte% 8.3 % (0-10); NRBC Flagged by Analyzer 0 % (0-5); Neutrophil # 4.85 X10^3/uL (2.7-7.7); Neutrophil % 78.7 % (47-70); Platelet Count 118 K/mm3 (150-450); RBC Distribution Width CV 13.6 % (11.6-14.6); RBC Distribution Width SD 47.6 fl (35.1-43.9); Red Blood Count 3.62 M/mm3 (4.2-5.4); White Blood Count 6.2 K/mm3 (4.4-11.0)
[2024-06-27 06:10] LABS: ALB/GLOB Ratio 1.7 RATIO (0.9-2.4); AST(SGOT) 30 U/L (<=31); Alanine Aminotransfer ALT/SGPT 14 U/L (<=34); Albumin, Serum 3.5 g/dL (3.4-4.8); Alkaline Phosphatase 56 U/L (35-104); Anion Gap 13 (5-15); BUN 31 mg/dL (4-19); BUN/Creat Ratio 29.9 RATIO (10-20); Calcium,Total 8.3 mg/dL (7.6-11.0); Carbon Dioxide 20.6 mmol/L (21.0-32.0); Chloride 105 mmol/L (98-108); Cholesterol 134 mg/dL (<=200); Creatinine, Serum 1.04 mg/dL (0.70-1.20); EST Glomerular Filtration Rate 52 (>60); Estimated Creatinine Clearance 39.56 ml/min (50-250); Globulin 2.1 g/dL (2.2-4.2); Glucose 114 mg/dL (70-99); High Density Lipoprotein 44 mg/dL; Low Density Lipoprotein Calc. 69 mg/dL; Potassium 4.2 mmol/L (3.3-5.1); Protein, Total 5.6 g/dL (5.9-8.4); Sodium Level 138 mmol/L (133-145); Triglycerides 108 mg/dL; Very Low Density Lipoprotein 22 mg/dL (5-40); cholesterol:hdl ratio screen 3.05
[2024-06-27 06:27] LABS: International Normalized Ratio 2.3; Prothrombin Time (Protime)PT. 25.9 SECONDS (11.7-14.9)
[2024-06-27 08:56] LABS: Bedside Glucose 102 mg/dL (74-106)
[2024-06-27] MEDS: Menthol/Lanolin/Calamine/Znox 113 GM Tube 1 APPLIC TOPICAL ×3 (10:12→22:36)
[2024-06-27] MEDS: Pantoprazole Sodium 40 MG Tablet PO (10:13)
[2024-06-27] MEDS: Losartan Potassium 25 MG Tablet PO ×2 (10:13→22:36)
[2024-06-27] MEDS: Tolterodine Tartrate 2 MG CAP.SA PO (10:13)
[2024-06-27] MEDS: Isosorbide Mononitrate 60 MG Tablet PO (10:13)
--- NOTE | 2024-06-27 12:39 | PCM.PN.HOSP ---
Reason for Visit Reason for Visit: Diagnoses Pneumonia, unspecified organism (06/26/24) Subjective Subjective Patient is an 88-year-old lady with multiple comorbidities who presented with progressive generalized weakness associatedDiarrhea workup in the ED was unremarkable except for subtle right lower lung airspace opacities concerning for infiltrate and assessment of pneumonia possible viral made admitted to a monitored bed for subsequent management Objective Data Objective Data Vital Signs: Vital Signs Temp Pulse Resp BP Pulse Ox O2 Del Method 98.1 F 66 16 130/61 H 95 Room Air 06/27/24 06:27 06/27/24 08:00 06/27/24 06:27 06/27/24 06:27 06/27/24 06:27 06/27/24 09:54 Oxygen Delivery Method Room Air Weight: 85.1 kg Body Mass Index (BMI) 30.1 Intake & Output: Intake and Output for Last 24 Hours 06/25/24 06/26/24 06/27/24 23:59 23:59 23:59 Intake Total 500 / 1100 5 / 2235 Output Total 200 / 200 Balance 500 / 1100 2034 / 2034 Lab / Micro Data 06/27/24 04:57 06/27/24 04:57 Labs: Laboratory Results - last 24 hr 06/26/24 17:45: WBC 10.2, RBC 4.19 L, Hgb 13.7, Hct 39.8, MCV 95.0, MCH 32.7 H, MCHC 34.4, RDW Std Deviation 45.6 H, RDW Coeff of Ellie 13.2, Plt Count 145 L, MPV 10.0, Immature Gran % (Auto) 0.500, Neut % (Auto) 88.1 H, Lymph % (Auto) 6.0 L, [place] % (Auto) 5.2, Eos % (Auto) 0.0, Baso % (Auto) 0.2, Absolute Neuts (auto) 9.0 H, Absolute Lymphs (auto) 0.61 L, Nucleated RBC % 0, PT 25.9 H, INR 2.3, APTT 45.0 H, Sodium 137, Potassium 4.5, Chloride 103, Carbon Dioxide 19.4 L, Anion Gap 15, BUN 31 H, Creatinine 1.31 H, Estim Creat Clear Calc 31.41 L, Est GFR (MDRD) Non-Af 39 L, BUN/Creatinine Ratio 24.0 H, Glucose 158 H, Calcium 9.3, Total Bilirubin 1.03, AST 28, ALT 13, Alkaline Phosphatase 69, Troponin T High Sens 41 H, Total Protein 7.0, Albumin 3.9, Globulin 3.1, Albumin/Globulin Ratio 1.3 06/26/24 20:14: Urine Color Straw, Urine Clarity Sl. Cloudy, Urine pH 5.0, Ur Specific [place] 1.025, Urine Protein 30 H, Urine Glucose (UA) Normal, Urine Ketones Negative, Urine Occult Blood 150 H, Urine Nitrite Negative, Urine Bilirubin 1 H, Urine Urobilinogen 1 H, Ur Leukocyte Esterase Negative, Urine RBC 25-50 SEEN, Urine WBC 0-5 SEEN, Ur Squamous Epith Cells 0-5 SEEN, Urine Bacteria 1+, Hyaline Casts 0-5 SEEN, Coarse Granular Casts 0-5 SEEN, Urine Mucus 1+ 06/26/24 21:29: Troponin T Hi Sens 2 Hr 42 H, Troponin T Hi Sens 2Hr Delta 1 06/26/24 23:40: Magnesium 1.5, Total Creatine Kinase 429 H, Troponin T Hi Sens 4Hr 44 H, Troponin T Hi Sens 4Hr Delta 3 06/27/24 04:06: POC Glucose 101 06/27/24 04:57: WBC 6.2, RBC 3.62 L, Hgb 11.6 L, Hct 34.6 L, MCV 95.6, MCH 32.0, MCHC 33.5, RDW Std Deviation 47.6 H, RDW Coeff of Ellie 13.6, Plt Count 118 L, MPV 10.2, Immature Gran % (Auto) 0.200, Neut % (Auto) 78.7 H, Lymph % (Auto) 12.5 L, [place] % (Auto) 8.3, Eos % (Auto) 0.0, Baso % (Auto) 0.3, Absolute Neuts (auto) 4.9, Absolute Lymphs (auto) 0.77 L, Nucleated RBC % 0, PT 25.9 H, INR 2.3, Sodium 138, Potassium 4.2, Chloride 105, Carbon Dioxide 20.6 L, Anion Gap 13, BUN 31 H, Creatinine 1.04, Estim Creat Clear Calc 39.56 L, Est GFR (MDRD) Non-Af 52 L, BUN/Creatinine Ratio 29.9 H, Glucose 114 H, Calcium 8.3, Total Bilirubin 0.70, AST 30, ALT 14, Alkaline Phosphatase 56, Total Protein 5.6 L, Albumin 3.5, Globulin 2.1 L, Albumin/Globulin Ratio 1.7, Triglycerides 108, Cholesterol 134, LDL Cholesterol, Calc 69, VLDL Cholesterol 22, HDL Cholesterol 44, Cholesterol/HDL Ratio 3.05 06/27/24 08:33: POC Glucose 102 Micro: Microbiology 06/26/24 23:20 Mucosa - Nose SARS-CoV-2, Influenza & RSV (PCR) - Final 06/26/24 20:14 Urine Catheter - Catheter Legionella Antigen - Final 06/26/24 20:14 Urine Catheter - Catheter Streptococcus pneumoniae Antigen (M - Final Radiography Diagnostic Testing: Radiology Impression Brain CT 06/26/24 17:12 IMPRESSION: NO ACUTE FINDINGS One or more dose reduction techniques were used (e.g., Automated exposure control, adjustment of the mA and/or kV according to patient size, use of iterative reconstruction technique). Reading Location: [facility] Tibia/Fibula X-Ray 06/26/24 17:13 IMPRESSION: No acute fracture or subluxation. Degenerative changes of the knee joint. Reading Location: [facility] Chest X-Ray 06/26/24 17:50 IMPRESSION: Subtle right lower lung airspace opacities, concerning for infiltrates. Reading Location: [facility] Physical Exam Narrative GENERAL: cooperative HEENT: Atraumatic; normocephalic EYES; Anicteric, Normal Conjunctiva NECK; supple, normal thyroid, RESPIRATORY: Diminished to auscultation CARDIOVASCULAR: Regular S1 S2, GI: soft, normoactive bowel sounds, : No Renal angle tenderness; EXTREMITIES: No edema, no clubbing, MUSCULOSKELETAL: no muscle wasting NEURO: Awake; no lateralizing signs. SKIN: No Rash PSYCH; Flat affect Assessment & Plan Assessment/Plan (1) Pneumonia: PLAN: Plan Patient is an 88-year-old lady with multiple comorbidities who presented with progressive generalized weakness associatedDiarrhea workup in the ED was unremarkable except for subtle right lower lung airspace opacities concerning for infiltrate and assessment of pneumonia possible viral made admitted to a monitored bed for subsequent management 1. Acute debility ? Secondary to dehydration from profound diarrhea. Patient has been admitted to a monitored bed requested for PT OT eval and elementary school social worker to assist with discharge planning 2. Suspected pneumonia ? Possibly viral given associated GI symptoms. Imaging studies obtained on admission demonstrated subtle right lower lung airspace opacities, concerning for infiltrates. Initial workup including SARS-CoV-2 influenza and RSV so far negative to date. 3. Acute gastroenteritis ? Plan to treat symptomatically stool studies ordered on admission results pending 4. Microscopic hematuria ? Complete urinalysis did not show any evidence of infectious etiology patient is on warfarin 5. Indeterminate cardiac enzymes ? Secondary to demand ischemia from above patient presentation not consistent with ACS 6.Coronary artery disease ? With history of CABG in October 2005 patient remains on guideline directed medical therapy 7. Valvular heart disease ? With history of AV replacement with [employer] Biocor valve on 11/10/2005 8. Paroxysmal atrial fibrillation ? Rate controlled on systemic anticoagulation with warfarin ordered daily INR to guide dosing 9. Hypothyroidism ? Patient is on levothyroxine home dose continued 10. Dyslipidemia ?Patient is on statin therapy, continued at home dose 11. Hypertension ? Blood pressure controlled, home medications continued with dose adjustment as needed 12. Diabetes mellitus type 2 ? Patient is on metformin held on admission placed on [facility] ACHS with sliding scale coverage 13. History of previous VTE ? Patient remains on systemic anticoagulation 14. GERD ? On PPI 15. Obstructive sleep apnea ? Consistent use of PAP therapy encouraged 16. Anemia ? Secondary to chronic disorder monitoring H&H and transfuse if patient becomes symptomatic or hemoglobin falls below 7 17. Chronic kidney disease stage III ? Kidney function at baseline 18. DVT prophylaxis ? Patient is on systemic anticoagulation with warfarin continue Time spent in the patient's overall evaluation,decision-making process, review of diagnostic data, adjustment of management, discussion with other providers, nursing nursing and ancillary staff involved in patient's care documentation, 52 Minutes Charges/Coding Visit Charges Inpatient E&M: 72774 Subs Hosp L3
--- NOTE | 2024-06-27 13:25 | CASEMGMT ---
Addendum entered and electronically signed by Andria Moise RN 06/28/24 07:42: SNF: None previously HH: Had after CABG while staying at her daughter's in [place]. Does not recall the name of the company. Maicol Moise RN ACM Original Note: RN CM Discharge Planning Assessment: This RN CM meet Face to Face with patient for initial transition planning/care coordination assessment. RN CM introduced self and role at [facility], pt alert, oriented and voices understanding and is agreeable to participating in the assesment. Care providers, pharmacy, and demographics verified. LACE: strata 2 PCP: Dr. Oleary Specialists: Oswald Molina/Paige CELESTE, Dr. Rowland podiatry Preferred Pharmacy: [facility] but uses [facility] pharmacy for her heart meds Insurance: MCR A/B and [employer] secondary Prescription Benefit: yes Living Will/HPOA: yes, Daughter Tracey Lopez is 1st and son Nahum Canseco second (lives in [place]) LNOK: Daughter Tracey, sons Nahum and Matthew Living Arrangements: Pt lives in a split level home with 7 steps to the second floor and 6 to the lower floor. There are no steps to enter from the back which she uses and she has a grab bar at that entrance. Stairs have a handrail. Pt states her nephew lives in the basement but he does not provide her any assistance and cannot be relied upon to assist her if needed. ADLs/IADLs: pt states she completes these all independently. states her daughter does visit weekly and assists her with any needs. States son Matthew lives in [place] and he can assist if needed. Pt states she ambulates with a cane when in the community, uses her walkers in the house intermitently and her rollator when in the yard. Pt states she exercises daily (MWF at [employer] and T/H at [facility]). Transportation: pt drives. States her daughter will be picking her up at discharge. DME/HHC: standard walker, wheeled walker, rollator, 3 canes, walk in shower with grab bars and a hand held shower, comfort height toilet, lift chair, medical alert, and a glucometer with all needed supplies. Pt states she is interested in getting a new one that has cheaper strips and plans to discuss this with Dr. Oleary at her scheduled appointment for this Tuesday, 06/29. Plan: pt plans to return home at discharge. Pt states she was weak upon arrival but feels she is getting stronger. States she has been ambulating in her room with her cane. Discussed possible home care but explained homebound status requirement. Pt states she does not want to be homebound and would like to attend her appointments as scheduled on Tuesday and continue with her exercise at [facility] and cardiac rehab. PT/OT evals are ordered. Will follow for any recommendations. Maicol Moise RN ACM
[2024-06-27 14:49] LABS: Bedside Glucose 101 mg/dL (74-106)
[2024-06-27 17:32] LABS: Bedside Glucose 112 mg/dL (74-106)
--- NOTE | 2024-06-27 22:30 | NURSING ---
pt arrived to floor from boarding in the ED
[2024-06-27] MEDS: 0.9% Saline Lock 10 ML Syringe IV (22:36)
[2024-06-27] MEDS: Ceftriaxone 1 GM/50 ML BAG IV (22:36)
[2024-06-27] MEDS: Pravastatin 40 MG Tablet PO (22:37)
[2024-06-27 23:18] LABS: Bedside Glucose 135 mg/dL (74-106)
[2024-06-28 04:16] VITALS: BP 128/71; PULSE 78; RESP 16; TEMP 36.4; O2SAT 97
[2024-06-28 06:00] VITALS: BMI 28.3
[2024-06-28] MEDS: Levothyroxine 125 MCG Tablet PO (06:17)
[2024-06-28 06:22] LABS: Absolute Lymphocyte Count 0.93 X10^3/uL (0.83-4.51); Absolute Neutrophil Count 3.3 X10^3/uL (2.0-7.7); Basophil# 0.01 X10^3/uL; Basophil% 0.2 % (0-1); Eosinophil# 0.04 X10^3/uL; Eosinophils% 0.8 % (0-5); Hematocrit 31.4 % (37-47); Hemoglobin 10.8 g/dL (12.0-15.0); Lymphocyte # 0.93 X10^3/ul (0.83-4.51); Lymphocyte % 18.8 % (19-41); Mean Corp Hgb Conc 34.4 g/dL (32-36); Mean Corpuscular Hgb 32.5 pg (27.0-32.0); Mean Corpuscular Volume 94.6 fL (81-99); Mean Platelet Vol. 9.7 fl (6.2-12.0); Monocyte# 0.62 X10^3/uL; Monocyte% 12.5 % (0-10); NRBC Flagged by Analyzer 0 % (0-5); Neutrophil # 3.33 X10^3/uL (2.7-7.7); Neutrophil % 67.3 % (47-70); Platelet Count 122 K/mm3 (150-450); RBC Distribution Width CV 13.3 % (11.6-14.6); RBC Distribution Width SD 45.6 fl (35.1-43.9); Red Blood Count 3.32 M/mm3 (4.2-5.4)
[2024-06-28 06:33] LABS: International Normalized Ratio 2.1; Prothrombin Time (Protime)PT. 23.8 SECONDS (11.7-14.9)
[2024-06-28 06:56] LABS: Bedside Glucose 121 mg/dL (74-106)
[2024-06-28 07:46] LABS: Magnesium 1.6 mg/dL (1.5-2.2); Phosphorus 2.6 mg/dL (2.7-4.5)
[2024-06-28 07:51] LABS: Anion Gap 13 (5-15); BUN 21 mg/dL (4-19); BUN/Creat Ratio 27.5 RATIO (10-20); Calcium,Total 8.2 mg/dL (7.6-11.0); Carbon Dioxide 17.1 mmol/L (21.0-32.0); Chloride 105 mmol/L (98-108); Creatinine, Serum 0.77 mg/dL (0.70-1.20); EST Glomerular Filtration Rate 75 (>60); Estimated Creatinine Clearance 51.89 ml/min (50-250); Glucose 120 mg/dL (70-99); Potassium 3.9 mmol/L (3.3-5.1); Sodium Level 135 mmol/L (133-145)
--- NOTE | 2024-06-28 08:38 | DS.PCM_ITS ---
Providers Date of Admission: 06/26/24 Date of Discharge: 06/28/24 Primary Care Physician: Dr. Ajit Oleary MD Reason For Visit: PNA, ADULT FTT, INDETERM ,TROP Diagnosis Discharge Diagnosis (1) Pneumonia: Status: Acute Code(s): J18.9 - Pneumonia, unspecified organism Plan Patient is an 88-year-old lady with multiple comorbidities who presented with progressive generalized weakness associatedDiarrhea workup in the ED was unremarkable except for subtle right lower lung airspace opacities concerning for infiltrate and assessment of pneumonia possible viral made admitted to a monitored bed for subsequent management 1. Acute debility ? Secondary to dehydration from profound diarrhea. Patient has been admitted to a monitored bed requested for PT OT eval and social security benefits interviewer to assist with discharge planning 2. Suspected pneumonia ? Possibly viral given associated GI symptoms. Imaging studies obtained on admission demonstrated subtle right lower lung airspace opacities, concerning for infiltrates. Initial workup including SARS-CoV-2 influenza and RSV so far negative to date. 3. Acute gastroenteritis ? Plan to treat symptomatically stool studies ordered on admission results pending ? 06/28/2024 symptoms 4. Microscopic hematuria ? Complete urinalysis did not show any evidence of infectious etiology patient is on warfarin 5. Indeterminate cardiac enzymes ? Secondary to demand ischemia from above patient presentation not consistent with ACS 6.Coronary artery disease ? With history of CABG in October 2005 patient remains on guideline directed medical therapy 7. Valvular heart disease ? With history of AV replacement with [employer] valve on 11/10/2005 8. Paroxysmal atrial fibrillation ? Rate controlled on systemic anticoagulation with warfarin ordered daily INR to guide dosing 9. Hypothyroidism ? Patient is on levothyroxine home dose continued 10. Dyslipidemia ?Patient is on statin therapy, continued at home dose 11. Hypertension ? Blood pressure controlled, home medications continued with dose adjustment as needed 12. Diabetes mellitus type 2 ? Patient is on metformin held on admission placed on [facility] ACHS with sliding scale coverage 13. History of previous VTE ? Patient remains on systemic anticoagulation 14. GERD ? On PPI 15. Obstructive sleep apnea ? Consistent use of PAP therapy encouraged 16. Anemia ? Secondary to chronic disorder monitoring H&H and transfuse if patient becomes symptomatic or hemoglobin falls below 7 17. Chronic kidney disease stage III ? Kidney function at baseline 18. DVT prophylaxis ? Patient is on systemic anticoagulation with warfarin continue 19. Hypophosphatemia ? Corrected Time spent in the patient's overall evaluation,decision-making process, review of diagnostic data, adjustment of management, discussion with other providers, nursing nursing and ancillary staff involved in patient's care documentation, 35 Minutes Medications at Discharge Home Medications pravastatin 40 mg tablet 40 mg PO QHS 04/15/17 omeprazole 40 mg capsule,delayed release 40 mg PO DAILY Check with primary doctor 08/15/20 calcium carbonate 600 mg PO DAILY 07/23/21 metformin 500 mg tablet,extended release 24 hr 500 mg PO DAILY 07/23/21 spironolactone 50 mg tablet 50 mg PO DAILY 07/13/22 cetirizine 10 mg tablet (Zyrtec) 10 mg PO DAILY PRN allergy symptoms #90 tabs 01/25/23 losartan 25 mg tablet 25 mg PO BID #180 tabs 01/16/24 biotin 10,000 mcg capsule 10,000 mcg PO DAILY 04/27/24 cholecalciferol (vitamin D3) 25 mcg (1,000 unit) tablet 25 mcg PO QDAY 04/27/24 levothyroxine 125 mcg tablet 125 mcg PO QDAY 04/27/24 oxybutynin chloride 5 mg tablet,extended release 24 hr 5 mg PO QDAY 04/27/24 isosorbide mononitrate 60 mg tablet,extended release 24 hr 60 mg PO QHS 06/26/24 warfarin 4 mg tablet 4 mg PO MOTUWETHFRSA 06/26/24 warfarin 4 mg tablet 6 mg PO CRAMER 06/26/24 doxycycline hyclate 100 mg capsule 100 mg PO BID #14 caps 06/28/24 potassium, sodium phosphates 280 mg-160 mg-250 mg oral powder packet 1 packet PO BID #60 ea 06/28/24 Physical Exam Narrative GENERAL: cooperative HEENT: Atraumatic; normocephalic EYES; Anicteric, Normal Conjunctiva NECK; supple, normal thyroid, RESPIRATORY: Diminished to auscultation CARDIOVASCULAR: Regular S1 S2, GI: soft, normoactive bowel sounds, : No Renal angle tenderness; EXTREMITIES: No edema, no clubbing, MUSCULOSKELETAL: no muscle wasting NEURO: Awake; no lateralizing signs. SKIN: No Rash PSYCH; Flat affect Weight / BMI Weight Weight: 80.1 kg Body Mass Index (BMI) 28.3 ABG / Lab / Microbiology Data 06/28/24 06:01 06/28/24 06:01 Laboratory: Laboratory Results - last 24 hr 06/27/24 08:33: POC Glucose 102 06/27/24 12:57: POC Glucose 101 06/27/24 17:14: POC Glucose 112 H 06/27/24 22:54: POC Glucose 135 H 06/28/24 06:01: WBC 5.0, RBC 3.32 L, Hgb 10.8 L, Hct 31.4 L, MCV 94.6, MCH 32.5 H, MCHC 34.4, RDW Std Deviation 45.6 H, RDW Coeff of Ellie 13.3, Plt Count 122 L, MPV 9.7, Immature Gran % (Auto) 0.400, Neut % (Auto) 67.3, Lymph % (Auto) 18.8 L , [place] % (Auto) 12.5 H, Eos % (Auto) 0.8, Baso % (Auto) 0.2, Absolute Neuts (auto) 3.3, Absolute Lymphs (auto) 0.93, Nucleated RBC % 0, PT 23.8 H, INR 2.1, Sodium 135, Potassium 3.9, Chloride 105, Carbon Dioxide 17.1 L, Anion Gap 13, B UN 21 H, Creatinine 0.77, Estim Creat Clear Calc 51.89, Est GFR (MDRD) Non-Af 75, BUN/Creatinine Ratio 27.5 H, Glucose 120 H, Calcium 8.2, Phosphorus 2.6 L, Magnesium 1.6 06/28/24 06:28: POC Glucose 121 H Microbiology: Microbiology 06/27/24 13:00 Stool Clostridioides difficile (PCR) - Final 06/26/24 23:20 Mucosa - Nose SARS-CoV-2, Influenza & RSV (PCR) - Final 06/26/24 20:14 Urine Catheter - Catheter Legionella Antigen - Final 06/26/24 20:14 Urine Catheter - Catheter Streptococcus pneumoniae Antigen (M - Final D/C Instructions Discharge Diet: 1800 Calorie Control Diet Discharge Activity: Return to Normal Activity Call your doctor if you observe: Fever of 101 or Higher, Shortness of breath, Fainting spells and Chest pain DC O2, CPAP, BIPAP Needs Home O2 Discharge instructions: No Meaningful Use Info Meaningful Use Meaningful Use Diagnoses (Choose all that apply): None applicable Ischemic Stroke Statin Dosing Therapy Reference: STATIN DOSE THERAPY REFERENCE: * Patients > 75 years receive moderate or high dose statin therapy. * Patients 75 years or YOUNGER should receive HIGH intensity statin dose unless contraindicated. You will be required to document reason for non-treatment if statin daily dose does not meet guidelines. HIGH DOSE STATIN THERAPY DAILY Atorvastatin > than or = to 40 mg Rosuvastatin > than or = to 20 mg Amlodipine + Atorvastatin > than or = to 2.5/40 mg Ezetimibe + Simvastatin 10/80 mg Simvastatin 80mg Discharge Plan Admission Admit Date/Time: 06/26/24 23:37 Attending Provider: Juan Manuel Johnson Primary Care Provider: Ajit Oleary Consulting Providers: Yina Harman Discharge Orders/Prescriptions Prescriptions: New potassium, sodium phosphates 280-160-250 mg Powder In Packet 1 packet PO BID Qty: 60 0RF doxycycline hyclate 100 mg capsule 100 mg PO BID Qty: 14 0RF Continued pravastatin 40 mg tablet 40 mg PO QHS omeprazole 40 mg capsule,delayed release(DR/EC) 40 mg PO DAILY calcium carbonate 600 mg calcium (1,500 mg) tablet 600 mg PO DAILY metformin 500 mg tablet extended release 24 hr 500 mg PO DAILY spironolactone 50 mg tablet 50 mg PO DAILY Patient Comments: Take 1 tablet by mouthddaily cetirizine [Zyrtec] 10 mg tablet 10 mg PO DAILY PRN (Reason: allergy symptoms) Qty: 90 3RF biotin 10,000 mcg capsule 10,000 mcg PO DAILY levothyroxine 125 mcg tablet 125 mcg PO QDAY oxybutynin chloride 5 mg tablet extended release 24hr 5 mg PO QDAY cholecalciferol (vitamin D3) 25 mcg (1,000 unit) tablet 25 mcg PO QDAY warfarin 4 mg tablet 6 mg PO CRAMER [facility] 4 [facility] Protocol: Dose Management Condition: Tuesday Dose/Route: 4 mg Instruction: 1 x 4 mg tablet Condition: Tuesday Dose/Route: 4 mg Instruction: 1 x 4 mg tablet Condition: Tuesday Dose/Route: 6 mg Instruction: 1.5 x 4 mg tablets Condition: Tuesday Dose/Route: 4 mg Instruction: 1 x 4 mg tablet Condition: Dose/Route: 4 mg Instruction: 1 x 4 mg tablet Condition: Tuesday Dose/Route: 4 mg Instruction: 1 x 4 mg tablet Condition: Tuesday Dose/Route: 4 mg Instruction: 1 x 4 mg tablet Protocol Text: Adjustment Start Date: 06/14/24 INR Value: 2.4 INR Date: 06/14/24 Recheck Date: 07/14/24 Rx Instructions: 4mg daily and 2mg (1/2 tab) on Sundays; or use as directed isosorbide mononitrate 60 mg tablet extended release 24 hr 60 mg PO QHS losartan 25 mg tablet 25 mg PO BID Qty: 180 3RF Referrals / Follow Up: Ajit Oleary MD [Primary Care Provider] - In 1 Week Disposition Disposition (needs filled in before D/C Order can be placed): Home, Self Care Charges/Coding Visit Charges Inpatient E&M: 97933 Disch Hosp >30min
[2024-06-28 09:12] VITALS: BP 127/68; PULSE 73; RESP 16; TEMP 36.6; O2SAT 98
[2024-06-28] MEDS: Losartan Potassium 25 MG Tablet PO (09:23)
[2024-06-28] MEDS: Tolterodine Tartrate 2 MG CAP.SA PO (09:23)
[2024-06-28] MEDS: Isosorbide Mononitrate 60 MG Tablet PO (09:23)
[2024-06-28] MEDS: Pantoprazole Sodium 40 MG Tablet PO (09:23)
--- NOTE | 2024-06-28 10:15 | CASEMGMT ---
Addendum entered by Lynnette Romero 06/28/24 10:20: Per nurse, pt indep in room. Original Note: Pt with dc order in. JACINTO VACA into pt room, pt has not had therapy evals. Pt states she would like to return to [facility] at dc and denies any homegoing needs. Pt states she feels strong enough to do so. Requested nursing ambulate pt prior to dc. Pt states her dtr is coming at 11 to pick her up. Pt aware RN NOLA wants to make sure she can walk safely to go home. Pt verbalizes understanding.
[2024-06-28 10:52] VITALS: O2SAT 98
[2024-06-28] MEDS: Na Biphos/Potassium Phosphate PACKET 1 PACKET PO (10:58)
== END 2024-06-28 11:40 | disposition home or self-care (01) | DRG 194 ==
LOC: ED 23:40 → PCU 06-27 02:03 → MS2 06-27 22:15
PROVIDERS: Admitting Provider Family Medicine; Emergency Provider Emergency Medicine; PCP Family Medicine; Visit Provider Internal Medicine
DX: J18.9 Pneumonia, unspecified organism (principal); I24.89 Other forms of acute ischemic heart disease; D69.6 Thrombocytopenia, unspecified; N18.30 Chronic kidney disease, stage 3 unspecified; E11.22 Type 2 diabetes mellitus with diabetic chronic kidney disease; E03.9 Hypothyroidism, unspecified; I12.9 Hypertensive chronic kidney disease with stage 1 through stage 4 chronic kidney disease, or unspecified chronic kidney disease; I48.0 Paroxysmal atrial fibrillation; I25.10 Atherosclerotic heart disease of native coronary artery without angina pectoris; G47.33 Obstructive sleep apnea (adult) (pediatric); K21.9 Gastro-esophageal reflux disease without esophagitis; K52.9 Noninfective gastroenteritis and colitis, unspecified; E78.5 Hyperlipidemia, unspecified; E11.65 Type 2 diabetes mellitus with hyperglycemia; R53.81 Other malaise; Z79.01 Long term (current) use of anticoagulants; Z79.84 Long term (current) use of oral hypoglycemic drugs; Z79.899 Other long term (current) drug therapy; Z95.1 Presence of aortocoronary bypass graft; Z86.718 Personal history of other venous thrombosis and embolism
CPT/HCPCS: 36415; 70450; 71045; 73590; 80048; 80053; 80061; 81001; 82550; 82962; 83735; 84100; 84484; 85025; 85610; 85730; 87449; 87493; 87506; 87631; 93005; 94668; 99285; A4216; J0696

== ENCOUNTER → 2024-06-29 | Outpatient (CLI) | payer MEDICARE, OTHER, SELFPAY ==
[2024-06-29 10:58] LABS: Absolute Lymphocyte Count 1.34 X10^3/uL (0.83-4.51); Absolute Neutrophil Count 4.7 X10^3/uL (2.0-7.7); Basophil# 0.02 X10^3/uL; Basophil% 0.3 % (0-1); Eosinophil# 0.03 X10^3/uL; Eosinophils% 0.4 % (0-5); Hematocrit 35.8 % (37-47); Hemoglobin 12.1 g/dL (12.0-15.0); Lymphocyte # 1.34 X10^3/ul (0.83-4.51); Mean Corp Hgb Conc 33.8 g/dL (32-36); Mean Corpuscular Hgb 32.2 pg (27.0-32.0); Mean Corpuscular Volume 95.2 fL (81-99); Mean Platelet Vol. 10.1 fl (6.2-12.0); Monocyte# 0.62 X10^3/uL; Monocyte% 9.3 % (0-10); NRBC Flagged by Analyzer 0 % (0-5); Neutrophil # 4.66 X10^3/uL (2.7-7.7); Neutrophil % 69.6 % (47-70); Platelet Count 169 K/mm3 (150-450); RBC Distribution Width CV 13.3 % (11.6-14.6); RBC Distribution Width SD 46.7 fl (35.1-43.9); Red Blood Count 3.76 M/mm3 (4.2-5.4); White Blood Count 6.7 K/mm3 (4.4-11.0)
[2024-06-29 12:38] LABS: Free T3 1.5 pg/mL (2.18-3.98)
== END | disposition home or self-care (01) ==
LOC: MFPLAB 08:39
PROVIDERS: PCP Family Medicine; Referring Provider Family Medicine; Visit Provider Family Medicine
DX: E03.9 Hypothyroidism, unspecified (principal); T14.8XXA Other injury of unspecified body region, initial encounter
CPT/HCPCS: 36415; 84439; 84443; 84481; 85025

== ENCOUNTER 2024-07-12 07:22 | Outpatient (RCR) | payer MEDICARE, OTHER, SELFPAY ==
[2024-07-12 07:38] LABS: INR Fingerstick 2.3
== END 2024-07-12 18:00 | disposition home or self-care (01) ==
LOC: LAB 07:22
PROVIDERS: PCP Family Medicine; Referring Provider Nurse Practitioner Gerontology; Visit Provider Nurse Practitioner Gerontology
DX: I48.0 Paroxysmal atrial fibrillation (principal); Z79.01 Long term (current) use of anticoagulants
CPT/HCPCS: 36416; 85610

== ENCOUNTER 2024-07-19 08:00 | Outpatient (RCR) | payer SELFPAY | END 2024-07-23 23:59 | LOC: CR 08:00 | PROVIDERS: PCP Family Medicine; Referring Provider Internal Medicine Cardiovascular Disease; Visit Provider Internal Medicine Cardiovascular Disease | DX: Z00.00 Encounter for general adult medical examination without abnormal findings (principal) ==

== ENCOUNTER 2024-08-07 07:15 | Outpatient (RCR) | payer MEDICARE, OTHER, SELFPAY ==
[2024-08-07 07:40] LABS: INR Fingerstick 2.6; Prothrombin Time Fingerstick 27.9 SEC (11.7-14.9)
== END 2024-08-22 18:00 | disposition home or self-care (01) ==
LOC: LAB 07:15
PROVIDERS: PCP Family Medicine; Referring Provider Nurse Practitioner Gerontology; Visit Provider Nurse Practitioner Gerontology
DX: Z79.01 Long term (current) use of anticoagulants; I48.0 Paroxysmal atrial fibrillation
CPT/HCPCS: 36416; 85610

== ENCOUNTER 2024-08-21 08:00 | Outpatient (RCR) | payer SELFPAY | END 2024-08-22 23:59 | LOC: CR 08:00 | PROVIDERS: PCP Family Medicine; Referring Provider Internal Medicine Cardiovascular Disease; Visit Provider Internal Medicine Cardiovascular Disease | DX: Z00.00 Encounter for general adult medical examination without abnormal findings (principal) ==

== ENCOUNTER 2024-09-06 07:04 | Outpatient (RCR) | payer MEDICARE, OTHER, SELFPAY ==
[2024-09-06 07:15] LABS: INR Fingerstick 2.7; Prothrombin Time Fingerstick 28.2 SEC (11.7-14.9)
== END 2024-09-06 18:00 | disposition home or self-care (01) ==
LOC: LAB 07:04
PROVIDERS: PCP Family Medicine; Referring Provider Nurse Practitioner Gerontology; Visit Provider Nurse Practitioner Gerontology
DX: Z79.01 Long term (current) use of anticoagulants; I48.0 Paroxysmal atrial fibrillation
CPT/HCPCS: 36416; 85610

== ENCOUNTER 2024-09-20 08:00 | Outpatient (RCR) | payer SELFPAY | END 2024-09-22 23:59 | LOC: CR 08:00 | PROVIDERS: PCP Family Medicine; Referring Provider Internal Medicine Cardiovascular Disease; Visit Provider Internal Medicine Cardiovascular Disease | DX: Z00.00 Encounter for general adult medical examination without abnormal findings (principal) ==

== ENCOUNTER → 2024-10-04 | Outpatient (CLI) | payer MEDICARE, OTHER, SELFPAY ==
[2024-10-04 12:48] LABS: ALB/GLOB Ratio 1.5 RATIO (0.9-2.4); AST(SGOT) 16 U/L (<=31); Alanine Aminotransfer ALT/SGPT 8 U/L (<=34); Alkaline Phosphatase 87 U/L (35-104); Anion Gap 11 (5-15); BUN 22 mg/dL (4-19); Calcium,Total 9.2 mg/dL (7.6-11.0); Carbon Dioxide 22.7 mmol/L (21.0-32.0); Chloride 103 mmol/L (98-108); Cholesterol 145 mg/dL (<=200); EST Glomerular Filtration Rate 55 (>60); Free T3 2.9 pg/mL (2.18-3.98); Globulin 2.7 g/dL (2.2-4.2); Glucose 93 mg/dL (70-99); High Density Lipoprotein 47 mg/dL; Low Density Lipoprotein Calc. 76 mg/dL; Potassium 4.7 mmol/L (3.3-5.1); Protein, Total 6.7 g/dL (5.9-8.4); Sodium Level 137 mmol/L (133-145); Thyroid Stim Hormone (TSH) 0.725 uIU/mL (0.300-4.200); Total Bilirubin 0.87 mg/dL (0.00-1.30); Triglycerides 111 mg/dL; Very Low Density Lipoprotein 22 mg/dL (5-40); cholesterol:hdl ratio screen 3.07
== END | disposition home or self-care (01) ==
LOC: MFPLAB 10:37
PROVIDERS: PCP Family Medicine; Referring Provider Family Medicine; Visit Provider Family Medicine
DX: E11.9 Type 2 diabetes mellitus without complications (principal); E03.9 Hypothyroidism, unspecified
CPT/HCPCS: 36415; 80053; 80061; 84439; 84443; 84481

== ENCOUNTER 2024-10-09 07:15 | Outpatient (RCR) | payer MEDICARE, OTHER, SELFPAY ==
[2024-10-09 07:26] LABS: INR Fingerstick 4.2; Prothrombin Time Fingerstick 41.7 SEC (11.7-14.9)
[2024-10-09 09:39] LABS: International Normalized Ratio 2.4; Prothrombin Time (Protime)PT. 26.4 SECONDS (11.7-14.9)
== END 2024-10-09 18:00 | disposition home or self-care (01) ==
LOC: LAB 07:15
PROVIDERS: PCP Family Medicine; Referring Provider Nurse Practitioner Gerontology; Visit Provider Nurse Practitioner Gerontology
DX: Z79.01 Long term (current) use of anticoagulants (principal); I48.0 Paroxysmal atrial fibrillation
CPT/HCPCS: 36415; 36416; 85610

== ENCOUNTER 2024-10-18 08:00 | Outpatient (RCR) | payer SELFPAY | END 2024-10-22 23:59 | LOC: CR 08:00 | PROVIDERS: PCP Family Medicine; Referring Provider Internal Medicine Cardiovascular Disease; Visit Provider Internal Medicine Cardiovascular Disease | DX: Z00.00 Encounter for general adult medical examination without abnormal findings (principal) ==

== ENCOUNTER → 2024-10-31 | Outpatient (CLI) | payer MEDICARE, OTHER, SELFPAY ==
--- NOTE | 2024-10-31 12:36 | VDLE_ITS ---
Reason For Study Reason For Study: LLE Pain RIGHT LEFT FV is compressible, spontaneous, phasic, competent Unable to visualize Lt GSV. Pt has history of GSV and demonstrates normal augmentation. stripping. Procedure CFV is compressible, spontaneous, phasic, competent, This is a venous duplex using B-mode, color flow and and demonstrates normal augmentation. spectral Doppler. FV is compressible, spontaneous, phasic, competent Exam performed in department. and demonstrates normal augmentation. The exam was diagnostic. POP V is compressible, spontaneous, phasic, competent A preliminary report was called and/or faxed to and demonstrates normal augmentation. [facility] office. T/P Trunk is compressible. PTV is compressible. LT PerV is compressible. VL/Venous Duplex US, Unilateral Interpretation Summary Deep veins of the left lower extremity are patent and compressible segmentally. There is no evidence of left lower extremity deep vein thrombosis. Ordering Physician: Ajit Oleary Referring Physician: Ajit Oleary Performed By: Maynor Graf RVT
== END | disposition home or self-care (01) ==
LOC: CVS 12:31
PROVIDERS: PCP Family Medicine; Referring Provider Family Medicine; Visit Provider Family Medicine
DX: M79.605 Pain in left leg (principal)
CPT/HCPCS: 93971

== ENCOUNTER → 2024-10-31 | Outpatient (CLI) | payer MEDICARE, OTHER, SELFPAY ==
[2024-10-31 15:27] LABS: Hematocrit 35.7 % (37-47); Hemoglobin 11.6 g/dL (12.0-15.0); Immature Granulocytes Count 0.010 X10^3/uL (0.0-0.0); Mean Corp Hgb Conc 32.5 g/dL (32-36); Mean Corpuscular Volume 95.2 fL (81-99); Mean Platelet Vol. 10.2 fl (6.2-12.0); NRBC Flagged by Analyzer 0 % (0-5); Platelet Count 159 K/mm3 (150-450); RBC Distribution Width CV 14.2 % (11.6-14.6); RBC Distribution Width SD 49.3 fl (35.1-43.9); Red Blood Count 3.75 M/mm3 (4.2-5.4); White Blood Count 5.5 K/mm3 (4.4-11.0)
[2024-10-31 15:58] LABS: Prothrombin Time (Protime)PT. 28.4 SECONDS (11.7-14.9)
== END | disposition home or self-care (01) ==
LOC: MFPLAB 11:54
PROVIDERS: PCP Family Medicine; Referring Provider Family Medicine; Visit Provider Family Medicine
DX: R39.89 Other symptoms and signs involving the genitourinary system (principal); T14.8XXA Other injury of unspecified body region, initial encounter
CPT/HCPCS: 36415; 85025; 85610; 87077; 87086; 87088; 87186

== ENCOUNTER 2024-11-22 07:30 | Outpatient (RCR) | payer MEDICARE, OTHER, SELFPAY ==
[2024-11-06 08:22] LABS: Prothrombin Time (Protime)PT. 36.8 SECONDS (11.7-14.9)
[2024-11-13 07:21] LABS: INR Fingerstick 5.0
[2024-11-13 07:56] LABS: Prothrombin Time (Protime)PT. 45.7 SECONDS (11.7-14.9)
[2024-11-15 08:58] LABS: INR Fingerstick 3.2
== END 2024-11-22 20:49 | disposition home or self-care (01) ==
LOC: LAB 07:30
PROVIDERS: Physician Assistant Medical; PCP Family Medicine; Referring Provider Nurse Practitioner Gerontology; Visit Provider Nurse Practitioner Gerontology
DX: Z79.01 Long term (current) use of anticoagulants (principal); I48.0 Paroxysmal atrial fibrillation
CPT/HCPCS: 36415; 36416; 85610

== ENCOUNTER 2024-11-22 08:00 | Outpatient (RCR) | payer SELFPAY | END 2024-11-22 23:59 | LOC: CR 08:00 | PROVIDERS: PCP Family Medicine; Referring Provider Internal Medicine Cardiovascular Disease; Visit Provider Internal Medicine Cardiovascular Disease | DX: Z00.00 Encounter for general adult medical examination without abnormal findings (principal) ==

== ENCOUNTER 2024-12-06 07:26 | Outpatient (RCR) | payer MEDICARE, OTHER, SELFPAY ==
[2024-12-06 07:34] LABS: INR Fingerstick 2.2
== END 2024-12-06 18:00 | disposition home or self-care (01) ==
LOC: LAB 07:26
PROVIDERS: PCP Family Medicine; Referring Provider Nurse Practitioner Gerontology; Visit Provider Nurse Practitioner Gerontology
DX: Z79.01 Long term (current) use of anticoagulants (principal); I48.0 Paroxysmal atrial fibrillation
CPT/HCPCS: 36416; 85610

== ENCOUNTER → 2024-12-14 | Outpatient (CLI) | payer MEDICARE, OTHER, SELFPAY | END | disposition home or self-care (01) | LOC: MFPLAB 12:13 | PROVIDERS: PCP Family Medicine; Referring Provider Family Medicine; Visit Provider Family Medicine | DX: N39.0 Urinary tract infection, site not specified (principal) | CPT/HCPCS: 87077; 87086; 87088; 87186 ==

== ENCOUNTER 2024-12-20 08:00 | Outpatient (RCR) | payer SELFPAY | END 2024-12-23 23:59 | LOC: CR 08:00 | PROVIDERS: PCP Family Medicine; Referring Provider Internal Medicine Cardiovascular Disease; Visit Provider Internal Medicine Cardiovascular Disease | DX: Z00.00 Encounter for general adult medical examination without abnormal findings (principal) ==

== ENCOUNTER → 2025-01-04 | Outpatient (CLI) | payer SELFPAY ==
[2025-01-04 10:53] LABS: Free T3 2.5 pg/mL (2.18-3.98)
== END | disposition home or self-care (01) ==
LOC: MFPLAB 08:37
PROVIDERS: PCP Family Medicine; Referring Provider Family Medicine; Visit Provider Family Medicine
DX: E03.9 Hypothyroidism, unspecified (principal)
CPT/HCPCS: 36415; 84439; 84443; 84481

== ENCOUNTER 2025-01-10 07:07 | Outpatient (RCR) | payer MEDICARE, SELFPAY ==
[2025-01-03 10:41] LABS: INR Fingerstick 1.6
[2025-01-10 07:13] LABS: INR Fingerstick 2.0
== END 2025-01-22 18:00 | disposition home or self-care (01) ==
LOC: LAB 07:07
PROVIDERS: PCP Family Medicine; Referring Provider Nurse Practitioner Gerontology; Visit Provider Nurse Practitioner Gerontology
DX: Z79.01 Long term (current) use of anticoagulants (principal); I48.0 Paroxysmal atrial fibrillation
CPT/HCPCS: 36416; 85610

== ENCOUNTER 2025-01-22 08:00 | Outpatient (RCR) | payer SELFPAY | END 2025-01-22 23:59 | LOC: CR 08:00 | PROVIDERS: PCP Family Medicine; Referring Provider Internal Medicine Cardiovascular Disease; Visit Provider Internal Medicine Cardiovascular Disease | DX: Z00.00 Encounter for general adult medical examination without abnormal findings (principal) ==

== ENCOUNTER 2025-02-21 08:00 | Outpatient (RCR) | payer SELFPAY | END 2025-02-22 23:59 | LOC: CR 08:00 | PROVIDERS: PCP Family Medicine; Referring Provider Internal Medicine Cardiovascular Disease; Visit Provider Internal Medicine Cardiovascular Disease | DX: Z00.00 Encounter for general adult medical examination without abnormal findings (principal) ==

== ENCOUNTER 2025-02-21 08:46 | Outpatient (RCR) | payer MEDICARE, SELFPAY ==
[2025-01-24 07:40] LABS: INR Fingerstick 2.2
== END 2025-02-21 18:00 | disposition home or self-care (01) ==
LOC: LAB 08:46
PROVIDERS: PCP Family Medicine; Referring Provider Nurse Practitioner Gerontology; Visit Provider Nurse Practitioner Gerontology
DX: Z79.01 Long term (current) use of anticoagulants (principal); I48.0 Paroxysmal atrial fibrillation
CPT/HCPCS: 36416; 85610

== ENCOUNTER 2025-03-08 06:54 | Outpatient (CLI) | payer MEDICARE, OTHER, SELFPAY ==
[2025-03-08 08:36] LABS: Prothrombin Time (Protime)PT. 15.1 SECONDS (11.7-14.9)
== END 2025-03-08 23:59 | disposition home or self-care (01) ==
LOC: LAB 06:56
PROVIDERS: PCP Family Medicine; Referring Provider Podiatrist; Visit Provider Podiatrist
DX: L97.512 Non-pressure chronic ulcer of other part of right foot with fat layer exposed (principal); Z79.01 Long term (current) use of anticoagulants
CPT/HCPCS: 36415; 85610

== ENCOUNTER 2025-03-19 08:00 | Outpatient (RCR) | payer SELFPAY | END 2025-03-24 23:59 | LOC: CR 08:00 | PROVIDERS: PCP Family Medicine; Referring Provider Internal Medicine Cardiovascular Disease; Visit Provider Internal Medicine Cardiovascular Disease | DX: Z00.00 Encounter for general adult medical examination without abnormal findings (principal) ==

== ENCOUNTER → 2025-03-19 | Outpatient (CLI) | payer MEDICARE, OTHER, SELFPAY ==
[2025-03-19 11:06] LABS: Free T3 2.4 pg/mL (2.18-3.98)
== END | disposition home or self-care (01) ==
PROVIDERS: PCP Family Medicine; Referring Provider Family Medicine; Visit Provider Family Medicine
DX: E03.9 Hypothyroidism, unspecified (principal)
CPT/HCPCS: 36415; 84439; 84443; 84481

== ENCOUNTER 2025-03-20 10:48 | Outpatient (RCR) | payer MEDICARE, OTHER, SELFPAY ==
[2025-03-20 11:11] LABS: INR Fingerstick 2.3
== END 2025-03-23 18:00 | disposition home or self-care (01) ==
LOC: LAB 10:48
PROVIDERS: PCP Family Medicine; Referring Provider Nurse Practitioner Gerontology; Visit Provider Nurse Practitioner Gerontology
DX: Z79.01 Long term (current) use of anticoagulants (principal); I48.0 Paroxysmal atrial fibrillation
CPT/HCPCS: 36416; 85610

== ENCOUNTER 2025-04-16 07:10 | Outpatient (RCR) | payer MEDICARE, SELFPAY ==
[2025-04-16 07:19] LABS: INR Fingerstick 2.1
== END 2025-04-16 18:00 | disposition home or self-care (01) ==
LOC: LAB 07:10
PROVIDERS: PCP Family Medicine; Referring Provider Nurse Practitioner Gerontology; Visit Provider Nurse Practitioner Gerontology
DX: Z79.01 Long term (current) use of anticoagulants (principal); I48.0 Paroxysmal atrial fibrillation
CPT/HCPCS: 36416; 85610

== ENCOUNTER 2025-04-23 08:00 | Outpatient (RCR) | payer SELFPAY | END 2025-04-24 23:59 | LOC: CR 08:00 | PROVIDERS: PCP Family Medicine; Referring Provider Internal Medicine Cardiovascular Disease; Visit Provider Internal Medicine Cardiovascular Disease | DX: Z00.00 Encounter for general adult medical examination without abnormal findings (principal) ==